=== PATIENT | male | born 1945 | race Caucasian/White ===

== ENCOUNTER → 2018-05-18 | Outpatient (CLI) | payer MEDICARE ==
--- NOTE | 2018-05-18 11:53 | US ---
EXAMINATION TYPE: US liver DATE OF EXAM: 05/18/2018 COMPARISON: NONE CLINICAL HISTORY: 73-year-old male R16.0 Hepatomegaly. TECHNIQUE: Multiple sonographic images of the right upper quadrant are obtained. FINDINGS: EXAM MEASUREMENTS: Liver Length: 12.6 cm Gallbladder Wall: 0.3 cm CBD: 0.2 cm Right Kidney: 11.4 X 5.6 X 5.1 cm Pancreas: Portions of the pancreatic neck and body are visualized. Pancreatic head and tail suboptim ally visualized due to shadowing from bowel gas. Liver: Normal size. No focal lesion seen. Gallbladder: wnl Evidence for sonographic Scott's sign: no CBD: wnl Right Kidney: upper lateral simple cortical cyst =1.3 x 1.3 x 1.4cm. No hydronephrosis. IMPRESSION: No focal liver lesion. Liver measures 12.6 cm which is normal size.
== END | disposition home or self-care (01) ==
LOC: RADUSWWP 07:44
PROVIDERS: ATTEND Internal Medicine Cardiovascular Disease
DX: R16.0 Hepatomegaly, not elsewhere classified (principal)
CPT/HCPCS: 76705

== ENCOUNTER → 2020-04-08 | Outpatient (CLI) | payer MEDICARE ==
[2020-04-08 09:29] LABS: HCT 42.1 % (39.0-53.0); HGB 14.2 gm/dL (13.0-17.5); MCH 32.7 pg (25.0-35.0); MCHC 33.7 g/dL (31.0-37.0); MCV 96.8 fL (80.0-100.0); Mean Platelet Volume 7.9; Platelet Count 152 k/uL (150-450); RBC 4.35 m/uL (4.30-5.90); RDW 12.9 % (11.5-15.5); WBC 7.1 k/uL (3.8-10.6)
[2020-04-08 17:58] LABS: African American GFR (CKD) 84.4 (60.0-200.0); Anion Gap 6.8 mmol/L (4.00-12.00); Calcium 9.2 mg/dL (8.7-10.3); Carbon Dioxide 28.2 mmol/L (21.6-31.8); Non-African American GFR(CKD) 72.8 (60.0-200.0); Potassium 4.5 mmol/L (3.5-5.5)
== END | disposition home or self-care (01) ==
LOC: LABMAIN 08:44
PROVIDERS: ATTEND Internal Medicine Interventional Cardiology
DX: I25.10 Atherosclerotic heart disease of native coronary artery without angina pectoris (principal); N18.9 Chronic kidney disease, unspecified
CPT/HCPCS: 36415; 80048; 85027

== ENCOUNTER 2020-04-24 09:59 | Inpatient (IN) | payer MEDICARE ==
[2020-04-19 12:13] VITALS: BMI 35.7
[~2020-04-24 09:59] MED LIST: ALPRAZolam 0.25 MG TAB PO PRN; ALPRAZolam 0.5 MG TAB PO PRN; ASPIRIN 325 MG TAB PO STA; NITROGLYCERIN SL TABS 0.4 MG TAB SUBLINGUAL PRN; SODIUM CHLORIDE 0.9% 1,000 ML in EMPTY BAG 1 BAG IV ONE
[2020-04-24] MEDS ORDERED: SODIUM CHLORIDE 0.9% 1,000 ML IV ONE (10:16)
[2020-04-24 11:00] LABS: INR 1.2 (<1.2); Prothrombin Time 11.8 sec (9.0-12.0)
[2020-04-24] MEDS ORDERED: MIDAZOLAM 2 MG/2 ML VIAL IVP ONE (12:11)
[2020-04-24] MEDS ORDERED: LIDOCAINE 1% INJ 10MG/ML (20 ML MDV) SQ ONE ×2 (12:11→12:22)
[2020-04-24] MEDS ORDERED: IOPAMIDOL-370 100ML BTL INJ ONE ×2 (12:44→13:23)
[2020-04-24] MEDS ORDERED: HEPARIN SODIUM 1,000 UN/ML (10ML VL) IV ONE ×2 (13:02→13:16)
[2020-04-24] MEDS ORDERED: NITROGLYCERIN 1000MCG/10ML SYRINGE INTRACORON ONE (13:17)
[2020-04-24] MEDS ORDERED: SODIUM CHLORIDE 0.9% 1,000 ML IV SCH (13:45)
--- NOTE | 2020-04-24 16:27 | CC ---
CARDIAC CATHETERIZATION REPORT DATE OF SERVICE: 04/24/2020 PROCEDURE: 1. Left heart catheterization and coronary angiography. 2. IFR assessment of mid LAD lesion. PERFORMED BY: Dr. James Young. Moderate conscious sedation time was 75 minutes. Patient was administered Versed. Oxygen saturation, hemodynamics and EKG were monitored closely. CLINICAL INFORMATION: Mr. Stokes is a 75-year-old gentleman with history of hypertension, hyperlipidemia, and known history of CAD with total occlusion of RCA. He had a cardiac cath in February 2018 at [facility], which revealed total occlusion of RCA with collaterals from the left system. No significant disease of the circumflex with a 50% LAD disease. Because of significant abnormality in the stress test with an inferior wall fixed defect as well as apical reversible defect, he was advised coronary angiography after due discussion regarding risks, benefits, and options. He was advised that I would do a diagnostic catheterization only and then based on findings, may consider a staged intervention if necessary. PROCEDURE NOTE: Under local anesthesia and strict aseptic precautions, I tried to get access to the right radial. I was able to get the access but could not thread the wire. I therefore abandoned and went from the right femoral approach. A 6-Amharic introducer was placed in the right femoral artery under strict aseptic precautions and local anesthesia. Using a standard left Alexandra catheter, I performed selective coronary angiography of the left system. A standard right Alexandra catheter was used to perform selective coronary angiography of the right coronary artery and an LV pressures was also checked with the same catheter. LV gram was not performed. Following this, I went ahead and performed the IFR assessment of LAD. Five thousand (5000) units of heparin was given intravenously. A JL4 guide catheter was used to cannulate the left coronary artery. I used a Verrata wire and with difficulty I was able to get into the LAD because the wire kept going into the diagonal branch. IFR assessment was performed after zeroing and normalization. IFR was found to be significantly abnormal at 0.78 and 0.87. Decision was made to perform staged intervention. An option of bypass surgery would also be discussed. Following this, the wire, sheath and the guide catheter were taken out and manual compression used to secure hemostasis. There was a small hematoma. Patient will be discharged home this evening if stable. FemoStop will be applied. CARDIAC CATHETERIZATION FINDINGS: Left ventricular end-diastolic pressure was about 13-15 mmHg without any gradient across the aortic valve. CORONARY ANGIOGRAPHY FINDINGS: RIGHT CORONARY ARTERY: This vessel is totally occluded, seen as a stump without much antegrade flow. LEFT MAIN CORONARY ARTERY: This is a short patent to moderately calcified vessel, has no significant disease and bifurcates into LAD, circumflex and very small ramus intermedius. Left main itself is free of significant disease. LEFT ANTERIOR DESCENDING CORONARY ARTERY: This is a calcified vessel. It was a very calcified vessel, this vessel gives off a high diagonal branch very proximally and then gives off a septal branch and at the origin of septal branch there is an eccentric 60%- 70% calcified LAD lesion after which the caliber improves and the LAD runs all the way to the apex and supplies a fair amount of myocardium. There are minor diffuse irregularities distally. The LAD provides rich collaterals to the RCA that is totally occluded. It actually opacifies the entire PDA branch. The diagonal branch that comes off from the LAD just before the lesion also has a tight blockage probably up to 80% as it comes off from the main LAD. The origin is very difficult to visualize and this appears to be a decent sized diagonal branch. RAMUS INTERMEDIUS: This is a small vessel free of significant disease. LEFT POSTERIOR CIRCUMFLEX CORONARY ARTERY: Technically a nondominant vessel, minor irregularities, no significant disease. FINAL IMPRESSION: This patient has a total occlusion of RCA, a dominant vessel that is filled by collaterals from the left side and these are rich collaterals. Mostly LAD provides all the collaterals. Normal filling pressures. No significant gradient across the aortic valve. The LAD has a mid lesion of about 70% positive and significant lesion based on the IFR assessment of 0.78 and 0.87. The circumflex and ramus have minor irregularities. No significant disease. The first diagonal branch of LAD also has significant disease and this comes off before the LAD lesion. RECOMMENDATION: I am recommending that we will perform a staged revascularization procedure. Option of percutaneous versus surgical revascularization will be discussed with the patient in the office later this week. I expect he will be discharged later on today. We will watch the groin closely. MMODL / IJN: [id number] /
[2020-04-24 18:27] LABS: Potassium 4.4 mmol/L (3.5-5.1)
[2020-04-24] MEDS: METOPROLOL TARTRATE 50 MG TAB PO SCH (20:02)
[2020-04-24] MEDS: lisinopriL 20 MG TAB PO SCH (20:02)
[2020-04-24] MEDS ORDERED: ZOLPIDEM 5 MG TAB PO PRN (22:19)
[2020-04-24 22:43] LABS: HCT 36.7 % (39.0-53.0); HGB 12.2 gm/dL (13.0-17.5); MCH 32.4 pg (25.0-35.0); MCHC 33.1 g/dL (31.0-37.0); MCV 97.7 fL (80.0-100.0); Mean Platelet Volume 8.4; Platelet Count 156 k/uL (150-450); RBC 3.75 m/uL (4.30-5.90); RDW 12.6 % (11.5-15.5); WBC 14.2 k/uL (3.8-10.6)
[2020-04-24] MEDS: HYDROmorphone 0.5 MG/0.5 ML SYRINGE IVP PRN (23:19)
[2020-04-25] MEDS: HYDROmorphone 0.5 MG/0.5 ML SYRINGE IVP PRN ×2 (04:17→09:24)
[2020-04-25 06:05] LABS: Basophils % (A) 0 %; Eosinophils % (A) 0 %; HCT 33.5 % (39.0-53.0); HGB 10.8 gm/dL (13.0-17.5); Lymphocytes # (A) 1.3 k/uL (1.0-4.8); Lymphocytes % (A) 12 %; MCH 31.8 pg (25.0-35.0); MCHC 32.3 g/dL (31.0-37.0); MCV 98.3 fL (80.0-100.0); Mean Platelet Volume 8.7; Monocytes # (A) 0.8 k/uL (0-1.0); Monocytes % (A) 7 %; Neutrophils % (A) 79 %; Platelet Count 153 k/uL (150-450); RBC 3.41 m/uL (4.30-5.90); RDW 12.8 % (11.5-15.5); WBC 11.5 k/uL (3.8-10.6)
[2020-04-25 06:20] LABS: Calcium 8.5 mg/dL (8.4-10.2); Potassium 4.5 mmol/L (3.5-5.1)
--- NOTE | 2020-04-25 08:19 | US ---
EXAMINATION TYPE: US lower ext pseudo artery RT DATE OF EXAM: 04/25/2020 COMPARISON: NONE CLINICAL HISTORY: right groin hematoma post heart cath. Right groin pain and bruising, heart cath 1 d ay ago EXAM PERFORMED: Grayscale and color Doppler duplex imaging performed of the groin, post cardiac tracee ter to assess for pseudoaneurysm. SIDE PERFORMED: Right Color and Waveform Doppler performed to assess for the presence of pseudoaneurysm; Is there ultrasound evidence of a pseudoaneurysm: yes, measuring 3.8 x 1.6 x 2.2cm. Neck measures 0. 2 cm. Is there evidence of AV shunting: no Nonenlarged 2.3 x 1.4 x 4.4 cm right inguinal lymph node noted. IMPRESSION: 3.8 x 1.6 x 2.2 cm pseudoaneurysm within the right groin, with 0.2 cm neck.
[2020-04-25] MEDS ORDERED: NON FORMULARY DRUG (Glucosamine/Chondr Su A Sod [Osteo Bi-Flex Caplet] 1 EACH Tablet) PO SCH (09:00)
[2020-04-25] MEDS ORDERED: NON FORMULARY DRUG (Omega-3 Fatty Acids/Fish Oil [Fish Oil 1,000 Mg Softgel] 1 EACH Capsul PO SCH (09:00)
[2020-04-25] MEDS ORDERED: WARFARIN 7.5 MG TAB PO SCH (09:00)
--- NOTE | 2020-04-25 09:16 | DS ---
DISCHARGE SUMMARY DATE OF ADMISSION: 04/24/2020 DATE OF DISCHARGE: 04/25/2020 DIAGNOSES: 1. Unstable angina. 2. History of known prior NC. This patient was admitted for elective cardiac cath because of an abnormal stress test suggestive of old inferior NC with christy-infarct ischemia in the distal anteroapical wall as well. He was brought in for the procedure after holding his Coumadin. During the procedure, which was uneventful, he had a coronary angiography performed, LV pressures checked and also I performed FFR of LAD and noted that the IFR was abnormal at 0.78 and 0.87. Post procedure when the sheath was pulled, he had a hematoma and Hep- Lock Femstop was applied. In the extended stay unit, also he had some bleeding requiring holding manual pressure again. However, this morning he is asymptomatic. There is a large area of ecchymosis but a hematoma appears to be small to moderate in size. There is no bruit. Pulses still palpable very well. Blood pressure is 118/70, pulse rate is 70 per minute sinus. No complaints of chest pain or shortness of breath. JVD is evident, S1-S2 heard normally, short systolic murmur noted. Lungs revealed decent air entry. Abdomen is soft. The right groin area has a large area of ecchymosis, small to moderate-sized hematoma, but there is no evidence of any bruit. Distal pulses are palpable. Hemoglobin is 10.8, a drop of about 1.2 g noted. The patient has been hydrated through the night. He is having an ultrasound of the right groin today and if there is a pseudoaneurysm that is comfortable, we will we will request Radiology to see if they can do a compression of the neck of the pseudoaneurysm to close this. If he stable after that, he will be discharged. Until then, I will hold the Coumadin and continue his other medications. If stable, he will be discharged later on today on the same home medications. We will hold Coumadin for the next 48 hours. MMODL / IJN: [id number] /
[2020-04-25] MEDS: LORATADINE 10 MG TAB PO SCH (11:14)
[2020-04-25] MEDS: CHOLECALCIFEROL 1,000 UNIT TAB PO SCH (11:14)
[2020-04-25] MEDS: METOPROLOL TARTRATE 50 MG TAB PO SCH ×2 (11:14→20:25)
[2020-04-25] MEDS: ASCORBIC ACID 500 MG TAB PO SCH (11:14)
[2020-04-25] MEDS: lisinopriL 20 MG TAB PO SCH ×2 (11:14→20:25)
[2020-04-25] MEDS: FUROSEMIDE 20 MG TAB PO SCH (11:14)
[2020-04-25] MEDS: ATORVASTATIN 40 MG TAB PO SCH (11:14)
[2020-04-25] MEDS ORDERED: ONDANSETRON 4 MG/2 ML VIAL IVP STA (12:12)
[2020-04-25] MEDS ORDERED: THROMBIN (BOVINE) 5,000 UNIT VIAL MISCELLANE STA (15:23)
[2020-04-25] MEDS: ASPIRIN 81 MG PO SCH (15:24)
[2020-04-25] MEDS: ACETAMINOPHEN TAB 325 MG TAB PO PRN ×2 (15:34→20:26)
--- NOTE | 2020-04-25 18:23 | US ---
EXAMINATION TYPE: US compress pseudoaneurysm RT DATE OF EXAM: 04/25/2020 COMPARISON: Right groin aneurysm 04/25/2020 at 7:02 AM CLINICAL HISTORY: right groin pseudoaneurysm compression. PROCEDURE PERFORMED: Ultrasound guided compression of right groin pseudoaneurysm SIDE PERFORMED: Right Procedure discussed with the patient. The risks, benefits, and alternatives were discussed with the p atient and all questions were answered. Ultrasound was used to localize the right groin aneurysm and apply continuous visualization during multiple rounds of compression lasting 2 minutes each. There wa s visualization of decreased flow within the pseudoaneurysm sac. Throughout the procedure there was p ulsatile flow within the underlying femoral artery, and both palpable and Doppler dorsalis pedis puls e to the right foot. After the conclusion of the procedure there was significant decreased flow withi n the pseudoaneurysm sac, with persistent flow within the 2 mm neck. IMPRESSION: Decreased flow within the pseudoaneurysm sac status post ultrasound-guided compression, with persiste nt flow within the 2 mm pseudoaneurysm neck. Repeat ultrasound pending.
--- NOTE | 2020-04-25 18:48 | US ---
EXAMINATION TYPE: US lower ext pseudo artery RT DATE OF EXAM: 04/25/2020 COMPARISON: Right groin pseudoaneurysm ultrasound comparison 04/25/2020. CLINICAL HISTORY: post pseudoaneurysm compression. Reassess after compression performed by Dr Rosi walker 2 hours prior EXAM PERFORMED: Grayscale and color Doppler duplex imaging performed of the groin, post cardiac tracee ter and postultrasound-guided compression to assess for pseudoaneurysm. SIDE PERFORMED: right Color and Waveform Doppler performed to assess for the presence of pseudoaneurysm; Is there ultrasound evidence of a pseudoaneurysm: yes, patient still has patency within pseudo in ri ght groin IMPRESSION: Persistent right groin pseudoaneurysm status post ultrasound-guided compression.
--- NOTE | 2020-04-25 19:36 | US ---
EXAMINATION TYPE: US inj pseudoaneurysm DATE OF EXAM: 04/25/2020 COMPARISON: Right groin pseudoaneurysm ultrasounds 04/25/2020, right groin pseudoaneurysm ultrasound- guided compression 04/25/2020. CLINICAL HISTORY: Right groin pseudoaneurysm status post cardiac catheterization 04/24/2020. Status p ost unsuccessful ultrasound guided compression of right pseudoaneurysm 04/25/2020. SET PAINTER: Dr. Renee Stanford PROCEDURE: The procedure was discussed with the patient. All risks, benefits, and alternatives were discussed an d all questions were answered. Informed consent was obtained. Maximal barrier technique was utilized. Ultrasound using sterile technique. The skin overlying the ri t groin pseudoaneurysm was localized with ultrasound and the overlying skin prepped and draped. Lid ocaine used for local anesthesia. 50 U of thrombin were injected into the right pseudoaneurysm under continuous ultrasound visualization. No immediate complication. Postprocedure imaging demonstrates no flow within the pseudoaneurysm sac or neck. During and after the procedure the right foot dorsalis p hiral pulse was maintained, both by palpable and Doppler techniques. IMPRESSION: Status post ultrasound-guided thrombin injection of right groin pseudoaneurysm. Follow-up ultrasound pending 04/26/2020. IMPRESSION:
[2020-04-26 01:41] VITALS: RESP 20
[2020-04-26 04:56] LABS: Prothrombin Time 10.6 sec (9.0-12.0)
[2020-04-26] MEDS ORDERED: BENZONATATE 100 MG CAP PO PRN (07:56)
--- NOTE | 2020-04-26 08:33 | US ---
EXAMINATION TYPE: US lower ext pseudo artery RT DATE OF EXAM: 04/26/2020 COMPARISON: Right lower extremity pseudoaneurysm study one day earlier. CLINICAL HISTORY: pseudoaneurysm s/p cath, s/p thrombin injection. assess groin post thrombin injecti on yesterday EXAM PERFORMED: Grayscale and color Doppler duplex imaging performed of the groin, post cardiac tracee ter to assess for pseudoaneurysm. SIDE PERFORMED: right Color and Waveform Doppler performed to assess for the presence of pseudoaneurysm; Is there ultrasound evidence of a pseudoaneurysm: internal echoes represent thrombus from injection 16hrs prior, no active pseudo seen this am. IMPRESSION: 5 images saved show no suspicious residual blood flow on color images to suggest residual pseudoaneurysm. Satisfactory clotting of pseudoaneurysm noted.
[2020-04-26] MEDS: ASCORBIC ACID 500 MG TAB PO SCH (08:39)
[2020-04-26] MEDS: FUROSEMIDE 20 MG TAB PO SCH (08:39)
[2020-04-26] MEDS: LORATADINE 10 MG TAB PO SCH (08:39)
[2020-04-26] MEDS: ATORVASTATIN 40 MG TAB PO SCH (08:39)
[2020-04-26] MEDS: CHOLECALCIFEROL 1,000 UNIT TAB PO SCH (08:39)
[2020-04-26] MEDS: METOPROLOL TARTRATE 50 MG TAB PO SCH (08:39)
[2020-04-26] MEDS: lisinopriL 20 MG TAB PO SCH (08:39)
[2020-04-26] MEDS: ASPIRIN 81 MG PO SCH (08:39)
[2020-04-26] MEDS: ACETAMINOPHEN TAB 325 MG TAB PO PRN (08:40)
--- NOTE | 2020-04-26 09:23 | US ---
EXAMINATION TYPE: US carotid duplex BILAT DATE OF EXAM: 04/26/2020 COMPARISON: NONE CLINICAL HISTORY: cardiovascular workup post cath . No h/o stroke. EXAM MEASUREMENTS: RIGHT: Peak Systolic Velocity (PSV) cm/sec ----- Right CCA: 75.3 ----- Right ICA: 113.7 ----- Right ECA: 68.5 ICA/CCA ratio: 1.5 RIGHT: End Diastole cm/sec ----- Right CCA: 19.5 ----- Right ICA: 38.9 ----- Right ECA: 7.5 LEFT: Peak Systolic Velocity (PSV) cm/sec ----- Left CCA: 78.7 ----- Left ICA: 95.4 ----- Left ECA: 97.4 ICA/CCA ratio: 1.2 LEFT: End Diastole cm/sec ----- Left CCA: 25.0 ----- Left ICA: 47.4 ----- Left ECA: 17.1 VERTEBRALS (direction of flow): Right Vertebral: Antegrade Left Vertebral: Antegrade Rhythm: Normal IMPRESSION: No evidence of hemodynamically significant stenosis bilaterally. Criteria for Assigning % of Stenosis / Diameter reduction (Estimation based on the indirect measurements of the internal carotid artery velocities (ICA PSV). 1. Normal (no stenosis)=ICA PSV < 125 cm/s: ratio < 2.0: ICA EDV<40 cm/s. 2. Less than 50% stenosis=ICA PSV < 125 cm/s: ratio < 2.0: ICA EDV<40 cm/s. 3. 50 to 69% stenosis=ICA PSV of 125 to 230 cm/s: ration 2.0 ? 4.0: ICA EDV 40-100 cm/s. 4. Greater than 70% stenosis to near occlusion= ICA PSV > 230 cm/s: ratio > 4.0: ICA EDV > 100 cm/s. 5. Near occlusion= ICA PSV velocities may be low or undetectable: variable ratio and ICA EDV. 6. Total occlusion=unable to detect flow.
--- NOTE | 2020-04-26 09:48 | P.GSCN ---
<Suma Wing - Last Filed: 04/26/20 11:54> History of Present Illness Consult date: 04/26/20 Reason for Consult: CAD Requesting physician: Prince Young History of present illness: This is a 75 year old male who follows with Dr. Reyes for primary care and Dr. DESIREE Young for cardiology. He has a previous medical history of coronary art tres disease with previous myocardial infarction, hypertension, hyperlipidemia, paroxysmal atrial fibrillation on Coumadin for anticoagulation, ischemic cardiomyopathy, and current tobacco dependence. He describes symptoms of vertigo beginning 2 years ago and workup discovered prior "silent" myocardial infarction. He underwent heart catheterization at [facility] in [place] with results demonstrating complete occlusion of the RCA with collaterals from the left side, 50%LAD stenosis, and 80% diagonal stenosis. He was treated medically and continued to follow with cardiology. He continues to have occasional vertigo as well as exertional shortness of breath which he contributes to old age and smoking, and which he states has not gotten worse and does joel when he rests. He denies any chest pain or any other symptoms. He did have a stress test earlier this month which was abnormal and he was recommended to have repeat heart catheterization. He was brought to [facility] for elective catheterization and was found to have proximal LAD 35% stenosis, mid LAD with 70% stenosis, diagonal stenosis 80%, [employer] BUILDER of the RCA with collateral fill from the left side. IFR was completed of the LAD which was significant at 0.78 and 0.87. He was to be discharged to home to discuss re vascularization options, however he developed a pseudoaneurysm requiring thrombin injection. Due to his multivessel coronary artery disease, Dr. Alexander from cardiothoracic surgery was consulted for surgical recommendations. Review of Systems Review of systems was completed and was negative except as noted - Constitutional Constitutional Comment(s): complains of significant pain to right groin - Cardiovascular Reports as per HPI, Reports dyspnea on exertion - Neurological Reports as per HPI, Reports vertigo Past Medical History Past Medical History: Atrial Fibrillation, Coronary Artery Disease (CAD), COPD, Hyperlipidemia, Hypertension, Myocardial Infarction (AL) Last Myocardial Infarction Date:: 2017 History of Any Multi-Drug Resistant Organisms: None Reported Past Surgical History: Heart Catheterization, Hernia Repair, Orthopedic Surgery Additional Past Surgical History / Comment(s): rt knee torn meniscus repair, rt knee replacement Past Anesthesia/Blood Transfusion Reactions: No Reported Reaction, Motion Sickness Past Psychological History: No Psychological Hx Reported Smoking Status: Current every day smoker Past Alcohol Use History: None Reported Additional Past Alcohol Use History / Comment(s): smoker since age 11 1/2ppd Past Drug Use History: None Reported - Past Family History Father Family Medical History: Unable to Obtain Mother Family Medical History: Dementia Additional Family Medical History / Comment(s): from aneurysm Medications and Allergies Home Medications Medication Instructions Recorded Confirmed Type Ascorbic Acid [Vitamin C] 1,000 mg PO DAILY 04/19/20 04/24/20 History Aspirin [Adult Low Dose Aspirin EC] 81 mg PO DAILY 04/19/20 04/24/20 History Atorvastatin [Lipitor] 40 mg PO DAILY 04/19/20 04/24/20 History Cetirizine HCl [Zyrtec] 10 mg PO DAILY 04/19/20 04/24/20 History Cholecalciferol [Vitamin D3 (25 1,000 unit PO DAILY 04/19/20 04/24/20 History Mcg = 1000 Iu)] Furosemide [Lasix] 20 mg PO DAILY 04/19/20 04/24/20 History Glucosamine/Chondr Ordoñez A Sod [Osteo 1 each PO DAILY 04/19/20 04/24/20 History Bi-Flex Caplet] Metoprolol Tartrate [Lopressor] 50 mg PO BID 04/19/20 04/24/20 History Berkley-3 Fatty Acids/Fish Oil [Fish 1 each PO DAILY 04/19/20 04/24/20 History Oil 1,000 mg Softgel] Warfarin [Coumadin] 7.5 mg PO SUTUTHSA 04/19/20 04/24/20 History Warfarin [Coumadin] 10 mg PO MOWEFR 04/19/20 04/24/20 History lisinopriL [Zestril] 20 mg PO BID 04/19/20 04/24/20 History Allergies Allergy/AdvReac Type Severity Reaction Status Date / Time Penicillins Allergy Rash/Hives Verified 04/24/20 10:15 Surgical - Exam Vital Signs Temp Pulse Resp BP Pulse Ox 98.1 F 75 16 180/80 98 04/24/20 10:47 04/24/20 10:47 04/24/20 10:47 04/24/20 10:47 04/24/20 10:47 - General well developed, well nourished, no distress, moderate pain, obese - Eyes normal ocular movement - ENT no hearing loss - Neck no masses, no bruits, trachea midline - Respiratory Lung sounds very diminished. Respirations even, non-labored. Currently on room air with oxygen saturation in the low to mid 90s. Strong cough. No chest wall deformities. No clubbing or cyanosis present - Cardiovascular S1/S2 present. Regular rate and rhythm. Currently sinus rhythm on telemetry. Palpable peripheral pulses bilaterally. No edema present - Abdomen Abdomen: soft, non tender, bowel sounds - Genitourinary deferred - Rectum deferred - Integumentary no rash, no growths - Neurologic normal coordination, normal sensation - Musculoskeletal normal gait, normal posture - Psychiatric oriented to time, oriented to person, oriented to place, speech is normal, memory intact Results - Labs 04/25/20 05:25 04/25/20 05:24 - Imaging Additional studies: heart catheterization film reviewed Assessment and Plan Assessment: 1. Coronary artery disease, 70% mid LAD, 80% diagonal, IFR 0.78, 0.87 2. Right groin pseudoaneurysm, S/P repair 3. Previous myocardial infarction 4. Hypertension 5. Hyperlipidemia 6. Paroxysmal atrial fibrillation, on Coumadin for anticoagulation, currently in NSR 7. Ischemic cardiomyopathy 8. Currently tobacco dependence Plan: The patient was seen and examined at the bedside on the cardiac observation unit. The usual perioperative care was discussed in detail with the patient and his , risks and benefits were reviewed, all questions answered. The patient adamantly states he does not want surgery even if it means hastening his . He will be seen by Dr. Alexander this afternoon for further discussion regarding s urgical option. In addition, our contact information was given to the patient and his in case he changes his mind. Continue aspirin, statin, beta ye therapy. Further recommendations once seen by Dr. Alexander. Thank you Dr. Young for this consult. Time with Patient: Greater than 30 <Melonie Alexander - Last Filed: 04/26/20 15:12> Surgical - Exam Vital Signs Temp Pulse Resp BP Pulse Ox 98.1 F 75 16 180/80 98 04/24/20 10:47 04/24/20 10:47 04/24/20 10:47 04/24/20 10:47 04/24/20 10:47 Results - Labs 04/25/20 05:25 04/25/20 05:24 Assessment and Plan Plan: Patient seen and examined. All studies reviewed. Agree with [employer] OPERATOR HELPER's assessment. Old IWMI, EF 40-45%, mild MR, Dyspnea on exertion. 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 Chronic smoker. Patient refusing to even discuss surgery at this point. Will be more than happy to see him as an outpatient should he change his mind for evaluation for potential CABG. Immediate smoking cessation advised. Discussed with dr Young
[2020-04-26 10:17] VITALS: BP 102/58; PULSE 107; TEMP 97.4
--- NOTE | 2020-04-26 10:48 | ECHOF ---
Referral Reason:further workup post cardiac cath MEASUREMENTS -------- HEIGHT: 165.1 cm WEIGHT: 97.5 kg BP: RVIDd: 3.0 cm (< 3.3) IVSd: 1.2 cm (0.6 - 1.1) LVIDd: 4.9 cm (3.9 - 5.3) LVPWd: 1.4 cm (0.6 - 1.1) IVSs: 1.7 cm LVIDs: 3.8 cm LVPWs: 1.6 cm LA Diam: 2.0 cm (2.7 - 3.8) Ao Diam: 3.3 cm (2.0 - 3.7) AV Cusp: 2.4 cm (1.5 - 2.6) MV EXCURSION: 16.399 mm (> 18.000) MV EF SLOPE: 63 mm/s (70 - 150) EPSS: 1.1 cm MV E Fitz: 0.38 m/s MV DecT: 196 ms MV A Fitz: 0.94 m/s MV E/A Ratio: 0.41 RAP: 5.00 mmHg RVSP: 14.73 mmHg FINDINGS -------- Sinus rhythm. This was a techncally difficult study with suboptimal views, , Definity utilized for enhancement of i mages. The left ventricular size is normal. There is mild concentric left ventricular hypertrophy. Overa ll left ventricular systolic function is mildly impaired with, an EF between 45 - 50 %. Inferior Hy pokinesis Basal septal hypokinesis The right ventricle is normal in size. The left atrial size is normal. The right atrial size is normal. The aortic valve is trileaflet, and appears structurally normal. No aortic stenosis or regurgitation. Mild mitral regurgitation is present. Mild tricuspid regurgitation present. Right ventricular systolic pressure is normal at < 35 mmHg. There is no pulmonic regurgitation present. The aortic root size is normal. Echo free space indicative of a pericardial fat pad. CONCLUSIONS -------- 1. This was a techncally difficult study with suboptimal views, , Definity utilized for enhancement o f images. 2. The left ventricular size is normal. 3. There is mild concentric left ventricular hypertrophy. 4. Overall left ventricular systolic function is mildly impaired with, an EF between 45 - 50 %. 5. Inferior Hypokinesis 6. Basal septal hypokinesis 7. The right ventricle is normal in size. 8. The left atrial size is normal. 9. The right atrial size is normal. 10. Mild mitral regurgitation is present. 11. Mild tricuspid regurgitation present. 12. There is no pulmonic regurgitation present. 13. The aortic root size is normal. 14. Echo free space indicative of a pericardial fat pad. BIOLOGICAL SCIENCE TECHNICIAN FISH: Kathleen Harris RDCS
--- NOTE | 2020-04-26 11:02 | DS ---
DISCHARGE SUMMARY DATE OF ADMISSION: 04/24/2020 DATE OF DISCHARGE: 04/26/2020 DIAGNOSES: 1. Unstable angina. 2. Hypertension. 3. Hyperlipidemia. This patient was admitted for elective cardiac cath in view of an abnormal stress test in addition to inferior fixed defect. There was also an apical reversibility, ejection fraction in the 40% range. Cardiac cath and IFR of LAD revealed that LAD had a significant lesion and diagonal had a 90% ostial lesion. RCA was totally occluded, filled by collaterals. Echo will be performed today and a carotid Doppler. Post procedure, he had a pseudoaneurysm requiring a compression by ultrasound guidance, which did not help and then had a thrombin injection yesterday. This morning, clinically the site looks good. He is going to have a repeat ultrasound and if this is normal, he will be discharged. Given his LV dysfunction and significant disease in the calcified LAD, diagonal, and RCA, I am recommending aortocoronary bypass surgery and patient will be seen by Dr. Alexander today. I discussed this with the patient and and patient can be discharged after evaluation by cardiac surgery, echocardiogram and a carotid Doppler. Surgery can be performed electively. In the interim, he will continue same medications. He will resume anticoagulation after I see him in the office on Friday. He has already a scheduled appointment. Vital signs are stable, blood pressure is 128/70, pulse rate is about 86 per minute. HEENT: Unremarkable. Fundus was not examined by me. NECK" Supple, there is JVD of 1 cm. No carotid bruit. HEART: Exam reveals S1, S2 with a short systolic murmur. LUNGS: Reveal bilateral fairly decent air entry. ABDOMEN: Soft. LOWER EXTREMITIES: Reveal palpable distal pulses. Right groin has a large area of ecchymosis, moderate-sized hematoma, but no significant bruit. He will be discharged later on today after we review the ultrasound report and after seen by Cardiac Surgery and I will see him in the office as scheduled on Friday. MMODL / IJN: [id number] /
--- NOTE | 2020-04-26 14:40 | P.PN ---
Progress Note - Text Progress Note Date: 04/26/20 Patient was evaluated by cardiothoracic surgery. Patient is adamant against having surgical intervention at this time. He was given the contact information to CTS in the event that he changes his mind. Patient remains stable. He may be discharged home today. He is to follow up with Dr. Young on 04/28/2020.
== END 2020-04-26 15:10 | disposition home or self-care (01) | DRG 287 ==
LOC: CATHCVL 09:59 → 3NCARDOBS 13:55 → CATHCVL 04-25 15:22 → 3NCARDOBS 04-25 15:38
PROVIDERS: ADMIT Internal Medicine Interventional Cardiology; ATTEND Internal Medicine Interventional Cardiology
PROC: B2151ZZ Fluoroscopy of Left Heart using Low Osmolar Contrast (ICD-10-PCS; principal; 2020-04-24 12:00)
PROC: B2111ZZ Fluoroscopy of Multiple Coronary Arteries using Low Osmolar Contrast (ICD-10-PCS; principal; 2020-04-24 12:00)
PROC: 4A023N7 Measurement of Cardiac Sampling and Pressure, Left Heart, Percutaneous Approach (ICD-10-PCS; principal; 2020-04-24 12:00)
PROC: 3E053GC Introduction of Other Therapeutic Substance into Peripheral Artery, Percutaneous Approach (ICD-10-PCS; 2020-04-25)
DX: T81.718A Complication of other artery following a procedure, not elsewhere classified, initial encounter (principal); I25.110 Atherosclerotic heart disease of native coronary artery with unstable angina pectoris; I25.82 Chronic total occlusion of coronary artery; I48.0 Paroxysmal atrial fibrillation; J44.9 Chronic obstructive pulmonary disease, unspecified; I72.4 Aneurysm of artery of lower extremity; E78.5 Hyperlipidemia, unspecified; F17.210 Nicotine dependence, cigarettes, uncomplicated; I10 Essential (primary) hypertension; I25.2 Old myocardial infarction; I25.5 Ischemic cardiomyopathy; R01.1 Cardiac murmur, unspecified; I70.219 Atherosclerosis of native arteries of extremities with intermittent claudication, unspecified extremity; Z79.01 Long term (current) use of anticoagulants; Z79.02 Long term (current) use of antithrombotics/antiplatelets; Z79.899 Other long term (current) drug therapy; Z88.5 Allergy status to narcotic agent; Z88.0 Allergy status to penicillin; Y84.0 Cardiac catheterization as the cause of abnormal reaction of the patient, or of later complication, without mention of misadventure at the time of the procedure; Y92.239 Unspecified place in hospital as the place of occurrence of the external cause
CPT/HCPCS: 36002; 76936; 80048; 83880; 85025; 85027; 85610; 93306; 93458; 93571; 93880; 93975

== ENCOUNTER → 2020-04-28 | Outpatient (CLI) | payer MEDICARE ==
[2020-04-28 10:06] LABS: HCT 28.5 % (39.0-53.0); Hypochromasia Slight; MCV 100.1 fL (80.0-100.0); Mean Platelet Volume 9.7; Platelet Count 139 k/uL (150-450); RBC 2.85 m/uL (4.30-5.90); RDW 13.3 % (11.5-15.5); WBC 6.7 k/uL (3.8-10.6)
[2020-04-28 10:23] LABS: African American GFR (CKD) 79 (>60 ml/min/1.73 sqM); Anion Gap 5 mmol/L; Blood Urea Nitrogen 33 mg/dL (9-20); Calcium 8.8 mg/dL (8.4-10.2); Carbon Dioxide 27 mmol/L (22-30); Chloride 107 mmol/L (98-107); Glucose 114 mg/dL (74-99); Non-African American GFR(CKD) 68 (>60 ml/min/1.73 sqM); Potassium 4.5 mmol/L (3.5-5.1); Sodium 139 mmol/L (137-145)
[2020-04-28 10:38] LABS: HGB 9.1 gm/dL (13.0-17.5)
== END | disposition home or self-care (01) ==
LOC: LABWHC1 09:26
PROVIDERS: ATTEND Internal Medicine Interventional Cardiology
DX: I25.10 Atherosclerotic heart disease of native coronary artery without angina pectoris (principal); D64.9 Anemia, unspecified
CPT/HCPCS: 36415; 80048; 85027

== ENCOUNTER → 2021-03-15 | Outpatient (CLI) | payer MEDICARE ==
--- NOTE | 2021-03-15 13:51 | XR ---
Lumbosacral spine HISTORY: Low back pain 5 views lumbosacral spine, no comparisons Bone mineralization is reduced. L1 vertebral body shows anterior wedge compression deformity with los s of height of approximately 25-50% anteriorly. There may be some minimal retropulsion. Anterolisthes is grade 1 L4-5. Some loss of disc height at intervertebral levels. Sclerosis is present in the poste rior elements. Atherosclerotic calcification present in the aortoiliac distribution. No evident spond ylolysis. IMPRESSION: Osteoporotic compression fracture L1. Degenerative disc disease, facet arthropathy.
== END | disposition home or self-care (01) ==
LOC: RADXRYALE 11:32
PROVIDERS: ATTEND Physician Assistant Medical
DX: M80.08XA Age-related osteoporosis with current pathological fracture, vertebra(e), initial encounter for fracture (principal); M51.36 Other intervertebral disc degeneration, lumbar region; M47.816 Spondylosis without myelopathy or radiculopathy, lumbar region
CPT/HCPCS: 72110

== ENCOUNTER → 2021-06-14 | Outpatient (CLI) | payer MEDICARE ==
--- NOTE | 2021-06-14 11:39 | XR ---
EXAMINATION TYPE: XR chest 2V DATE OF EXAM: 06/14/2021 COMPARISON: NONE TECHNIQUE: PA and lateral views submitted. HISTORY: Chronic cough FINDINGS: Right lower lobe infiltrate. Heart is stable. There is hyperinflation. No pneumothorax. Severe compre ssion deformity lower lumbar spine. There is additional compression deformities and degenerative jiang ges. IMPRESSION: 1. Right lower lobe infiltrate correlate for pneumonia. 2. COPD 3. Severe compression deformity thoracolumbar junction appears progressed from 03/15/2021 correlate cl inically.
== END | disposition home or self-care (01) ==
LOC: RADXRYALE 10:32
PROVIDERS: ATTEND Physician Assistant Medical
DX: J44.9 Chronic obstructive pulmonary disease, unspecified (principal); R91.8 Other nonspecific abnormal finding of lung field
CPT/HCPCS: 71046

== ENCOUNTER → 2021-07-16 | Outpatient (CLI) | payer MEDICARE ==
--- NOTE | 2021-07-16 13:08 | XR ---
EXAMINATION TYPE: XR chest 2V DATE OF EXAM: 07/16/2021 COMPARISON: Chest x-ray 06/14/2021 HISTORY: Shortness of breath TECHNIQUE: Frontal and lateral views of the chest are obtained. FINDINGS: Multi level compression deformities at the thoracic and lumbar spine again noted with slig ht kyphosis. Patchy density has become more confluent in the right lung base, the right hemidiaphragm is obscured, there is a spinal curvature. No evident pneumothorax. Cardiac mediastinal silhouette sh ows a similar appearance. Aorta is dense. Prominent lung volumes suggest underlying COPD. IMPRESSION: Correlate for right lower lobe pneumonia versus atelectasis, difficult to exclude associ ated effusion
== END | disposition home or self-care (01) ==
LOC: RADXRYALE 10:03
PROVIDERS: ATTEND Physician Assistant Medical
DX: R06.02 Shortness of breath (principal)
CPT/HCPCS: 71046

== ENCOUNTER 2021-07-17 08:16 | Inpatient (IN) | payer MEDICARE ==
--- NOTE | 2021-07-17 08:59 | ED ---
General Adult HPI - General Chief complaint: Shortness of Breath Stated complaint: SOB-revisit Time Seen by Provider: 07/17/21 08:26 Source: patient, family Mode of arrival: wheelchair Limitations: no limitations - History of Present Illness Initial comments: Patient is a 76-year-old male with a history of COPD, [place], [place], who presents to the emergency department with chief complaint of shortness of breath 1 week. Patient states he is constantly short of breath worsening throughout the week. Patient normally moves without limitation or oxygen at home, but currently cannot walk a few steps without feeling SOB. SOB is exacerbated with movement. Patient also reports general weakness, fatigue, and cough with green sputum that began 1 week ago. Patient denies chest pain, fever, chills, headache, sore throat, and abdominal pain. He reports that he is vaccinated and boosted with no recent sick contacts. Patient did get an outpatient CXR yesterday which had concern for right lower lobe pneumonia. Patient mentions he had pneumonia about a month ago which cleared up after taking an unknown antibiotic. -: week(s) (one) Location: chest Radiation: non-radiation Quality: constant Consistency: constant Improves with: rest Worsens with: movement Associated Symptoms: cough Treatments Prior to Arrival: none - Related Data Home Medications Medication Instructions Recorded Confirmed Aspirin [Adult Low Dose Aspirin EC] 81 mg PO DAILY 04/19/20 07/17/21 Atorvastatin [Lipitor] 40 mg PO HS 04/19/20 07/17/21 Cetirizine HCl [Zyrtec] 10 mg PO DAILY 04/19/20 07/17/21 Furosemide [Lasix] 20 mg PO DAILY 04/19/20 07/17/21 Metoprolol Tartrate [Lopressor] 75 mg PO BID 04/19/20 07/17/21 lisinopriL [Zestril] 20 mg PO BID 04/19/20 07/17/21 Warfarin [Coumadin] 5 mg PO SUMOTUTHFR 07/17/21 07/17/21 Warfarin [Coumadin] 7.5 mg PO WESA 07/17/21 07/17/21 Allergies Allergy/AdvReac Type Severity Reaction Status Date / Time codeine Allergy Unknown Verified 07/17/21 10:57 Penicillins Allergy Rash/Hives Verified 07/17/21 10:50 Review of Systems ROS Statement: Those systems with pertinent positive or pertinent negative responses have been documented in the HPI. ROS Other: All systems not noted in ROS Statement are negative. Constitutional: Reports: weakness. Denies: fever, chills ENT: Denies: ear pain, throat pain Respiratory: Reports: cough, dyspnea Past Medical History Past Medical History: Atrial Fibrillation, Coronary Artery Disease (CAD), COPD, Hyperlipidemia, Hypertension, Myocardial Infarction ([place]) Last Myocardial Infarction Date:: 2017 History of Any Multi-Drug Resistant Organisms: None Reported Past Surgical History: Heart Catheterization, Hernia Repair, Orthopedic Surgery Additional Past Surgical History / Comment(s): rt knee torn meniscus repair, rt knee replacement Past Anesthesia/Blood Transfusion Reactions: No Reported Reaction, Motion Sickness Past Psychological History: No Psychological Hx Reported Smoking Status: Current every day smoker Past Alcohol Use History: None Reported Past Drug Use History: None Reported - Past Family History Father Family Medical History: Unable to Obtain Mother Family Medical History: Dementia Additional Family Medical History / Comment(s): from aneurysm General Exam Limitations: no limitations General appearance: alert Head exam: Present: atraumatic, normocephalic, normal inspection Eye exam: Present: normal appearance, PERRL, EOMI. Absent: scleral icterus, conjunctival injection, periorbital swelling ENT exam: Present: normal exam, normal oropharynx, mucous membranes moist Neck exam: Present: normal inspection, full ROM. Absent: tenderness Respiratory exam: Present: normal lung sounds bilaterally. Absent: wheezes, rales, rhonchi Cardiovascular Exam: Present: regular rate, normal rhythm, normal heart sounds GI/Abdominal exam: Present: soft. Absent: distended, tenderness, guarding Course Vital Signs 07/17/21 07/17/21 07/17/21 08:17 08:36 10:33 Temperature 96.9 F L 97.3 F L Pulse Rate 88 96 94 Respiratory 18 20 12 Rate Blood Pressure 111/72 135/95 120/76 O2 Sat by Pulse 88 L 92 L 94 L Oximetry 07/17/21 11:52 Temperature Pulse Rate 96 Respiratory 20 Rate Blood Pressure 121/76 O2 Sat by Pulse 97 Oximetry EKG Findings - EKG Comments: EKG Findings:: normal sinus rhythm, nonspecific T-wave abnormality, 94 bpm, IL 136, QRS duration 98, QTC 358/447 Medical Decision Making - Medical Decision Making This is a 76-year-old male with shortness of breath 1 week. Troponin elevated at 0.223. Will trend as patient has no chest pain and unremarkable EKG, unchanged from previous. Chest x-ray shows right lower lobe infiltrate, small effusion stable, and a vague nodule right upper lobe, recommend CT of the chest to exclude neoplasm. patient will be admitted for heart failure treatment. Pneumonia treatment pending procalcitonin value per Dr. Berry. - Lab Data Result diagrams: 07/17/21 09:05 07/17/21 09:05 Lab Results 07/17/21 07/17/21 07/17/21 Range/Units 07:29 09:05 09:05 WBC 10.0 (3.8-10.6) k/uL RBC 3.80 L (4.30-5.90) m/uL Hgb 12.1 L (13.0-17.5) gm/dL Hct 37.5 L (39.0-53.0) % MCV 98.6 (80.0-100.0) fL MCH 31.7 (25.0-35.0) pg MCHC 32.2 (31.0-37.0) g/dL RDW 14.1 (11.5-15.5) % Plt Count 114 L (150-450) k/uL MPV 8.8 Neutrophils % 80 % Lymphocytes % 11 % Monocytes % 6 % Eosinophils % 0 % Basophils % 0 % Neutrophils # 8.0 H (1.3-7.7) k/uL Lymphocytes # 1.1 (1.0-4.8) k/uL Monocytes # 0.6 (0-1.0) k/uL Eosinophils # 0.0 (0-0.7) k/uL Basophils # 0.0 (0-0.2) k/uL Hypochromasia Slight PT 53.4 H (9.0-12.0) sec INR 5.5 H* (<1.2) APTT 36.3 H (22.0-30.0) sec Sodium (137-145) mmol/L Potassium (3.5-5.1) mmol/L Chloride (98-107) mmol/L Carbon Dioxide (22-30) mmol/L Anion Gap mmol/L BUN (9-20) mg/dL Creatinine (0.66-1.25) mg/dL Est GFR (CKD-EPI)AfAm (>60 ml/min/1.73 sqM) Est GFR (CKD-EPI)NonAf (>60 ml/min/1.73 sqM) Glucose (74-99) mg/dL Plasma Lactic Acid Bob (0.7-2.0) mmol/L Calcium (8.4-10.2) mg/dL Magnesium (1.6-2.3) mg/dL Total Bilirubin (0.2-1.3) mg/dL AST (17-59) U/L ALT (4-49) U/L Alkaline Phosphatase (38-126) U/L Troponin I (0.000-0.034) ng/mL NT-Pro-B Natriuret Pep pg/mL Total Protein (6.3-8.2) g/dL Albumin (3.5-5.0) g/dL Coronavirus (PCR) Not Detected (Not Detectd) 07/17/21 07/17/21 07/17/21 Range/Units 09:05 09:05 09:05 WBC (3.8-10.6) k/uL RBC (4.30-5.90) m/uL Hgb (13.0-17.5) gm/dL Hct (39.0-53.0) % MCV (80.0-100.0) fL MCH (25.0-35.0) pg MCHC (31.0-37.0) g/dL RDW (11.5-15.5) % Plt Count (150-450) k/uL MPV Neutrophils % % Lymphocytes % % Monocytes % % Eosinophils % % Basophils % % Neutrophils # (1.3-7.7) k/uL Lymphocytes # (1.0-4.8) k/uL Monocytes # (0-1.0) k/uL Eosinophils # (0-0.7) k/uL Basophils # (0-0.2) k/uL Hypochromasia PT (9.0-12.0) sec INR (<1.2) APTT (22.0-30.0) sec Sodium 135 L (137-145) mmol/L Potassium 5.1 (3.5-5.1) mmol/L Chloride 102 (98-107) mmol/L Carbon Dioxide 23 (22-30) mmol/L Anion Gap 10 mmol/L BUN 56 H (9-20) mg/dL Creatinine 1.84 H (0.66-1.25) mg/dL Est GFR (CKD-EPI)AfAm 40 (>60 ml/min/1.73 sqM) Est GFR (CKD-EPI)NonAf 35 (>60 ml/min/1.73 sqM) Glucose 98 (74-99) mg/dL Plasma Lactic Acid Bob 1.8 (0.7-2.0) mmol/L Calcium 10.2 (8.4-10.2) mg/dL Magnesium 1.8 (1.6-2.3) mg/dL Total Bilirubin 1.2 (0.2-1.3) mg/dL AST 54 (17-59) U/L ALT 22 (4-49) U/L Alkaline Phosphatase 110 (38-126) U/L Troponin I 0.223 H* (0.000-0.034) ng/mL NT-Pro-B Natriuret Pep pg/mL Total Protein 8.2 (6.3-8.2) g/dL Albumin 4.0 (3.5-5.0) g/dL Coronavirus (PCR) (Not Detectd) 07/17/21 Range/Units 09:05 WBC (3.8-10.6) k/uL RBC (4.30-5.90) m/uL Hgb (13.0-17.5) gm/dL Hct (39.0-53.0) % MCV (80.0-100.0) fL MCH (25.0-35.0) pg MCHC (31.0-37.0) g/dL RDW (11.5-15.5) % Plt Count (150-450) k/uL MPV Neutrophils % % Lymphocytes % % Monocytes % % Eosinophils % % Basophils % % Neutrophils # (1.3-7.7) k/uL Lymphocytes # (1.0-4.8) k/uL Monocytes # (0-1.0) k/uL Eosinophils # (0-0.7) k/uL Basophils # (0-0.2) k/uL Hypochromasia PT (9.0-12.0) sec INR (<1.2) APTT (22.0-30.0) sec Sodium (137-145) mmol/L Potassium (3.5-5.1) mmol/L Chloride (98-107) mmol/L Carbon Dioxide (22-30) mmol/L Anion Gap mmol/L BUN (9-20) mg/dL Creatinine (0.66-1.25) mg/dL Est GFR (CKD-EPI)AfAm (>60 ml/min/1.73 sqM) Est GFR (CKD-EPI)NonAf (>60 ml/min/1.73 sqM) Glucose (74-99) mg/dL Plasma Lactic Acid Bob (0.7-2.0) mmol/L Calcium (8.4-10.2) mg/dL Magnesium (1.6-2.3) mg/dL Total Bilirubin (0.2-1.3) mg/dL AST (17-59) U/L ALT (4-49) U/L Alkaline Phosphatase (38-126) U/L Troponin I (0.000-0.034) ng/mL NT-Pro-B Natriuret Pep 8070 pg/mL Total Protein (6.3-8.2) g/dL Albumin (3.5-5.0) g/dL Coronavirus (PCR) (Not Detectd) Disposition Clinical Impression: Congestive heart failure, Hypoxemia, Elevated troponin, LAURIE (acute kidney injury) Disposition: ADMITTED IP TO THIS HOSP Condition: Fair Referrals: Danielle Diaz, PAC [Family Provider] - 1-2 days Time of Disposition: 12:07
[2021-07-17 09:21] LABS: Basophils % (A) 0 %; Eosinophils % (A) 0 %; HCT 37.5 % (39.0-53.0); HGB 12.1 gm/dL (13.0-17.5); Hypochromasia Slight; Lymphocytes # (A) 1.1 k/uL (1.0-4.8); Lymphocytes % (A) 11 %; MCH 31.7 pg (25.0-35.0); MCHC 32.2 g/dL (31.0-37.0); MCV 98.6 fL (80.0-100.0); Mean Platelet Volume 8.8; Monocytes # (A) 0.6 k/uL (0-1.0); Monocytes % (A) 6 %; Neutrophils % (A) 80 %; RDW 14.1 % (11.5-15.5)
[2021-07-17 09:31] LABS: Platelet Count 114 k/uL (150-450)
[2021-07-17 09:36] LABS: Calcium 10.2 mg/dL (8.4-10.2); Total Bilirubin 1.2 mg/dL (0.2-1.3); Total Protein 8.2 g/dL (6.3-8.2)
[2021-07-17 09:38] LABS: Potassium 5.1 mmol/L (3.5-5.1)
[2021-07-17 09:39] LABS: Magnesium 1.8 mg/dL (1.6-2.3)
[2021-07-17 09:45] LABS: Partial Thromboplastin Time 36.3 sec (22.0-30.0); Prothrombin Time 53.4 sec (9.0-12.0)
[2021-07-17 09:50] LABS: INR 5.5 (<1.2)
--- NOTE | 2021-07-17 10:17 | XR ---
EXAMINATION TYPE: XR chest 2V DATE OF EXAM: 07/17/2021 COMPARISON: 07/16/2021 TECHNIQUE: PA and lateral views submitted. HISTORY: Difficulty breathing FINDINGS: Persistent right lower lobe infiltrate and small effusion similar to the prior exam. Vague nodule rig ht upper lobe. Underlying mass in the differential diagnosis. Left lung clear. Heart size enlarged. N o overt failure. Underlying COPD. Diffuse osteopenia and arthropathy of the shoulders. IMPRESSION: 1. Right lower lobe infiltrate and small effusion stable. 2. Vague nodule right upper lobe recommend CT of the chest to exclude neoplasm.
[2021-07-17] MEDS ORDERED: FUROSEMIDE 10 MG/ML 4 ML VIAL IV STA (10:47)
--- NOTE | 2021-07-17 11:41 | P.HPIM ---
History of Present Illness Patient is a pleasant 76-year-old male came in with complaints of cough shortness of breath greenish sputum production. Patient had laryngitis for 2 weeks and started having shortness of breath couple days ago along with the cough with sputum production. Patient had right-sided pleural effusion on the chest x-ray can be parapneumonic. Patient also has highly elevated BNP although clinically patient denied any significant orthopnea, proximal nocturnal dyspnea patient doesn't have any significant elevated JVD or pedal edema. Patient does use 20 mg of Lasix patient's previous BNP was within normal limits. Patient had an echocardiogram in 2019 which showed normal ejection fraction. Patient also has significant carotid disease and patient presently has mildly elevated troponin of 0.223, because of which cardio he was consulted patient was not started on any heparin because of the supraglottic INR of around 5. Patient does use Coumadin at home for atrial fibrillation. Patient has a serum creatinine of 1.84 with baseline of around 0.8. Patient also has a small pulmonary nodule as well which need to be followed as an outpatient. REVIEW OF SYSTEMS: CONSTITUTIONAL: No fever, no malaise, no fatigue. HEENT: No recent visual problems or hearing problems. Denied any sore throat. CARDIOVASCULAR: No chest pain, orthopnea, PND, no palpitations, no syncope. PULMONARY: As mentioned in HPI GASTROINTESTINAL: No diarrhea, no nausea, no vomiting, no abdominal pain. NEUROLOGICAL: No headaches, no weakness, no numbness. HEMATOLOGICAL: Denies any bleeding or petechiae. GENITOURINARY: Denies any burning micturition, frequency, or urgency. MUSCULOSKELETAL/RHEUMATOLOGICAL: Denies any joint pain, swelling, or any muscle pain. ENDOCRINE: Denies any polyuria or polydipsia. The rest of the 14-point review of systems is negative. PHYSICAL EXAMINATION: GENERAL: The patient is alert and oriented x3, not in any acute distress. Well developed, well nourished. HEENT: Pupils are round and equally reacting to light. EOMI. No scleral icterus. No conjunctival pallor. Normocephalic, atraumatic. No pharyngeal erythema. No thyromegaly. CARDIOVASCULAR: S1 and S2 present. No murmurs, rubs, or gallops. PULMONARY: Chest is clear to auscultation, no wheezing or crackles. ABDOMEN: Soft, nontender, nondistended, normoactive bowel sounds. No palpable organomegaly. MUSCULOSKELETAL: No joint swelling or deformity. EXTREMITIES: No cyanosis, clubbing, or pedal edema. NEUROLOGICAL: Gross neurological examination did not reveal any focal deficits. SKIN: No rashes. Assessment and plan Plan shortness of breath: Patient's symptomatology is mostly consistent with the right lower lobe pneumonia and parapneumonic effusion although patient may have a competent of mild CHF exacerbation as well as patient will be started on antibiotics once we obtain pro-calcitonin level. Patient will also be started on low-dose of diuretics. -Acute renal failure prerenal probably secondary to heart failure patient had a normal ejection fraction the past patient may have chronic diastolic dysfunction with acute exacerbation -Mild elevation of troponin can be secondary to sepsis although patient has significant coronary artery disease with complete occlusion of RCA with collaterals and significant coronary artery disease in the rest of the coronary vasculature. Because of which cardio etiology was consulted. Patient has suprapubic and off because of which patient is not in any IV heparin -Atrial fibrillation: Paroxysmal presently sinus rhythm with some nonspecific ST-T wave changes, patient will be can you done 9 his rate control medications Coumadin is being held because of suprapubic and off. -Coronary artery disease -Hyperlipidemia -Hypertension -COPD without any acute exacerbation patient doesn't use any oxygen at home. DVT prophylaxis: Patient's INR is supratherapeutic Past Medical History Past Medical History: Atrial Fibrillation, Coronary Artery Disease (CAD), COPD, Hyperlipidemia, Hypertension, Myocardial Infarction ([place]) Last Myocardial Infarction Date:: 2017 History of Any Multi-Drug Resistant Organisms: None Reported Past Surgical History: Heart Catheterization, Hernia Repair, Orthopedic Surgery Additional Past Surgical History / Comment(s): rt knee torn meniscus repair, rt knee replacement Past Anesthesia/Blood Transfusion Reactions: No Reported Reaction, Motion Sickness Past Psychological History: No Psychological Hx Reported Smoking Status: Current every day smoker Past Alcohol Use History: None Reported Past Drug Use History: None Reported - Past Family History Father Family Medical History: Unable to Obtain Mother Family Medical History: Dementia Additional Family Medical History / Comment(s): from aneurysm Medications and Allergies Home Medications Medication Instructions Recorded Confirmed Type Aspirin [Adult Low Dose Aspirin EC] 81 mg PO DAILY 04/19/20 07/17/21 History Atorvastatin [Lipitor] 40 mg PO HS 04/19/20 07/17/21 History Cetirizine HCl [Zyrtec] 10 mg PO DAILY 04/19/20 07/17/21 History Furosemide [Lasix] 20 mg PO DAILY 04/19/20 07/17/21 History Metoprolol Tartrate [Lopressor] 75 mg PO BID 04/19/20 07/17/21 History lisinopriL [Zestril] 20 mg PO BID 04/19/20 07/17/21 History Warfarin [Coumadin] 5 mg PO SUMOTUTHFR 07/17/21 07/17/21 History Warfarin [Coumadin] 7.5 mg PO WESA 07/17/21 07/17/21 History Allergies Allergy/AdvReac Type Severity Reaction Status Date / Time codeine Allergy Unknown Verified 07/17/21 10:57 Penicillins Allergy Rash/Hives Verified 07/17/21 10:50 Physical Exam Vitals: Vital Signs Temp Pulse Resp BP Pulse Ox 07/17/21 10:33 97.3 F L 94 12 120/76 94 L 07/17/21 08:36 96 20 135/95 92 L 07/17/21 08:17 96.9 F L 88 18 111/72 88 L Intake and Output 07/16/21 07/17/21 07/17/21 22:59 06:59 14:59 Other: Weight 81.647 kg Results CBC & Chem 7: 07/17/21 09:05 07/17/21 09:05 Labs: Abnormal Lab Results - Last 24 Hours (Table) 07/17/21 07/17/21 07/17/21 Range/Units 09:05 09:05 09:05 RBC 3.80 L (4.30-5.90) m/uL Hgb 12.1 L (13.0-17.5) gm/dL Hct 37.5 L (39.0-53.0) % Plt Count 114 L (150-450) k/uL Neutrophils # 8.0 H (1.3-7.7) k/uL PT 53.4 H (9.0-12.0) sec INR 5.5 H* (<1.2) APTT 36.3 H (22.0-30.0) sec Sodium 135 L (137-145) mmol/L BUN 56 H (9-20) mg/dL Creatinine 1.84 H (0.66-1.25) mg/dL Troponin I (0.000-0.034) ng/mL 07/17/21 Range/Units 09:05 RBC (4.30-5.90) m/uL Hgb (13.0-17.5) gm/dL Hct (39.0-53.0) % Plt Count (150-450) k/uL Neutrophils # (1.3-7.7) k/uL PT (9.0-12.0) sec INR (<1.2) APTT (22.0-30.0) sec Sodium (137-145) mmol/L BUN (9-20) mg/dL Creatinine (0.66-1.25) mg/dL Troponin I 0.223 H* (0.000-0.034) ng/mL
[2021-07-17] MEDS: ATORVASTATIN 40 MG TAB PO SCH (21:58)
[2021-07-17] MEDS: FUROSEMIDE 10 MG/ML 2 ML VIAL IV SCH (21:58)
[2021-07-18 08:28] LABS: HCT 37.7 % (39.0-53.0); HGB 12.1 gm/dL (13.0-17.5); Hypochromasia Slight; MCH 32.2 pg (25.0-35.0); MCV 100.4 fL (80.0-100.0); Macrocytosis Slight; Mean Platelet Volume 8.9; Platelet Count 130 k/uL (150-450); RBC 3.75 m/uL (4.30-5.90); RDW 14.1 % (11.5-15.5)
[2021-07-18] MEDS ORDERED: lisinopriL 20 MG TAB PO SCH (09:00)
[2021-07-18] MEDS ORDERED: FUROSEMIDE 20 MG TAB PO SCH (09:00)
[2021-07-18 09:04] LABS: Calcium 10.1 mg/dL (8.4-10.2); Magnesium 1.8 mg/dL (1.6-2.3); Potassium 4.5 mmol/L (3.5-5.1)
[2021-07-18] MEDS: LORATADINE 10 MG TAB PO SCH (09:54)
[2021-07-18] MEDS: FUROSEMIDE 10 MG/ML 2 ML VIAL IV SCH ×2 (09:54→20:26)
[2021-07-18] MEDS: ASPIRIN 81 MG PO SCH (09:54)
[2021-07-18] MEDS: METOPROLOL TARTRATE 25 MG TAB PO SCH ×2 (09:54→20:26)
[2021-07-18] MEDS ORDERED: ACETAMINOPHEN TAB 325 MG TAB PO STA (12:11)
--- NOTE | 2021-07-18 12:36 | P.CRDCN ---
History of Present Illness History of present illness: HISTORY OF PRESENTING ILLNESS This is a pleasant 76-year-old male past medical history significant for chronic persistent atrial fibrillation on Coumadin, coronary artery disease with known o cclusion of the LAD which he opted for medical therapy, hypertension, hyperlipidemia, ischemic cardiomyopathy. He follows in the office with Dr. Young. We have been asked to see in consultation for congestive heart failure. Patient presents emergency department with complaints of shortness of breath, congestion, cough, green sputum. He states he was diagnosed with meningitis 2 weeks ago. And for about one week has been having symptoms of congestion, cough, green sputum. Some worsening shortness of breath with exertion and with activity. He denies any chest pain, orthopnea, PND, edema. DIAGNOSTICS EKG reveals sinus rhythm, heart rate 94, T wave inversion in inferior leads, nonspecific ST-T wave abnormalities Chest xray right lower lobe infiltrate and small effusion stable. Vague nodule right upper lobe echo and CT chest to exclude neoplasm. Laboratory reviewed, WBC 10, hemoglobin 12.1, platelets 114, INR 5.5, sodium 135, potassium 5.1, BUN 56, serum creatinine 1.8, magnesium 1.8, troponin 0.2, proBNP 8070, covid negative Most recent echocardiogram 03/2020 revealed EF 4550 percent, inferior hypokinesis, basal septal hypokinesis, mild mitral regurgitation, mild tricuspid regurgitation Cardiac catheterization 03/2020 revealed total occlusion of dominant RCA filled by collaterals from left, mid LAD has 6070 percent lesion, abnormal IFR, circumflex and ramus have minor irregularities. Diagonal LAD has 90% stenosis. Patient opted medical therapy at that time Current cardiac medications include Coumadin, atorvastatin 40 mg nightly, aspirin 81 mg daily, metoprolol titrate 75 mg twice a day, Lasix 20 mg daily, lisinopril 20 mg twice a day REVIEW OF SYSTEMS At the time of my exam: CONSTITUTIONAL: Denies fever or chills. CARDIOVASCULAR: Denies chest pain, shortness of breath, orthopnea, PND or palpitations. RESPIRATORY: Denies cough. GASTROINTESTINAL: Denies abdominal pain, diarrhea, constipation, nausea or vomiting. MUSCULOSKELETAL: Denies myalgias. NEUROLOGIC: Denies numbness, tingling, headacbe or weakness. ENDOCRINE: Denies fatigue, weight change, polydipsia or polyurina. GENITOURINARY: Denies burning, hematuria or urgency with micturation. HEMATOLOGIC: Denies history of anemia or bleeding. PHYSICAL EXAMINATION vitals reviewed CONSTITUTIONAL: No apparent distress. HEENT: Head is normocephalic. Pupils are equal, round. Sclerae anicteric. Mucous membranes of the mouth are moist. No JVD. No carotid bruit. CHEST EXAMINATION: Lungs are clear to auscultation. No chest wall tenderness is noted on palpation or with deep breathing. HEART EXAMINATION: Regular rate and rhythm. S1, S2 heard. No murmurs, gallops or rub. ABDOMEN: Soft, nontender. Positive bowel sounds. EXTREMITIES: 2+ peripheral pulses, no lower extremity edema and no calf tenderness. NEUROLOGIC EXAMINATION: Patient is awake, alert and oriented x3. ASSESSMENT Shortness of breath Elevated troponin, likely due to supply and demand mismatch secondary to hypoxia. No indicative of acute coronary syndrome Chronic kidney disease Right lower lobe infiltrate Paroxysmal atrial fibrillation on Coumadin Coronary artery disease with known occlusion of the LAD which he opted for medical therapy Hypertension Hyperlipidemia Ischemic cardiomyopathy Chronic systolic failure, BNP elevated however, euvolemic on exam PLAN Patient does not appear to be in acute congestive heart failure. Elevated troponin, likely due to supply and demand mismatch secondary to hypoxia. No indicative of acute coronary syndrome. We will obtain an echocardiogram. Continue home cardiac medications. Nurse Practitioner note has been reviewed, I agree with a documented findings and plan of care. Patient was seen and examined. Past Medical History Past Medical History: Atrial Fibrillation, Coronary Artery Disease (CAD), COPD, Hyperlipidemia, Hypertension, Myocardial Infarction (VT) Last Myocardial Infarction Date:: 2017 History of Any Multi-Drug Resistant Organisms: None Reported Past Surgical History: Heart Catheterization, Hernia Repair, Orthopedic Surgery Additional Past Surgical History / Comment(s): rt knee torn meniscus repair, rt knee replacement Past Anesthesia/Blood Transfusion Reactions: No Reported Reaction, Motion Sick ness Past Psychological History: No Psychological Hx Reported Smoking Status: Current every day smoker Past Alcohol Use History: None Reported Past Drug Use History: None Reported - Past Family History Father Family Medical History: Unable to Obtain Mother Family Medical History: Dementia Additional Family Medical History / Comment(s): from aneurysm Medications and Allergies Home Medications Medication Instructions Recorded Confirmed Type Aspirin [Adult Low Dose Aspirin EC] 81 mg PO DAILY 04/19/20 07/17/21 History Atorvastatin [Lipitor] 40 mg PO HS 04/19/20 07/17/21 History Cetirizine HCl [Zyrtec] 10 mg PO DAILY 04/19/20 07/17/21 History Furosemide [Lasix] 20 mg PO DAILY 04/19/20 07/17/21 History Metoprolol Tartrate [Lopressor] 75 mg PO BID 04/19/20 07/17/21 History lisinopriL [Zestril] 20 mg PO BID 04/19/20 07/17/21 History Warfarin [Coumadin] 5 mg PO SUMOTUTHFR 07/17/21 07/17/21 History Warfarin [Coumadin] 7.5 mg PO WESA 07/17/21 07/17/21 History Allergies Allergy/AdvReac Type Severity Reaction Status Date / Time codeine Allergy Unknown Verified 07/17/21 10:57 Penicillins Allergy Rash/Hives Verified 07/17/21 10:50 Physical Exam Vitals: Vital Signs Temp Pulse Resp BP Pulse Ox 07/17/21 12:44 86 20 118/80 96 07/17/21 11:52 96 20 121/76 97 07/17/21 10:33 97.3 F L 94 12 120/76 94 L 07/17/21 08:36 96 20 135/95 92 L 07/17/21 08:17 96.9 F L 88 18 111/72 88 L Intake and Output 07/16/21 07/17/21 07/17/21 22:59 06:59 14:59 Other: Weight 81.647 kg Results 07/18/21 07:25 07/18/21 07:25 Cardiac Enzymes 07/17/21 07/17/21 Range/Units 09:05 09:05 AST 54 (17-59) U/L Troponin I 0.223 H* (0.000-0.034) ng/mL Coagulation 07/17/21 Range/Units 09:05 PT 53.4 H (9.0-12.0) sec APTT 36.3 H (22.0-30.0) sec CBC 07/17/21 Range/Units 09:05 WBC 10.0 (3.8-10.6) k/uL RBC 3.80 L (4.30-5.90) m/uL Hgb 12.1 L (13.0-17.5) gm/dL Hct 37.5 L (39.0-53.0) % Plt Count 114 L (150-450) k/uL Comprehensive Metabolic Panel 07/17/21 Range/Units 09:05 Sodium 135 L (137-145) mmol/L Potassium 5.1 (3.5-5.1) mmol/L Chloride 102 (98-107) mmol/L Carbon Dioxide 23 (22-30) mmol/L BUN 56 H (9-20) mg/dL Creatinine 1.84 H (0.66-1.25) mg/dL Glucose 98 (74-99) mg/dL Calcium 10.2 (8.4-10.2) mg/dL AST 54 (17-59) U/L ALT 22 (4-49) U/L Alkaline Phosphatase 110 (38-126) U/L Total Protein 8.2 (6.3-8.2) g/dL Albumin 4.0 (3.5-5.0) g/dL Current Medications Generic Name Dose Route Start Last Admin Trade Name Freq PRN Reason Stop Dose Admin Aspirin 81 mg 07/18/21 09:00 Aspirin 81 Mg PO DAILY SETH Atorvastatin Calcium 40 mg 07/17/21 21:00 Atorvastatin 40 Mg Tab PO HS SETH Furosemide 20 mg 07/17/21 21:00 Furosemide 10 Mg/Ml 2 Ml Vial IV BID SETH Lisinopril 20 mg 07/18/21 09:00 Lisinopril 20 Mg Tab PO DAILY SETH Loratadine 10 mg 07/18/21 09:00 Loratadine 10 Mg Tab PO DAILY SETH Intake and Output 07/16/21 07/17/21 07/17/21 22:59 06:59 14:59 Other: Weight 81.647 kg Patient Weight 07/18/21 06:59 Weight 81.647 kg 07/17/21 09:05 07/17/21 09:05
[2021-07-18] MEDS: AZITHROMYCIN 500 MG TAB PO SCH (12:49)
[2021-07-18 13:05] LABS: Basophils % (A) 0 %; Eosinophils % (A) 0 %; HCT 36.2 % (39.0-53.0); Hypochromasia Slight; Lymphocytes # (A) 1.2 k/uL (1.0-4.8); Lymphocytes % (A) 12 %; MCH 32.8 pg (25.0-35.0); MCV 99.2 fL (80.0-100.0); Mean Platelet Volume 9.6; Monocytes # (A) 0.6 k/uL (0-1.0); Monocytes % (A) 6 %; Neutrophils # (A) 7.7 k/uL (1.3-7.7); Neutrophils % (A) 78 %; Platelet Count 134 k/uL (150-450); RBC 3.65 m/uL (4.30-5.90); RDW 14.1 % (11.5-15.5); WBC 9.9 k/uL (3.8-10.6)
[2021-07-18 13:33] VITALS: BMI 28.3
--- NOTE | 2021-07-18 13:54 | P.PN ---
Subjective 07/18/2020 Patient's pro calcitonin is not consistent with pneumonia patient probably has a diastolic dysfunction, patient will be continued on Lasix patient had good urine output. Echo will be obtained. Cardiology evaluated the patient is recomme nding one more day of IV Lasix patient although has some tracheal bronchitis and laryngitis started as viral and now secondary bacterial with greenish sputum production because of which patient will be started on azithromycin. Constitutional: Denied any fatigue denied any fever. Cardio vascular: denied any chest pain, palpitations Gastrointestinal denied any nausea vomiting Pulmonary: Denied any shortness of breath cough Neurologic denied any new focal deficits All inpatient medications were reviewed and appropriate changes in these medications as dictated in the interval history and assessment and plan. PHYSICAL EXAMINATION: GENERAL: The patient is alert and oriented x3, not in any acute distress. Well developed, well nourished. HEENT: Pupils are round and equally reacting to light. EOMI. No scleral icterus. No conjunctival pallor. Normocephalic, atraumatic. No pharyngeal erythema. No thyromegaly. CARDIOVASCULAR: S1 and S2 present. No murmurs, rubs, or gallops. PULMONARY: Chest is clear to auscultation, no wheezing or crackles. ABDOMEN: Soft, nontender, nondistended, normoactive bowel sounds. No palpable organomegaly. MUSCULOSKELETAL: No joint swelling or deformity. EXTREMITIES: No cyanosis, clubbing, or pedal edema. NEUROLOGICAL: Gross neurological examination did not reveal any focal deficits. SKIN: No rashes. Assessment and plan Plan shortness of breath: Secondary to congestive heart failure, considering low pro calcitonin probably not pneumonia. Patient probably has bacterial laryngitis and bronchitis for which patient will be started on azithromycin -Acute renal failure prerenal probably secondary to heart failure patient had a normal ejection fraction the past patient may have chronic diastolic dysfunction with acute exacerbation -Mild elevation of troponin can be secondary to sepsis although patient has significant coronary artery disease with complete occlusion of RCA with collaterals and significant coronary artery disease in the rest of the coronary vasculature. Because of which cardiology was consulted. Patient's IV heparin probably can be discontinued. Patient troponin elevation is secondary to chronic kidney disease and renal failure -Atrial fibrillation: Paroxysmal presently sinus rhythm with some nonspecific ST-T wave changes, supratherapeutic INR, will be repeated tomorrow -Coronary artery disease -Hyperlipidemia -Hypertension -COPD without any acute exacerbation patient doesn't use any oxygen at home. DVT prophylaxis: Patient's INR is supratherapeutic Objective - Vital Signs Vital signs: Vital Signs Temp 96 F L 07/18/21 11:35 Pulse 93 07/18/21 11:35 Resp 18 07/18/21 11:35 BP 92/60 07/18/21 11:35 Pulse Ox 97 07/18/21 11:35 Intake & Output 07/17/21 07/18/21 07/18/21 18:59 06:59 18:59 Intake Total 10 520 Balance 10 520 Weight 81.647 kg 77.2 kg 77.2 kg Intake: IV 10 Invasive Line 1 10 Oral 520 Other: Voiding Method Toilet Toilet # Voids 2 3 - Labs CBC & Chem 7: 07/18/21 12:45 07/18/21 07:25 Labs: Abnormal Lab Results - Last 24 Hours (Table) 07/17/21 07/18/21 07/18/21 Range/Units 09:05 07:25 07:25 WBC 11.0 H (3.8-10.6) k/uL RBC 3.75 L (4.30-5.90) m/uL Hgb 12.1 L (13.0-17.5) gm/dL Hct 37.7 L (39.0-53.0) % MCV 100.4 H (80.0-100.0) fL Plt Count 130 L (150-450) k/uL BUN 63 H (9-20) mg/dL Creatinine 1.98 H (0.66-1.25) mg/dL Glucose 118 H (74-99) mg/dL Troponin I (0.000-0.034) ng/mL Procalcitonin 0.10 H (0.02-0.09) ng/mL 07/18/21 07/18/21 Range/Units 07:25 12:45 WBC (3.8-10.6) k/uL RBC 3.65 L (4.30-5.90) m/uL Hgb 12.0 L (13.0-17.5) gm/dL Hct 36.2 L (39.0-53.0) % MCV (80.0-100.0) fL Plt Count 134 L (150-450) k/uL BUN (9-20) mg/dL Creatinine (0.66-1.25) mg/dL Glucose (74-99) mg/dL Troponin I 0.160 H* (0.000-0.034) ng/mL Procalcitonin (0.02-0.09) ng/mL Microbiology - Last 24 Hours (Table) 07/17/21 09:30 Blood Culture - Preliminary Blood No Growth after 24 hours 07/17/21 09:15 Blood Culture - Preliminary Blood No Growth after 24 hours
[2021-07-18] MEDS: ATORVASTATIN 40 MG TAB PO SCH (20:26)
[2021-07-19] MEDS ORDERED: ACETAMINOPHEN TAB 325 MG TAB PO PRN (07:47)
[2021-07-19 08:12] VITALS: RESP 20
[2021-07-19] MEDS: LORATADINE 10 MG TAB PO SCH (08:19)
[2021-07-19] MEDS: AZITHROMYCIN 500 MG TAB PO SCH (08:19)
[2021-07-19] MEDS: METOPROLOL TARTRATE 25 MG TAB PO SCH (08:20)
[2021-07-19] MEDS: ASPIRIN 81 MG PO SCH (08:21)
[2021-07-19] MEDS: FUROSEMIDE 10 MG/ML 2 ML VIAL IV SCH (08:36)
[2021-07-19] MEDS ORDERED: lisinopriL 5 MG TAB PO SCH (09:00)
[2021-07-19 11:45] LABS: Calcium 10.2 mg/dL (8.4-10.2); Magnesium 1.9 mg/dL (1.6-2.3); Potassium 4.8 mmol/L (3.5-5.1)
[2021-07-19 11:51] LABS: INR 2.3 (<1.2)
[2021-07-19 12:13] VITALS: BP 110/72; TEMP 97.3
--- NOTE | 2021-07-19 13:27 | P.PN ---
Subjective This is a pleasant 76-year-old male past medical history significant for chronic persistent atrial fibrillation on Coumadin, coronary artery disease with known occlusion of the LAD which he opted for medical therapy, hypertension, hyperlipidemia, ischemic cardiomyopathy. He follows in the office with Dr. Young. We have been asked to see in consultation for congestive heart failure. Patient presents emergency department with complaints of shortness of breath, congestion, cough, green sputum. He states he was diagnosed with laryngitis 2 weeks ago. And for about one week has been having symptoms of congestion, cough, green sputum. Some worsening shortness of breath with exertion and with activity. He denies any chest pain, orthopnea, PND, edema. He was started on Azithromycin and states his symptoms have significantly improved. Laboratory reviewed, INR 2.3, sodium 137, potassium 4.8, BUN 70, serum creatinine 2.0, magnesium 1.9. Awaiting echocardiogram read. PHYSICAL EXAMINATION vitals reviewed CONSTITUTIONAL: No apparent distress. HEENT: Neck Supple. No JVD. CHEST EXAMINATION: Lungs are clear to auscultation. No chest wall tenderness is noted on palpation or with deep breathing. HEART EXAMINATION: Regular rate and rhythm. S1, S2 heard. No murmurs, gallops or rub. ABDOMEN: Soft, nontender. Positive bowel sounds. EXTREMITIES: 2+ peripheral pulses, no lower extremity edema and no calf tenderness. NEUROLOGIC EXAMINATION: Patient is awake, alert and oriented x3. ASSESSMENT Shortness of breath Elevated troponin, likely due to supply and demand mismatch secondary to hypoxia. No indicative of acute coronary syndrome Supratherapeutic INR, improved Chronic kidney disease Right lower lobe infiltrate Paroxysmal atrial fibrillation on Coumadin Coronary artery disease with known occlusion of the LAD which he opted for me dical therapy Hypertension Hyperlipidemia Ischemic cardiomyopathy Chronic systolic failure, BNP elevated however, euvolemic on exam PLAN Patient does not appear to be in acute congestive heart failure. Elevated troponin, likely due to supply and demand mismatch secondary to hypoxia. No indicative of acute coronary syndrome. Echocardiogram is still pending. INR has improved to 2.3. Continue home cardiac medications. Recommend patient follow up with Dr. Young in 2 weeks on discharge. Nurse Practitioner note has been reviewed, I agree with a documented findings and plan of care. Patient was seen and examined. Objective - Vital Signs Vital signs: Vital Signs Temp 97.3 F L 07/19/21 12:14 Pulse 89 07/19/21 12:14 Resp 20 07/19/21 12:14 BP 110/72 07/19/21 12:14 Pulse Ox 95 07/19/21 12:17 Intake & Output 07/18/21 07/19/21 07/19/21 18:59 06:59 18:59 Intake Total 740 10 767 Output Total 300 Balance 440 10 767 Weight 77.2 kg 76.8 kg Intake: IV 20 10 10 Invasive Line 2 20 10 10 Oral 720 757 Output: Urine 300 Other: Voiding Method Toilet Toilet # Voids 3 3 - Labs CBC & Chem 7: 07/18/21 12:45 07/19/21 10:18 Labs: Abnormal Lab Results - Last 24 Hours (Table) 07/19/21 07/19/21 Range/Units 10:18 10:18 PT 22.0 H (9.0-12.0) sec INR 2.3 H (<1.2) BUN 70 H (9-20) mg/dL Creatinine 2.05 H (0.66-1.25) mg/dL Glucose 127 H (74-99) mg/dL Microbiology - Last 24 Hours (Table) 07/17/21 09:30 Blood Culture - Preliminary Blood No Growth after 48 hours 07/17/21 09:15 Blood Culture - Preliminary Blood No Growth after 48 hours
[2021-07-19 14:11] VITALS: PULSE 92
--- NOTE | 2021-07-19 15:37 | CT ---
EXAMINATION TYPE: CT chest wo con DATE OF EXAM: 07/19/2021 COMPARISON: Chest x-ray 2 days ago and older studies HISTORY: Difficulty breathing. CT DLP: 443.4 mGycm. Automated Exposure Control for Dose Reduction was Utilized. TECHNIQUE: CT scan of the thorax is performed without IV contrast. FINDINGS: LUNGS: Background mild to moderate underlying emphysematous change is present. There is small to bord allen moderate size right pleural effusion. There are faint multifocal areas of groundglass opacity greater in the right lung versus left lung. No definitive nodule at area of concern right upper to mi dlung on x-ray but there is focal peripheral 1.2 x 1.7 cm nodule and/or nodular consolidation axial i mage 25 noted just above the major fissure. There is fairly moderate right basilar atelectasis and/or consolidation central aspect. There is more suspicious anterior right hilar mass and/or adenopathy m easuring 4.3 x 4.1 cm axial image 31 less well seen on plain films. Elongation of the trachea or sabe r-sheath type appearance is present correlating with history of COPD. MEDIASTINUM: Mild cardiomegaly is present. No significant pericardial effusion is seen. There is mode rate to severe three-vessel coronary artery calcification. There are abnormal soft tissue masses ante rior to the pericardium throughout the mediastinum becoming confluent in appearance. There is abnorma l masses and/or adenopathy throughout the mediastinum, for reference there is 3.9 x 2.7 cm mass or ly mph node axial image 17 in the right paratracheal space. OTHER: Large right axillary mass or abnormal adenopathy measures 5.3 x 3.9 cm axial image 53. There i s partial visualization of suspected severe left-sided hydronephrosis on the last axial images. Follo w-up imaging advised. Osseous structures are demineralized. There is severe compression type fracture at T12 level with jason ent and sclerotic components suggesting may be acute or subacute in age. There is moderate to severe compression type fracture L1 level greatest central aspect that is fairly sclerotic with some adjacen t vacuum disc phenomenon at the L1-L2 disc space. Mild height loss or compression type fracture at T8 vertebra. Mild to moderate height loss with sclerosis involving the T4 vertebra. Prominent Schmorl n ode superior T7 endplate. Mild height loss of T6 vertebra. Slight posterior retropulsion at T12 level effaces the anterior thecal sac sagittal image 66 with 5 mm displacement. IMPRESSION: 1. Neoplasm strongly suspected. There is marked abnormal thoracic adenopathy throughout the mediastin um. There is abnormal right axillary mass or adenopathy. Tissue sampling or confirmation at right axi lla level may be easiest if needed. Follow-up PET/CT is likely warranted. 2. Small to moderate size right pleural effusion. Multifocal areas of groundglass opacity right great er than left could reflect acute infectious process. Correlate clinically. Underlying emphysematous c hange is present. 3. Demineralization with multiple compression type fracture deformities. The severe T12 fracture is s uspected acute or subacute in age with slight posterior retropulsion into the spinal canal up to 5 mm . Cord effacement cannot be excluded. Clinical correlation and follow-up is advised. A Yellow level critical message alert has been initiated for Mendy Berry MD via the [employer] Critical Results System on 07/19/2021 3:34 PM. This message alert has been sent to Mendy Berry MD via the preferences provided by the clinician for the receipt of Radiology Critical Findi ngs. Message ID [id number].
[2021-07-20] MEDS ORDERED: FUROSEMIDE 20 MG TAB PO SCH (09:00)
--- NOTE | 2021-07-20 09:41 | P.DS ---
Providers Date of admission: 07/17/21 12:09 Expected date of discharge: 07/19/21 Attending physician: Mendy Berry Consults: 07/17/21 10:47 Consult Physician Routine Consulting Provider: Samir Meyer Consult Reason/Comments: heart failure Do you want consulting provider notified?: Yes Primary care physician: Miko Neelywayne [facility] Course: Final diagnosis -shortness of breath: Secondary to congestive heart failure, possibly bacterial laryngitis and bronchitis -Acute renal failure prerenal probably secondary to heart failure, may have chronic diastolic dysfunction with acute exacerbation -Mild elevation of troponin can be secondary to sepsis although patient has significant coronary artery disease with complete occlusion of RCA with collaterals and significant coronary artery disease in the rest of the coronary vasculature. Patient troponin elevation is secondary to chronic kidney disease and renal failure -Atrial fibrillation: Paroxysmal -Coronary artery disease -Hyperlipidemia -Hypertension -COPD without any acute exacerbation -DVT prophylaxis Discharge disposition Patient is being discharged in a stable condition with guarded prognosis to home. Patient will follow-up with Danielle LOVE in the outpatient setting upon discharge. Patient is to also follow up with pulmonary, oncology, cardiology in 1 week. Patient is to continue with the wooden and will continue 4 mg daily and recommend close outpatient follow-up and PT/INR monitoring and prescription was provided for CBC, BMP, PT/INR. Total time taken is greater than 35 minutes. Hospital course This is a 76-year-old male who came in with shortness of breath and CHF exacerbation with acute on chronic diastolic dysfunction was being closely monitored. Patient was maintained on Lasix with good urine output and 2-D echo was ordered and patient evaluated by cardiology recommending outpatient follow- up. Echo slightly worsened from previous showing an EF of 35-40% and will follow-up with cardiology outpatient and this was discussed with cardiology [employer]. Patient will continue on Coumadin and is therapeutic today at 2.1 and recommend continue 4 mg daily and close PT/INR monitoring and prescription was provided. There were some abnormalities on the chest x-ray and CT was ordered which shows a neoplasm which is strongly suspected with marked abnormal thoracic adenopathy throughout the mediastinum along with abnormal right axillary mass or adenopathy recommending PET scan and biopsy, small to moderate size right pleural effusion with multifocal areas of groundglass opacification right greater than left that could reflect an infectious process with underlying emphysematous change present along with demineralization with multiple compression type fracture deformities and severe at T12 which is suspected to be acute or subacute in this person's age with slight posterior retropulsion in the spinal canal up to 5 mm in cord effacement cannot be excluded. Strongly recommend pulmonary follow-up for possible PET scan and biopsy along with oncology and resources provided with appointments made. Patient will also need cardiology follow-up as scheduled. This was discussed with the patient along with his at the bedside. Patient is adamant about going home today and requesting to be discharged. Currently no reports of chest pain, shortness of breath, or palpitations. Patient is afebrile. No reports of nausea or vomiting and patient is tolerating diet. Patient will be discharged home today. Guarded prognosis. PHYSICAL EXAMINATION: GENERAL: The patient is alert and oriented x3, not in any acute distress. Well developed, well nourished. HEENT: Pupils are round and equally reacting to light. EOMI. No scleral icterus. No conjunctival pallor. Normocephalic, atraumatic. No pharyngeal erythema. No thyromegaly. CARDIOVASCULAR: S1 and S2 present. No murmurs, rubs, or gallops. PULMONARY: Chest is clear to auscultation, no wheezing or crackles. ABDOMEN: Soft, nontender, nondistended, normoactive bowel sounds. No palpable organomegaly. MUSCULOSKELETAL: No joint swelling or deformity. EXTREMITIES: No cyanosis, clubbing, or pedal edema. NEUROLOGICAL: Gross neurological examination did not reveal any focal deficits. SKIN: No rashes. Please refer to medication reconciliation sheet for a list of medications. Patient Condition at Discharge: Fair Plan - Discharge Summary Discharge Rx Participant: No New Discharge Prescriptions: New Acetaminophen Tab [Tylenol] 650 mg PO Q6HR PRN tab PRN Reason: Fever And/ Or Pain Warfarin [Coumadin] 4 mg PO DAILY 30 Days #60 tab lisinopriL [Zestril] 5 mg PO DAILY 30 Days #30 tab Azithromycin [Zithromax] 500 mg PO DAILY 4 Days #4 tab Continue Cetirizine HCl [Zyrtec] 10 mg PO DAILY Metoprolol Tartrate [Lopressor] 75 mg PO BID Furosemide [Lasix] 20 mg PO DAILY Atorvastatin [Lipitor] 40 mg PO HS Aspirin [Adult Low Dose Aspirin EC] 81 mg PO DAILY Discontinued lisinopriL [Zestril] 20 mg PO BID Warfarin [Coumadin] 7.5 mg PO WESA Warfarin [Coumadin] 5 mg PO SUMOTUTHFR Discharge Medication List Aspirin [Adult Low Dose Aspirin EC] 81 mg PO DAILY 04/19/20 [History] Atorvastatin [Lipitor] 40 mg PO HS 04/19/20 [History] Cetirizine HCl [Zyrtec] 10 mg PO DAILY 04/19/20 [History] Furosemide [Lasix] 20 mg PO DAILY 04/19/20 [History] Metoprolol Tartrate [Lopressor] 75 mg PO BID 04/19/20 [History] Acetaminophen Tab [Tylenol] 650 mg PO Q6HR PRN tab 07/19/21 [Rx] Azithromycin [Zithromax] 500 mg PO DAILY 4 Days #4 tab 07/19/21 [Rx] Warfarin [Coumadin] 4 mg PO DAILY 30 Days #60 tab 07/19/21 [Rx] lisinopriL [Zestril] 5 mg PO DAILY 30 Days #30 tab 07/19/21 [Rx] Follow up Appointment(s)/Referral(s): Nicky Manuel MD [STAFF PHYSICIAN] - 08/02/21 10:30 am Prince Singh MD [STAFF PHYSICIAN] - 1 Week Danielle Diaz PAC [Family Provider] - 07/24/21 3:20 pm Danii Hill NPC [Nurse Practitioner] - 07/31/21 2:00 pm Ambulatory/Diagnostic Orders: Complete Blood Count w/diff [LAB.AMB] Time Frame: 2 Days, Location: None Selected Patient Instructions/Handouts: Heart Failure (ER), Low-Sodium Diet (ED) Activity/Diet/Wound Care/Special Instructions: Activity Limited until follow-up follow up with pulmonary outpatient as scheduled and discuss possible biopsy and PET scan for abnormal CT findings follow up with oncology outpatient Follow-up with primary care provider on discharge Follow-up cardiology outpatient Continue taking medications as prescribed take Coumadin 4mg this evening and take 4 mg daily Recommend repeat labs of CBC, BMP, PT/INR in 2 days Continue heart healthy diet Discharge Disposition: HOME SELF-CARE
== END 2021-07-19 15:50 | disposition home or self-care (01) | DRG 871 ==
LOC: EC 08:16 → 3SCARD 12:09
PROVIDERS: ADMIT Internal Medicine; ATTEND Internal Medicine
DX: A41.9 Sepsis, unspecified organism (principal); J18.9 Pneumonia, unspecified organism; I50.33 Acute on chronic diastolic (congestive) heart failure; J44.0 Chronic obstructive pulmonary disease with (acute) lower respiratory infection; I13.0 Hypertensive heart and chronic kidney disease with heart failure and stage 1 through stage 4 chronic kidney disease, or unspecified chronic kidney disease; N17.9 Acute kidney failure, unspecified; I48.19 Other persistent atrial fibrillation; R09.02 Hypoxemia; R79.89 Other specified abnormal findings of blood chemistry; Z20.822 Contact with and (suspected) exposure to COVID-19; I25.10 Atherosclerotic heart disease of native coronary artery without angina pectoris; J04.0 Acute laryngitis; J40 Bronchitis, not specified as acute or chronic; I08.1 Rheumatic disorders of both mitral and tricuspid valves; I25.82 Chronic total occlusion of coronary artery; R79.1 Abnormal coagulation profile; N18.9 Chronic kidney disease, unspecified; I25.5 Ischemic cardiomyopathy; E78.5 Hyperlipidemia, unspecified; Z79.01 Long term (current) use of anticoagulants; Z88.5 Allergy status to narcotic agent; Z88.0 Allergy status to penicillin; Z79.82 Long term (current) use of aspirin; Z79.899 Other long term (current) drug therapy; Z86.61 Personal history of infections of the central nervous system; Z96.651 Presence of right artificial knee joint; Z87.19 Personal history of other diseases of the digestive system; I25.2 Old myocardial infarction
CPT/HCPCS: 36415; 71046; 71250; 80048; 80053; 83605; 83735; 83880; 84145; 84484; 85025; 85027; 85610; 85730; 87040; 87635; 93005; 93306; 94760; 96374; 99285

== ENCOUNTER 2021-07-27 08:21 | Inpatient (IN) | payer MEDICARE ==
--- NOTE | 2021-07-27 08:52 | CT ---
EXAMINATION TYPE: CT brain wo con for TPA DATE OF EXAM: 07/27/2021 COMPARISON: None HISTORY: 76-year-old male neurologic deficit, acute, stroke suspected, CODE STROKE TECHNIQUE: Examination was done in axial plane without intravenous contrast. Coronal and sagittal r econstructions performed. CT DLP: 1158.4 mGycm Automated exposure control for dose reduction was used. FINDINGS: There is a small subtle small 5 mm high density cortical focus along the superior left precentral gyr us, axial image 40, coronal image 49, and sagittal image 44. Tiny cortical contusion is difficult to exclude. Moderate patchy white matter hypodensities in both cerebral hemispheres. There is otherwise, no evidence of acute intracranial hemorrhage, acute ischemic changes, mass, mass -effect, or extra-axial fluid collection. There is no effacement of cerebral sulci or basal subarach noid cisterns. There is no hydrocephalus. There is no midline shift. Munoz-white matter distinction is preserved. Mild cerebral cortical volume loss. Leftward nasal septal deviation. Paranasal sinuses and mastoid air cells well pneumatized. IMPRESSION: 1. Tiny 5 mm cortical hyperdensity superior left precentral gyrus. A tiny cortical contusion/bleed is difficult to exclude especially if the patient experienced a fall on coumadin. Findings called and d iscussed with Dr. Whitney in the ER at 8:45am. 2. Otherwise, there is moderate patchy burden of chronic small vessel ischemic disease and mild gener alized atrophy. No other acute intracranial abnormality seen at this time.
[2021-07-27 09:16] LABS: Basophils % (A) 0 %; Eosinophils % (A) 0 %; HCT 31.7 % (39.0-53.0); HGB 10.6 gm/dL (13.0-17.5); Hypochromasia Slight; Lymphocytes # (A) 0.7 k/uL (1.0-4.8); Lymphocytes % (A) 7 %; MCH 33.4 pg (25.0-35.0); MCHC 33.4 g/dL (31.0-37.0); MCV 100.1 fL (80.0-100.0); Macrocytosis Slight; Mean Platelet Volume 8.9; Monocytes # (A) 0.7 k/uL (0-1.0); Monocytes % (A) 7 %; Neutrophils # (A) 7.9 k/uL (1.3-7.7); Neutrophils % (A) 83 %; Platelet Count 102 k/uL (150-450); RBC 3.17 m/uL (4.30-5.90); RDW 15.1 % (11.5-15.5); WBC 9.5 k/uL (3.8-10.6)
[2021-07-27 09:25] LABS: INR 1.9 (<1.2); Partial Thromboplastin Time 32.6 sec (22.0-30.0); Prothrombin Time 19.7 sec (9.0-12.0)
--- NOTE | 2021-07-27 09:36 | XR ---
EXAMINATION TYPE: XR chest 2V DATE OF EXAM: 07/27/2021 COMPARISON: Chest x-ray 07/17/2021, chest CT 07/19/2021 HISTORY: Altered mental status TECHNIQUE: Frontal and lateral views of the chest are obtained. FINDINGS: Focus of abnormal density in the right upper lobe is seen, the right hemidiaphragm is obsc ured as is the right heart border due to increased opacity. There is no evident pneumothorax. Cardiom ediastinal silhouette is stable. Aorta is dense. Prominent lung volumes suggest underlying COPD. Mult ilevel compression deformities are noted in the visualized spine. There is mediastinal adenopathy. Un derlying emphysema is present. Prominence of pulmonary artery may be indicative of pulmonary hyperten miley. IMPRESSION: Pleural effusion, mediastinal adenopathy, lung nodule, patient with known right axillary mass
[2021-07-27 09:38] LABS: Albumin 3.3 g/dL (3.5-5.0); Calcium 9.9 mg/dL (8.4-10.2); Total Bilirubin 0.9 mg/dL (0.2-1.3)
--- NOTE | 2021-07-27 09:40 | CT ---
EXAMINATION TYPE: CT angio head neck DATE OF EXAM: 07/27/2021 COMPARISON: CT head same day. Also, correlation CT chest 07/19/2021 HISTORY: 76-year-old male facial droop, CODE STROKE TECHNIQUE: Contiguous axial scanning of the head and neck performed with IV Contrast, patient injecte d with 65 ml mL of Isovue 370. Coronal sagittal MIP reconstructions performed. 3-D reconstructions ge nerated on a dedicated workstation. CT DLP: 404.9 mGycm Automated exposure control for dose reduction was used. FINDINGS: NECK: No markedly abnormal mediastinal lymphadenopathy. Now a moderate right pleural effusion. Underlying e mphysematous change. Patchy groundglass areas right greater than left upper lungs. Mild atherosclerotic arch calcifications. Bovine configuration to the aortic arch. Vertebral arteries are patent throughout the course and codominant. Right common carotid artery is patent. Mild atherosclerotic changes carotid bifurcation. Right internal carotid artery is patent by NASCET criteria. The left common carotid artery is patent. Minimal atherosclerotic changes at the left carotid bifurcation. The left internal carotid artery is patent by NASCET criteria. Tortuous upper left cervical ICA. BRAIN: The vertebral and basilar arteries are patent as is the remainder of the posterior circulation. Mild atherosclerotic calcifications causing segmental mild narrowing throughout the bilateral carotid siphons. Anterior circulation otherwise patent. There is a 4.5 mm saccular aneurysm projecting superiorly and medially from the proximal supraclinoid segment left internal carotid artery, axial thin cut image 176 and sagittal image 18. Additional tiny 2 mm aneurysm projecting anteriorly from the left MCA bifurcation, refer to thin cut axial images 193 and 194. Otherwise, the internal carotid arteries are patent. No large vessel intracranial arterial occlusion or significant stenosis, IMPRESSION: NECK: 1. PATENT BILATERAL CAROTID AND VERTEBRAL ARTERIES OF THE NECK. 2. KNOWN ABNORMAL MEDIASTINAL LYMPHADENOPATHY WHICH WARRANTS FURTHER ONCOLOGIC EVALUATION. FURTHER DE SCRIBED ON THE PATIENT'S CT CHEST OF 07/19/2021. 3. CONTINUED MODERATE LAYERING RIGHT PLEURAL EFFUSION. BACKGROUND COPD. PATCHY GROUNDGLASS RIGHT GREA TER THAN LEFT VISUALIZED UPPER LUNGS COULD REPRESENT PNEUMONITIS OR PATCHY PULMONARY EDEMA. HEAD: 4. NO LARGE VESSEL INTRACRANIAL ARTERIAL OCCLUSION OR SIGNIFICANT STENOSIS. 5. A 4.5 MM SACCULAR ANEURYSM PROJECTING SUPERIORLY AND MEDIALLY FROM THE PROXIMAL SUPRACLINOID SEGME NT LEFT ICA. 6. ADDITIONAL TINY 2 MM ANEURYSM PROJECTING ANTERIORLY FROM THE LEFT MCA BIFURCATION.
[2021-07-27 09:42] LABS: Potassium 6.2 mmol/L (3.5-5.1)
[2021-07-27] MEDS ORDERED: INSULIN REGULAR 100 UNIT/ML VIAL (IV) IV ONE ×2 (09:42→16:26)
[2021-07-27] MEDS ORDERED: DEXTROSE 50% SYRINGE 50 ML IVP STA ×3 (09:43→22:31)
[2021-07-27] MEDS ORDERED: DIAZEPAM 5 MG/ML 2 ML INJ IVP STA (09:44)
--- NOTE | 2021-07-27 10:06 | ED ---
Neuro HPI - General Chief Complaint: Neuro Symptoms/Deficit Stated Complaint: stroke symptoms Source: EMS Mode of arrival: EMS Limitations: no limitations - History of Present Illness Is the patient presenting with stroke symptoms?: Yes Initial Comments: Patient is a 76-year-old male with past medical history of A. fib on Coumadin, COPD, hypertension and presents emergency department reported strokelike symptoms. Patient awoke around 6:00 this morning. States that around 7:00 he was attempting to drink his coffee when he had drooling from the left side of his mouth. Patient looked into the mirror and saw that he had facial droop. This was not witnessed prior by his . EMS was called and upon arrival the patient does have some dysarthria and left-sided facial droop. He is on Coumadin however states his value is normally not therapeutic. He denies any weakness, numbness or tingling in his extremities. Patient reports that he fell 2 days ago however adamantly denies that he hit his head. He denies any chest pain or shortness of breath. No visual changes. No other alleviating, precipitating or modifying factors - Related Data Home Medications: Home Medications Medication Instructions Recorded Confirmed Aspirin [Adult Low Dose Aspirin EC] 81 mg PO DAILY 04/19/20 07/27/21 Atorvastatin [Lipitor] 40 mg PO HS 04/19/20 07/27/21 Cetirizine HCl [Zyrtec] 10 mg PO DAILY 04/19/20 07/27/21 Furosemide [Lasix] 20 mg PO DAILY 04/19/20 07/27/21 Metoprolol Tartrate [Lopressor] 75 mg PO BID 04/19/20 07/27/21 Warfarin [Coumadin] 4 mg PO HS 07/27/21 07/27/21 Previous Rx's Medication Instructions Recorded Acetaminophen Tab [Tylenol] 650 mg PO Q6HR PRN tab 07/19/21 lisinopriL [Zestril] 5 mg PO DAILY 30 Days #30 tab 07/19/21 Allergies/Adverse Reactions: Allergies Allergy/AdvReac Type Severity Reaction Status Date / Time codeine Allergy Unknown Verified 07/27/21 09:38 Penicillins Allergy Rash/Hives Verified 07/27/21 09:38 Review of Systems ROS Statement: Those systems with pertinent positive or pertinent negative responses have been documented in the HPI. ROS Other: All systems not noted in ROS Statement are negative. General Exam Limitations: no limitations Stroke MDM - Lab Data Result diagrams: 07/27/21 09:02 07/27/21 09:02 Lab Results 07/27/21 07/27/21 07/27/21 Range/Units 09:02 09:02 09:02 WBC 9.5 (3.8-10.6) k/uL RBC 3.17 L (4.30-5.90) m/uL Hgb 10.6 L (13.0-17.5) gm/dL Hct 31.7 L (39.0-53.0) % MCV 100.1 H (80.0-100.0) fL MCH 33.4 (25.0-35.0) pg MCHC 33.4 (31.0-37.0) g/dL RDW 15.1 (11.5-15.5) % Plt Count 102 L (150-450) k/uL MPV 8.9 Neutrophils % 83 % Lymphocytes % 7 % Monocytes % 7 % Eosinophils % 0 % Basophils % 0 % Neutrophils # 7.9 H (1.3-7.7) k/uL Lymphocytes # 0.7 L (1.0-4.8) k/uL Monocytes # 0.7 (0-1.0) k/uL Eosinophils # 0.0 (0-0.7) k/uL Basophils # 0.0 (0-0.2) k/uL Hypochromasia Slight Macrocytosis Slight PT 19.7 H (9.0-12.0) sec INR 1.9 H (<1.2) APTT 32.6 H (22.0-30.0) sec Sodium 131 L (137-145) mmol/L Potassium 6.2 H* (3.5-5.1) mmol/L Chloride 104 (98-107) mmol/L Carbon Dioxide 20 L (22-30) mmol/L Anion Gap 7 mmol/L BUN 72 H (9-20) mg/dL Creatinine 2.26 H (0.66-1.25) mg/dL Est GFR (CKD-EPI)AfAm 31 (>60 ml/min/1.73 sqM) Est GFR (CKD-EPI)NonAf 27 (>60 ml/min/1.73 sqM) Glucose 97 (74-99) mg/dL Calcium 9.9 (8.4-10.2) mg/dL Total Bilirubin 0.9 (0.2-1.3) mg/dL AST 40 (17-59) U/L ALT 20 (4-49) U/L Alkaline Phosphatase 103 (38-126) U/L Troponin I (0.000-0.034) ng/mL Total Protein 7.0 (6.3-8.2) g/dL Albumin 3.3 L (3.5-5.0) g/dL 07/27/21 Range/Units 09:02 WBC (3.8-10.6) k/uL RBC (4.30-5.90) m/uL Hgb (13.0-17.5) gm/dL Hct (39.0-53.0) % MCV (80.0-100.0) fL MCH (25.0-35.0) pg MCHC (31.0-37.0) g/dL RDW (11.5-15.5) % Plt Count (150-450) k/uL MPV Neutrophils % % Lymphocytes % % Monocytes % % Eosinophils % % Basophils % % Neutrophils # (1.3-7.7) k/uL Lymphocytes # (1.0-4.8) k/uL Monocytes # (0-1.0) k/uL Eosinophils # (0-0.7) k/uL Basophils # (0-0.2) k/uL Hypochromasia Macrocytosis PT (9.0-12.0) sec INR (<1.2) APTT (22.0-30.0) sec Sodium (137-145) mmol/L Potassium (3.5-5.1) mmol/L Chloride (98-107) mmol/L Carbon Dioxide (22-30) mmol/L Anion Gap mmol/L BUN (9-20) mg/dL Creatinine (0.66-1.25) mg/dL Est GFR (CKD-EPI)AfAm (>60 ml/min/1.73 sqM) Est GFR (CKD-EPI)NonAf (>60 ml/min/1.73 sqM) Glucose (74-99) mg/dL Calcium (8.4-10.2) mg/dL Total Bilirubin (0.2-1.3) mg/dL AST (17-59) U/L ALT (4-49) U/L Alkaline Phosphatase (38-126) U/L Troponin I 0.110 H* (0.000-0.034) ng/mL Total Protein (6.3-8.2) g/dL Albumin (3.5-5.0) g/dL - Medical Decision Making On arrival patient is promptly evaluated in the hallway. He does have an NIH of 3. Patient is immediately taken for CT. I am called from the radiologist who is concerned for a 5 mm area of bleeding near the left precentral gyrus. As the patient is on Coumadin and has had a known fall I did speak with Dr. Thomposn. He recommends reversal of his INR fits greater than 1.4 and an MRI if possible. We did call and speak with MRI who is able to perform the study at 10:15. Patient was given a dose of vitamin K as his INR is 1.9 and is sent to MRI. I reviewed the patient's CT angiography which demonstrates 2 aneurysms, one 4.5 mm saccular aneurysm projecting superiorly and medially from the proximal supraclinoid segment of the left ICA and a second 2 mm projecting anteriorly from the left MCA. Chest x-ray demonstrates pleural effusion, mediastinal adenopathy, lung nodule and a right axillary mass. Laboratory studies reveal a potassium 6.2. Patient is treated with 10 units of insulin and an amp of dextrose. Troponin is elevated at 0.110 order this is lower than the patient's previous value. MRI is completed which demonstrates multifocal areas of acute ischemia. At this time with Dr. Thompson who recommended aspirin. He is out of the window for TPA at this time. Kcentra order is discontinued (never given) I spoke with Dr. Quintero to admit the patient. Also spok with Dr. Marie. 07/27/21 10:00 EKG demonstrates normal sinus rhythm with a ventricular rate of 95. NM interval 148. QRS 94. QTC of 429. No acute ST segment elevations or depressions. Past Medical History Past Medical History: Atrial Fibrillation, Coronary Artery Disease (CAD), COPD, Hyperlipidemia, Hypertension, Myocardial Infarction ([place]) Last Myocardial Infarction Date:: 2017 History of Any Multi-Drug Resistant Organisms: None Reported Past Surgical History: Heart Catheterization, Hernia Repair, Orthopedic Surgery Additional Past Surgical History / Comment(s): rt knee torn meniscus repair, rt knee replacement Past Anesthesia/Blood Transfusion Reactions: No Reported Reaction, Motion Sickness Past Psychological History: No Psychological Hx Reported Smoking Status: Current every day smoker Past Alcohol Use History: None Reported Past Drug Use History: None Reported - Past Family History Father Family Medical History: Unable to Obtain Mother Family Medical History: Dementia Additional Family Medical History / Comment(s): from aneurysm Course Vital Signs 07/27/21 08:29 Pulse Rate 90 Respiratory 18 Rate Blood Pressure 127/70 - Reevaluation(s) Reevaluation #1: Spoke with radiologist information services consultant who is concerned the patient may have a 5 mm bleed near the left gyrus 07/27/21 8:45 Reevaluation #2: Spoke with Dr. Dunbar who comments on same area of concern for bleed. Recommends MRI. PT INR pending at this time - to give kcentra and vitamin k if INR >1.4 07/27/21 904 Reevaluation #3: Spoke with Dr. Dunbar who is aware that the patient can go for MRI at 10:15 AM 07/27/21 9:10 Reevaluation #4: Spoke with Dr. Thompson regarding MRI read - Aspirin. Doesn't need kcentra. Can stay here with neuro consult 07/27/21 11:34 Disposition Clinical Impression: Cerebrovascular accident (CVA), Facial droop Disposition: ADMITTED IP TO THIS [facility] Condition: Serious Is patient prescribed a controlled substance at d/c from ED?: No Referrals: Miko Reyes DO [Primary Care Provider] - 1-2 days Decision to Admit Reason: Admit from EC Decision Date: 07/27/21 Decision Time: 11:49
[2021-07-27] MEDS ORDERED: Kcentra PER PHARMACY 1 EACH MISC MISCELLANE PRN (10:08)
[2021-07-27] MEDS ORDERED: PHYTONADIONE ORAL 5 MG/5 ML ORAL.SYRG PO STA (10:10)
[2021-07-27] MEDS ORDERED: HUMAN PROTHROMBIN COMPLX IV ONE (10:30)
--- NOTE | 2021-07-27 11:29 | MR ---
EXAMINATION TYPE: MR brain wo/w con DATE OF EXAM: 07/27/2021 COMPARISON: CT brain earlier today HISTORY: STROKE SYMPTOMS. Acute onset neuro deficit. TECHNIQUE: Multiplanar, multisequence images of the brain and brainstem is performed without and with IV contras t, utilizing 10ML mL intravenous Gadavist . FINDINGS: Diffusion weighted images demonstrate a 13 x 8 mm area in the right coronal radiata posteri or deep frontal level axial image 160 increased signal on diffusion weighted images with diminished s ignal on ADC mapping that is not well identified with abnormal signal on T1 or T2-weighted images. Ev aluation slightly suboptimal as there is patient motion. Additional punctate areas of restricted diff usion felt present for reference a deep 4-5 mm lesion high left brain near frontoparietal junction ax ial image 176, this shows diminished signal on ADC mapping. Scattered additional punctate areas of sl ight increased signal on diffusion-weighted imaging present, these are difficult to distinctly see di minished ADC diminished signal due to size and motion. Mild/moderate ventricular and sulcal prominence. Scattered focal and confluent areas of T2 hyperinten sity throughout the white matter bilaterally greatest at periventricular levels. Approximately 60 dis tinct lesions. Midline structures demonstrate normal morphology. The craniocervical junction appears within normal limits. Post contrast images demonstrate no abnormal enhancement. The dural venous sinuses appear pa tent. The visualized sinuses are clear and the globes are intact. Increased fluid signal right mastoi d air cells redemonstrated. IMPRESSION: 1. Multifocal areas of acute ischemia predominantly lacunar or punctate in appearance. Dominant area measures 1.3 x 0.8 cm right coronal radiata deep frontal white matter adjacent to the ventricular sys tem. 2. Background mild to moderate diffuse cerebral atrophy and moderate to advanced chronic small vessel ischemic change. 3. Increased fluid signal right mastoid air cells could reflect product of mastoiditis, correlate cli nically.
[2021-07-27] MEDS ORDERED: ASPIRIN 325 MG TAB PO STA (11:45)
[2021-07-27] MEDS ORDERED: MORPHINE SULFATE 4 MG/ML SYRINGE IVP STA (12:22)
[2021-07-27 12:26] LABS: Appearance,Urine Clear (Clear); Bilirubin,Urine Negative (Negative); Blood,Urine Trace (Negative); Color,Urine Yellow; Glucose,Urine (UA) Negative (Negative); Hyaline Casts,Urine 3 /lpf (0-2); Ketones,Urine Negative (Negative); Leukocyte Esterase,Urine Negative (Negative); Mucus,Urine Rare /hpf; Nitrite,Urine Negative (Negative); Protein,Urine Negative (Negative); RBC,Urine 9 /hpf (0-5); Specific Gravity,Urine 1.017 (1.001-1.035); Urobilinogen,Urine <2.0 mg/dL (<2.0); WBC,Urine 2 /hpf (0-5)
--- NOTE | 2021-07-27 13:24 | US ---
EXAMINATION TYPE: US venous doppler duplex LE LT DATE OF EXAM: 07/27/2021 1:04 PM COMPARISON: NONE CLINICAL HISTORY: 76-year-old male leg pain. SIDE PERFORMED: Left TECHNIQUE: The lower extremity deep venous system is examined utilizing real time linear array sonog diego with graded compression, doppler sonography and color-flow sonography. FINDINGS: VESSELS IMAGED: Common Femoral Vein Deep Femoral Vein Greater Saphenous Vein * Femoral Vein Popliteal Vein Small Saphenous Vein * Proximal Calf Veins (* superficial vessels) Left Leg: Positive for DVT. Extensive DVT throughout entire imaged vessels, from groin to the upper calf vessels. Form Raiser notes: Incidental note is made of large mass right groin, measures 5.9 x 2.8 x 5.4, with internal vascularity. IMPRESSION: 1. Extensive occlusive DVT throughout the left lower extremity from the groin imaged into the upper c jail. 2. Left inguinal mass, likely a pathologic lymph node measuring up to 5.9 x 5.4 x 2.8 cm. Appropriate further workup and management recommended.
[2021-07-27] MEDS: ACETAMINOPHEN TAB 325 MG TAB PO PRN ×2 (15:29→20:29)
[2021-07-27] MEDS ORDERED: HEPARIN SODIUM 1,000 UN/ML (10ML VL) IV PRN (15:36)
[2021-07-27] MEDS ORDERED: HEPARIN SODIUM 1,000 UN/ML (10ML VL) IV ONE (15:36)
[2021-07-27] MEDS: SODIUM CHLORIDE 0.9% 1,000 ML IV SCH ×2 (16:02→17:55)
[2021-07-27 16:04] LABS: African American GFR (CKD) 31 (>60 ml/min/1.73 sqM); Anion Gap 12 mmol/L; Blood Urea Nitrogen 71 mg/dL (9-20); Calcium 10.6 mg/dL (8.4-10.2); Carbon Dioxide 15 mmol/L (22-30); Chloride 107 mmol/L (98-107); Glucose 87 mg/dL (74-99); Non-African American GFR(CKD) 27 (>60 ml/min/1.73 sqM); Sodium 134 mmol/L (137-145)
[2021-07-27 16:05] LABS: Potassium 6.9 mmol/L (3.5-5.1)
[2021-07-27] MEDS: HEPARIN SOD,PORK IN 0.45% NACL 25,000 UNIT in 0.45% NACL 1 250ML.BAG IV SCH (16:05)
[2021-07-27] MEDS ORDERED: SODIUM POLYSTYRENE SULFONATE 15 GM/60 ML BOTTLE PO ONE (16:26)
[2021-07-27] MEDS: ATORVASTATIN 40 MG TAB PO SCH (20:18)
--- NOTE | 2021-07-27 21:45 | P.HPIM ---
History of Present Illness H&P Date: 07/27/21 Chief Complaint: Left facial droop Patient is a 76-year-old male with a known history of atrial fibrillation on anticoagulation with Coumadin, chronic CHF, hypertension, hyperlipidemia, history of CO status post cardiac catheterization occlusion of the LAD, opted for medical therapy and currently everyday smoker presents to ER due to complaints of left facial droop. According to his patient woke up around 6 AM this morning and was drinking coffee around 7 AM when she noticed he was having drooling from his left side of the mouth. EMS was called and patient was brought to ER. Patient did have dysarthria but denied any difficulty finding words. No blurry vision. Patient has been having difficulty swallowing recently. Denies any weakness in the legs or hands. No numbness or tingling sensation. Apparently patient fell about 2 days ago however denied that he hit his head. No complaints of fever or chills. No nausea vomiting abdominal pain or diarrhea. No chest pain or shortness of breath. Patient was also having increasing left lower extremity swelling and pain for the past 2 days. Patient was recently admitted to the hospital due to shortness of breath, elevated troponin level and acute CHF and was discharged on 07/19/2021. CT head showed tiny 5 mm cortical hypodensity superior left precentral gyrus. A tiny cortical contusion/bleed is difficult to exclude especially the patient is experienced a fall on Coumadin. Otherwise there is moderate patchy burden of chronic small vessel ischemic disease. No other acute intracranial abnormality seen at this time. Due to small area of bleeding patient was not a candidate for TPA and MRI was or dered which showed multifocal ischemic infarcts. Patient was given a dose of aspirin CT angiogram of the head and neck showed patent bilateral carotid and vertebral arteries of the neck. 4.5 mm saccular aneurysm projecting superiorly and medially from the proximal supraclinoid segment. Stat MRI of the brain showed multifocal areas of acute ischemia predominantly likely punctate in appearance. Dominant area measures 1.3 x 0.8 cm right coronal radiata deep frontal white matter adjacent to the ventricular system. Level data showed WBC 9.4 hemoglobin 10.6 MCV 100.1 and platelets 102 INR 1.9 Sodium 131 potassium 6.2 chloride 104 bicarb is 20 BUN 72 and creatinine 2.26 Troponin 0 0.110 and TSH 1.670 Urinalysis is negative for infection EKG showed normal sinus rhythm with no acute ST elevations or depressions. CT chest on 07/19/2021 showed neoplasm strongly suspected. There is marked abnormal thoracic adenopathy throughout the mediastinum. There is abnormal right axillary mass or adenopathy. PET scan was recommended. Mild to moderate size right pleural effusion. Demineralization multiple compression type fractures deformities. Review of Systems Constitutional: Patient denies any fever or chills . No generalized weakness or weight loss. Abdomen: Patient denied nausea vomiting and diarrhea and abdominal pain. Cardiovascular: Patient denies any chest pain or short of breath no palpitations. Respiratory: patient denied any cough or sputum production. No shortness of breath Neurologic: Patient denied any numbness or tingling headache. Patient does have left facial droop and dysarthria. Musculoskeletal: Patient denies any complaints of joint swelling or deformity. Patient does have left leg swelling and pain. Skin: Negative Psychiatric: Negative Endocrine: No heat or cold intolerance. No recent weight gain. Genitourinary: No dysuria or hematuria. All other 14 point ROS negative except the above Past Medical History Past Medical History: Atrial Fibrillation, Coronary Artery Disease (CAD), Heart Failure, COPD, Hyperlipidemia, Hypertension, Myocardial Infarction ([place]) Additional Past Medical History / Comment(s): Pt recently admitted to [facility] on 07/17/21 with exacerbation CHF, laryngitis/bronchitis also found abnormal chest xray/cat scan and back compression fractures. Other hx: Paroxysmal Afib, occasional bilateral leg cramping but much worse past couple days, increased L lower leg edema past couple days, sinus problems. Last Myocardial Infarction Date:: 2017 History of Any Multi-Drug Resistant Organisms: None Reported Past Surgical History: Heart Catheterization, Hernia Repair, Joint Replacement, Orthopedic Surgery Additional Past Surgical History / Comment(s): Rt knee torn meniscus repair, rt knee replacement, L inguinal hernia repair, Past Anesthesia/Blood Transfusion Reactions: Motion Sickness Smoking Status: Current every day smoker - Past Family History Father Family Medical History: Unable to Obtain Mother Family Medical History: Dementia, Vascular Disorder Additional Family Medical History / Comment(s): from aneurysm Medications and Allergies Home Medications Medication Instructions Recorded Confirmed Type Aspirin [Adult Low Dose Aspirin EC] 81 mg PO DAILY 04/19/20 07/27/21 History Atorvastatin [Lipitor] 40 mg PO HS 04/19/20 07/27/21 History Cetirizine HCl [Zyrtec] 10 mg PO DAILY 04/19/20 07/27/21 History Furosemide [Lasix] 20 mg PO DAILY 04/19/20 07/27/21 History Metoprolol Tartrate [Lopressor] 75 mg PO BID 04/19/20 07/27/21 History Acetaminophen Tab [Tylenol] 650 mg PO Q6HR PRN tab 07/19/21 07/27/21 Rx lisinopriL [Zestril] 5 mg PO DAILY 30 Days #30 tab 07/19/21 07/27/21 Rx Warfarin [Coumadin] 4 mg PO HS 07/27/21 07/27/21 History Allergies Allergy/AdvReac Type Severity Reaction Status Date / Time codeine Allergy Unknown Verified 07/27/21 09:38 Penicillins Allergy Rash/Hives Verified 07/27/21 09:38 Physical Exam Vitals: Vital Signs Temp Pulse Resp BP Pulse Ox 07/27/21 13:37 97.7 F 101 H 15 98 07/27/21 12:46 90 18 130/76 98 07/27/21 08:29 90 18 127/70 Intake and Output 07/26/21 07/27/21 07/27/21 22:59 06:59 14:59 Output Total 2500 Balance -2500 Output: Urine 2500 Other: Weight 82.327 kg PHYSICAL EXAMINATION: Patient is lying in the bed comfortably, no acute distress, awake alert and oriented. HEENT: Normocephalic. Neck is supple. Pupils reactive. Nostrils clear. Oral cavity is moist. Neck reveals no JVD, carotid bruits, or thyromegaly. CHEST EXAMINATION: Trachea is central. Symmetrical expansion. Right lower lobe diminished sounds. No wheezing or rhonchi. CARDIAC: Normal S1, S2 with no gallops. No murmurs ABDOMEN: Soft. Bowel sounds normal. No organomegaly. No abdominal bruits. Extremities: reveal no edema. No clubbing or cyanosis Neurologically awake, alert, oriented x3. Patient does have left facial droop and drooling. Dysarthria. Muscle strength 5 out of 5 in all 4 extremities. Skin: No rash or skin lesions. Psychiatric: Cooperative. Nonsuicidal Musculoskeletal: No joint swelling or deformity. Normal range of motion. Results CBC & Chem 7: 07/27/21 09:02 07/27/21 14:41 Labs: Abnormal Lab Results - Last 24 Hours (Table) 07/27/21 07/27/21 07/27/21 Range/Units 09:02 09:02 09:02 RBC 3.17 L (4.30-5.90) m/uL Hgb 10.6 L (13.0-17.5) gm/dL Hct 31.7 L (39.0-53.0) % MCV 100.1 H (80.0-100.0) fL Plt Count 102 L (150-450) k/uL Neutrophils # 7.9 H (1.3-7.7) k/uL Lymphocytes # 0.7 L (1.0-4.8) k/uL PT 19.7 H (9.0-12.0) sec INR 1.9 H (<1.2) APTT 32.6 H (22.0-30.0) sec Sodium 131 L (137-145) mmol/L Potassium 6.2 H* (3.5-5.1) mmol/L Carbon Dioxide 20 L (22-30) mmol/L BUN 72 H (9-20) mg/dL Creatinine 2.26 H (0.66-1.25) mg/dL Troponin I (0.000-0.034) ng/mL Albumin 3.3 L (3.5-5.0) g/dL Urine Blood (Negative) Urine RBC (0-5) /hpf Hyaline Casts (0-2) /lpf Urine Mucus (None) /hpf 07/27/21 07/27/21 Range/Units 09:02 11:59 RBC (4.30-5.90) m/uL Hgb (13.0-17.5) gm/dL Hct (39.0-53.0) % MCV (80.0-100.0) fL Plt Count (150-450) k/uL Neutrophils # (1.3-7.7) k/uL Lymphocytes # (1.0-4.8) k/uL PT (9.0-12.0) sec INR (<1.2) APTT (22.0-30.0) sec Sodium (137-145) mmol/L Potassium (3.5-5.1) mmol/L Carbon Dioxide (22-30) mmol/L BUN (9-20) mg/dL Creatinine (0.66-1.25) mg/dL Troponin I 0.110 H* (0.000-0.034) ng/mL Albumin (3.5-5.0) g/dL Urine Blood Trace H (Negative) Urine RBC 9 H (0-5) /hpf Hyaline Casts 3 H (0-2) /lpf Urine Mucus Rare H (None) /hpf Thrombosis Risk Factor Assmnt - DVT/VTE Prophylaxis DVT/VTE Prophylaxis: Pharmacologic Prophylaxis ordered - Choose All That Apply Any of the Below Risk Factors Present?: Yes Each Factor Represents 1 point: Abnormal pulmonary function (COPD), Heart failure (<1month), Obesity (BMI >25), Swollen legs (current) Each Risk Factor Represents 3 Points: Age 75 years or older Other congenital or acquired thrombophilia - If yes, enter type in comment: No Each Risk Factor Represents 5 Points: Stroke (< 1 month) Thrombosis Risk Factor Assessment Total Risk Factor Score: 12 Thrombosis Risk Factor Assessment Level: High Risk Assessment and Plan Assessment: Acute ischemic stroke with multifocal area involvement. Left facial droop and dysarthria secondary to above Left lower extremity extensive acute DVT throughout anterior nasal vessels from the groin to the upper calf. Right hilar mass and adenopathy suspicious for malignancy. Large right axillary mass or abdominal adenopathy. Hypovolemic hyponatremia Hyperkalemia with potassium 6.2 Chronic kidney disease stage III with creatinine level 2.26 Mild elevated troponin level History of coronary disease with occluded LAD. Medical management was recommended. Ongoing nicotine addiction Hypertension Hyperlipidemia Chronic CHF ejection fraction not known. Paroxysmal atrial fibrillation on anticoagulation with Coumadin INR 1.9 on admission. DVT prophylaxis patient is on heparin drip Plan: Patient was admitted to the hospital acute ischemic infarct as per MRI of the brain. Started on aspirin and lipid profile was ordered. Follow-up TSH B12 and folate levels. Patient was given insulin/D50 for hyperkalemia and monitor potassium level and renal function closely. Patient will be started on heparin drip due to acute left lower extremity extensive DVT was cleared by neurology. Pulmonary will be consulted due to suspicion for lung malignancy. Prognosis guarded with multiple medical problems and comorbid conditions. Discussed with the patient and his at bedside in detail. Time with Patient: Greater than 30
[2021-07-27] MEDS ORDERED: INSULIN REGULAR 100 UNIT/ML VIAL (IV) IV STA (22:31)
[2021-07-28] MEDS: SODIUM CHLORIDE 0.9% 1,000 ML IV SCH ×3 (03:35→20:15)
[2021-07-28] MEDS: HEPARIN SOD,PORK IN 0.45% NACL 25,000 UNIT in 0.45% NACL 1 250ML.BAG IV SCH (05:10)
[2021-07-28 05:48] LABS: Basophils % (A) 0 %; Eosinophils # (A) 0.1 k/uL (0-0.7); Eosinophils % (A) 0 %; HCT 33.5 % (39.0-53.0); HGB 10.3 gm/dL (13.0-17.5); Hypochromasia Marked; Lymphocytes # (A) 1.1 k/uL (1.0-4.8); Lymphocytes % (A) 10 %; MCH 32.4 pg (25.0-35.0); MCHC 30.8 g/dL (31.0-37.0); MCV 104.9 fL (80.0-100.0); Macrocytosis Moderate; Mean Platelet Volume 8.5; Monocytes # (A) 0.8 k/uL (0-1.0); Monocytes % (A) 8 %; Neutrophils # (A) 8.2 k/uL (1.3-7.7); Neutrophils % (A) 78 %; Platelet Count 148 k/uL (150-450); RBC 3.19 m/uL (4.30-5.90); RDW 15.3 % (11.5-15.5); WBC 10.5 k/uL (3.8-10.6)
[2021-07-28 06:02] LABS: African American GFR (CKD) 32 (>60 ml/min/1.73 sqM); Anion Gap 7 mmol/L; Blood Urea Nitrogen 71 mg/dL (9-20); Calcium 9.8 mg/dL (8.4-10.2); Carbon Dioxide 21 mmol/L (22-30); Chloride 108 mmol/L (98-107); Glucose 84 mg/dL (74-99); Non-African American GFR(CKD) 28 (>60 ml/min/1.73 sqM); Sodium 136 mmol/L (137-145)
[2021-07-28 06:07] LABS: Potassium 6.2 mmol/L (3.5-5.1)
[2021-07-28] MEDS ORDERED: DEXTROSE 50% SYRINGE 50 ML IVP STA ×2 (06:30→10:13)
[2021-07-28] MEDS ORDERED: INSULIN REGULAR 100 UNIT/ML VIAL (IV) IV STA (06:30)
--- NOTE | 2021-07-28 08:51 | P.CNNES ---
History of Present Illness Consult date: 07/27/21 Requesting physician: Seema Whitney Reason for Consult: Acute CVA History of Present Illness: Patient is a 76-year-old male who came to the hospital today at 8:21 AM by ambulance for left facial droop. As per EMS flow sheet when they arrive patient was alert and oriented 4, with GCS of 15. Patient had a left facial droop, difficulty swallowing and speaking. Patient is whispering, which patient stated was going on for a while due to laryngitis. Patient denied any chest pain difficulty breathing shortness of breath or dizziness weakness. Patient mentioned that everything was normal when he woke up at around 6 AM this morning. Then when patient was about half way through drinking his coffee, he started having difficulty swallowing and noticed his coffee was going down his friend which is when he noticed the left facial droop. Patient's vitals at the scene was blood pressure 149/77, pulse of 91, respiration 20, saturation 95%. Temperature 97.7. Blood sugar 156. Patient denies any headache, dizziness, numbness tingling or paralysis involving his extremities. Patient's blood pressure on arrival was 127/70 temperature 97.7. Patient's blood tests showed normal WBC hemoglobin 10.6 with elevated MCV 100.1 and platelets 102. INR 1.9 PTT 32.6. Sodium 131, potassium 6.2, BUN 72, creatinine 2.26. Hepatic panel is normal. Troponin borderline 0.110. Vitamin B12 is 1009, TSH normal. UA negative. Stroke code was activated in the ER and Dr. Thompson was contacted by the ED staff. Computed tomography scan of the head was performed, which revealed tiny 5 mm cortical hyperdensity superior left precentral gyrus. A tiny cortical contusion/bleed is difficult to exclude. Otherwise there is moderate patchy burden of chronic small vessel ischemic disease and mild generalized atrophy. CTA of the head showed no large vessel intracranial arterial occlusion or significant stenosis. A 4.5 mm saccular aneurysm projecting superiorly and medially from the proximal supraclinoid segment left ICA. Additional tiny 2 mm aneurysm projecting anteriorly from the left MCA bifurcation. CTA of the neck showed patent bilateral carotid and vertebral arteries of the neck. Known abnormal mediastinal lymphadenopathy which warrants further oncological evaluation. Patient was not a candidate for TPA, as his CT head showed possibility of a bleed. Also patient had elevated INR of 1.9. Patient was given vitamin K. Also given aspirin. Patient subsequently underwent an MRI of the brain which revealed multifocal areas of acute ischemia predominantly lacunar or punctate in appearance. Dominant area measured 1.3 x 0.8 cm right wills radiate to the frontal white matter adjacent to the ventricular system. Background mild to moderate diffuse cerebral atrophy and moderate to advanced chronic small vessel ischemic change. Increased signal right mastoid air cells could reflect product of mastoiditis, correlate clinically. I personally reviewed MRI of the computer, and agree with the findings. No evidence of hemorrhage. Chest x-ray showed pleural effusion, mediastinal adenopathy, hilar nodule, patient with known right axillary mass. Patient had a venous Doppler performed today, which was positive for DVT. Extensive DVT throughout entire image vessels from groin to upper calf vessels. Incidental note is made of a large mass right groin, measuring 5.9 x 2.8 x 5.4 with internal vascularity. Patient states he has smoked half pack per day for 50 years. Patient states that he lost his voice about a month ago from laryngitis. He denies diabetes or hypertension no history of strokes in the past. Patient states that he used to walk normally, until one week, when because of the back problems he has started using a walker. He had a compression fracture, but not suffered from any fall. Denies any history of known cancers. Review of Systems As mentioned in detail in history of present illness. Denies any fever or chills. He does have easy bruises. All other 14 point of review of systems are reviewed and noncontributory to the current illness. Denies any chest pain. He does have difficulty breathing. Past Medical History Past Medical History: Atrial Fibrillation, Coronary Artery Disease (CAD), Heart Failure, COPD, Hyperlipidemia, Hypertension, Myocardial Infarction ([place]) Additional Past Medical History / Comment(s): Pt recently admitted to [facility] on 07/17/21 with exacerbation CHF, laryngitis/bronchitis also found abnormal chest xray/cat scan and back compression fractures. Other hx: Paroxysmal Afib, occasional bilateral leg cramping but much worse past couple days, increased L lower leg edema past couple days, sinus problems. Last Myocardial Infarction Date:: 2017 History of Any Multi-Drug Resistant Organisms: None Reported Past Surgical History: Heart Catheterization, Hernia Repair, Joint Replacement, Orthopedic Surgery Additional Past Surgical History / Comment(s): Rt knee torn meniscus repair, rt knee replacement, L inguinal hernia repair, Past Anesthesia/Blood Transfusion Reactions: Motion Sickness Past Psychological History: No Psychological Hx Reported Additional Psychological History / Comment(s): Pt resides with his spouse. He uses a walker or cane. Smoking Status: Current every day smoker Past Alcohol Use History: None Reported Additional Past Alcohol Use History / Comment(s): smoker since age 11 1/2ppd Past Drug Use History: None Reported - Past Family History Father Family Medical History: Unable to Obtain Mother Family Medical History: Dementia, Vascular Disorder Additional Family Medical History / Comment(s): from aneurysm Medications and Allergies Home Medications Medication Instructions Recorded Confirmed Type Aspirin [Adult Low Dose Aspirin EC] 81 mg PO DAILY 04/19/20 07/27/21 History Atorvastatin [Lipitor] 40 mg PO HS 04/19/20 07/27/21 History Cetirizine HCl [Zyrtec] 10 mg PO DAILY 04/19/20 07/27/21 History Furosemide [Lasix] 20 mg PO DAILY 04/19/20 07/27/21 History Metoprolol Tartrate [Lopressor] 75 mg PO BID 04/19/20 07/27/21 History Acetaminophen Tab [Tylenol] 650 mg PO Q6HR PRN tab 07/19/21 07/27/21 Rx lisinopriL [Zestril] 5 mg PO DAILY 30 Days #30 tab 07/19/21 07/27/21 Rx Warfarin [Coumadin] 4 mg PO HS 07/27/21 07/27/21 History Allergies Allergy/AdvReac Type Severity Reaction Status Date / Time codeine Allergy Unknown Verified 07/27/21 09:38 Penicillins Allergy Rash/Hives Verified 07/27/21 09:38 Physical Examination - Vital Signs Vital Signs: Vital Signs Temp Pulse Pulse Resp BP BP Pulse Ox 07/27/21 16:00 104 H 16 123/68 96 07/27/21 14:52 98.2 F 99 17 140/69 95 07/27/21 14:23 98.2 F 99 17 140/69 95 07/27/21 14:00 99 17 07/27/21 13:37 97.7 F 101 H 15 98 07/27/21 12:46 90 18 130/76 98 07/27/21 08:29 90 18 127/70 Intake and Output 07/27/21 07/27/21 07/27/21 06:59 14:59 22:59 Intake Total 0 Output Total 2500 900 Balance -2500 -900 Intake: Oral 0 Output: Urine 2500 900 Other: Voiding Method Indwelling Catheter Weight 82.327 kg Patient is an elderly male, who appears to be slight short of breath, effortful breathing. Patient is otherwise mildly groggy, but does become alert awake oriented to time place and person. He knows it is June and the year is 2021, that his in [facility] and he knows name of the current president. Speech and language functions are normal. Patient is talking and whispering because he believes of recent laryngitis. Patient can name and repeat very well. No aphasia or dysarthria. Attention, concentration and fund of knowledge is adequate. On cranial examination, pupils are round and reacting to light, visual watkins are full on confrontation, extraocular muscles are intact with no nystagmus. Patient has left facial weakness, central type. His tongue protrudes to the midline. Palatal elevation and sensation normal, hearing and shoulder shrug normal, facial sensation normal. Shoulder shrug normal. On muscle strength testing, there is a left pronator drift and the strength is normal in arms and legs distally and proximally, except left hip flexion, which is weak otherwise all normal. Deep tendon reflexes are 1 in the upper limbs bilaterally, 0 at the right knee, 1 on the left. Plantar is downgoing on the right, up on the left. Sensory to touch is equal with no neglect on double simultaneous stimulation. Cerebellar function showed dysmetria for [id number] testing on the left. Tone and bulk of muscles normal. Gait not checked. On general examination, there is no carotid bruit or murmur, S1-S2 audible. Abdomen is soft nontender. Bowel sounds present. Chest has some crackles. Peripheral pulses are present. Patient has some slight swelling of the left lower extremity as compared to the right. Patient has some ecchymosis over his arms. Results - Laboratory Findings CBC and BMP: 07/28/21 05:21 07/28/21 05:21 Abnormal Lab Findings: Abnormal Labs 07/27/21 07/27/21 07/27/21 09:02 09:02 09:02 RBC 3.17 L Hgb 10.6 L Hct 31.7 L MCV 100.1 H Plt Count 102 L Neutrophils # 7.9 H Lymphocytes # 0.7 L PT 19.7 H INR 1.9 H APTT 32.6 H Sodium 131 L Potassium 6.2 H* Carbon Dioxide 20 L BUN 72 H Creatinine 2.26 H Calcium Troponin I Albumin 3.3 L Urine Blood Urine RBC Hyaline Casts Urine Mucus 07/27/21 07/27/21 07/27/21 09:02 11:59 14:41 RBC Hgb Hct MCV Plt Count Neutrophils # Lymphocytes # PT INR APTT Sodium 134 L Potassium 6.9 H* Carbon Dioxide 15 L BUN 71 H Creatinine 2.25 H Calcium 10.6 H Troponin I 0.110 H* Albumin Urine Blood Trace H Urine RBC 9 H Hyaline Casts 3 H Urine Mucus Rare H Assessment and Plan Assessment: * Acute ischemic stroke, multifocal involvement in bilateral hemispheric region, most likely embolic in nature. * Patient has atrial fibrillation, INR was slightly subtherapeutic 1.9 on arrival, which may be the cause of embolic source. * Extensive left leg DVT * Cerebral aneurysm * Right hilar mass and adenopathy suspicious for malignancy. * Chronic renal disease stage III with creatinine 2.26. * CAD * Tobacco use * Hypertension * Hyperlipidemia Plan: * Patient has presented with multifocal small ischemic strokes bilaterally. Likely from cardioembolism from atrial fibrillation. Patient's INR was 1.9 on arrival. Patient has received vitamin K, as there was concern about cerebral bleed on the initial computed tomography scan of head, which was ruled out with subsequent MRI of the brain. * Patient also has extensive left leg DVT. Neurology was consulted for clearing for heparinization at 3:26 PM. Patient has multiple ischemic strokes, small in size. Also has extensive DVT. At this point benefits of heparinization significantly outweigh the small risk of hemorrhagic conversion of CVA. Therefore neurologically patient was cleared to be started on heparin. * Repeat computed tomography scan of head in the morning to rule out any hemorrhagic conversion. * Continue Coumadin, keep INR between 2-3. * Pulmonary also consulted for hilar mass and effusion. Patient may need a tissue biopsy to confirm malignancy. * Hemoglobin A1c, fasting lipid panel * 2-D echo * Patient has cerebral aneurysm noted on CTA of head and neck. I would suggest patient follow-up with neuro intervention after discharge for further management of cerebral aneurysm. * Neurology will follow. Thank you for the consult. Time with Patient: Greater than 30
[2021-07-28] MEDS ORDERED: INSULIN REGULAR 100 UNIT/ML VIAL (IV) IV ONE (10:15)
[2021-07-28] MEDS: ASPIRIN 325 MG TAB PO SCH (11:25)
[2021-07-28] MEDS: ACETAMINOPHEN TAB 325 MG TAB PO PRN ×2 (11:37→20:14)
[2021-07-28 12:25] VITALS: BMI 28.1
--- NOTE | 2021-07-28 15:40 | P.CNPUL ---
History of Present Illness Consult date: 07/28/21 Requesting physician: Ollie Quintero Reason for consult: abnormal CXR/CT Chief complaint: Left-sided facial droop History of present illness: This is a pleasant 76-year-old gentleman with a known history of atrial fibrillation, anticoagulated with warfarin, coronary artery disease, hyperlipid emia, hypertension, chronic obstructive pulmonary disease with chronic and ongoing tobacco dependence. He was recently discharged from here 1 week ago for an episode of congestive heart failure. In the hospitalization a CT of the chest was done which showed neoplasm strongly suspected with markedly abnormal thoracic adenopathy throughout the mediastinum along with abnormal right axillary mass and adenopathy. The patient at that time had been quite adamant about going home and requested to be discharged which she was on 07/19/2021. He was scheduled to see Dr. Manuel on 08/02/2021 as a new patient. He came into the emergency room yesterday after waking up at 6:00 in the morning with a nota ble left-sided facial droop. A code stroke was called and he was evaluated by neurology. CT of the neck revealed patent bilateral carotid and vertebral arteries. Known abnormal mediastinal lymphadenopathy which warrant further investigation from a CAT scan of 07/19/2021. Continued moderate layering right pleural effusion. COPD. Patchy groundglass right greater than left visualized the upper lungs. The head revealed no large vessel intracranial arterial occlusion or significant stenosis. There is a 4.5 mm saccular aneurysm projecting superiorly and medially from the proximal supraclinoid segment left ICA. A tiny 2 mm aneurysm projecting anteriorly from the left MCA bifurcation. MRI of the brain revealed multifocal areas of acute ischemia predominantly lacunar and punctate in appearance. Dominant area measures 1.3 x 0.8 cm in the right coronal radiata deep frontal white matter adjacent to the ventricular system. Background mild to moderate diffuse cerebral atrophy and moderate to advanced chronic small vessel ischemic changes. Dopplers of the lower extremity revealed an extensive DVT throughout the entire imaged vessels from groin to upper calf and the left leg. Noted left inguinal mass likely a pathologic lymph node measuring up to 5.9 x 5.4 x 2.8 cm. The patient is seen today in consultation on the selective care unit. He is currently sitting up in the bedside. Noted left-sided facial droop. Difficulty in speaking. White count 10.5. Hemoglobin 10.3. Platelets 148. Sodium 136. Potassium 6.2. Bicarb 21. BUN 71. Creatinine 2.22. INR 1.9. He's been initiated on a heparin drip. Review of Systems REVIEW OF SYSTEMS: CONSTITUTIONAL: Acute left-sided facial droop with difficulty speaking. Denies any recent significant weight loss or weight gain. EYES: Denies change in vision. EARS, NOSE, MOUTH, THROAT: Denies headaches, denies sore throat. CARDIOVASCULAR: Denies chest pain, palpitations or syncopal episodes. RESPIRATORY: Denies shortness of breath, cough, congestion or hemoptysis. GASTROINTESTINAL: Denies change in appetite, denies abdominal pain GENITOURINARY: Denies hematuria, denies infections. MUSKULOSKELETAL: Denies pain, denies swelling. INTEGUMENTARY: Denies rash, denies eczema. NEUROLOGICAL: Denies recent memory loss, no recent seizure activity. PSYCHIATRIC: Denies anxiety, denies depression. HEMATOLOGIC/LYMPHATIC: Denies anemia, positive for enlarged lymph nodes. s Past Medical History Past Medical History: Atrial Fibrillation, Coronary Artery Disease (CAD), Heart Failure, COPD, Hyperlipidemia, Hypertension, Myocardial Infarction ([place]) Additional Past Medical History / Comment(s): Pt recently admitted to [facility] on 07/17/21 with exacerbation CHF, laryngitis/bronchitis also found abnormal chest xray/cat scan and back compression fractures. Other hx: Paroxysmal Afib, occasional bilateral leg cramping but much worse past couple days, increased L lower leg edema past couple days, sinus problems. Last Myocardial Infarction Date:: 2017 History of Any Multi-Drug Resistant Organisms: None Reported Past Surgical History: Heart Catheterization, Hernia Repair, Joint Replacement, Orthopedic Surgery Additional Past Surgical History / Comment(s): Rt knee torn meniscus repair, rt knee replacement, L inguinal hernia repair, Past Anesthesia/Blood Transfusion Reactions: Motion Sickness Past Psychological History: No Psychological Hx Reported Additional Psychological History / Comment(s): Pt resides with his spouse. He uses a walker or cane. Smoking Status: Current every day smoker Past Alcohol Use History: None Reported Additional Past Alcohol Use History / Comment(s): smoker since age 11 1/2ppd Past Drug Use History: None Reported - Past Family History Father Family Medical History: Unable to Obtain Mother Family Medical History: Dementia, Vascular Disorder Additional Family Medical History / Comment(s): from aneurysm Medications and Allergies Home Medications Medication Instructions Recorded Confirmed Type Aspirin [Adult Low Dose Aspirin EC] 81 mg PO DAILY 04/19/20 07/27/21 History Atorvastatin [Lipitor] 40 mg PO HS 04/19/20 07/27/21 History Cetirizine HCl [Zyrtec] 10 mg PO DAILY 04/19/20 07/27/21 History Furosemide [Lasix] 20 mg PO DAILY 04/19/20 07/27/21 History Metoprolol Tartrate [Lopressor] 75 mg PO BID 04/19/20 07/27/21 History Acetaminophen Tab [Tylenol] 650 mg PO Q6HR PRN tab 07/19/21 07/27/21 Rx lisinopriL [Zestril] 5 mg PO DAILY 30 Days #30 tab 07/19/21 07/27/21 Rx Warfarin [Coumadin] 4 mg PO HS 07/27/21 07/27/21 History Allergies Allergy/AdvReac Type Severity Reaction Status Date / Time codeine Allergy Unknown Verified 07/27/21 09:38 Penicillins Allergy Rash/Hives Verified 07/27/21 09:38 Physical Exam Vitals: Vital Signs Temp Pulse Resp BP Pulse Ox 07/28/21 11:33 99 F 100 18 100/55 92 L 07/28/21 08:00 98 F 115 H 20 106/62 94 L 07/28/21 03:56 98.9 F 110 H 20 114/69 95 07/28/21 00:00 97.5 F L 110 H 20 101/61 95 07/27/21 20:00 98.1 F 106 H 18 102/62 91 L 07/27/21 16:00 104 H 16 123/68 96 Intake and Output 07/28/21 07/28/21 07/28/21 06:59 14:59 22:59 Intake Total 89.119 158.669 Output Total 325 425 Balance -235.881 -266.331 Intake: Intake, IV Titration 89.119 40.669 Amount Heparin Sod,Pork in 0.45% 89.119 40.669 NaCl 25,000 unit In 0.45 % NaCl 1 250ml.bag @ 18 UNITS/KG/HR 14.819 mls/hr IV .[id number] [facility] Rx#: [id number] Oral 118 Output: Urine 325 425 Other: Voiding Method Indwelling Catheter Weight 74.5 kg 74.5 kg GENERAL EXAM: Alert, pleasant 76-year-old male patient, left-sided facial droop noted, on 2 L nasal cannula, fairly comfortable in no apparent distress. HEAD: Normocephalic. EYES: Normal reaction of pupils, equal size. NOSE: Clear with pink turbinates. THROAT: No erythema or exudates. NECK: No masses, no JVD. CHEST: No chest wall deformity. LUNGS: Equal air entry with crackles in the right base. Diminished CVS: S1 and S2 normal with no audible murmur, regular rhythm. ABDOMEN: No hepatosplenomegaly, normal bowel sounds, no guarding or rigidity. SPINE: No scoliosis or deformity SKIN: No rashes CENTRAL NERVOUS SYSTEM: No focal deficits, tone is normal in all 4 extremities. EXTREMITIES: There is a palpable lymph node under the right axilla. There is no peripheral edema. No clubbing, no cyanosis. Peripheral pulses are intact. Results - Laboratory Findings CBC and BMP: 07/28/21 05:21 07/28/21 05:21 PT/INR, D-dimer PT 19.7 sec (9.0-12.0) H 07/27/21 09:02 INR 1.9 (<1.2) H 07/27/21 09:02 Abnormal lab findings: Abnormal Labs 07/27/21 07/27/21 07/27/21 09:02 09:02 09:02 RBC 3.17 L Hgb 10.6 L Hct 31.7 L MCV 100.1 H MCHC Plt Count 102 L Neutrophils # 7.9 H Lymphocytes # 0.7 L PT 19.7 H INR 1.9 H APTT 32.6 H Sodium 131 L Potassium 6.2 H* Chloride Carbon Dioxide 20 L BUN 72 H Creatinine 2.26 H Calcium Troponin I Albumin 3.3 L Vitamin B12 Urine Blood Urine RBC Hyaline Casts Urine Mucus 07/27/21 07/27/21 07/27/21 09:02 11:59 14:41 RBC Hgb Hct MCV MCHC Plt Count Neutrophils # Lymphocytes # PT INR APTT Sodium 134 L Potassium 6.9 H* Chloride Carbon Dioxide 15 L BUN 71 H Creatinine 2.25 H Calcium 10.6 H Troponin I 0.110 H* Albumin Vitamin B12 1009.0 H Urine Blood Trace H Urine RBC 9 H Hyaline Casts 3 H Urine Mucus Rare H 07/27/21 07/27/21 07/28/21 21:08 21:39 05:21 RBC Hgb Hct MCV MCHC Plt Count Neutrophils # Lymphocytes # PT INR APTT >200.0 H* Sodium 136 L Potassium 6.0 H 6.2 H* Chloride 108 H Carbon Dioxide 21 L BUN 71 H Creatinine 2.22 H Calcium Troponin I Albumin Vitamin B12 Urine Blood Urine RBC Hyaline Casts Urine Mucus 07/28/21 07/28/21 07/28/21 05:21 05:21 09:27 RBC 3.19 L Hgb 10.3 L Hct 33.5 L MCV 104.9 H MCHC 30.8 L Plt Count 148 L Neutrophils # 8.2 H Lymphocytes # PT INR APTT >200.0 H* 104.5 H* Sodium Potassium Chloride Carbon Dioxide BUN Creatinine Calcium Troponin I Albumin Vitamin B12 Urine Blood Urine RBC Hyaline Casts Urine Mucus - Diagnostic Findings Chest x-ray: image reviewed Assessment and Plan Assessment: 1 Acute left sided facial droop. Computed tomography scan of the brain revealed no large vessel intracranial arterial occlusion or significant stenosis. There is a 4.5 mm saccular aneurysm projecting superiorly and medially from the proximal supraclinoid segment left ICA. A tiny 2 mm aneurysm projecting anteriorly from the left MCA bifurcation. MRI of the brain revealed multifocal areas of acute ischemia predominantly lacunar and punctate in appearance. Dominant area measures 1.3 x 0.8 cm in the right coronal radiata deep frontal white matter adjacent to the ventricular system. Background mild to moderate diffuse cerebral atrophy and moderate to advanced chronic small vessel ischemic changes. Currently on a heparin drip. 2 Recent admission for congestive heart failure with abnormal chest x-ray and subsequent CT of the chest was done which showed neoplasm strongly suspected with markedly abnormal thoracic adenopathy throughout the mediastinum along with abnormal right axillary mass and adenopathy. Was to be followed up in the outpatient setting. 3 Dopplers of the lower extremity revealed an extensive DVT throughout the entire imaged vessels from groin to upper calf and the left leg. Noted left i nguinal mass likely a pathologic lymph node measuring up to 5.9 x 5.4 x 2.8 cm. 4 Chronic and ongoing tobacco dependence of greater than 50 years 5 History of atrial fibrillation, anticoagulated with warfarin current INR 1.9 6 History of coronary disease 7 Hypertension 8 Hyperlipidemia 9 Chronic obstructive pulmonary disease Plan: The patient was seen and evaluated CAT scan of the brain, chest reviewed Dopplers positive for left lower extremity DVT Recommend interventional radiology consult for biopsy of the right axillary lymph node for diagnosis and staging Currently on a heparin drip. Off warfarin. If unable to obtain biopsy from the right axillary or possibly the left inguinal mass a consider EBUS He is educated regarding importance of complete smoking cessation. We will continue to follow make further recommendations based on his clinical status I, the cosigning physician, performed a history & physical examination of the patient. Lungs sounds with crackles in the right base, diminished. Maintaining good O2 saturations in the 90s on 2 L/m per nasal cannula. I discussed the assessment and plan of care with my nurse practitioner, Chanelle Delgado. I attest to the above consultation as dictated by her. Time with Patient: Greater than 30
--- NOTE | 2021-07-28 15:47 | P.PN ---
Subjective Progress Note Date: 07/28/21 This is a Tele-neurology followup performed today on 07/28/2021. Patient states he is feeling better. He is laying comfortably in the bed. Denies any headache, no numbness or tingling, no visual problems, no dizziness. Patient is able to take pure nectar thick diet. Patient is complaining of mid back pain, 10/10, which is not new and has been present even before the hospitalization. Objective - Vital Signs Vital signs: Vital Signs Temp 98 F 07/28/21 08:00 Pulse 115 H 07/28/21 08:00 Resp 20 07/28/21 08:00 BP 106/62 07/28/21 08:00 Pulse Ox 94 L 07/28/21 08:00 Intake & Output 07/27/21 07/28/21 07/28/21 18:59 06:59 18:59 Intake Total 0 416.798 0 Output Total 3400 550 Balance -3400 -133.202 0 Weight 82.327 kg 74.5 kg Intake: Intake, IV Titration 176.798 0 Amount Heparin Sod,Pork in 0.45% 176.798 0 NaCl 25,000 unit In 0.45 % NaCl 1 250ml.bag @ 18 UNITS/KG/HR 14.819 mls/hr IV .[id number] [facility] Rx#: [id number] Oral 0 240 0 Output: Urine 3400 550 Other: Voiding Method Indwelling Catheter Indwelling Catheter - Exam On examination patient is alert and awake in no distress. He looks more comfortable as compared to yesterday. Speech and language functions are normal. Patient is whispering because of his recent laryngitis. However no aphasia or dysarthria. On muscle strength testing patient has mild left pronator drift, better than yesterday. The strength in the upper extremities is normal. There is mild dysmetria for [id number] testing, better than yesterday. - Labs CBC & Chem 7: 07/28/21 05:21 07/28/21 05:21 Labs: Abnormal Lab Results - Last 24 Hours (Table) 07/27/21 07/27/21 07/27/21 Range/Units 11:59 14:41 21:08 RBC (4.30-5.90) m/uL Hgb (13.0-17.5) gm/dL Hct (39.0-53.0) % MCV (80.0-100.0) fL MCHC (31.0-37.0) g/dL Plt Count (150-450) k/uL Neutrophils # (1.3-7.7) k/uL APTT >200.0 H* (22.0-30.0) sec Sodium 134 L (137-145) mmol/L Potassium 6.9 H* (3.5-5.1) mmol/L Chloride (98-107) mmol/L Carbon Dioxide 15 L (22-30) mmol/L BUN 71 H (9-20) mg/dL Creatinine 2.25 H (0.66-1.25) mg/dL Calcium 10.6 H (8.4-10.2) mg/dL Vitamin B12 1009.0 H (200.0-944.0) pg/mL Urine Blood Trace H (Negative) Urine RBC 9 H (0-5) /hpf Hyaline Casts 3 H (0-2) /lpf Urine Mucus Rare H (None) /hpf 07/27/21 07/28/21 07/28/21 Range/Units 21:39 05:21 05:21 RBC 3.19 L (4.30-5.90) m/uL Hgb 10.3 L (13.0-17.5) gm/dL Hct 33.5 L (39.0-53.0) % MCV 104.9 H (80.0-100.0) fL MCHC 30.8 L (31.0-37.0) g/dL Plt Count 148 L (150-450) k/uL Neutrophils # 8.2 H (1.3-7.7) k/uL APTT (22.0-30.0) sec Sodium 136 L (137-145) mmol/L Potassium 6.0 H 6.2 H* (3.5-5.1) mmol/L Chloride 108 H (98-107) mmol/L Carbon Dioxide 21 L (22-30) mmol/L BUN 71 H (9-20) mg/dL Creatinine 2.22 H (0.66-1.25) mg/dL Calcium (8.4-10.2) mg/dL Vitamin B12 (200.0-944.0) pg/mL Urine Blood (Negative) Urine RBC (0-5) /hpf Hyaline Casts (0-2) /lpf Urine Mucus (None) /hpf 07/28/21 07/28/21 Range/Units 05:21 09:27 RBC (4.30-5.90) m/uL Hgb (13.0-17.5) gm/dL Hct (39.0-53.0) % MCV (80.0-100.0) fL MCHC (31.0-37.0) g/dL Plt Count (150-450) k/uL Neutrophils # (1.3-7.7) k/uL APTT >200.0 H* 104.5 H* (22.0-30.0) sec Sodium (137-145) mmol/L Potassium (3.5-5.1) mmol/L Chloride (98-107) mmol/L Carbon Dioxide (22-30) mmol/L BUN (9-20) mg/dL Creatinine (0.66-1.25) mg/dL Calcium (8.4-10.2) mg/dL Vitamin B12 (200.0-944.0) pg/mL Urine Blood (Negative) Urine RBC (0-5) /hpf Hyaline Casts (0-2) /lpf Urine Mucus (None) /hpf Assessment and Plan Assessment: * Acute ischemic stroke, multifocal involvement in bilateral hemispheric region, most likely embolic in nature. * Patient has atrial fibrillation, INR was slightly subtherapeutic 1.9 on arrival, which may be the cause of embolic source. * Extensive left leg DVT * Cerebral aneurysm * Right hilar mass and adenopathy suspicious for malignancy. * Chronic renal disease stage III with creatinine 2.26. * Back pain related to compression fracture. Patient has a known L1 compression fracture from 03/15/2021. * CAD * Tobacco use * Hypertension * Hyperlipidemia Plan: * Patient's neurological examination has improved as compared to the yesterday. Patient's PTT is 104.5. Recommend maintaining PTT in therapeutic range. * Patient has no headache. Neurological examination is improved, therefore no need to repeat CT head at this time. * Patient undergoing axillary lump biopsy on Friday for possible malignancy. Pulmonary on board. * Continue Coumadin, keep INR between 2-3. * Hemoglobin A1c 5.6, fasting lipid panel pending * 2-D echo was performed outpatient on 07/18/2021. It revealed normal left ventricular size. Mild concentric LVH. EF is between 35-40%. Left ventricular systolic function mildly decreased. Left ventricle is mildly enlarged. Trace MR, trace TR. No need to repeat echo. * Patient has cerebral aneurysm noted on CTA of head and neck. I would suggest patient follow-up with neuro intervention after discharge for further management of cerebral aneurysm. * Patient complaining of severe mid back pain. Patient had L1 compression fracture diagnosed in February 2021. I discussed with patient about checking x-ray of the thoracic spine, but he declined. Patient may need a bone scan.
[2021-07-28 16:57] LABS: HCT 30.4 % (39.0-53.0); HGB 9.6 gm/dL (13.0-17.5); Hypochromasia Marked; MCH 32.9 pg (25.0-35.0); MCHC 31.4 g/dL (31.0-37.0); MCV 104.7 fL (80.0-100.0); Macrocytosis Moderate; Mean Platelet Volume 8.5; Platelet Count 128 k/uL (150-450); RDW 15.3 % (11.5-15.5); WBC 10.6 k/uL (3.8-10.6)
[2021-07-28 17:05] LABS: Calcium 9.6 mg/dL (8.4-10.2); Potassium 5.9 mmol/L (3.5-5.1)
[2021-07-28] MEDS: ATORVASTATIN 40 MG TAB PO SCH (20:14)
[2021-07-29 01:20] LABS: LDL Cholesterol,Calculated 25.7 mg/dL (0.0-131.0); VLDL Calculation 13.58 mg/dL (5.00-40.00)
[2021-07-29] MEDS: HEPARIN SOD,PORK IN 0.45% NACL 25,000 UNIT in 0.45% NACL 1 250ML.BAG IV SCH ×2 (03:00→18:44)
[2021-07-29] MEDS: HYDROmorphone 0.5 MG/0.5 ML SYRINGE IVP PRN ×2 (08:47→22:13)
[2021-07-29] MEDS: ASPIRIN 325 MG TAB PO SCH (08:48)
[2021-07-29 09:07] LABS: Basophils % (A) 0 %; Eosinophils % (A) 0 %; HCT 27.6 % (39.0-53.0); HGB 8.8 gm/dL (13.0-17.5); Hypochromasia Moderate; Lymphocytes # (A) 0.5 k/uL (1.0-4.8); Lymphocytes % (A) 6 %; MCV 103.2 fL (80.0-100.0); Macrocytosis Moderate; Mean Platelet Volume 8.3; Monocytes # (A) 0.5 k/uL (0-1.0); Monocytes % (A) 6 %; Neutrophils # (A) 7.2 k/uL (1.3-7.7); Neutrophils % (A) 86 %; Platelet Count 146 k/uL (150-450); RBC 2.67 m/uL (4.30-5.90); RDW 15.2 % (11.5-15.5); WBC 8.5 k/uL (3.8-10.6)
[2021-07-29 09:15] LABS: Calcium 9.3 mg/dL (8.4-10.2); Potassium 4.9 mmol/L (3.5-5.1)
[2021-07-29] MEDS: SODIUM CHLORIDE 0.9% 1,000 ML IV SCH ×2 (10:46→20:14)
--- NOTE | 2021-07-29 13:21 | P.PN ---
Subjective Progress Note Date: 07/29/21 This is a pleasant 76-year-old gentleman with a known history of atrial fibrillation, anticoagulated with warfarin, coronary artery disease, hyperlipidemia, hypertension, chronic obstructive pulmonary disease with chronic and ongoing tobacco dependence. He was recently discharged from here 1 week ago for an episode of congestive heart failure. In the hospitalization a CT of the chest was done which showed neoplasm strongly suspected with markedly abnormal thoracic adenopathy throughout the mediastinum along with abnormal right axillary mass and adenopathy. The patient at that time had been quite adamant about going home and requested to be discharged which she was on 07/19/2021. He was scheduled to see Dr. Manuel on 08/02/2021 as a new patient. He came into the emergency room yesterday after waking up at 6:00 in the morning with a notable left-sided facial droop. A code stroke was called and he was evaluated by neurology. CT of the neck revealed patent bilateral carotid and vertebral a rteries. Known abnormal mediastinal lymphadenopathy which warrant further investigation from a CAT scan of 07/19/2021. Continued moderate layering right pleural effusion. COPD. Patchy groundglass right greater than left visualized the upper lungs. The head revealed no large vessel intracranial arterial occlusion or significant stenosis. There is a 4.5 mm saccular aneurysm projecting superiorly and medially from the proximal supraclinoid segment left ICA. A tiny 2 mm aneurysm projecting anteriorly from the left MCA bifurcation. MRI of the brain revealed multifocal areas of acute ischemia predominantly lacunar and punctate in appearance. Dominant area measures 1.3 x 0.8 cm in the right coronal radiata deep frontal white matter adjacent to the ventricular system. Background mild to moderate diffuse cerebral atrophy and moderate to advanced chronic small vessel ischemic changes. Dopplers of the lower extremity revealed an extensive DVT throughout the entire imaged vessels from groin to upper calf and the left leg. Noted left inguinal mass likely a pathologic lymph node measuring up to 5.9 x 5.4 x 2.8 cm. The patient is seen today in consultation on the selective care unit. He is currently sitting up in the bedside. Noted left-sided facial droop. Difficulty in speaking. White count 10.5. Hemoglobin 10.3. Platelets 148. Sodium 136. Potassium 6.2. Bicarb 21. BUN 71. Creatinine 2.22. INR 1.9. He's been initiated on a heparin drip. The patient is seen today 07/29/2021 in follow-up on the selective care unit. He is currently sitting up at the bedside. Awake and alert in no acute distress. His maintaining O2 saturation in the low to mid 90s on 4 L/m per nasal cannula. She's been afebrile. Hemodynamically stable. White count 8.5. Hemoglobin 8.8. MCV 103.2. Platelets 146. Sodium 138. Potassium 4.9. Creatinine 1.85. BUN 63. Glucose 119. He remains on a heparin drip Weight- based protocol. No worsening shortness of breath, cough or congestion. No hemoptysis. Objective - Vital Signs Vital signs: Vital Signs Temp 97.6 F 07/29/21 12:00 Pulse 110 H 07/29/21 12:00 Resp 20 07/29/21 12:00 BP 113/67 07/29/21 12:00 Pulse Ox 95 07/29/21 12:00 Intake & Output 07/28/21 07/29/21 07/29/21 18:59 06:59 18:59 Intake Total 276.669 240 331.862 Output Total 425 725 550 Balance -148.331 -485 -218.138 Weight 74.5 kg Intake: Intake, IV Titration 40.669 163.862 Amount Heparin Sod,Pork in 0.45% 40.669 163.862 NaCl 25,000 unit In 0.45 % NaCl 1 250ml.bag @ 18 UNITS/KG/HR 14.819 mls/hr IV .[id number] [facility] Rx#: [id number] Oral 236 240 168 Output: Urine 425 725 550 Uretheral ([place]) 450 Other: Voiding Method Indwelling Catheter Indwelling Catheter Indwelling Catheter # Bowel Movements 0 - Exam GENERAL EXAM: Alert, pleasant 76-year-old male patient, left-sided facial droop noted, on 4 L nasal cannula, fairly comfortable in no apparent distress. HEAD: Normocephalic. EYES: Normal reaction of pupils, equal size. NOSE: Clear with pink turbinates. THROAT: No erythema or exudates. NECK: No masses, no JVD. CHEST: No chest wall deformity. LUNGS: Equal air entry with crackles in the right base. Diminished CVS: S1 and S2 normal with no audible murmur, regular rhythm. ABDOMEN: No hepatosplenomegaly, normal bowel sounds, no guarding or rigidity. SPINE: No scoliosis or deformity SKIN: No rashes CENTRAL NERVOUS SYSTEM: No focal deficits, tone is normal in all 4 extremities. EXTREMITIES: There is a palpable lymph node under the right axilla. There is no peripheral edema. No clubbing, no cyanosis. Peripheral pulses are intact. - Labs CBC & Chem 7: 07/29/21 08:26 07/29/21 08:26 Labs: Abnormal Lab Results - Last 24 Hours (Table) 07/28/21 07/28/21 07/28/21 Range/Units 05:21 16:14 16:14 RBC 2.90 L (4.30-5.90) m/uL Hgb 9.6 L (13.0-17.5) gm/dL Hct 30.4 L (39.0-53.0) % MCV 104.7 H (80.0-100.0) fL Plt Count 128 L (150-450) k/uL Lymphocytes # (1.0-4.8) k/uL APTT 42.2 H (22.0-30.0) sec Sodium (137-145) mmol/L Potassium (3.5-5.1) mmol/L Chloride (98-107) mmol/L Carbon Dioxide (22-30) mmol/L BUN (9-20) mg/dL Creatinine (0.66-1.25) mg/dL Glucose (74-99) mg/dL HDL Cholesterol 39.40 L (40.00-60.00) mg/dL 07/28/21 07/28/21 07/29/21 Range/Units 16:14 23:39 08:26 RBC 2.67 L (4.30-5.90) m/uL Hgb 8.8 L (13.0-17.5) gm/dL Hct 27.6 L (39.0-53.0) % MCV 103.2 H (80.0-100.0) fL Plt Count 146 L (150-450) k/uL Lymphocytes # 0.5 L (1.0-4.8) k/uL APTT 48.3 H (22.0-30.0) sec Sodium 136 L (137-145) mmol/L Potassium 5.9 H (3.5-5.1) mmol/L Chloride (98-107) mmol/L Carbon Dioxide 20 L (22-30) mmol/L BUN 72 H (9-20) mg/dL Creatinine 2.13 H (0.66-1.25) mg/dL Glucose (74-99) mg/dL HDL Cholesterol (40.00-60.00) mg/dL 07/29/21 07/29/21 Range/Units 08:26 08:26 RBC (4.30-5.90) m/uL Hgb (13.0-17.5) gm/dL Hct (39.0-53.0) % MCV (80.0-100.0) fL Plt Count (150-450) k/uL Lymphocytes # (1.0-4.8) k/uL APTT 31.0 H (22.0-30.0) sec Sodium (137-145) mmol/L Potassium (3.5-5.1) mmol/L Chloride 109 H (98-107) mmol/L Carbon Dioxide (22-30) mmol/L BUN 63 H (9-20) mg/dL Creatinine 1.85 H (0.66-1.25) mg/dL Glucose 119 H (74-99) mg/dL HDL Cholesterol (40.00-60.00) mg/dL Assessment and Plan Assessment: 1 Acute left sided facial droop. Computed tomography scan of the brain revealed no large vessel intracranial arterial occlusion or significant stenosis. There is a 4.5 mm saccular aneurysm projecting superiorly and medially from the proximal supraclinoid segment left ICA. A tiny 2 mm aneurysm projecting anteriorly from the left MCA bifurcation. MRI of the brain revealed multifocal areas of acute ischemia predominantly lacunar and punctate in appearance. Dominant area measures 1.3 x 0.8 cm in the right coronal radiata deep frontal white matter adjacent to the ventricular system. Background mild to moderate diffuse cerebral atrophy and moderate to advanced chronic small vessel ischemic changes. Currently on a heparin drip. 2 Recent admission for congestive heart failure with abnormal chest x-ray and subsequent CT of the chest was done which showed neoplasm strongly suspected with markedly abnormal thoracic adenopathy throughout the mediastinum along with abnormal right axillary mass and adenopathy. Was to be followed up in the outpatient setting. 3 Dopplers of the lower extremity revealed an extensive DVT throughout the entire imaged vessels from groin to upper calf and the left leg. Noted left inguinal mass likely a pathologic lymph node measuring up to 5.9 x 5.4 x 2.8 cm. 4 Chronic and ongoing tobacco dependence of greater than 50 years 5 History of atrial fibrillation, anticoagulated with warfarin current INR 1.9 6 History of coronary disease 7 Hypertension 8 Hyperlipidemia 9 Chronic obstructive pulmonary disease Plan: The patient was seen and evaluated Stable from the pulmonary standpoint Recommend IR for biopsy of the right axillary lymph node for diagnosis and staging Currently on a heparin drip. Off warfarin. If unable to obtain biopsy from the right axillary or possibly the left inguinal mass may consider EBUS We will continue to follow I, the cosigning physician, performed a history & physical examination of the pa tient. Lungs sounds with crackles in the right base, diminished. Maintaining good O2 saturations in the 90s on 4 L/m per nasal cannula. I discussed the assessment and plan of care with my nurse practitioner, Chanelle Delgado. I attest to the above note as dictated by her.
[2021-07-29] MEDS: ATORVASTATIN 40 MG TAB PO SCH (20:13)
--- NOTE | 2021-07-29 22:49 | P.PN ---
Subjective Progress Note Date: 07/29/21 This is a Tele-neurology followup performed today on 07/29/2021. Patient states he is feeling better. He is sitting comfortably in the recliner. Patient denies any headache, no numbness or tingling, no visual problems, no dizziness. Patient is complaining of mid back pain, 10/10, which is not new and has been present even before the hospitalization. Objective - Vital Signs Vital signs: Vital Signs Temp 97.6 F 07/29/21 12:00 Pulse 110 H 07/29/21 12:00 Resp 20 07/29/21 12:00 BP 113/67 07/29/21 12:00 Pulse Ox 95 07/29/21 12:00 Intake & Output 07/28/21 07/29/21 07/29/21 18:59 06:59 18:59 Intake Total 276.669 240 331.862 Output Total 425 725 550 Balance -148.331 -485 -218.138 Weight 74.5 kg Intake: Intake, IV Titration 40.669 163.862 Amount Heparin Sod,Pork in 0.45% 40.669 163.862 NaCl 25,000 unit In 0.45 % NaCl 1 250ml.bag @ 18 UNITS/KG/HR 14.819 mls/hr IV .[id number] [facility] Rx#: [id number] Oral 236 240 168 Output: Urine 425 725 550 Uretheral ([place]) 450 Other: Voiding Method Indwelling Catheter Indwelling Catheter Indwelling Catheter # Bowel Movements 0 - Exam On examination patient is alert and awake in no distress. He looks more comfortable as compared to yesterday. Speech and language functions are normal. Cranial nerves significant for left facial droop, central type. Patient is whispering because of his recent laryngitis. However no aphasia or dysarthria. On muscle strength testing patient has mild left pronator drift, further better than yesterday. The strength in the upper extremities is normal in the wood hacker, but biceps is 5-on the left. - Labs CBC & Chem 7: 07/29/21 08:26 07/29/21 08:26 Labs: Abnormal Lab Results - Last 24 Hours (Table) 07/28/21 07/28/21 07/28/21 Range/Units 05:21 16:14 16:14 RBC 2.90 L (4.30-5.90) m/uL Hgb 9.6 L (13.0-17.5) gm/dL Hct 30.4 L (39.0-53.0) % MCV 104.7 H (80.0-100.0) fL Plt Count 128 L (150-450) k/uL Lymphocytes # (1.0-4.8) k/uL APTT 42.2 H (22.0-30.0) sec Sodium (137-145) mmol/L Potassium (3.5-5.1) mmol/L Chloride (98-107) mmol/L Carbon Dioxide (22-30) mmol/L BUN (9-20) mg/dL Creatinine (0.66-1.25) mg/dL Glucose (74-99) mg/dL HDL Cholesterol 39.40 L (40.00-60.00) mg/dL 07/28/21 07/28/21 07/29/21 Range/Units 16:14 23:39 08:26 RBC 2.67 L (4.30-5.90) m/uL Hgb 8.8 L (13.0-17.5) gm/dL Hct 27.6 L (39.0-53.0) % MCV 103.2 H (80.0-100.0) fL Plt Count 146 L (150-450) k/uL Lymphocytes # 0.5 L (1.0-4.8) k/uL APTT 48.3 H (22.0-30.0) sec Sodium 136 L (137-145) mmol/L Potassium 5.9 H (3.5-5.1) mmol/L Chloride (98-107) mmol/L Carbon Dioxide 20 L (22-30) mmol/L BUN 72 H (9-20) mg/dL Creatinine 2.13 H (0.66-1.25) mg/dL Glucose (74-99) mg/dL HDL Cholesterol (40.00-60.00) mg/dL 07/29/21 07/29/21 Range/Units 08:26 08:26 RBC (4.30-5.90) m/uL Hgb (13.0-17.5) gm/dL Hct (39.0-53.0) % MCV (80.0-100.0) fL Plt Count (150-450) k/uL Lymphocytes # (1.0-4.8) k/uL APTT 31.0 H (22.0-30.0) sec Sodium (137-145) mmol/L Potassium (3.5-5.1) mmol/L Chloride 109 H (98-107) mmol/L Carbon Dioxide (22-30) mmol/L BUN 63 H (9-20) mg/dL Creatinine 1.85 H (0.66-1.25) mg/dL Glucose 119 H (74-99) mg/dL HDL Cholesterol (40.00-60.00) mg/dL Assessment and Plan Assessment: * Acute ischemic stroke, multifocal involvement in bilateral hemispheric region, most likely embolic in nature. * Patient has atrial fibrillation, INR was slightly subtherapeutic 1.9 on arrival, which may be the cause of embolic source. * Extensive left leg DVT * Cerebral aneurysm * Right hilar mass and adenopathy highly suspicious for malignancy. * Chronic renal disease stage III with creatinine 2.26. * Back pain related to compression fracture. Patient has a known L1 compression fracture from 03/15/2021. * CAD * Tobacco use * Hypertension * Hyperlipidemia Plan: * Patient's neurological examination has improved as compared to the yesterday. Patient's PTT is 31.0. Recommend maintaining PTT in therapeutic range. * Patient has no headache. Neurological examination is improved, therefore no need to repeat CT head at this time. * Patient undergoing axillary lymph node biopsy on Friday for possible malignancy. Pulmonary on board. * Continue Coumadin after the procedure has been completed, and keep INR between 2-3. * Hemoglobin A1c 5.6, fasting lipid panel cholesterol 79, LDL 25, HDL 39 and triglycerides 67. Continue Lipitor 40 mg. * 2-D echo was performed outpatient on 07/18/2021. It revealed normal left ventricular size. Mild concentric LVH. EF is between 35-40%. Left ventricular systolic function mildly decreased. Left ventricle is mildly enlarged. Trace MR, trace TR. No need to repeat echo. * Patient has cerebral aneurysm noted on CTA of head and neck. I would suggest patient follow-up with neuro intervention after discharge for further management of cerebral aneurysm. * Patient complaining of severe mid back pain. Patient had L1 compression fracture diagnosed in February 2021. I discussed with patient about checking x-ray of the thoracic spine, but he declined. Patient may need a bone scan. * Dr. Johnny Caruso Will resume neurology service from the morning.
--- NOTE | 2021-07-30 00:18 | P.PN ---
Subjective Progress Note Date: 07/28/21 Patient is a 76-year-old male with a known history of atrial fibrillation on anticoagulation with Coumadin, chronic CHF, hypertension, hyperlipidemia, history of NM status post cardiac catheterization occlusion of the LAD, opted for medical therapy and currently everyday smoker presents to ER due to compl aints of left facial droop. According to his patient woke up around 6 AM this morning and was drinking coffee around 7 AM when she noticed he was having drooling from his left side of the mouth. EMS was called and patient was brought to ER. Patient did have dysarthria but denied any difficulty finding words. No blurry vision. Patient has been having difficulty swallowing recently. Denies any weakness in the legs or hands. No numbness or tingling sensation. Apparently patient fell about 2 days ago however denied that he hit his head. No complaints of fever or chills. No nausea vomiting abdominal pain or diarrhea. No chest pain or shortness of breath. Patient was also having increasing left lower extremity swelling and pain for the past 2 days. Patient was recently admitted to the hospital due to shortness of breath, elevated troponin level and acute CHF and was discharged on 07/19/2021. CT head showed tiny 5 mm cortical hypodensity superior left precentral gyrus. A tiny cortical contusion/bleed is difficult to exclude especially the patient is experienced a fall on Coumadin. Otherwise there is moderate patchy burden of chronic small vessel ischemic disease. No other acute intracranial abnormality seen at this time. Due to small area of bleeding patient was not a candidate for TPA and MRI was ordered which showed multifocal ischemic infarcts. Patient was given a dose of aspirin CT angiogram of the head and neck showed patent bilateral carotid and vertebral arteries of the neck. 4.5 mm saccular aneurysm projecting superiorly and medially from the proximal s upraclinoid segment. Stat MRI of the brain showed multifocal areas of acute ischemia predominantly l ikely punctate in appearance. Dominant area measures 1.3 x 0.8 cm right coronal radiata deep frontal white matter adjacent to the ventricular system. Level data showed WBC 9.4 hemoglobin 10.6 MCV 100.1 and platelets 102 INR 1.9 Sodium 131 potassium 6.2 chloride 104 bicarb is 20 BUN 72 and creatinine 2.26 Troponin 0 0.110 and TSH 1.670 Urinalysis is negative for infection EKG showed normal sinus rhythm with no acute ST elevations or depressions. CT chest on 07/19/2021 showed neoplasm strongly suspected. There is marked abnormal thoracic adenopathy throughout the mediastinum. There is abnormal right axillary mass or adenopathy. PET scan was recommended. Mild to moderate size right pleural effusion. Demineralization multiple compression type fractures deformities. 07/28/2021 Patient is currently sitting in the chair. Awake alert and oriented x3. Left facial drooping without any change. No numbness or tingling. No complaints of chest pain or shortness of breath. Patient is able to tolerate nectar thick liquids. Does have hematuria after starting heparin drip which is clearing up now. Patient was seen by pulmonary is recommending IR consult. Laboratory showed WBC 10.6 hemoglobin 9.6 and platelets 128 Sodium 136 potassium 5.9 chloride 107 bicarb is 20 BUN 72 and creatinine 2.13 Current medications reviewed. Objective - Vital Signs Vital signs: Vital Signs Temp 99 F 07/28/21 11:33 Pulse 100 07/28/21 11:33 Resp 18 07/28/21 11:33 BP 100/55 07/28/21 11:33 Pulse Ox 92 L 07/28/21 11:33 Intake & Output 07/27/21 07/28/21 07/28/21 18:59 06:59 18:59 Intake Total 0 416.798 158.669 Output Total 3400 550 425 Balance -3400 -133.202 -266.331 Weight 82.327 kg 74.5 kg 74.5 kg Intake: Intake, IV Titration 176.798 40.669 Amount Heparin Sod,Pork in 0.45% 176.798 40.669 NaCl 25,000 unit In 0.45 % NaCl 1 250ml.bag @ 18 UNITS/KG/HR 14.819 mls/hr IV .[id number] [facility] Rx#: [id number] Oral 0 240 118 Output: Urine 3400 550 425 Other: Voiding Method Indwelling Catheter Indwelling Catheter - Exam PHYSICAL EXAMINATION: Patient is lying in the bed comfortably, no acute distress, awake alert and oriented. HEENT: Normocephalic. Neck is supple. Pupils reactive. Nostrils clear. Oral cavity is moist. Neck reveals no JVD, carotid bruits, or thyromegaly. CHEST EXAMINATION: Trachea is central. Symmetrical expansion. Right lower lobe diminished sounds. No wheezing or rhonchi. CARDIAC: Normal S1, S2 with no gallops. No murmurs ABDOMEN: Soft. Bowel sounds normal. No organomegaly. No abdominal bruits. Extremities: reveal no edema. Left lower extremity swelling with calf tenderness. No clubbing or cyanosis Neurologically awake, alert, oriented x3. Patient does have left facial droop and drooling. Dysarthria. Muscle strength 5 out of 5 in all 4 extremities. Skin: No rash or skin lesions. Psychiatric: Cooperative. Nonsuicidal Musculoskeletal: No joint swelling or deformity. Normal range of motion. - Labs CBC & Chem 7: 07/29/21 08:26 07/29/21 08:26 Labs: Abnormal Lab Results - Last 24 Hours (Table) 07/27/21 07/27/21 07/27/21 Range/Units 14:41 21:08 21:39 RBC (4.30-5.90) m/uL Hgb (13.0-17.5) gm/dL Hct (39.0-53.0) % MCV (80.0-100.0) fL MCHC (31.0-37.0) g/dL Plt Count (150-450) k/uL Neutrophils # (1.3-7.7) k/uL APTT >200.0 H* (22.0-30.0) sec Sodium 134 L (137-145) mmol/L Potassium 6.9 H* 6.0 H (3.5-5.1) mmol/L Chloride (98-107) mmol/L Carbon Dioxide 15 L (22-30) mmol/L BUN 71 H (9-20) mg/dL Creatinine 2.25 H (0.66-1.25) mg/dL Calcium 10.6 H (8.4-10.2) mg/dL Vitamin B12 1009.0 H (200.0-944.0) pg/mL 07/28/21 07/28/21 07/28/21 Range/Units 05:21 05:21 05:21 RBC 3.19 L (4.30-5.90) m/uL Hgb 10.3 L (13.0-17.5) gm/dL Hct 33.5 L (39.0-53.0) % MCV 104.9 H (80.0-100.0) fL MCHC 30.8 L (31.0-37.0) g/dL Plt Count 148 L (150-450) k/uL Neutrophils # 8.2 H (1.3-7.7) k/uL APTT >200.0 H* (22.0-30.0) sec Sodium 136 L (137-145) mmol/L Potassium 6.2 H* (3.5-5.1) mmol/L Chloride 108 H (98-107) mmol/L Carbon Dioxide 21 L (22-30) mmol/L BUN 71 H (9-20) mg/dL Creatinine 2.22 H (0.66-1.25) mg/dL Calcium (8.4-10.2) mg/dL Vitamin B12 (200.0-944.0) pg/mL 07/28/21 Range/Units 09:27 RBC (4.30-5.90) m/uL Hgb (13.0-17.5) gm/dL Hct (39.0-53.0) % MCV (80.0-100.0) fL MCHC (31.0-37.0) g/dL Plt Count (150-450) k/uL Neutrophils # (1.3-7.7) k/uL APTT 104.5 H* (22.0-30.0) sec Sodium (137-145) mmol/L Potassium (3.5-5.1) mmol/L Chloride (98-107) mmol/L Carbon Dioxide (22-30) mmol/L BUN (9-20) mg/dL Creatinine (0.66-1.25) mg/dL Calcium (8.4-10.2) mg/dL Vitamin B12 (200.0-944.0) pg/mL Assessment and Plan Assessment: Acute ischemic stroke with multifocal area involvement. Left facial droop and dysarthria secondary to above Left lower extremity extensive acute DVT throughout anterior nasal vessels from the groin to the upper calf. Right hilar mass and adenopathy suspicious for malignancy. Large right axillary mass or abdominal adenopathy. Hypovolemic hyponatremia Hyperkalemia with potassium 6.2 Chronic kidney disease stage III with creatinine level 2.26 Mild elevated troponin level History of coronary disease with occluded LAD. Medical management was recommended. Ongoing nicotine addiction Hypertension Hyperlipidemia Chronic CHF ejection fraction not known. Paroxysmal atrial fibrillation on anticoagulation with Coumadin INR 1.9 on admission. DVT prophylaxis patient is on heparin drip Plan: Patient was admitted to the hospital acute ischemic infarct as per MRI of the brain. Started on aspirin and lipid profile was ordered. Follow-up TSH B12 and folate levels. Patient was given insulin/D50 for hyperkalemia and monitor potassium level and renal function closely. Patient will be continued on heparin drip and monitor hemoglobin closely. Pulmonary is recommending IR consult for lung biopsy. Prognosis guarded with multiple medical problems and comorbid conditions. Discussed with the patient and his at bedside in detail. Time with Patient: Greater than 30
--- NOTE | 2021-07-30 00:22 | P.PN ---
Subjective Progress Note Date: 07/29/21 Patient is a 76-year-old male with a known history of atrial fibrillation on anticoagulation with Coumadin, chronic CHF, hypertension, hyperlipidemia, history of SC status post cardiac catheterization occlusion of the LAD, opted for medical therapy and currently everyday smoker presents to ER due to compl aints of left facial droop. According to his patient woke up around 6 AM this morning and was drinking coffee around 7 AM when she noticed he was having drooling from his left side of the mouth. EMS was called and patient was brought to ER. Patient did have dysarthria but denied any difficulty finding words. No blurry vision. Patient has been having difficulty swallowing recently. Denies any weakness in the legs or hands. No numbness or tingling sensation. Apparently patient fell about 2 days ago however denied that he hit his head. No complaints of fever or chills. No nausea vomiting abdominal pain or diarrhea. No chest pain or shortness of breath. Patient was also having increasing left lower extremity swelling and pain for the past 2 days. Patient was recently admitted to the hospital due to shortness of breath, elevated troponin level and acute CHF and was discharged on 07/19/2021. CT head showed tiny 5 mm cortical hypodensity superior left precentral gyrus. A tiny cortical contusion/bleed is difficult to exclude especially the patient is experienced a fall on Coumadin. Otherwise there is moderate patchy burden of chronic small vessel ischemic disease. No other acute intracranial abnormality seen at this time. Due to small area of bleeding patient was not a candidate for TPA and MRI was ordered which showed multifocal ischemic infarcts. Patient was given a dose of aspirin CT angiogram of the head and neck showed patent bilateral carotid and vertebral arteries of the neck. 4.5 mm saccular aneurysm projecting superiorly and medially from the proximal s upraclinoid segment. Stat MRI of the brain showed multifocal areas of acute ischemia predominantly l ikely punctate in appearance. Dominant area measures 1.3 x 0.8 cm right coronal radiata deep frontal white matter adjacent to the ventricular system. Level data showed WBC 9.4 hemoglobin 10.6 MCV 100.1 and platelets 102 INR 1.9 Sodium 131 potassium 6.2 chloride 104 bicarb is 20 BUN 72 and creatinine 2.26 Troponin 0 0.110 and TSH 1.670 Urinalysis is negative for infection EKG showed normal sinus rhythm with no acute ST elevations or depressions. CT chest on 07/19/2021 showed neoplasm strongly suspected. There is marked abnormal thoracic adenopathy throughout the mediastinum. There is abnormal right axillary mass or adenopathy. PET scan was recommended. Mild to moderate size right pleural effusion. Demineralization multiple compression type fractures deformities. 07/28/2021 Patient is currently sitting in the chair. Awake alert and oriented x3. Left facial drooping without any change. No numbness or tingling. No complaints of chest pain or shortness of breath. Patient is able to tolerate nectar thick liquids. Does have hematuria after starting heparin drip which is clearing up now. Patient was seen by pulmonary is recommending IR consult. Laboratory showed WBC 10.6 hemoglobin 9.6 and platelets 128 Sodium 136 potassium 5.9 chloride 107 bicarb is 20 BUN 72 and creatinine 2.13 07/29/2021 Patient is currently sitting in the recliner chair. Left facial droop is still present. Awake alert and oriented x3. Currently requiring oxygen at 4 L via nasal cannula. Hematuria has resolved and urine is clear at this time. Livingston catheter in place. Patient is tolerating thick liquids. Denies any complaints of chest pain or shortness of breath. Left lower extremity pain and swelling is much improved now. Patient is being current on heparin drip due to left lower extremity DVT. Denies any hematemesis or melena. Laboratory data showed WBC 8.4 hemoglobin 8.8 and platelets 146 sodium 138 potassium 4.9 chloride 109 bicarb is 23 BUN 16 creatinine 1.85 Interventional radiology consult for biopsy likely tomorrow. Current medications reviewed. Objective - Vital Signs Vital signs: Vital Signs Temp 97.6 F 07/29/21 12:00 Pulse 110 H 07/29/21 12:00 Resp 20 07/29/21 12:00 BP 113/67 07/29/21 12:00 Pulse Ox 95 07/29/21 12:00 Intake & Output 07/28/21 07/29/21 07/29/21 18:59 06:59 18:59 Intake Total 276.669 240 331.862 Output Total 425 725 550 Balance -148.331 -485 -218.138 Weight 74.5 kg Intake: Intake, IV Titration 40.669 163.862 Amount Heparin Sod,Pork in 0.45% 40.669 163.862 NaCl 25,000 unit In 0.45 % NaCl 1 250ml.bag @ 18 UNITS/KG/HR 14.819 mls/hr IV .[id number] [facility] Rx#: [id number] Oral 236 240 168 Output: Urine 425 725 550 Uretheral (Livingston) 450 Other: Voiding Method Indwelling Catheter Indwelling Catheter Indwelling Catheter # Bowel Movements 0 - Exam PHYSICAL EXAMINATION: Patient is lying in the bed comfortably, no acute distress, awake alert and oriented. HEENT: Normocephalic. Neck is supple. Pupils reactive. Nostrils clear. Oral cavity is moist. Neck reveals no JVD, carotid bruits, or thyromegaly. CHEST EXAMINATION: Trachea is central. Symmetrical expansion. Right lower lobe diminished sounds. No wheezing or rhonchi. CARDIAC: Normal S1, S2 with no gallops. No murmurs ABDOMEN: Soft. Bowel sounds normal. No organomegaly. No abdominal bruits. Extremities: reveal no edema. Left lower extremity swelling with calf tenderness. No clubbing or cyanosis Neurologically awake, alert, oriented x3. Patient does have left facial droop and drooling. Dysarthria. Muscle strength 5 out of 5 in all 4 extremities. Skin: No rash or skin lesions. Psychiatric: Cooperative. Nonsuicidal Musculoskeletal: No joint swelling or deformity. Normal range of motion. - Labs CBC & Chem 7: 07/29/21 08:26 07/29/21 08:26 Labs: Abnormal Lab Results - Last 24 Hours (Table) 07/28/21 07/28/21 07/28/21 Range/Units 05:21 16:14 16:14 RBC 2.90 L (4.30-5.90) m/uL Hgb 9.6 L (13.0-17.5) gm/dL Hct 30.4 L (39.0-53.0) % MCV 104.7 H (80.0-100.0) fL Plt Count 128 L (150-450) k/uL Lymphocytes # (1.0-4.8) k/uL APTT 42.2 H (22.0-30.0) sec Sodium (137-145) mmol/L Potassium (3.5-5.1) mmol/L Chloride (98-107) mmol/L Carbon Dioxide (22-30) mmol/L BUN (9-20) mg/dL Creatinine (0.66-1.25) mg/dL Glucose (74-99) mg/dL HDL Cholesterol 39.40 L (40.00-60.00) mg/dL 07/28/21 07/28/21 07/29/21 Range/Units 16:14 23:39 08:26 RBC 2.67 L (4.30-5.90) m/uL Hgb 8.8 L (13.0-17.5) gm/dL Hct 27.6 L (39.0-53.0) % MCV 103.2 H (80.0-100.0) fL Plt Count 146 L (150-450) k/uL Lymphocytes # 0.5 L (1.0-4.8) k/uL APTT 48.3 H (22.0-30.0) sec Sodium 136 L (137-145) mmol/L Potassium 5.9 H (3.5-5.1) mmol/L Chloride (98-107) mmol/L Carbon Dioxide 20 L (22-30) mmol/L BUN 72 H (9-20) mg/dL Creatinine 2.13 H (0.66-1.25) mg/dL Glucose (74-99) mg/dL HDL Cholesterol (40.00-60.00) mg/dL 07/29/21 07/29/21 Range/Units 08:26 08:26 RBC (4.30-5.90) m/uL Hgb (13.0-17.5) gm/dL Hct (39.0-53.0) % MCV (80.0-100.0) fL Plt Count (150-450) k/uL Lymphocytes # (1.0-4.8) k/uL APTT 31.0 H (22.0-30.0) sec Sodium (137-145) mmol/L Potassium (3.5-5.1) mmol/L Chloride 109 H (98-107) mmol/L Carbon Dioxide (22-30) mmol/L BUN 63 H (9-20) mg/dL Creatinine 1.85 H (0.66-1.25) mg/dL Glucose 119 H (74-99) mg/dL HDL Cholesterol (40.00-60.00) mg/dL Assessment and Plan Assessment: Acute ischemic stroke with multifocal area involvement. Left facial droop and dysarthria secondary to above Left lower extremity extensive acute DVT throughout anterior nasal vessels from the groin to the upper calf. Right hilar mass and adenopathy suspicious for malignancy. Large right axillary mass or abdominal adenopathy. Hypovolemic hyponatremia Hyperkalemia with potassium 6.2 Chronic kidney disease stage III with creatinine level 2.26 Mild elevated troponin level History of coronary disease with occluded LAD. Medical management was recommended. Ongoing nicotine addiction Hypertension Hyperlipidemia Chronic CHF ejection fraction not known. Paroxysmal atrial fibrillation on anticoagulation with Coumadin INR 1.9 on admission. DVT prophylaxis patient is on heparin drip Plan: Patient was admitted to the hospital acute ischemic infarct as per MRI of the br ain. Started on aspirin and lipid profile was ordered. Follow-up TSH B12 and folate levels. Patient was given insulin/D50 for hyperkalemia and monitor potassium level and renal function closely. Patient will be continued on heparin drip and monitor hemoglobin closely. Pulmonary is recommending IR consult for lung biopsy. Prognosis guarded with multiple medical problems and comorbid conditions. Discussed with the patient and his at bedside in detail. Time with Patient: Greater than 30
[2021-07-30] MEDS: SODIUM CHLORIDE 0.9% 1,000 ML IV SCH ×2 (04:41→15:38)
--- NOTE | 2021-07-30 05:58 | P.CONS ---
History of Present Illness - Chief Complaint gait disturbance, left hemiparesthesias - History of Present Illness I had the opportunity to see patient for inpatient rehab consultation with regard to gait disturbance. Patient admitted to Dr. Quintero July 19 acute onset left-sided weakness. For perhaps a couple days' duration. Seen by neurology, Dr. Marie who concurred with diagnosis stroke. Seen by pulmonary for CHF and the chest CT neoplasm finding. Note head CT demonstrated left precentral gyrus attenuation. Angiogram CT with mild atherosclerosis especially left carotid, and bifurcation. Chest x-ray with effusion and right hilar mass. Brain MRI with multifocal ischemia including right wills radiata and diffuse cerebral atrophy. Venous Doppler positive for left leg DVT. Did started t herapies. PT reports minimal assistance for transfers and gait 10 feet with roller walker. Speech therapy assessed I recommending pured, chopped and nectar thickened. OT prescribed. Previous functional history as elicited from patient: 76-year-old right-handed white male who is lives in one floor home with . Both retired. does cooking and driving and patient dependent laundry and driving and standing shower. Gait without device. PCP Dr. Reyes. Admits to tobacco denies alcohol. Review of Systems Review of systems: ENT: Denies sneezes or discharge. Eyes: Denies discharge or photophobia. Cardiac: Denies chest pain or palpitation. Pulmonary: Denies cough or shortness of breath. Gastrointestinal: Denies nausea, emesis, constipation, diarrhea. Genitourinary: Denies discharge or frequency. Musculoskeletal: Denies muscle or bone aches. Neurologic: Speech disturbance and mild left-sided weakness. Endocrine: Denies shakes or sweats. Oncology: Denies cancers. Dermatologic: Denies rash, itching, pruritus. ALLERGY/immunology: Denies sneezes, rashes. Past Medical History Past Medical History: Atrial Fibrillation, Coronary Artery Disease (CAD), Heart Failure, COPD, Hyperlipidemia, Hypertension, Myocardial Infarction (CA) Additional Past Medical History / Comment(s): Pt recently admitted to [facility] on 07/17/21 with exacerbation CHF, laryngitis/bronchitis also found abnormal chest xray/cat scan and back compression fractures. Other hx: Paroxysmal Afib, occasional bilateral leg cramping but much worse past couple days, increased L lower leg edema past couple days, sinus problems. Last Myocardial Infarction Date:: 2017 History of Any Multi-Drug Resistant Organisms: None Reported Past Surgical History: Heart Catheterization, Hernia Repair, Joint Replacement, Orthopedic Surgery Additional Past Surgical History / Comment(s): Rt knee torn meniscus repair, rt knee replacement, L inguinal hernia repair, Past Anesthesia/Blood Transfusion Reactions: Motion Sickness Past Psychological History: No Psychological Hx Reported Additional Psychological History / Comment(s): Pt resides with his spouse. He uses a walker or cane. Smoking Status: Current every day smoker Past Alcohol Use History: None Reported Additional Past Alcohol Use History / Comment(s): smoker since age 11 1/2ppd Past Drug Use History: None Reported - Past Family History Father Family Medical History: Unable to Obtain Mother Family Medical History: Dementia, Vascular Disorder Additional Family Medical History / Comment(s): from aneurysm Medications and Allergies Home Medications Medication Instructions Recorded Confirmed Type Aspirin [Adult Low Dose Aspirin EC] 81 mg PO DAILY 04/19/20 07/27/21 History Atorvastatin [Lipitor] 40 mg PO HS 04/19/20 07/27/21 History Cetirizine HCl [Zyrtec] 10 mg PO DAILY 04/19/20 07/27/21 History Furosemide [Lasix] 20 mg PO DAILY 04/19/20 07/27/21 History Metoprolol Tartrate [Lopressor] 75 mg PO BID 04/19/20 07/27/21 History Acetaminophen Tab [Tylenol] 650 mg PO Q6HR PRN tab 07/19/21 07/27/21 Rx lisinopriL [Zestril] 5 mg PO DAILY 30 Days #30 tab 07/19/21 07/27/21 Rx Warfarin [Coumadin] 4 mg PO HS 07/27/21 07/27/21 History Allergies Allergy/AdvReac Type Severity Reaction Status Date / Time codeine Allergy Unknown Verified 07/27/21 09:38 Penicillins Allergy Rash/Hives Verified 07/27/21 09:38 Physical Exam Vitals: Vital Signs Temp Pulse Resp BP Pulse Ox 07/30/21 03:39 97.6 F 107 H 18 137/72 96 07/30/21 00:00 97.5 F L 109 H 20 123/67 94 L 07/29/21 20:00 97.3 F L 109 H 20 129/80 94 L 07/29/21 16:00 97.7 F 106 H 18 130/76 96 07/29/21 12:00 97.6 F 110 H 20 113/67 95 07/29/21 08:00 97.6 F 111 H 20 122/72 91 L Intake and Output 07/29/21 07/29/21 07/30/21 14:59 22:59 06:59 Intake Total 364.570 360 Output Total 550 525 425 Balance -185.430 -165 -425 Intake: Intake, IV Titration 196.570 Amount Heparin Sod,Pork in 0.45% 196.570 NaCl 25,000 unit In 0.45 % NaCl 1 250ml.bag @ 18 UNITS/KG/HR 14.819 mls/hr IV .[id number] [facility] Rx#: [id number] Oral 168 360 Output: Urine 550 525 425 Uretheral ([place]) 450 Other: Voiding Method Indwelling Catheter Indwelling Catheter Indwelling Catheter Skin: Good color, texture, turgor. General: Medium build and comfortable appearance. Head: Normocephalic, atraumatic. Eyes: Symmetric. Pupils equal round. Ears: Symmetric. Hearing within normal limits. Mouth: Clear. Neck: Supple. Carotid without bruit. Cardiac: Regular rate and rhythm. Lungs: Clear anteriorly and posteriorly. Abdomen: Soft active nontender. Extremities: Normal tone. Limitation and shoulders. Neurological: Mental status: Alert, cooperative, pleasant. Poor speech intelligibility and volume. Cranial nerves: Symmetric facial tone and trapezius. Motor: Generally weak. Right side about antigravity in left-sided less than antigravity. Sensation: Intact throughout. DTRs: Symmetric and equal throughout. Mobility: Requires physical assistance for bed mobility. Results CBC & Chem 7: 07/29/21 08:26 07/29/21 08:26 Labs: Abnormal Lab Results - Last 24 Hours (Table) 07/29/21 07/29/21 07/29/21 Range/Units 08:26 08:26 08:26 RBC 2.67 L (4.30-5.90) m/uL Hgb 8.8 L (13.0-17.5) gm/dL Hct 27.6 L (39.0-53.0) % MCV 103.2 H (80.0-100.0) fL Plt Count 146 L (150-450) k/uL Lymphocytes # 0.5 L (1.0-4.8) k/uL APTT 31.0 H (22.0-30.0) sec Chloride 109 H (98-107) mmol/L BUN 63 H (9-20) mg/dL Creatinine 1.85 H (0.66-1.25) mg/dL Glucose 119 H (74-99) mg/dL 07/29/21 Range/Units 16:57 RBC (4.30-5.90) m/uL Hgb (13.0-17.5) gm/dL Hct (39.0-53.0) % MCV (80.0-100.0) fL Plt Count (150-450) k/uL Lymphocytes # (1.0-4.8) k/uL APTT 52.6 H (22.0-30.0) sec Chloride (98-107) mmol/L BUN (9-20) mg/dL Creatinine (0.66-1.25) mg/dL Glucose (74-99) mg/dL Assessment and Plan (1) Cerebrovascular accident (CVA) Current Visit: Yes Status: Acute Code(s): I63.9 - CEREBRAL INFARCTION, UNSPECIFIED SNOMED Code(s): 651004126 (2) Facial droop Current Visit: Yes Status: Acute Code(s): R29.810 - FACIAL WEAKNESS SNOMED Code(s): 55783248 (3) Hyperkalemia Current Visit: Yes Status: Acute Code(s): E87.5 - HYPERKALEMIA SNOMED Code(s): 45686046 (4) LAURIE (acute kidney injury) Current Visit: No Status: Acute Code(s): N17.9 - ACUTE KIDNEY FAILURE, UNSPECIFIED SNOMED Code(s): 09458021 (5) Congestive heart failure Current Visit: No Status: Acute Code(s): I50.9 - HEART FAILURE, UNSPECIFIED SNOMED Code(s): 71361284 (6) Elevated troponin Current Visit: No Status: Acute Code(s): R77.8 - OTHER SPECIFIED ABNORMALIT IES OF PLASMA PROTEINS SNOMED Code(s): 741148062 (7) Hypoxemia Current Visit: No Status: Acute Code(s): R09.02 - HYPOXEMIA SNOMED Code(s): 099923370 Plan: Comments and plan: At this time patient is definitely weak and was safety concerns. Will require OT note and their documentation but otherwise appears to be a candidate for inpatient rehab. This may dependent upon 's goals for example if is determined to place patient.
[2021-07-30] MEDS: ASPIRIN 325 MG TAB PO SCH (07:58)
[2021-07-30 08:10] LABS: Basophils % (A) 0 %; Eosinophils % (A) 0 %; HCT 28.8 % (39.0-53.0); HGB 8.8 gm/dL (13.0-17.5); Hypochromasia Marked; Lymphocytes # (A) 0.7 k/uL (1.0-4.8); Lymphocytes % (A) 8 %; MCHC 30.5 g/dL (31.0-37.0); MCV 104.9 fL (80.0-100.0); Macrocytosis Moderate; Mean Platelet Volume 9.9; Monocytes # (A) 0.6 k/uL (0-1.0); Monocytes % (A) 7 %; Neutrophils % (A) 82 %; Platelet Count 189 k/uL (150-450); RBC 2.74 m/uL (4.30-5.90); RDW 15.4 % (11.5-15.5); WBC 8.5 k/uL (3.8-10.6)
[2021-07-30 08:31] LABS: Calcium 9.7 mg/dL (8.4-10.2); Potassium 4.9 mmol/L (3.5-5.1)
[2021-07-30 09:35] LABS: INR 1.1 (<1.2); Prothrombin Time 11.5 sec (9.0-12.0)
[2021-07-30] MEDS: HYDROmorphone 0.5 MG/0.5 ML SYRINGE IVP PRN (10:34)
--- NOTE | 2021-07-30 12:50 | FL ---
EXAMINATION TYPE: FL barium swallow w video DATE OF EXAM: 07/30/2021 CLINICAL HISTORY: 76-year-old male rule out aspiration. Patient with stroke and laryngitis, aphonic f or 3 weeks. TECHNIQUE: Deglutition study is performed utilizing thin liquid barium, honey and nectar thick liqui d barium, barium thick applesauce, and barium coated cracker. COMPARISON: None. Total fluoroscopy time: Minutes 10 seconds. Total images: None. Real-time fluoroscopy support was provided to speech pathology. FINDINGS: Swallow initiation was mildly delayed with bolus free spilling to the level of the piriform sinuses. The patient is edentulous. The patient had intermittent difficulty and AP bolus transit with the oral phase especially with solids. There is trace silent aspiration noted with thin liquids. There is penetration with all other consistencies with subsequent trace silent aspiration of residual . Mild vallecular residuals are noted. IMPRESSION: 1. Trace silent aspiration with thin liquids. 2. Penetration with other consistencies and subsequent trace silent aspiration of residuals. 3. Delayed swallow. Mild vallecular residuals. Please refer to speech therapist notes for further details if necessary.
--- NOTE | 2021-07-30 13:44 | P.PN ---
Subjective Progress Note Date: 07/30/21 This is a pleasant 76-year-old gentleman with a known history of atrial fibrillation, anticoagulated with warfarin, coronary artery disease, hyperlipidemia, hypertension, chronic obstructive pulmonary disease with chronic and ongoing tobacco dependence. He was recently discharged from here 1 week ago for an episode of congestive heart failure. In the hospitalization a CT of the chest was done which showed neoplasm strongly suspected with markedly abnormal thoracic adenopathy throughout the mediastinum along with abnormal right axillary mass and adenopathy. The patient at that time had been quite adamant about going home and requested to be discharged which she was on 07/19/2021. He was scheduled to see Dr. Manuel on 08/02/2021 as a new patient. He came into the emergency room yesterday after waking up at 6:00 in the morning with a notable left-sided facial droop. A code stroke was called and he was evaluated by neurology. CT of the neck revealed patent bilateral carotid and vertebral arteries. Known abnormal mediastinal lymphadenopathy which warrant further investigation from a CAT scan of 07/19/2021. Continued moderate layering right pleural effusion. COPD. Patchy groundglass right greater than left visualized the upper lungs. The head revealed no large vessel intracranial arterial occlusion or significant stenosis. There is a 4.5 mm saccular aneurysm projecting superiorly and medially from the proximal supraclinoid segment left ICA. A tiny 2 mm aneurysm projecting anteriorly from the left MCA bifurcation. MRI of the brain revealed multifocal areas of acute ischemia predominantly lacunar and punctate in appearance. Dominant area measures 1.3 x 0.8 cm in the right coronal radiata deep frontal white matter adjacent to the ventricular system. Background mild to moderate diffuse cerebral atrophy and moderate to advanced chronic small vessel ischemic changes. Dopplers of the lower extremity revealed an extensive DVT throughout the entire imaged vessels from groin to upper calf and the left leg. Noted left inguinal mass likely a pathologic lymph node measuring up to 5.9 x 5.4 x 2.8 cm. The patient is seen today in consultation on the selective care unit. He is currently sitting up in the bedside. Noted left-sided facial droop. Difficulty in speaking. White count 10.5. Hemoglobin 10.3. Platelets 148. Sodium 136. Potassium 6.2. Bicarb 21. BUN 71. Creatinine 2.22. INR 1.9. He's been initiated on a heparin drip. The patient is seen today 07/29/2021 in follow-up on the selective care unit. He is currently sitting up at the bedside. Awake and alert in no acute distress. His maintaining O2 saturation in the low to mid 90s on 4 L/m per nasal cannula. She's been afebrile. Hemodynamically stable. White count 8.5. Hemoglobin 8.8. MCV 103.2. Platelets 146. Sodium 138. Potassium 4.9. Creatinine 1.85. BUN 63. Glucose 119. He remains on a heparin drip Weight- based protocol. No worsening shortness of breath, cough or congestion. No hemoptysis. On today's evaluation 07/30/2021, the patient is hard to communicate with cb mccurdy that he has had previous history of stroke. We'll consult on this patient because of abnormal lymphadenopathy involving the patient's thorax. At the same time, the patient was found to have a very large right axillary lymphadenopathy/mass and the plan is to proceed with a biopsy of the lymph nodes/mastoiditis to establish diagnosis. There is a high lactate for malignancy at this point in time. Noted the patient has multiple medical problems and comorbidities. The patient has COPD, mediastinal lymphadenopathy which is quite extensive, previous history of CVA, difficulty with mobility and gait secondary to CVA, and the patient continues to have issues with left-sided facial droop and difficulties with speech. At the same time, the patient was found to have a DVT of the lower extremity based on Doppler was done on 07/27/2021 where the patient was found to have positive DVT involving the left leg and this was a quite extensive extended from the groin to the upper calf vessels. He is currently nothing by mouth awaiting the biopsy. White echo today point I would hemoglobin 8.8. No significant lymphocytosis and a platelet count is at 189. PTT is at 71.6 from today. Creatinine is at 1.3 and the patient is recovering from acute kidney injury with a BUN of 50 to and the rest of the electrodes are all within normal limits. Objective - Vital Signs Vital signs: Vital Signs Temp 97.6 F 07/30/21 03:39 Pulse 107 H 07/30/21 03:39 Resp 18 07/30/21 03:39 BP 137/72 07/30/21 03:39 Pulse Ox 96 07/30/21 03:39 Intake & Output 07/29/21 07/30/21 07/30/21 18:59 06:59 18:59 Intake Total 484.570 240 240 Output Total 750 750 Balance -265.430 -510 240 Intake: Intake, IV Titration 196.570 Amount Heparin Sod,Pork in 0.45% 196.570 NaCl 25,000 unit In 0.45 % NaCl 1 250ml.bag @ 18 UNITS/KG/HR 14.819 mls/hr IV .[id number] [facility] Rx#: [id number] Oral 288 240 240 Output: Urine 750 750 Uretheral ([place]) 450 Other: Voiding Method Indwelling Catheter Indwelling Catheter - Exam GENERAL EXAM: Alert, pleasant 76-year-old male patient, left-sided facial droop noted, on 4 L nasal cannula, fairly comfortable in no apparent distress. HEAD: Normocephalic. EYES: Normal reaction of pupils, equal size. NOSE: Clear with pink turbinates. THROAT: No erythema or exudates. NECK: No masses, no JVD. CHEST: No chest wall deformity. LUNGS: Equal air entry with crackles in the right base. Diminished CVS: S1 and S2 normal with no audible murmur, regular rhythm. ABDOMEN: No hepatosplenomegaly, normal bowel sounds, no guarding or rigidity. SPINE: No scoliosis or deformity SKIN: No rashes, the patient has a large right axillary lymphadenopathy and the mass/lymph was quite firm in the right axilla. No supraclavicular lymphadenopathy. CENTRAL NERVOUS SYSTEM: No focal deficits, tone is normal in all 4 extremities. The patient has left facial droop and difficulty with mobility and gait EXTREMITIES: There is a palpable lymph node under the right axilla. There is no peripheral edema. No clubbing, no cyanosis. Peripheral pulses are intact. - Labs CBC & Chem 7: 07/30/21 06:10 07/30/21 06:10 Labs: Abnormal Lab Results - Last 24 Hours (Table) 07/29/21 07/30/21 07/30/21 Range/Units 16:57 06:10 06:10 RBC 2.74 L (4.30-5.90) m/uL Hgb 8.8 L (13.0-17.5) gm/dL Hct 28.8 L (39.0-53.0) % MCV 104.9 H (80.0-100.0) fL MCHC 30.5 L (31.0-37.0) g/dL Lymphocytes # 0.7 L (1.0-4.8) k/uL APTT 52.6 H 71.6 H (22.0-30.0) sec Chloride (98-107) mmol/L BUN (9-20) mg/dL Creatinine (0.66-1.25) mg/dL 07/30/21 Range/Units 06:10 RBC (4.30-5.90) m/uL Hgb (13.0-17.5) gm/dL Hct (39.0-53.0) % MCV (80.0-100.0) fL MCHC (31.0-37.0) g/dL Lymphocytes # (1.0-4.8) k/uL APTT (22.0-30.0) sec Chloride 111 H (98-107) mmol/L BUN 52 H (9-20) mg/dL Creatinine 1.39 H (0.66-1.25) mg/dL Assessment and Plan Plan: 1 Acute left sided facial droop. Computed tomography scan of the brain revealed no large vessel intracranial arterial occlusion or significant stenosis. There is a 4.5 mm saccular aneurysm projecting superiorly and medially from the pr oximal supraclinoid segment left ICA. A tiny 2 mm aneurysm projecting anteriorly from the left MCA bifurcation. MRI of the brain revealed multifocal areas of acute ischemia predominantly lacunar and punctate in appearance. Dominant area measures 1.3 x 0.8 cm in the right coronal radiata deep frontal white matter adjacent to the ventricular system. Background mild to moderate diffuse cerebral atrophy and moderate to advanced chronic small vessel ischemic changes. Currently on a heparin drip. No new onset focal neurological deficits. Left facial droop is still present. He has difficulty with speech and mobility and gait. 2 extensive thoracic lymphadenopathy in addition to right axillary lymphadenopathy, I elected for malignancy. Consider underlying lymphoma 3 DVT of the left lower extremity. The opplers of the lower extremity revealed an extensive DVT throughout the entire imaged vessels from groin to upper calf and the left leg. Noted left inguinal mass likely a pathologic lymph node measuring up to 5.9 x 5.4 x 2.8 cm. the patient is currently on IV heparin 4 Chronic and ongoing tobacco dependence of greater than 50 years 5 History of atrial fibrillation, anticoagulated with warfarin 6 History of coronary disease 7 Hypertension 8 Hyperlipidemia 9 Chronic obstructive pulmonary disease Plan: Stop the IV heparin 2 hours prior to the procedure, the patient remains off warfarin The plan is to proceed with a fine-needle aspirate of the right axillary mass an d following that anticoagulation be resumed. Hilar active for malignancy. Recommend IR for biopsy of the right axillary lymph node for diagnosis and staging Currently on a heparin drip. We will continue to follow
--- NOTE | 2021-07-30 14:52 | P.PN ---
Subjective Progress Note Date: 07/30/21 I am seeing the patient for the first time for neurological management during this admission. Please refer to Dr. Marie's note for further details. per nurse he failed his swallow test. He is pending to have axillary biopsy and initially was scheduled for today and was rescheduled for tomorrow. Patient states he feels he is doing the same as yesterday. Objective - Vital Signs Vital signs: Vital Signs Temp 97.6 F 07/30/21 03:39 Pulse 107 H 07/30/21 03:39 Resp 18 07/30/21 03:39 BP 137/72 07/30/21 03:39 Pulse Ox 96 07/30/21 03:39 Intake & Output 07/29/21 07/30/21 07/30/21 18:59 06:59 18:59 Intake Total 484.570 240 240 Output Total 750 750 Balance -265.430 -510 240 Intake: Intake, IV Titration 196.570 Amount Heparin Sod,Pork in 0.45% 196.570 NaCl 25,000 unit In 0.45 % NaCl 1 250ml.bag @ 18 UNITS/KG/HR 14.819 mls/hr IV .[id number] [facility] Rx#: [id number] Oral 288 240 240 Output: Urine 750 750 Uretheral ([place]) 450 Other: Voiding Method Indwelling Catheter Indwelling Catheter - Exam On examination patient is alert and awake, oriented to self. He states he is in the hospital. He states the year is 2022. Patient is following commands. Has hypophonia. No aphasia or neglect. Cranial nerves: Pupils are round, equal and reactive to light. VFF to confrontation. EOM intact and no nystagmus. significant for left facial droop, central type. Patient is whispering because of his recent laryngitis. I felt he has dysarthria. Motor: Gait is deferred. Muscle strength is left sided weakness and has mild pronator drift. The strength in hand lead cytogenetic technologist are normal. Has drift in left lower extremity that is mild. Otherwise no drift over the right side. WORK-UP: * TSH is 1.670. * Hemoglobin A1c 5.6, * fasting lipid panel cholesterol 79, LDL 25, HDL 39 and triglycerides 67. * MRI the brain is reported as multifocal areas of acute ischemia predominantly lacunar or punctate appearance. Dominant area measures 1.30.7 cm in the right wills radiata the frontal white matter adjacent to the ventricular system. Background mild to moderate diffuse cerebral atrophy and moderate to advanced chronic small vessel ischemic changes. * 2-D echo was performed outpatient on 07/18/2021. It revealed normal left ventricular size. Mild concentric LVH. EF is between 35-40%. Left ventricular systolic function mildly decreased. Left ventricle is mildly enlarged. Trace MR, trace TR. * Patient has cerebral aneurysm noted on CTA of head and neck. - Labs CBC & Chem 7: 07/30/21 06:10 07/30/21 06:10 Labs: Abnormal Lab Results - Last 24 Hours (Table) 07/29/21 07/30/21 07/30/21 Range/Units 16:57 06:10 06:10 RBC 2.74 L (4.30-5.90) m/uL Hgb 8.8 L (13.0-17.5) gm/dL Hct 28.8 L (39.0-53.0) % MCV 104.9 H (80.0-100.0) fL MCHC 30.5 L (31.0-37.0) g/dL Lymphocytes # 0.7 L (1.0-4.8) k/uL APTT 52.6 H 71.6 H (22.0-30.0) sec Chloride (98-107) mmol/L BUN (9-20) mg/dL Creatinine (0.66-1.25) mg/dL 07/30/21 Range/Units 06:10 RBC (4.30-5.90) m/uL Hgb (13.0-17.5) gm/dL Hct (39.0-53.0) % MCV (80.0-100.0) fL MCHC (31.0-37.0) g/dL Lymphocytes # (1.0-4.8) k/uL APTT (22.0-30.0) sec Chloride 111 H (98-107) mmol/L BUN 52 H (9-20) mg/dL Creatinine 1.39 H (0.66-1.25) mg/dL Assessment and Plan Assessment: * Acute ischemic stroke, multifocal involvement in bilateral hemispheric region, most likely embolic in nature. * Patient has atrial fibrillation, INR was slightly subtherapeutic 1.9 on arrival, which may be the cause of embolic source. * Extensive left leg DVT * Cerebral aneurysm * Right hilar mass and adenopathy highly suspicious for malignancy. * Chronic renal disease stage III with creatinine 2.26. * Back pain related to compression fracture. Patient has a known L1 compression fracture from 03/15/2021. * CAD * Tobacco use * Hypertension * Hyperlipidemia Plan: * Patient undergoing axillary lymph node biopsy tomorrow for possible malignancy. Pulmonary on board. * Patient has dyshagia and mass on his neck. Possible patient needs PEG tube if continues to have significant dysphagia. * Per Dr. Marie to Continue Coumadin after the procedure has been completed, and keep INR between 2-3. Currently on heparin drip in meantime until procedure. She is also on ASA 325mg daily and from neurological perspective is not needed. Continue Lipitor 40mg qhs for secondary stroke prophylaxis. * If patient is having difficulty monitoring his INR can consider switching to Eliquis 5mg 1 tab bid. * Patient has cerebral aneurysm noted on CTA of head and neck. I would suggest patient follow-up with neuro intervention after discharge for further management of cerebral aneurysm. * Patient complaining of severe mid back pain. Patient had L1 compression fracture diagnosed in February 2021. Dr. Marie discussed with patient about checking x-ray of the thoracic spine, but he declined. Patient may need a bone scan. * PT, OT and AIRLINE FLIGHT ATTENDANT are consulted. Dr. Awad is consulted for inpatient rehab. * Will defer the rest of medical management to the primary team. * Recommend for patient to follow-up with cardiology team as outpatient. * Upon discharge the patient needs to follow-up with a neurologist within 1-2 weeks as an outpatient. The plan is discussed with the patient's nurse. Will follow-up sporadically. Johnny Caruso M.D. Neuro-Hospitalist Time with Patient: Less than 30
[2021-07-30] MEDS: HEPARIN SOD,PORK IN 0.45% NACL 25,000 UNIT in 0.45% NACL 1 250ML.BAG IV SCH (15:37)
[2021-07-30] MEDS: ATORVASTATIN 40 MG TAB PO SCH (21:30)
[2021-07-31] MEDS: HYDROmorphone 0.5 MG/0.5 ML SYRINGE IVP PRN (01:04)
[2021-07-31] MEDS: SODIUM CHLORIDE 0.9% 1,000 ML IV SCH ×3 (02:29→22:13)
[2021-07-31] MEDS: HEPARIN SOD,PORK IN 0.45% NACL 25,000 UNIT in 0.45% NACL 1 250ML.BAG IV SCH ×2 (05:39→17:38)
[2021-07-31 06:01] LABS: Glucose,Whole Blood 63 mg/dL (75-99)
[2021-07-31] MEDS ORDERED: DEXTROSE 50% SYRINGE 50 ML IVP ONE (06:07)
[2021-07-31 06:22] LABS: Glucose,Whole Blood 154 mg/dL (75-99)
[2021-07-31] MEDS: ASPIRIN 325 MG TAB PO SCH (07:23)
[2021-07-31 08:12] LABS: Basophils % (A) 0 %; Eosinophils % (A) 1 %; HCT 30.1 % (39.0-53.0); HGB 9.2 gm/dL (13.0-17.5); Hypochromasia Marked; Lymphocytes # (A) 0.6 k/uL (1.0-4.8); Lymphocytes % (A) 9 %; MCH 32.1 pg (25.0-35.0); MCHC 30.7 g/dL (31.0-37.0); MCV 104.8 fL (80.0-100.0); Macrocytosis Moderate; Mean Platelet Volume 9.4; Monocytes # (A) 0.5 k/uL (0-1.0); Monocytes % (A) 7 %; Neutrophils # (A) 5.3 k/uL (1.3-7.7); Neutrophils % (A) 81 %; Platelet Count 214 k/uL (150-450); RBC 2.88 m/uL (4.30-5.90); RDW 15.3 % (11.5-15.5); WBC 6.6 k/uL (3.8-10.6)
[2021-07-31 08:24] LABS: Calcium 10.1 mg/dL (8.4-10.2); Potassium 4.8 mmol/L (3.5-5.1)
--- NOTE | 2021-07-31 10:41 | P.PN ---
Subjective Progress Note Date: 07/31/21 This is a pleasant 76-year-old gentleman with a known history of atrial fibrillation, anticoagulated with warfarin, coronary artery disease, hyperlipidemia, hypertension, chronic obstructive pulmonary disease with chronic and ongoing tobacco dependence. He was recently discharged from here 1 week ago for an episode of congestive heart failure. In the hospitalization a CT of the chest was done which showed neoplasm strongly suspected with markedly abnormal thoracic adenopathy throughout the mediastinum along with abnormal right axillary mass and adenopathy. The patient at that time had been quite adamant about going home and requested to be discharged which she was on 07/19/2021. He was scheduled to see Dr. Manuel on 08/02/2021 as a new patient. He came into the emergency room yesterday after waking up at 6:00 in the morning with a notable left-sided facial droop. A code stroke was called and he was evaluated by neurology. CT of the neck revealed patent bilateral carotid and vertebral arteries. Known abnormal mediastinal lymphadenopathy which warrant further investigation from a CAT scan of 07/19/2021. Continued moderate layering right pleural effusion. COPD. Patchy groundglass right greater than left visualized the upper lungs. The head revealed no large vessel intracranial arterial occlusion or significant stenosis. There is a 4.5 mm saccular aneurysm projecting superiorly and medially from the proximal supraclinoid segment left ICA. A tiny 2 mm aneurysm projecting anteriorly from the left MCA bifurcation. MRI of the brain revealed multifocal areas of acute ischemia predominantly lacunar and punctate in appearance. Dominant area measures 1.3 x 0.8 cm in the right coronal radiata deep frontal white matter adjacent to the ventricular system. Background mild to moderate diffuse cerebral atrophy and moderate to advanced chronic small vessel ischemic changes. Dopplers of the lower extremity revealed an extensive DVT throughout the entire imaged vessels from groin to upper calf and the left leg. Noted left inguinal mass likely a pathologic lymph node measuring up to 5.9 x 5.4 x 2.8 cm. The patient is seen today in consultation on the selective care unit. He is currently sitting up in the bedside. Noted left-sided facial droop. Difficulty in speaking. White count 10.5. Hemoglobin 10.3. Platelets 148. Sodium 136. Potassium 6.2. Bicarb 21. BUN 71. Creatinine 2.22. INR 1.9. He's been initiated on a heparin drip. The patient is seen today 07/29/2021 in follow-up on the selective care unit. He is currently sitting up at the bedside. Awake and alert in no acute distress. His maintaining O2 saturation in the low to mid 90s on 4 L/m per nasal cannula. She's been afebrile. Hemodynamically stable. White count 8.5. Hemoglobin 8.8. MCV 103.2. Platelets 146. Sodium 138. Potassium 4.9. Creatinine 1.85. BUN 63. Glucose 119. He remains on a heparin drip Weight- based protocol. No worsening shortness of breath, cough or congestion. No hemoptysis. On today's evaluation 07/30/2021, the patient is hard to communicate with cb mccurdy that he has had previous history of stroke. We'll consult on this patient because of abnormal lymphadenopathy involving the patient's thorax. At the same time, the patient was found to have a very large right axillary lymphadenopathy/mass and the plan is to proceed with a biopsy of the lymph nodes/mastoiditis to establish diagnosis. There is a high lactate for malignancy at this point in time. Noted the patient has multiple medical problems and comorbidities. The patient has COPD, mediastinal lymphadenopathy which is quite extensive, previous history of CVA, difficulty with mobility and gait secondary to CVA, and the patient continues to have issues with left-sided facial droop and difficulties with speech. At the same time, the patient was found to have a DVT of the lower extremity based on Doppler was done on 07/27/2021 where the patient was found to have positive DVT involving the left leg and this was a quite extensive extended from the groin to the upper calf vessels. He is currently nothing by mouth awaiting the biopsy. White echo today point I would hemoglobin 8.8. No significant lymphocytosis and a platelet count is at 189. PTT is at 71.6 from today. Creatinine is at 1.3 and the patient is recovering from acute kidney injury with a BUN of 50 to and the rest of the electrodes are all within normal limits. On 07/31/2021, the patient is being seen for a follow-up. The procedure was not performed yesterday and the patient is scheduled to undergo the procedure today at around 10 AM. The patient was taken off aspirin. The patient was also taken off IV heparin. The procedure would include a axillary lymph nodes fine-needle aspirate. The patient meanwhile underwent a swallow evaluation that showed trace silent aspiration with thin liquids. There was also presentation with other consistencies and trace silent aspiration of residuals. There was a delayed swallow. No respiratory distress. White cell count of 6.6 with a hemoglobin of 9.2. Sodium is at 141. BUN is at 39 with a creatinine of 1.22. Calcium level is at 10.1. He seems to quite debilitated. He is known to have multiple comorbidities including chronic atrial fibrillation and the patient is currently off warfarin. Most recent INR is down to 1.1. The patient is also known to have COPD, hyperlipidemia, hypertension and COPD. Is a chronic smoker. Objective - Vital Signs Vital signs: Vital Signs Temp 97.2 F L 07/31/21 08:00 Pulse 107 H 07/31/21 08:00 Resp 20 07/31/21 09:23 BP 137/70 07/31/21 08:00 Pulse Ox 99 07/31/21 08:00 Intake & Output 07/30/21 07/31/21 07/31/21 18:59 06:59 18:59 Intake Total 607.881 10 124.115 Output Total 650 850 Balance -42.119 -840 124.115 Intake: IV 10 10 Invasive Line 2 10 10 Intake, IV Titration 249.881 114.115 Amount Heparin Sod,Pork in 0.45% 249.881 114.115 NaCl 25,000 unit In 0.45 % NaCl 1 250ml.bag @ 18 UNITS/KG/HR 14.819 mls/hr IV .[id number] [facility] Rx#: [id number] Oral 358 Output: Urine 650 850 Uretheral ([place]) 400 Other: Voiding Method Indwelling Catheter Indwelling Catheter Indwelling Catheter # Bowel Movements 1 - Exam GENERAL EXAM: Alert, pleasant 76-year-old male patient, left-sided facial droop noted, on 4 L nasal cannula, fairly comfortable in no apparent distress. HEAD: Normocephalic. EYES: Normal reaction of pupils, equal size. NOSE: Clear with pink turbinates. THROAT: No erythema or exudates. NECK: No masses, no JVD. CHEST: No chest wall deformity. LUNGS: Equal air entry with crackles in the right base. Diminished CVS: S1 and S2 normal with no audible murmur, regular rhythm. ABDOMEN: No hepatosplenomegaly, normal bowel sounds, no guarding or rigidity. SPINE: No scoliosis or deformity SKIN: No rashes, the patient has a large right axillary lymphadenopathy and the mass/lymph was quite firm in the right axilla. No supraclavicular lymphadenopathy. CENTRAL NERVOUS SYSTEM: No focal deficits, tone is normal in all 4 extremities. The patient has left facial droop and difficulty with mobility and gait EXTREMITIES: There is a palpable lymph node under the right axilla. There is no peripheral edema. No clubbing, no cyanosis. Peripheral pulses are intact. - Labs CBC & Chem 7: 07/31/21 06:57 07/31/21 06:57 Labs: Abnormal Lab Results - Last 24 Hours (Table) 07/27/21 07/30/21 07/31/21 Range/Units 14:41 16:33 05:59 RBC (4.30-5.90) m/uL Hgb (13.0-17.5) gm/dL Hct (39.0-53.0) % MCV (80.0-100.0) fL MCHC (31.0-37.0) g/dL Lymphocytes # (1.0-4.8) k/uL APTT 50.2 H (22.0-30.0) sec Chloride (98-107) mmol/L BUN (9-20) mg/dL Glucose (74-99) mg/dL POC Glucose (mg/dL) 63 L (75-99) mg/dL RBC Folate 1,057 H (280 - 791) ng/mL 07/31/21 07/31/21 07/31/21 Range/Units 06:20 06:57 06:57 RBC 2.88 L (4.30-5.90) m/uL Hgb 9.2 L (13.0-17.5) gm/dL Hct 30.1 L (39.0-53.0) % MCV 104.8 H (80.0-100.0) fL MCHC 30.7 L (31.0-37.0) g/dL Lymphocytes # 0.6 L (1.0-4.8) k/uL APTT (22.0-30.0) sec Chloride 110 H (98-107) mmol/L BUN 39 H (9-20) mg/dL Glucose 122 H (74-99) mg/dL POC Glucose (mg/dL) 154 H (75-99) mg/dL RBC Folate (280 - 791) ng/mL Assessment and Plan Plan: 1 Acute left sided facial droop. Computed tomography scan of the brain revealed no large vessel intracranial arterial occlusion or significant stenosis. There is a 4.5 mm saccular aneurysm projecting superiorly and medially from the proximal supraclinoid segment left ICA. A tiny 2 mm aneurysm projecting a nteriorly from the left MCA bifurcation. MRI of the brain revealed multifocal areas of acute ischemia predominantly lacunar and punctate in appearance. Dominant area measures 1.3 x 0.8 cm in the right coronal radiata deep frontal white matter adjacent to the ventricular system. Background mild to moderate diffuse cerebral atrophy and moderate to advanced chronic small vessel ischemic changes. Currently on a heparin drip. No new onset focal neurological deficits. Left facial droop is still present. He has difficulty with speech and mobility and gait. 2 extensive thoracic lymphadenopathy in addition to right axillary lymphadenopathy, I elected for malignancy. Consider underlying lymphoma 3 DVT of the left lower extremity. The opplers of the lower extremity revealed an extensive DVT throughout the entire imaged vessels from groin to upper calf and the left leg. Noted left inguinal mass likely a pathologic lymph node measuring up to 5.9 x 5.4 x 2.8 cm. the patient is currently on IV heparin 4 Chronic and ongoing tobacco dependence of greater than 50 years 5 History of atrial fibrillation, anticoagulated with warfarin 6 History of coronary disease 7 Hypertension 8 Hyperlipidemia 9 Chronic obstructive pulmonary disease Plan: Aspirin and heparin has been discontinued The plan is to proceed with a fine-needle aspirate of the right axillary mass and following that anticoagulation be resumed. There is a high suspicion for malignancy Recommend IR for biopsy of the right axillary lymph node for diagnosis and staging Patient is currently nothing by mouth. Overall, he is considered to be at high risk of aspiration based on the results of the swallow study. We will continue to follow
--- NOTE | 2021-07-31 13:15 | US ---
EXAMINATION TYPE: US biopsy lymph node DATE OF EXAM: 07/31/2021 HISTORY: Right axillary adenopathy FINDINGS: Maximal barrier technique was utilized. Hand hygiene achieved with soap and water and alco hol-based hand rub. The skin overlying a suitable path to the patient's right axillary adenopathy was localized with ultrasound and the overlying skin prepped and draped. Ultrasound was utilized with s terile technique. Lidocaine was used for local anesthesia. A skin alpa was made with a scalpel. An 18-gauge needle was advanced under direct ultrasound guidance and core specimen obtained of the mass . 2 passes were made. Specimen submitted in formalin to Pathology. Following the procedure, hemosta sis achieved and the patient is discharged in stable condition without complication. IMPRESSION:STATUS POST ULTRASOUND GUIDED CORE BIOPSY OF right axillary adenopathy, PATHOLOGY IS PENDI NG. THIS PROCEDURE IS PERFORMED BY THE UNDERSIGNED.
[2021-07-31] MEDS ORDERED: SODIUM CHLORIDE 0.65% NASAL SPRAY 44 ML BTL NASAL PRN (13:16)
[2021-07-31] MEDS: ATORVASTATIN 40 MG TAB PO SCH (21:18)
[2021-07-31] MEDS ORDERED: LORazepam 2 MG/ML INJ IV STA (21:27)
[2021-08-01 05:23] LABS: Glucose,Whole Blood 93 mg/dL (75-99)
[2021-08-01 07:42] LABS: Basophils % (A) 0 %; Eosinophils % (A) 0 %; HCT 29.3 % (39.0-53.0); HGB 9.1 gm/dL (13.0-17.5); Hypochromasia Marked; Lymphocytes # (A) 0.6 k/uL (1.0-4.8); Lymphocytes % (A) 9 %; MCH 32.7 pg (25.0-35.0); MCV 105.4 fL (80.0-100.0); Macrocytosis Moderate; Mean Platelet Volume 9.4; Monocytes # (A) 0.4 k/uL (0-1.0); Monocytes % (A) 7 %; Neutrophils % (A) 81 %; Platelet Count 210 k/uL (150-450); RBC 2.78 m/uL (4.30-5.90); RDW 15.2 % (11.5-15.5); WBC 6.3 k/uL (3.8-10.6)
[2021-08-01 08:00] LABS: Calcium 10.4 mg/dL (8.4-10.2); Potassium 4.8 mmol/L (3.5-5.1)
[2021-08-01] MEDS: ASPIRIN 325 MG TAB PO SCH (13:15)
[2021-08-01] MEDS: SODIUM CHLORIDE 0.9% 1,000 ML IV SCH (13:15)
--- NOTE | 2021-08-01 14:15 | P.PN ---
Subjective Progress Note Date: 08/01/21 This is a pleasant 76-year-old gentleman with a known history of atrial fibrillation, anticoagulated with warfarin, coronary artery disease, hyperlipidemia, hypertension, chronic obstructive pulmonary disease with chronic and ongoing tobacco dependence. He was recently discharged from here 1 week ago for an episode of congestive heart failure. In the hospitalization a CT of the chest was done which showed neoplasm strongly suspected with markedly abnormal thoracic adenopathy throughout the mediastinum along with abnormal right axillary mass and adenopathy. The patient at that time had been quite adamant about going home and requested to be discharged which she was on 07/19/2021. He was scheduled to see Dr. Manuel on 08/02/2021 as a new patient. He came into the emergency room yesterday after waking up at 6:00 in the morning with a notable left-sided facial droop. A code stroke was called and he was evaluated by neurology. CT of the neck revealed patent bilateral carotid and vertebral arteries. Known abnormal mediastinal lymphadenopathy which warrant further investigation from a CAT scan of 07/19/2021. Continued moderate layering right pleural effusion. COPD. Patchy groundglass right greater than left visualized the upper lungs. The head revealed no large vessel intracranial arterial occlusion or significant stenosis. There is a 4.5 mm saccular aneurysm projecting superiorly and medially from the proximal supraclinoid segment left ICA. A tiny 2 mm aneurysm projecting anteriorly from the left MCA bifurcation. MRI of the brain revealed multifocal areas of acute ischemia predominantly lacunar and punctate in appearance. Dominant area measures 1.3 x 0.8 cm in the right coronal radiata deep frontal white matter adjacent to the ventricular system. Background mild to moderate diffuse cerebral atrophy and moderate to advanced chronic small vessel ischemic changes. Dopplers of the lower extremity revealed an extensive DVT throughout the entire imaged vessels from groin to upper calf and the left leg. Noted left inguinal mass likely a pathologic lymph node measuring up to 5.9 x 5.4 x 2.8 cm. The patient is seen today in consultation on the selective care unit. He is currently sitting up in the bedside. Noted left-sided facial droop. Difficulty in speaking. White count 10.5. Hemoglobin 10.3. Platelets 148. Sodium 136. Potassium 6.2. Bicarb 21. BUN 71. Creatinine 2.22. INR 1.9. He's been initiated on a heparin drip. The patient is seen today 07/29/2021 in follow-up on the selective care unit. He is currently sitting up at the bedside. Awake and alert in no acute distress. His maintaining O2 saturation in the low to mid 90s on 4 L/m per nasal cannula. She's been afebrile. Hemodynamically stable. White count 8.5. Hemoglobin 8.8. MCV 103.2. Platelets 146. Sodium 138. Potassium 4.9. Creatinine 1.85. BUN 63. Glucose 119. He remains on a heparin drip Weight- based protocol. No worsening shortness of breath, cough or congestion. No hemoptysis. On today's evaluation 07/30/2021, the patient is hard to communicate with cb mccurdy that he has had previous history of stroke. We'll consult on this patient because of abnormal lymphadenopathy involving the patient's thorax. At the same time, the patient was found to have a very large right axillary lymphadenopathy/mass and the plan is to proceed with a biopsy of the lymph nodes/mastoiditis to establish diagnosis. There is a high lactate for malignancy at this point in time. Noted the patient has multiple medical problems and comorbidities. The patient has COPD, mediastinal lymphadenopathy which is quite extensive, previous history of CVA, difficulty with mobility and gait secondary to CVA, and the patient continues to have issues with left-sided facial droop and difficulties with speech. At the same time, the patient was found to have a DVT of the lower extremity based on Doppler was done on 07/27/2021 where the patient was found to have positive DVT involving the left leg and this was a quite extensive extended from the groin to the upper calf vessels. He is currently nothing by mouth awaiting the biopsy. White echo today point I would hemoglobin 8.8. No significant lymphocytosis and a platelet count is at 189. PTT is at 71.6 from today. Creatinine is at 1.3 and the patient is recovering from acute kidney injury with a BUN of 50 to and the rest of the electrodes are all within normal limits. On 07/31/2021, the patient is being seen for a follow-up. The procedure was not performed yesterday and the patient is scheduled to undergo the procedure today at around 10 AM. The patient was taken off aspirin. The patient was also taken off IV heparin. The procedure would include a axillary lymph nodes fine-needle aspirate. The patient meanwhile underwent a swallow evaluation that showed trace silent aspiration with thin liquids. There was also presentation with other consistencies and trace silent aspiration of residuals. There was a delayed swallow. No respiratory distress. White cell count of 6.6 with a hemoglobin of 9.2. Sodium is at 141. BUN is at 39 with a creatinine of 1.22. Calcium level is at 10.1. He seems to quite debilitated. He is known to have multiple comorbidities including chronic atrial fibrillation and the patient is currently off warfarin. Most recent INR is down to 1.1. The patient is also known to have COPD, hyperlipidemia, hypertension and COPD. Is a chronic smoker. 08/01/2021, the patient is postop fine-needle aspiration. The patient remains nothing by mouth. The patient is being considered for PEG tube insertion. The patient is sitting up on a chair. The patient's, comfortable. He remains on IV heparin. Denies having any rest of distress. The patient remains on IV fluids with normal saline at the rate of 75 mL an hour. The patient is also on 3 L of oxygen by nasal cannula with pulse ox of 94%. No cough. No sputum production. No chest tightness. No wheezing. He is known to have COPD and is a chronic smoker. He also has history of chronic atrial fibrillation, hyperlipidemia and extensive mediastinal lymphadenopathy as discussed above. Objective - Vital Signs Vital signs: Vital Signs Temp 97.6 F 08/01/21 12:30 Pulse 100 08/01/21 12:30 Resp 18 08/01/21 12:30 BP 133/74 08/01/21 12:30 Pulse Ox 94 L 08/01/21 12:30 Intake & Output 07/31/21 08/01/21 08/01/21 18:59 06:59 18:59 Intake Total 884.115 69.595 Output Total 400 850 Balance 484.115 -780.405 Weight 74.5 kg 74.5 kg Intake: IV 10 10 Invasive Line 2 10 Invasive Line 3 10 Intake, IV Titration 474.115 59.595 Amount Heparin Sod,Pork in 0.45% 114.115 59.595 NaCl 25,000 unit In 0.45 % NaCl 1 250ml.bag @ 18 UNITS/KG/HR 14.819 mls/hr IV .[id number] [facility] Rx#: [id number] Sodium Chloride 0.9% 1, 360 000 ml @ 75 mls/hr IV . [id number] [facility] Rx#:[id number] Oral 400 Output: Urine 400 850 Other: Voiding Method Indwelling Catheter Indwelling Catheter Indwelling Catheter # Bowel Movements 1 - Exam GENERAL EXAM: Alert, pleasant 76-year-old male patient, left-sided facial droop noted, on 3 L nasal cannula, fairly comfortable in no apparent distress. HEAD: Normocephalic. EYES: Normal reaction of pupils, equal size. NOSE: Clear with pink turbinates. THROAT: No erythema or exudates. NECK: No masses, no JVD. CHEST: No chest wall deformity. LUNGS: Equal air entry with crackles in the right base. Diminished CVS: S1 and S2 normal with no audible murmur, regular rhythm. ABDOMEN: No hepatosplenomegaly, normal bowel sounds, no guarding or rigidity. SPINE: No scoliosis or deformity SKIN: No rashes, the patient has a large right axillary lymphadenopathy and the mass/lymph was quite firm in the right axilla. No supraclavicular lymphadenopathy. CENTRAL NERVOUS SYSTEM: No focal deficits, tone is normal in all 4 extremities. The patient has left facial droop and difficulty with mobility and gait EXTREMITIES: There is a palpable lymph node under the right axilla. There is no peripheral edema. No clubbing, no cyanosis. Peripheral pulses are intact. - Labs CBC & Chem 7: 08/01/21 06:48 08/01/21 06:48 Labs: Abnormal Lab Results - Last 24 Hours (Table) 07/31/21 08/01/21 08/01/21 Range/Units 23:42 06:48 06:48 RBC 2.78 L (4.30-5.90) m/uL Hgb 9.1 L (13.0-17.5) gm/dL Hct 29.3 L (39.0-53.0) % MCV 105.4 H (80.0-100.0) fL Lymphocytes # 0.6 L (1.0-4.8) k/uL APTT 42.9 H (22.0-30.0) sec Chloride 111 H (98-107) mmol/L BUN 35 H (9-20) mg/dL Calcium 10.4 H (8.4-10.2) mg/dL 08/01/21 Range/Units 06:48 RBC (4.30-5.90) m/uL Hgb (13.0-17.5) gm/dL Hct (39.0-53.0) % MCV (80.0-100.0) fL Lymphocytes # (1.0-4.8) k/uL APTT 57.3 H (22.0-30.0) sec Chloride (98-107) mmol/L BUN (9-20) mg/dL Calcium (8.4-10.2) mg/dL Assessment and Plan Plan: 1 Acute left sided facial droop. Computed tomography scan of the brain revealed no large vessel intracranial arterial occlusion or significant stenosis. There is a 4.5 mm saccular aneurysm projecting superiorly and medially from the proximal supraclinoid segment left ICA. A tiny 2 mm aneurysm projecting anteriorly from the left MCA bifurcation. MRI of the brain revealed multifocal areas of acute ischemia predominantly lacunar and punctate in appearance. Dominant area measures 1.3 x 0.8 cm in the right coronal radiata deep frontal white matter adjacent to the ventricular system. Background mild to moderate diffuse cerebral atrophy and moderate to advanced chronic small vessel ischemic changes. Currently on a heparin drip. No new onset focal neurological deficits. Left facial droop is still present. He has difficulty with speech and mobility and gait. The patient continues to have difficulty in swallowing and the patient is currently nothing by mouth. 2 extensive thoracic lymphadenopathy in addition to right axillary lymphadenopathy, I elected for malignancy. Consider underlying lymphoma, the patient underwent fine-needle aspirate of the legs are lymph node. 3 DVT of the left lower extremity. The opplers of the lower extremity revealed an extensive DVT throughout the entire imaged vessels from groin to upper calf and the left leg. Noted left inguinal mass likely a pathologic lymph node measuring up to 5.9 x 5.4 x 2.8 cm. the patient is currently on IV heparin 4 Chronic and ongoing tobacco dependence of greater than 50 years 5 History of atrial fibrillation, anticoagulated with warfarin, currently on IV heparin. 6 History of coronary disease 7 Hypertension 8 Hyperlipidemia 9 Chronic obstructive pulmonary disease 10 dysphagia, currently nothing by mouth. Plan: Continue IV heparin Awaiting the results of the fine-needle aspirate of the axillary lymph node There is a high suspicion for malignancy Patient is kept nothing by mouth for now. Schizoaffective insertion as the patient is considered to be at risk of deve loping aspiration based on the swallow study
--- NOTE | 2021-08-01 14:21 | P.PN ---
Subjective Progress Note Date: 08/01/21 Upon seeing the patient at bedside, he feels about the same. He denies of any new complaints. Patient had biopsy on his right axillary mass. Patient had POC glucose of 63 on 07/31/21 and no further hypoglycemia Objective - Vital Signs Vital signs: Vital Signs Temp 97.6 F 08/01/21 12:30 Pulse 100 08/01/21 12:30 Resp 18 08/01/21 12:30 BP 133/74 08/01/21 12:30 Pulse Ox 94 L 08/01/21 12:30 Intake & Output 07/31/21 08/01/21 08/01/21 18:59 06:59 18:59 Intake Total 884.115 69.595 Output Total 400 850 Balance 484.115 -780.405 Weight 74.5 kg 74.5 kg Intake: IV 10 10 Invasive Line 2 10 Invasive Line 3 10 Intake, IV Titration 474.115 59.595 Amount Heparin Sod,Pork in 0.45% 114.115 59.595 NaCl 25,000 unit In 0.45 % NaCl 1 250ml.bag @ 18 UNITS/KG/HR 14.819 mls/hr IV .[id number] [facility] Rx#: [id number] Sodium Chloride 0.9% 1, 360 000 ml @ 75 mls/hr IV . [id number] [facility] Rx#:[id number] Oral 400 Output: Urine 400 850 Other: Voiding Method Indwelling Catheter Indwelling Catheter Indwelling Catheter # Bowel Movements 1 - Exam On examination patient is alert and awake, oriented to self. He states he is in the hospital. He states the year is 2022. Patient is following commands. Has hypophonia. No aphasia or neglect. Cranial nerves: Pupils are round, equal and reactive to light. VFF to confrontation. EOM intact and no nystagmus. significant for left facial droop, central type. Patient is whispering because of his recent laryngitis. Mild dysarthria. Motor: Gait is deferred. Muscle strength is left sided weakness and has mild pronator drift. 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 Has drift in left lower extremity that is mild. Otherwise no drift over the right side. WORK-UP: * TSH is 1.670. * Hemoglobin A1c 5.6, * fasting lipid panel cholesterol 79, LDL 25, HDL 39 and triglycerides 67. * AST: 40, ALT 20 * Vitamin B12: 1009 * RBC folate: 1057 * TSH: 1.67 * MRI the brain is reported as multifocal areas of acute ischemia predominantly lacunar or punctate appearance. Dominant area measures 1.30.7 cm in the r ight wills radiata the frontal white matter adjacent to the ventricular system. Background mild to moderate diffuse cerebral atrophy and moderate to advanced chronic small vessel ischemic changes. * 2-D echo was performed outpatient on 07/18/2021. It revealed normal left ventricular size. Mild concentric LVH. EF is between 35-40%. Left ventricular systolic function mildly decreased. Left ventricle is mildly enlarged. Trace MR, trace TR. * Patient has cerebral aneurysm noted on CTA of head and neck. - Labs CBC & Chem 7: 08/01/21 06:48 08/01/21 06:48 Labs: Abnormal Lab Results - Last 24 Hours (Table) 07/31/21 08/01/21 08/01/21 Range/Units 23:42 06:48 06:48 RBC 2.78 L (4.30-5.90) m/uL Hgb 9.1 L (13.0-17.5) gm/dL Hct 29.3 L (39.0-53.0) % MCV 105.4 H (80.0-100.0) fL Lymphocytes # 0.6 L (1.0-4.8) k/uL APTT 42.9 H (22.0-30.0) sec Chloride 111 H (98-107) mmol/L BUN 35 H (9-20) mg/dL Calcium 10.4 H (8.4-10.2) mg/dL 08/01/21 Range/Units 06:48 RBC (4.30-5.90) m/uL Hgb (13.0-17.5) gm/dL Hct (39.0-53.0) % MCV (80.0-100.0) fL Lymphocytes # (1.0-4.8) k/uL APTT 57.3 H (22.0-30.0) sec Chloride (98-107) mmol/L BUN (9-20) mg/dL Calcium (8.4-10.2) mg/dL Assessment and Plan Assessment: * Acute ischemic stroke, multifocal involvement in bilateral hemispheric region, most likely embolic in nature (has A-fib) * Patient has atrial fibrillation, INR was slightly subtherapeutic 1.9 on arrival, which may be the cause of embolic source. * Extensive left leg DVT * Cerebral aneurysm * Right hilar mass and adenopathy highly suspicious for malignancy s/p biopsy on 07/31/21 * Episode of hypoglycemia on 07/31/21 (as low as 63) * Chronic renal disease stage III ---improving. Currently Creatnine 1.17. * Back pain related to compression fracture. Patient has a known L1 compression fracture from 03/15/2021. * CAD * Tobacco use * Hypertension * Hyperlipidemia Plan: * * Per Dr. Marie to Continue Coumadin after the procedure has been completed, and keep INR between 2-3. Currently on heparin drip and per nurse not transition to coumadin since possible PEG tube placement. He is also on ASA 325mg daily and from neurological perspective is not needed. Continue Lipitor 40mg qhs for secondary stroke prophylaxis * If patient is having difficulty monitoring his INR can consider switching to Eliquis 5mg 1 tab bid.. * Patient has dyshagia and mass on his neck. Possible patient needs PEG tube if continues to have significant dysphagia. Per the nurse the patient and his are waiting for result of biosy then will make decision whether to pursue with PEG tube. * Patient had axillary lymph node biopsy to assess if malignancy on 07/31/2021 and pending result. * Patient has cerebral aneurysm noted on CTA of head and neck (reported as 4.5mm saccular aneurysm projecting superiorly and medially from the proximal supraclinoid sgement left ICA and 2mm left MCA). I would suggest patient follow-up with neuro intervention after discharge for further management of cerebral aneurysm. * Patient complaining of severe mid back pain. Patient had L1 compression fracture diagnosed in February 2021. Dr. Marie discussed with patient about checking x-ray of the thoracic spine, but he declined. Patient may need a bone scan. * Continue neuro checks. * PT, OT and RISK CONTROL ANALYST are consulted. Dr. Awad is consulted for inpatient rehab. * Pulmonary on board. * Consider Oncology consult. * Will defer the rest of medical management to the primary team. * Recommend for patient to follow-up with cardiology team as outpatient. * For DVT prophylxis: On heparin drip. * Upon discharge the patient needs to follow-up with a neurologist within 1-2 weeks as an outpatient. The plan is discussed with the patient's nurse. Johnny Caruso M.D. Neuro-Hospitalist Time with Patient: Less than 30
[2021-08-01] MEDS: HEPARIN SOD,PORK IN 0.45% NACL 25,000 UNIT in 0.45% NACL 1 250ML.BAG IV SCH (16:43)
--- NOTE | 2021-08-01 18:03 | US ---
EXAMINATION TYPE: US venous doppler duplex UE RT DATE OF EXAM: 08/01/2021 COMPARISON: NONE CLINICAL HISTORY: New onset discoloration and discomfort of RUE hand. New onset discoloration and dis comfort of RUE. SIDE PERFORMED: Right Right Arm: Extensive internal echoes seen within the cephalic and the basilic vein from upper arm at mid down through the forearm. Vessels do not appear to compress. All remaining veins appear to compre ss. Ulnar and radial veins appear small, difficult to show color, but do appear to compress completel y. IMPRESSION: No evidence of deep vein thrombosis in the right arm. There is some superficial vein thrombosis in th e cephalic and basilic veins. There is patency of the jugular and subclavian axillary and brachial ve ins.
[2021-08-01] MEDS: ATORVASTATIN 40 MG TAB PO SCH (20:06)
--- NOTE | 2021-08-01 23:24 | P.PN ---
Subjective Progress Note Date: 07/30/21 Patient is a 76-year-old male with a known history of atrial fibrillation on anticoagulation with Coumadin, chronic CHF, hypertension, hyperlipidemia, history of [place] status post cardiac catheterization occlusion of the LAD, opted for medical therapy and currently everyday smoker presents to ER due to compl aints of left facial droop. According to his patient woke up around 6 AM this morning and was drinking coffee around 7 AM when she noticed he was having drooling from his left side of the mouth. EMS was called and patient was brought to ER. Patient did have dysarthria but denied any difficulty finding words. No blurry vision. Patient has been having difficulty swallowing recently. Denies any weakness in the legs or hands. No numbness or tingling sensation. Apparently patient fell about 2 days ago however denied that he hit his head. No complaints of fever or chills. No nausea vomiting abdominal pain or diarrhea. No chest pain or shortness of breath. Patient was also having increasing left lower extremity swelling and pain for the past 2 days. Patient was recently admitted to the hospital due to shortness of breath, elevated troponin level and acute CHF and was discharged on 07/19/2021. CT head showed tiny 5 mm cortical hypodensity superior left precentral gyrus. A tiny cortical contusion/bleed is difficult to exclude especially the patient is experienced a fall on Coumadin. Otherwise there is moderate patchy burden of chronic small vessel ischemic disease. No other acute intracranial abnormality seen at this time. Due to small area of bleeding patient was not a candidate for TPA and MRI was ordered which showed multifocal ischemic infarcts. Patient was given a dose of aspirin CT angiogram of the head and neck showed patent bilateral carotid and vertebral arteries of the neck. 4.5 mm saccular aneurysm projecting superiorly and medially from the proximal s upraclinoid segment. Stat MRI of the brain showed multifocal areas of acute ischemia predominantly l ikely punctate in appearance. Dominant area measures 1.3 x 0.8 cm right coronal radiata deep frontal white matter adjacent to the ventricular system. Level data showed WBC 9.4 hemoglobin 10.6 MCV 100.1 and platelets 102 INR 1.9 Sodium 131 potassium 6.2 chloride 104 bicarb is 20 BUN 72 and creatinine 2.26 Troponin 0 0.110 and TSH 1.670 Urinalysis is negative for infection EKG showed normal sinus rhythm with no acute ST elevations or depressions. CT chest on 07/19/2021 showed neoplasm strongly suspected. There is marked abnormal thoracic adenopathy throughout the mediastinum. There is abnormal right axillary mass or adenopathy. PET scan was recommended. Mild to moderate size right pleural effusion. Demineralization multiple compression type fractures deformities. 07/28/2021 Patient is currently sitting in the chair. Awake alert and oriented x3. Left facial drooping without any change. No numbness or tingling. No complaints of chest pain or shortness of breath. Patient is able to tolerate nectar thick liquids. Does have hematuria after starting heparin drip which is clearing up now. Patient was seen by pulmonary is recommending IR consult. Laboratory showed WBC 10.6 hemoglobin 9.6 and platelets 128 Sodium 136 potassium 5.9 chloride 107 bicarb is 20 BUN 72 and creatinine 2.13 07/29/2021 Patient is currently sitting in the recliner chair. Left facial droop is still present. Awake alert and oriented x3. Currently requiring oxygen at 4 L via nasal cannula. Hematuria has resolved and urine is clear at this time. Livingston catheter in place. Patient is tolerating thick liquids. Denies any complaints of chest pain or shortness of breath. Left lower extremity pain and swelling is much improved now. Patient is being current on heparin drip due to left lower extremity DVT. Denies any hematemesis or melena. Laboratory data showed WBC 8.4 hemoglobin 8.8 and platelets 146 sodium 138 potassium 4.9 chloride 109 bicarb is 23 BUN 16 creatinine 1.85 Interventional radiology consult for biopsy likely tomorrow. 07/30/21 Patient is currently in the select care unit. Sitting in the chair. Awake alert and oriented. Patient does have left-sided facial droop. Continues to have slurred speech/speech difficulty. [facility] hospital due to acute CVA and also left lower extremity DVT. Patient is scheduled for biopsy of the axillary lymph node and suspicious for lung malignancy. Patient failed swallow study and is currently being continued on IV hydration with normal saline. Patient is on heparin drip due to left lower extremity DVT. Hematuria has resolved. Laboratory data showed WBC 8.4 hemoglobin 8.8 and platelets 189 Sodium 139 potassium 4.9 chloride 111 bicarb is 22 BUN 59 and creatinine 1.39. Pulmonary and neurology is on board. Current medications reviewed. Objective - Vital Signs Vital signs: Vital Signs Temp 97.1 F L 07/30/21 16:00 Pulse 78 07/30/21 16:00 Resp 20 07/30/21 16:00 BP 131/71 07/30/21 16:00 Pulse Ox 96 07/30/21 16:00 Intake & Output 07/30/21 07/30/21 07/31/21 06:59 18:59 06:59 Intake Total 240 607.881 Output Total 750 650 Balance -510 -42.119 Intake: Intake, IV Titration 249.881 Amount Heparin Sod,Pork in 0.45% 249.881 NaCl 25,000 unit In 0.45 % NaCl 1 250ml.bag @ 18 UNITS/KG/HR 14.819 mls/hr IV .[id number] [facility] Rx#: [id number] Oral 240 358 Output: Urine 750 650 Uretheral (Livingston) 400 Other: Voiding Method Indwelling Catheter Indwelling Catheter - Exam PHYSICAL EXAMINATION: Patient is lying in the bed comfortably, no acute distress, awake alert and oriented. HEENT: Normocephalic. Neck is supple. Pupils reactive. Nostrils clear. Oral cavity is moist. Neck reveals no JVD, carotid bruits, or thyromegaly. CHEST EXAMINATION: Trachea is central. Symmetrical expansion. Right lower lobe diminished sounds. No wheezing or rhonchi. CARDIAC: Normal S1, S2 with no gallops. No murmurs ABDOMEN: Soft. Bowel sounds normal. No organomegaly. No abdominal bruits. Extremities: reveal no edema. Left lower extremity swelling with calf tenderness. No clubbing or cyanosis Neurologically awake, alert, oriented x3. Patient does have left facial droop and drooling. Dysarthria. Muscle strength 5 out of 5 in all 4 extremities. Skin: No rash or skin lesions. Psychiatric: Cooperative. Nonsuicidal Musculoskeletal: No joint swelling or deformity. Normal range of motion. - Labs CBC & Chem 7: 08/01/21 06:48 08/01/21 06:48 Labs: Abnormal Lab Results - Last 24 Hours (Table) 07/27/21 07/30/21 07/30/21 Range/Units 14:41 06:10 06:10 RBC 2.74 L (4.30-5.90) m/uL Hgb 8.8 L (13.0-17.5) gm/dL Hct 28.8 L (39.0-53.0) % MCV 104.9 H (80.0-100.0) fL MCHC 30.5 L (31.0-37.0) g/dL Lymphocytes # 0.7 L (1.0-4.8) k/uL APTT 71.6 H (22.0-30.0) sec Chloride (98-107) mmol/L BUN (9-20) mg/dL Creatinine (0.66-1.25) mg/dL RBC Folate 1,057 H (280 - 791) ng/mL 07/30/21 07/30/21 Range/Units 06:10 16:33 RBC (4.30-5.90) m/uL Hgb (13.0-17.5) gm/dL Hct (39.0-53.0) % MCV (80.0-100.0) fL MCHC (31.0-37.0) g/dL Lymphocytes # (1.0-4.8) k/uL APTT 50.2 H (22.0-30.0) sec Chloride 111 H (98-107) mmol/L BUN 52 H (9-20) mg/dL Creatinine 1.39 H (0.66-1.25) mg/dL RBC Folate (280 - 791) ng/mL Assessment and Plan Assessment: Acute ischemic stroke with multifocal area involvement. Left facial droop and dysarthria secondary to above Left lower extremity extensive acute DVT throughout anterior nasal vessels from the groin to the upper calf. Right hilar mass and adenopathy suspicious for malignancy. Large right axillary mass or abdominal adenopathy. Hypovolemic hyponatremia Hyperkalemia with potassium 6.2 Chronic kidney disease stage III with creatinine level 2.26 Mild elevated troponin level History of coronary disease with occluded LAD. Medical management was recommended. Ongoing nicotine addiction Hypertension Hyperlipidemia Chronic CHF ejection fraction not known. Paroxysmal atrial fibrillation on anticoagulation with Coumadin INR 1.9 on ad [place]. DVT prophylaxis patient is on heparin drip Plan: Patient was admitted to the hospital acute ischemic infarct as per MRI of the brain. Started on aspirin and lipid profile was ordered. TSH B12 and folate levels WNL. Patient is scheduled for axillary lymph node biopsy and highly suspicious for lung malignancy. Patient will be continued on heparin drip and monitor hemoglobin closely. Patient failed swallow study. Continue with IV hydration. Prognosis guarded with multiple medical problems and comorbid conditions. Discussed with the patient and his at bedside in detail. Time with Patient: Greater than 30
--- NOTE | 2021-08-01 23:29 | P.PN ---
Subjective Progress Note Date: 07/31/21 Patient is a 76-year-old male with a known history of atrial fibrillation on anticoagulation with Coumadin, chronic CHF, hypertension, hyperlipidemia, history of HI status post cardiac catheterization occlusion of the LAD, opted for medical therapy and currently everyday smoker presents to ER due to compl aints of left facial droop. According to his patient woke up around 6 AM this morning and was drinking coffee around 7 AM when she noticed he was having drooling from his left side of the mouth. EMS was called and patient was brought to ER. Patient did have dysarthria but denied any difficulty finding words. No blurry vision. Patient has been having difficulty swallowing recently. Denies any weakness in the legs or hands. No numbness or tingling sensation. Apparently patient fell about 2 days ago however denied that he hit his head. No complaints of fever or chills. No nausea vomiting abdominal pain or diarrhea. No chest pain or shortness of breath. Patient was also having increasing left lower extremity swelling and pain for the past 2 days. Patient was recently admitted to the hospital due to shortness of breath, elevated troponin level and acute CHF and was discharged on 07/19/2021. CT head showed tiny 5 mm cortical hypodensity superior left precentral gyrus. A tiny cortical contusion/bleed is difficult to exclude especially the patient is experienced a fall on Coumadin. Otherwise there is moderate patchy burden of chronic small vessel ischemic disease. No other acute intracranial abnormality seen at this time. Due to small area of bleeding patient was not a candidate for TPA and MRI was ordered which showed multifocal ischemic infarcts. Patient was given a dose of aspirin CT angiogram of the head and neck showed patent bilateral carotid and vertebral arteries of the neck. 4.5 mm saccular aneurysm projecting superiorly and medially from the proximal s upraclinoid segment. Stat MRI of the brain showed multifocal areas of acute ischemia predominantly l ikely punctate in appearance. Dominant area measures 1.3 x 0.8 cm right coronal radiata deep frontal white matter adjacent to the ventricular system. Level data showed WBC 9.4 hemoglobin 10.6 MCV 100.1 and platelets 102 INR 1.9 Sodium 131 potassium 6.2 chloride 104 bicarb is 20 BUN 72 and creatinine 2.26 Troponin 0 0.110 and TSH 1.670 Urinalysis is negative for infection EKG showed normal sinus rhythm with no acute ST elevations or depressions. CT chest on 07/19/2021 showed neoplasm strongly suspected. There is marked abnormal thoracic adenopathy throughout the mediastinum. There is abnormal right axillary mass or adenopathy. PET scan was recommended. Mild to moderate size right pleural effusion. Demineralization multiple compression type fractures deformities. 07/28/2021 Patient is currently sitting in the chair. Awake alert and oriented x3. Left facial drooping without any change. No numbness or tingling. No complaints of chest pain or shortness of breath. Patient is able to tolerate nectar thick liquids. Does have hematuria after starting heparin drip which is clearing up now. Patient was seen by pulmonary is recommending IR consult. Laboratory showed WBC 10.6 hemoglobin 9.6 and platelets 128 Sodium 136 potassium 5.9 chloride 107 bicarb is 20 BUN 72 and creatinine 2.13 07/29/2021 Patient is currently sitting in the recliner chair. Left facial droop is still present. Awake alert and oriented x3. Currently requiring oxygen at 4 L via nasal cannula. Hematuria has resolved and urine is clear at this time. Livingston catheter in place. Patient is tolerating thick liquids. Denies any complaints of chest pain or shortness of breath. Left lower extremity pain and swelling is much improved now. Patient is being current on heparin drip due to left lower extremity DVT. Denies any hematemesis or melena. Laboratory data showed WBC 8.4 hemoglobin 8.8 and platelets 146 sodium 138 potassium 4.9 chloride 109 bicarb is 23 BUN 16 creatinine 1.85 Interventional radiology consult for biopsy likely tomorrow. 07/30/21 Patient is currently in the select care unit. Sitting in the chair. Awake alert and oriented. Patient does have left-sided facial droop. Continues to have slurred speech/speech difficulty. [facility] hospital due to acute CVA and also left lower extremity DVT. Patient is scheduled for biopsy of the axillary lymph node and suspicious for lung malignancy. Patient failed swallow study and is currently being continued on IV hydration with normal saline. Patient is on heparin drip due to left lower extremity DVT. Hematuria has resolved. Laboratory data showed WBC 8.4 hemoglobin 8.8 and platelets 189 Sodium 139 potassium 4.9 chloride 111 bicarb is 22 BUN 59 and creatinine 1.39. Pulmonary and neurology is on board. 07/31/2021 Patient is currently sitting in the chair. Awake alert and oriented. Feels weak. Patient is currently nothing by mouth and failed swallow study. Patient is supposed to get IR guided axillary lymph node biopsy yesterday but could not be done. Scheduled for biopsy today. Patient is being continued heparin drip. Patient is unable to take oral intake and does not have silent aspiration with thin liquids.. Coumadin is on hold. Laboratory data showed WBC 6.6 hemoglobin 9.2 and platelets 214 Sodium 141 potassium 4.8 chloride 110 bicarb is 26 BUN 39 creatinine 1. 2 2 and calcium 10.1 Pulmonary neurology is on board. Current medications reviewed. Objective - Vital Signs Vital signs: Vital Signs Temp 97.2 F L 07/31/21 08:00 Pulse 95 07/31/21 12:45 Resp 20 07/31/21 11:45 BP 134/74 07/31/21 12:45 Pulse Ox 97 07/31/21 11:45 Intake & Output 07/31/21 07/31/21 08/01/21 06:59 18:59 06:59 Intake Total 10 884.115 Output Total 850 400 Balance -840 484.115 Weight 74.5 kg Intake: IV 10 10 Invasive Line 2 10 10 Intake, IV Titration 474.115 Amount Heparin Sod,Pork in 0.45% 114.115 NaCl 25,000 unit In 0.45 % NaCl 1 250ml.bag @ 18 UNITS/KG/HR 14.819 mls/hr IV .[id number] [facility] Rx#: [id number] Sodium Chloride 0.9% 1, 360 000 ml @ 75 mls/hr IV . [id number] [facility] Rx#:[id number] Oral 400 Output: Urine 850 400 Other: Voiding Method Indwelling Catheter Indwelling Catheter # Bowel Movements 1 - Exam PHYSICAL EXAMINATION: Patient is lying in the bed comfortably, no acute distress, awake alert and oriented. HEENT: Normocephalic. Neck is supple. Pupils reactive. Nostrils clear. Oral cavity is moist. Neck reveals no JVD, carotid bruits, or thyromegaly. CHEST EXAMINATION: Trachea is central. Symmetrical expansion. Right lower lobe diminished sounds. No wheezing or rhonchi. CARDIAC: Normal S1, S2 with no gallops. No murmurs ABDOMEN: Soft. Bowel sounds normal. No organomegaly. No abdominal bruits. Extremities: reveal no edema. Left lower extremity swelling with calf tenderness. No clubbing or cyanosis Neurologically awake, alert, oriented x3. Patient does have left facial droop and drooling. Dysarthria. Muscle strength 5 out of 5 in all 4 extremities. Skin: No rash or skin lesions. Psychiatric: Cooperative. Nonsuicidal Musculoskeletal: No joint swelling or deformity. Normal range of motion. - Labs CBC & Chem 7: 08/01/21 06:48 08/01/21 06:48 Labs: Abnormal Lab Results - Last 24 Hours (Table) 07/31/21 07/31/21 07/31/21 Range/Units 05:59 06:20 06:57 RBC 2.88 L (4.30-5.90) m/uL Hgb 9.2 L (13.0-17.5) gm/dL Hct 30.1 L (39.0-53.0) % MCV 104.8 H (80.0-100.0) fL MCHC 30.7 L (31.0-37.0) g/dL Lymphocytes # 0.6 L (1.0-4.8) k/uL Chloride (98-107) mmol/L BUN (9-20) mg/dL Glucose (74-99) mg/dL POC Glucose (mg/dL) 63 L 154 H (75-99) mg/dL 07/31/21 Range/Units 06:57 RBC (4.30-5.90) m/uL Hgb (13.0-17.5) gm/dL Hct (39.0-53.0) % MCV (80.0-100.0) fL MCHC (31.0-37.0) g/dL Lymphocytes # (1.0-4.8) k/uL Chloride 110 H (98-107) mmol/L BUN 39 H (9-20) mg/dL Glucose 122 H (74-99) mg/dL POC Glucose (mg/dL) (75-99) mg/dL Assessment and Plan Assessment: Acute ischemic stroke with multifocal area involvement. Left facial droop and dysarthria secondary to above Left lower extremity extensive acute DVT throughout anterior nasal vessels from the groin to the upper calf. Right hilar mass and adenopathy suspicious for malignancy. Large right axillary mass or abdominal adenopathy. Hypovolemic hyponatremia Hyperkalemia with potassium 6.2 Chronic kidney disease stage III with creatinine level 2.26 Mild elevated troponin level History of coronary disease with occluded LAD. Medical management was recommended. Ongoing nicotine addiction Hypertension Hyperlipidemia Chronic CHF ejection fraction not known. Paroxysmal atrial fibrillation on anticoagulation with Coumadin INR 1.9 on admission. DVT prophylaxis patient is on heparin drip Plan: Patient was admitted to the hospital acute ischemic infarct as per MRI of the brain. Started on aspirin and lipid profile was ordered. TSH B12 and folate levels WNL. Patient is scheduled for axillary lymph node biopsy and highly suspicious for l valeria malignancy. Patient will be continued on heparin drip and monitor hemoglobin closely. Patient failed swallow study And is having silent aspiration with thin liquids. . Continue with IV hydration. Prognosis guarded with multiple medical problems and comorbid conditions. Ella scussed with the patient and his at bedside in detail. Time with Patient: Greater than 30
--- NOTE | 2021-08-01 23:34 | P.PN ---
Subjective Progress Note Date: 08/01/21 Patient is a 76-year-old male with a known history of atrial fibrillation on anticoagulation with Coumadin, chronic CHF, hypertension, hyperlipidemia, history of VT status post cardiac catheterization occlusion of the LAD, opted for medical therapy and currently everyday smoker presents to ER due to compl aints of left facial droop. According to his patient woke up around 6 AM this morning and was drinking coffee around 7 AM when she noticed he was having drooling from his left side of the mouth. EMS was called and patient was brought to ER. Patient did have dysarthria but denied any difficulty finding words. No blurry vision. Patient has been having difficulty swallowing recently. Denies any weakness in the legs or hands. No numbness or tingling sensation. Apparently patient fell about 2 days ago however denied that he hit his head. No complaints of fever or chills. No nausea vomiting abdominal pain or diarrhea. No chest pain or shortness of breath. Patient was also having increasing left lower extremity swelling and pain for the past 2 days. Patient was recently admitted to the hospital due to shortness of breath, elevated troponin level and acute CHF and was discharged on 07/19/2021. CT head showed tiny 5 mm cortical hypodensity superior left precentral gyrus. A tiny cortical contusion/bleed is difficult to exclude especially the patient is experienced a fall on Coumadin. Otherwise there is moderate patchy burden of chronic small vessel ischemic disease. No other acute intracranial abnormality seen at this time. Due to small area of bleeding patient was not a candidate for TPA and MRI was ordered which showed multifocal ischemic infarcts. Patient was given a dose of aspirin CT angiogram of the head and neck showed patent bilateral carotid and vertebral arteries of the neck. 4.5 mm saccular aneurysm projecting superiorly and medially from the proximal s upraclinoid segment. Stat MRI of the brain showed multifocal areas of acute ischemia predominantly l ikely punctate in appearance. Dominant area measures 1.3 x 0.8 cm right coronal radiata deep frontal white matter adjacent to the ventricular system. Level data showed WBC 9.4 hemoglobin 10.6 MCV 100.1 and platelets 102 INR 1.9 Sodium 131 potassium 6.2 chloride 104 bicarb is 20 BUN 72 and creatinine 2.26 Troponin 0 0.110 and TSH 1.670 Urinalysis is negative for infection EKG showed normal sinus rhythm with no acute ST elevations or depressions. CT chest on 07/19/2021 showed neoplasm strongly suspected. There is marked abnormal thoracic adenopathy throughout the mediastinum. There is abnormal right axillary mass or adenopathy. PET scan was recommended. Mild to moderate size right pleural effusion. Demineralization multiple compression type fractures deformities. 07/28/2021 Patient is currently sitting in the chair. Awake alert and oriented x3. Left facial drooping without any change. No numbness or tingling. No complaints of chest pain or shortness of breath. Patient is able to tolerate nectar thick liquids. Does have hematuria after starting heparin drip which is clearing up now. Patient was seen by pulmonary is recommending IR consult. Laboratory showed WBC 10.6 hemoglobin 9.6 and platelets 128 Sodium 136 potassium 5.9 chloride 107 bicarb is 20 BUN 72 and creatinine 2.13 07/29/2021 Patient is currently sitting in the recliner chair. Left facial droop is still present. Awake alert and oriented x3. Currently requiring oxygen at 4 L via nasal cannula. Hematuria has resolved and urine is clear at this time. Livingston catheter in place. Patient is tolerating thick liquids. Denies any complaints of chest pain or shortness of breath. Left lower extremity pain and swelling is much improved now. Patient is being current on heparin drip due to left lower extremity DVT. Denies any hematemesis or melena. Laboratory data showed WBC 8.4 hemoglobin 8.8 and platelets 146 sodium 138 potassium 4.9 chloride 109 bicarb is 23 BUN 16 creatinine 1.85 Interventional radiology consult for biopsy likely tomorrow. 07/30/21 Patient is currently in the select care unit. Sitting in the chair. Awake alert and oriented. Patient does have left-sided facial droop. Continues to have slurred speech/speech difficulty. [facility] hospital due to acute CVA and also left lower extremity DVT. Patient is scheduled for biopsy of the axillary lymph node and suspicious for lung malignancy. Patient failed swallow study and is currently being continued on IV hydration with normal saline. Patient is on heparin drip due to left lower extremity DVT. Hematuria has resolved. Laboratory data showed WBC 8.4 hemoglobin 8.8 and platelets 189 Sodium 139 potassium 4.9 chloride 111 bicarb is 22 BUN 59 and creatinine 1.39. Pulmonary and neurology is on board. 07/31/2021 Patient is currently sitting in the chair. Awake alert and oriented. Feels weak. Patient is currently nothing by mouth and failed swallow study. Patient is supposed to get IR guided axillary lymph node biopsy yesterday but could not be done. Scheduled for biopsy today. Patient is being continued heparin drip. Patient is unable to take oral intake and does not have silent aspiration with thin liquids.. Coumadin is on hold. Laboratory data showed WBC 6.6 hemoglobin 9.2 and platelets 214 Sodium 141 potassium 4.8 chloride 110 bicarb is 26 BUN 39 creatinine 1. 2 2 and calcium 10.1 Pulmonary neurology is on board. 08/01/2021 Patient is currently sitting in the chair. Awake alert and oriented. Continues to have difficulty speech and left facial droop. Patient underwent IR guided biopsy of the axillary lymph node on 07/31/2021. Biopsy report is pending at this time. Otherwise patient is having silent aspiration with swallow study. Discussed with the patient regarding PEG tube placement and he is willing to make decision after the biopsy report and talking to his . In the meantime patient will be started thickened liquids after discussion with the speech pathology service. Patient is being continued on IV hydration with normal saline. Patient has been afebrile. No cough or sputum production. No complaints of chest pain. Patient is also heparin drip which will be transitioned to Coumadin or Eliquis pending PEG tube placement. Current medications reviewed. Objective - Vital Signs Vital signs: Vital Signs Temp 97.4 F L 08/01/21 15:24 Pulse 96 08/01/21 15:24 Resp 20 08/01/21 15:24 BP 128/74 08/01/21 15:24 Pulse Ox 94 L 08/01/21 15:24 Intake & Output 08/01/21 08/01/21 08/02/21 06:59 18:59 06:59 Intake Total 69.595 437.999 Output Total 850 600 Balance -780.405 -162.001 Weight 74.5 kg Intake: IV 10 Invasive Line 3 10 Intake, IV Titration 59.595 437.999 Amount Heparin Sod,Pork in 0.45% 59.595 167.999 NaCl 25,000 unit In 0.45 % NaCl 1 250ml.bag @ 18 UNITS/KG/HR 14.819 mls/hr IV .[id number] [facility] Rx#: [id number] Sodium Chloride 0.9% 1, 270 000 ml @ 75 mls/hr IV . [id number] [facility] Rx#:[id number] Output: Urine 850 600 Other: Voiding Method Indwelling Catheter Indwelling Catheter # Bowel Movements 1 1 - Exam PHYSICAL EXAMINATION: Patient is lying in the bed comfortably, no acute distress, awake alert and oriented. HEENT: Normocephalic. Neck is supple. Pupils reactive. Nostrils clear. Oral cavity is moist. Neck reveals no JVD, carotid bruits, or thyromegaly. CHEST EXAMINATION: Trachea is central. Symmetrical expansion. Right lower lobe diminished sounds. No wheezing or rhonchi. CARDIAC: Normal S1, S2 with no gallops. No murmurs ABDOMEN: Soft. Bowel sounds normal. No organomegaly. No abdominal bruits. Extremities: reveal no edema. Left lower extremity swelling with calf tenderness. No clubbing or cyanosis Neurologically awake, alert, oriented x3. Patient does have left facial droop and drooling. Dysarthria. Muscle strength 5 out of 5 in all 4 extremities. Skin: No rash or skin lesions. Psychiatric: Cooperative. Nonsuicidal Musculoskeletal: No joint swelling or deformity. Normal range of motion. - Labs CBC & Chem 7: 08/01/21 06:48 08/01/21 06:48 Labs: Abnormal Lab Results - Last 24 Hours (Table) 07/31/21 08/01/21 08/01/21 Range/Units 23:42 06:48 06:48 RBC 2.78 L (4.30-5.90) m/uL Hgb 9.1 L (13.0-17.5) gm/dL Hct 29.3 L (39.0-53.0) % MCV 105.4 H (80.0-100.0) fL Lymphocytes # 0.6 L (1.0-4.8) k/uL APTT 42.9 H (22.0-30.0) sec Chloride 111 H (98-107) mmol/L BUN 35 H (9-20) mg/dL Calcium 10.4 H (8.4-10.2) mg/dL 08/01/21 Range/Units 06:48 RBC (4.30-5.90) m/uL Hgb (13.0-17.5) gm/dL Hct (39.0-53.0) % MCV (80.0-100.0) fL Lymphocytes # (1.0-4.8) k/uL APTT 57.3 H (22.0-30.0) sec Chloride (98-107) mmol/L BUN (9-20) mg/dL Calcium (8.4-10.2) mg/dL Assessment and Plan Assessment: Acute ischemic stroke with multifocal area involvement. Left facial droop and dysarthria secondary to above Left lower extremity extensive acute DVT throughout anterior nasal vessels from the groin to the upper calf. Right hilar mass and adenopathy suspicious for malignancy. s/p LN biopsy on 07/31/21 Large right axillary mass or abdominal adenopathy. Hypovolemic hyponatremia Hyperkalemia with potassium 6.2 Chronic kidney disease stage III with creatinine level 2.26 Mild elevated troponin level History of coronary disease with occluded LAD. Medical management was recommended. Ongoing nicotine addiction Hypertension Hyperlipidemia Chronic CHF ejection fraction not known. Paroxysmal atrial fibrillation on anticoagulation with Coumadin INR 1.9 on admission. DVT prophylaxis patient is on heparin drip Plan: Patient was admitted to the hospital acute ischemic infarct as per MRI of the brain. Started on aspirin and lipid profile was ordered. TSH B12 and folate levels WNL. Patient is ss/p axillary lymph node biopsy on 07/31/21. and highly suspicious for lung malignancy. Patient will be continued on heparin drip and monitor hemoglobin closely. Patient failed swallow study and is having silent aspiration with thin liquids. . Continue with IV hydration. Prognosis guarded with multiple medical problems and comorbid conditions. Discussed with the patient and his at bedside in detail. Time with Patient: Greater than 30
[2021-08-01] MEDS: HYDROmorphone 1 MG/ML 1 ML SYRINGE IVP PRN (23:57)
[2021-08-02] MEDS: SODIUM CHLORIDE 0.9% 1,000 ML IV SCH ×2 (01:48→14:35)
[2021-08-02] MEDS: HEPARIN SOD,PORK IN 0.45% NACL 25,000 UNIT in 0.45% NACL 1 250ML.BAG IV SCH ×2 (06:53→16:26)
[2021-08-02 08:52] LABS: Calcium 10.2 mg/dL (8.4-10.2); Potassium 4.3 mmol/L (3.5-5.1)
[2021-08-02 08:58] LABS: Basophils % (A) 0 %; Eosinophils % (A) 0 %; HCT 29.8 % (39.0-53.0); Hypochromasia Marked; Lymphocytes # (A) 0.6 k/uL (1.0-4.8); Lymphocytes % (A) 6 %; MCH 32.5 pg (25.0-35.0); MCHC 30.2 g/dL (31.0-37.0); MCV 107.4 fL (80.0-100.0); Macrocytosis Marked; Mean Platelet Volume 8.5; Monocytes # (A) 0.4 k/uL (0-1.0); Monocytes % (A) 5 %; Neutrophils # (A) 7.8 k/uL (1.3-7.7); Neutrophils % (A) 86 %; Platelet Count 216 k/uL (150-450); RBC 2.77 m/uL (4.30-5.90); RDW 15.1 % (11.5-15.5)
[2021-08-02] MEDS: HYDROcodone/APAP 5-325MG 1 EACH TAB PO PRN (12:06)
--- NOTE | 2021-08-02 13:38 | P.PN ---
Subjective Progress Note Date: 08/02/21 This is a pleasant 76-year-old gentleman with a known history of atrial fibrillation, anticoagulated with warfarin, coronary artery disease, hyperlipidemia, hypertension, chronic obstructive pulmonary disease with chronic and ongoing tobacco dependence. He was recently discharged from here 1 week ago for an episode of congestive heart failure. In the hospitalization a CT of the chest was done which showed neoplasm strongly suspected with markedly abnormal thoracic adenopathy throughout the mediastinum along with abnormal right axillary mass and adenopathy. The patient at that time had been quite adamant about going home and requested to be discharged which she was on 07/19/2021. He was scheduled to see Dr. Manuel on 08/02/2021 as a new patient. He came into the emergency room yesterday after waking up at 6:00 in the morning with a notable left-sided facial droop. A code stroke was called and he was evaluated by neurology. CT of the neck revealed patent bilateral carotid and vertebral arteries. Known abnormal mediastinal lymphadenopathy which warrant further investigation from a CAT scan of 07/19/2021. Continued moderate layering right pleural effusion. COPD. Patchy groundglass right greater than left visualized the upper lungs. The head revealed no large vessel intracranial arterial occlusion or significant stenosis. There is a 4.5 mm saccular aneurysm projecting superiorly and medially from the proximal supraclinoid segment left ICA. A tiny 2 mm aneurysm projecting anteriorly from the left MCA bifurcation. MRI of the brain revealed multifocal areas of acute ischemia predominantly lacunar and punctate in appearance. Dominant area measures 1.3 x 0.8 cm in the right coronal radiata deep frontal white matter adjacent to the ventricular system. Background mild to moderate diffuse cerebral atrophy and moderate to advanced chronic small vessel ischemic changes. Dopplers of the lower extremity revealed an extensive DVT throughout the entire imaged vessels from groin to upper calf and the left leg. Noted left inguinal mass likely a pathologic lymph node measuring up to 5.9 x 5.4 x 2.8 cm. The patient is seen today in consultation on the selective care unit. He is currently sitting up in the bedside. Noted left-sided facial droop. Difficulty in speaking. White count 10.5. Hemoglobin 10.3. Platelets 148. Sodium 136. Potassium 6.2. Bicarb 21. BUN 71. Creatinine 2.22. INR 1.9. He's been initiated on a heparin drip. The patient is seen today 07/29/2021 in follow-up on the selective care unit. He is currently sitting up at the bedside. Awake and alert in no acute distress. His maintaining O2 saturation in the low to mid 90s on 4 L/m per nasal cannula. She's been afebrile. Hemodynamically stable. White count 8.5. Hemoglobin 8.8. MCV 103.2. Platelets 146. Sodium 138. Potassium 4.9. Creatinine 1.85. BUN 63. Glucose 119. He remains on a heparin drip Weight- based protocol. No worsening shortness of breath, cough or congestion. No hemoptysis. On today's evaluation 07/30/2021, the patient is hard to communicate with cb mccurdy that he has had previous history of stroke. We'll consult on this patient because of abnormal lymphadenopathy involving the patient's thorax. At the same time, the patient was found to have a very large right axillary lymphadenopathy/mass and the plan is to proceed with a biopsy of the lymph nodes/mastoiditis to establish diagnosis. There is a high lactate for malignancy at this point in time. Noted the patient has multiple medical problems and comorbidities. The patient has COPD, mediastinal lymphadenopathy which is quite extensive, previous history of CVA, difficulty with mobility and gait secondary to CVA, and the patient continues to have issues with left-sided facial droop and difficulties with speech. At the same time, the patient was found to have a DVT of the lower extremity based on Doppler was done on 07/27/2021 where the patient was found to have positive DVT involving the left leg and this was a quite extensive extended from the groin to the upper calf vessels. He is currently nothing by mouth awaiting the biopsy. White echo today point I would hemoglobin 8.8. No significant lymphocytosis and a platelet count is at 189. PTT is at 71.6 from today. Creatinine is at 1.3 and the patient is recovering from acute kidney injury with a BUN of 50 to and the rest of the electrodes are all within normal limits. On 07/31/2021, the patient is being seen for a follow-up. The procedure was not performed yesterday and the patient is scheduled to undergo the procedure today at around 10 AM. The patient was taken off aspirin. The patient was also taken off IV heparin. The procedure would include a axillary lymph nodes fine-needle aspirate. The patient meanwhile underwent a swallow evaluation that showed trace silent aspiration with thin liquids. There was also presentation with other consistencies and trace silent aspiration of residuals. There was a delayed swallow. No respiratory distress. White cell count of 6.6 with a hemoglobin of 9.2. Sodium is at 141. BUN is at 39 with a creatinine of 1.22. Calcium level is at 10.1. He seems to quite debilitated. He is known to have multiple comorbidities including chronic atrial fibrillation and the patient is currently off warfarin. Most recent INR is down to 1.1. The patient is also known to have COPD, hyperlipidemia, hypertension and COPD. Is a chronic smoker. 08/01/2021, the patient is postop fine-needle aspiration. The patient remains nothing by mouth. The patient is being considered for PEG tube insertion. The patient is sitting up on a chair. The patient's, comfortable. He remains on IV heparin. Denies having any rest of distress. The patient remains on IV fluids with normal saline at the rate of 75 mL an hour. The patient is also on 3 L of oxygen by nasal cannula with pulse ox of 94%. No cough. No sputum production. No chest tightness. No wheezing. He is known to have COPD and is a chronic smoker. He also has history of chronic atrial fibrillation, hyperlipidemia and extensive mediastinal lymphadenopathy as discussed above. 08/02/2021, the patient is still awaiting the final results of the fine-needle aspirate of the lymph node. High suspicion for malignancy. It final decision the PEG tube insertion has not been done yet. Meanwhile, the patient is stable. No respiratory distress. He remains on oxygen 3 L. Receiving IV fluids with normal saline today to 75 mL an hour and the patient is receiving pleasure feeds. The patient has a white cell count of 9 with a hemoglobin above 9 and a platelet count of 216. The patient is back on IV heparin with a therapeutic PTT. Creatinine is at 29 with a creatinine of 1.02 and the sodium level is at 142. Calcium level is at 10.2. Objective - Vital Signs Vital signs: Vital Signs Temp 97.5 F L 08/02/21 11:29 Pulse 101 H 08/02/21 11:29 Resp 22 08/02/21 11:29 BP 133/70 08/02/21 11:29 Pulse Ox 93 L 08/02/21 11:29 Intake & Output 08/01/21 08/02/21 08/02/21 18:59 06:59 18:59 Intake Total 437.999 10 318.701 Output Total 600 580 Balance -162.001 -570 318.701 Weight 74.5 kg Intake: IV 10 Invasive Line 4 10 Intake, IV Titration 437.999 198.701 Amount Heparin Sod,Pork in 0.45% 167.999 198.701 NaCl 25,000 unit In 0.45 % NaCl 1 250ml.bag @ 18 UNITS/KG/HR 14.819 mls/hr IV .[id number] [facility] Rx#: [id number] Sodium Chloride 0.9% 1, 270 000 ml @ 75 mls/hr IV . [id number] [facility] Rx#:[id number] Oral 120 Output: Urine 600 580 Other: Voiding Method Indwelling Catheter Indwelling Catheter Indwelling Catheter # Bowel Movements 1 - Exam GENERAL EXAM: Alert, pleasant 76-year-old male patient, left-sided facial droop noted, on 3 L nasal cannula, fairly comfortable in no apparent distress. HEAD: Normocephalic. EYES: Normal reaction of pupils, equal size. NOSE: Clear with pink turbinates. THROAT: No erythema or exudates. NECK: No masses, no JVD. CHEST: No chest wall deformity. LUNGS: Equal air entry with crackles in the right base. Diminished CVS: S1 and S2 normal with no audible murmur, regular rhythm. ABDOMEN: No hepatosplenomegaly, normal bowel sounds, no guarding or rigidity. SPINE: No scoliosis or deformity SKIN: No rashes, the patient has a large right axillary lymphadenopathy and the mass/lymph was quite firm in the right axilla. No supraclavicular lymphadenopathy. CENTRAL NERVOUS SYSTEM: No focal deficits, tone is normal in all 4 extremities. The patient has left facial droop and difficulty with mobility and gait EXTREMITIES: There is a palpable lymph node under the right axilla. There is no peripheral edema. No clubbing, no cyanosis. Peripheral pulses are intact. - Labs CBC & Chem 7: 08/02/21 08:16 08/02/21 08:16 Labs: Abnormal Lab Results - Last 24 Hours (Table) 08/02/21 08/02/21 08/02/21 Range/Units 08:16 08:16 08:16 RBC 2.77 L (4.30-5.90) m/uL Hgb 9.0 L (13.0-17.5) gm/dL Hct 29.8 L (39.0-53.0) % MCV 107.4 H (80.0-100.0) fL MCHC 30.2 L (31.0-37.0) g/dL Neutrophils # 7.8 H (1.3-7.7) k/uL Lymphocytes # 0.6 L (1.0-4.8) k/uL Macrocytosis Marked A APTT 76.8 H (22.0-30.0) sec Chloride 114 H (98-107) mmol/L BUN 29 H (9-20) mg/dL Glucose 124 H (74-99) mg/dL Assessment and Plan Plan: 1 Acute left sided facial droop. Computed tomography scan of the brain revealed no large vessel intracranial arterial occlusion or significant stenosis. There is a 4.5 mm saccular aneurysm projecting superiorly and medially from the proximal supraclinoid segment left ICA. A tiny 2 mm aneurysm projecting anteriorly from the left MCA bifurcation. MRI of the brain revealed multifocal areas of acute ischemia predominantly lacunar and punctate in appearance. Dominant area measures 1.3 x 0.8 cm in the right coronal radiata deep frontal white matter adjacent to the ventricular system. Background mild to moderate diffuse cerebral atrophy and moderate to advanced chronic small vessel ischemic changes. Currently on a heparin drip. No new onset focal neurological deficits. Left facial droop is still present. He has difficulty with speech and mobility and gait. The patient continues to have difficulty in swallowing and the patient is currently nothing by mouth. Neurologic functions are still stable for now. 2 extensive thoracic lymphadenopathy in addition to right axillary lymphadenopathy high suspicion for malignancy and a fine-needle aspirate was done and the final pathology is pending. The patient also has a component of mild hypercalcemia and there is a high likelihood of underlying malignancy. Awaiting final pathology. Final decision PEG tube inserted has not been done pending further information from the fine-needle aspirate. 3 DVT of the left lower extremity. The opplers of the lower extremity revealed an extensive DVT throughout the entire imaged vessels from groin to upper calf and the left leg. Noted left inguinal mass likely a pathologic lymph node measuring up to 5.9 x 5.4 x 2.8 cm. the patient is currently on IV heparin 4 Chronic and ongoing tobacco dependence of greater than 50 years 5 History of atrial fibrillation, anticoagulated with warfarin, currently on IV heparin. 6 History of coronary disease 7 Hypertension 8 Hyperlipidemia 9 Chronic obstructive pulmonary disease 10 dysphagia, currently nothing by mouth. Plan: Continue IV heparin Awaiting the results of the fine-needle aspirate of the axillary lymph node Final decision on PEG tube feeding will be made once we have the final pathology findings from the lymph node Prognosis will depend on the findings from the fine-needle aspirate Possible PEG tube insertion at a later stage Condition is otherwise stable and will continue to follow
[2021-08-02] MEDS: ATORVASTATIN 40 MG TAB PO SCH (19:49)
--- NOTE | 2021-08-02 21:08 | P.PN ---
Subjective Progress Note Date: 08/02/21 Patient is a 76-year-old male with a known history of atrial fibrillation on anticoagulation with Coumadin, chronic CHF, hypertension, hyperlipidemia, history of CT status post cardiac catheterization occlusion of the LAD, opted for medical therapy and currently everyday smoker presents to ER due to compl aints of left facial droop. According to his patient woke up around 6 AM this morning and was drinking coffee around 7 AM when she noticed he was having drooling from his left side of the mouth. EMS was called and patient was brought to ER. Patient did have dysarthria but denied any difficulty finding words. No blurry vision. Patient has been having difficulty swallowing recently. Denies any weakness in the legs or hands. No numbness or tingling sensation. Apparently patient fell about 2 days ago however denied that he hit his head. No complaints of fever or chills. No nausea vomiting abdominal pain or diarrhea. No chest pain or shortness of breath. Patient was also having increasing left lower extremity swelling and pain for the past 2 days. Patient was recently admitted to the hospital due to shortness of breath, elevated troponin level and acute CHF and was discharged on 07/19/2021. CT head showed tiny 5 mm cortical hypodensity superior left precentral gyrus. A tiny cortical contusion/bleed is difficult to exclude especially the patient is experienced a fall on Coumadin. Otherwise there is moderate patchy burden of chronic small vessel ischemic disease. No other acute intracranial abnormality seen at this time. Due to small area of bleeding patient was not a candidate for TPA and MRI was ordered which showed multifocal ischemic infarcts. Patient was given a dose of aspirin CT angiogram of the head and neck showed patent bilateral carotid and vertebral arteries of the neck. 4.5 mm saccular aneurysm projecting superiorly and medially from the proximal s upraclinoid segment. Stat MRI of the brain showed multifocal areas of acute ischemia predominantly l ikely punctate in appearance. Dominant area measures 1.3 x 0.8 cm right coronal radiata deep frontal white matter adjacent to the ventricular system. Level data showed WBC 9.4 hemoglobin 10.6 MCV 100.1 and platelets 102 INR 1.9 Sodium 131 potassium 6.2 chloride 104 bicarb is 20 BUN 72 and creatinine 2.26 Troponin 0 0.110 and TSH 1.670 Urinalysis is negative for infection EKG showed normal sinus rhythm with no acute ST elevations or depressions. CT chest on 07/19/2021 showed neoplasm strongly suspected. There is marked abnormal thoracic adenopathy throughout the mediastinum. There is abnormal right axillary mass or adenopathy. PET scan was recommended. Mild to moderate size right pleural effusion. Demineralization multiple compression type fractures deformities. 07/28/2021 Patient is currently sitting in the chair. Awake alert and oriented x3. Left facial drooping without any change. No numbness or tingling. No complaints of chest pain or shortness of breath. Patient is able to tolerate nectar thick liquids. Does have hematuria after starting heparin drip which is clearing up now. Patient was seen by pulmonary is recommending IR consult. Laboratory showed WBC 10.6 hemoglobin 9.6 and platelets 128 Sodium 136 potassium 5.9 chloride 107 bicarb is 20 BUN 72 and creatinine 2.13 07/29/2021 Patient is currently sitting in the recliner chair. Left facial droop is still present. Awake alert and oriented x3. Currently requiring oxygen at 4 L via nasal cannula. Hematuria has resolved and urine is clear at this time. Livingston catheter in place. Patient is tolerating thick liquids. Denies any complaints of chest pain or shortness of breath. Left lower extremity pain and swelling is much improved now. Patient is being current on heparin drip due to left lower extremity DVT. Denies any hematemesis or melena. Laboratory data showed WBC 8.4 hemoglobin 8.8 and platelets 146 sodium 138 potassium 4.9 chloride 109 bicarb is 23 BUN 16 creatinine 1.85 Interventional radiology consult for biopsy likely tomorrow. 07/30/21 Patient is currently in the select care unit. Sitting in the chair. Awake alert and oriented. Patient does have left-sided facial droop. Continues to have slurred speech/speech difficulty. [facility] hospital due to acute CVA and also left lower extremity DVT. Patient is scheduled for biopsy of the axillary lymph node and suspicious for lung malignancy. Patient failed swallow study and is currently being continued on IV hydration with normal saline. Patient is on heparin drip due to left lower extremity DVT. Hematuria has resolved. Laboratory data showed WBC 8.4 hemoglobin 8.8 and platelets 189 Sodium 139 potassium 4.9 chloride 111 bicarb is 22 BUN 59 and creatinine 1.39. Pulmonary and neurology is on board. 07/31/2021 Patient is currently sitting in the chair. Awake alert and oriented. Feels weak. Patient is currently nothing by mouth and failed swallow study. Patient is supposed to get IR guided axillary lymph node biopsy yesterday but could not be done. Scheduled for biopsy today. Patient is being continued heparin drip. Patient is unable to take oral intake and does not have silent aspiration with thin liquids.. Coumadin is on hold. Laboratory data showed WBC 6.6 hemoglobin 9.2 and platelets 214 Sodium 141 potassium 4.8 chloride 110 bicarb is 26 BUN 39 creatinine 1. 2 2 and calcium 10.1 Pulmonary neurology is on board. 08/01/2021 Patient is currently sitting in the chair. Awake alert and oriented. Continues to have difficulty speech and left facial droop. Patient underwent IR guided biopsy of the axillary lymph node on 07/31/2021. Biopsy report is pending at this time. Otherwise patient is having silent aspiration with swallow study. Discussed with the patient regarding PEG tube placement and he is willing to make decision after the biopsy report and talking to his . In the meantime patient will be started thickened liquids after discussion with the speech pathology service. Patient is being continued on IV hydration with normal saline. Patient has been afebrile. No cough or sputum production. No complaints of chest pain. Patient is also heparin drip which will be transitioned to Coumadin or Eliquis pending PEG tube placement. 08/02/2021 Patient is currently sitting in a chair. Awake alert and oriented. Still having dysarthria and unable to communicate. Continued on IV hydration. Patien t is not tolerating oral diet. Biopsy report is pending at this time. Otherwise patient is being current IV heparin for left lower extremity DVT. Patient is on warfarin at home for paroxysmal atrial fibrillation. Pulmonary is following. No complaints of fever or chills. No nausea vomiting or diarrhea. Remains on Livingston catheter. No cough or sputum production. Current medications reviewed. Objective - Vital Signs Vital signs: Vital Signs Temp 97.7 F 08/02/21 20:00 Pulse 93 08/02/21 20:00 Resp 16 08/02/21 20:00 BP 131/76 08/02/21 20:00 Pulse Ox 99 08/02/21 20:00 Intake & Output 08/02/21 08/02/21 08/03/21 06:59 18:59 06:59 Intake Total 10 478.005 Output Total 580 375 Balance -570 103.005 Intake: IV 10 Invasive Line 4 10 Intake, IV Titration 238.005 Amount Heparin Sod,Pork in 0.45% 238.005 NaCl 25,000 unit In 0.45 % NaCl 1 250ml.bag @ 18 UNITS/KG/HR 14.819 mls/hr IV .[id number] [facility] Rx#: [id number] Oral 240 Output: Urine 580 375 Other: Voiding Method Indwelling Catheter Indwelling Catheter # Bowel Movements 1 - Exam PHYSICAL EXAMINATION: Patient is lying in the bed comfortably, no acute distress, awake alert and oriented. HEENT: Normocephalic. Neck is supple. Pupils reactive. Nostrils clear. Oral cavity is moist. Neck reveals no JVD, carotid bruits, or thyromegaly. CHEST EXAMINATION: Trachea is central. Symmetrical expansion. Right lower lobe diminished sounds. No wheezing or rhonchi. CARDIAC: Normal S1, S2 with no gallops. No murmurs ABDOMEN: Soft. Bowel sounds normal. No organomegaly. No abdominal bruits. Extremities: reveal no edema. Left lower extremity swelling with calf tenderness. No clubbing or cyanosis Neurologically awake, alert, oriented x3. Patient does have left facial droop and drooling. Dysarthria. Muscle strength 5 out of 5 in all 4 extremities. Skin: No rash or skin lesions. Psychiatric: Cooperative. Nonsuicidal Musculoskeletal: No joint swelling or deformity. Normal range of motion. - Labs CBC & Chem 7: 08/04/21 07:52 08/04/21 07:52 Labs: Abnormal Lab Results - Last 24 Hours (Table) 08/02/21 08/02/21 08/02/21 Range/Units 08:16 08:16 08:16 RBC 2.77 L (4.30-5.90) m/uL Hgb 9.0 L (13.0-17.5) gm/dL Hct 29.8 L (39.0-53.0) % MCV 107.4 H (80.0-100.0) fL MCHC 30.2 L (31.0-37.0) g/dL Neutrophils # 7.8 H (1.3-7.7) k/uL Lymphocytes # 0.6 L (1.0-4.8) k/uL Macrocytosis Marked A APTT 76.8 H (22.0-30.0) sec Chloride 114 H (98-107) mmol/L BUN 29 H (9-20) mg/dL Glucose 124 H (74-99) mg/dL 08/02/21 Range/Units 18:35 RBC (4.30-5.90) m/uL Hgb (13.0-17.5) gm/dL Hct (39.0-53.0) % MCV (80.0-100.0) fL MCHC (31.0-37.0) g/dL Neutrophils # (1.3-7.7) k/uL Lymphocytes # (1.0-4.8) k/uL Macrocytosis APTT 48.7 H (22.0-30.0) sec Chloride (98-107) mmol/L BUN (9-20) mg/dL Glucose (74-99) mg/dL Assessment and Plan Assessment: Acute ischemic stroke with multifocal area involvement. Left facial droop and dysarthria secondary to above Left lower extremity extensive acute DVT throughout anterior nasal vessels from the groin to the upper calf. Right hilar mass and adenopathy suspicious for malignancy. s/p LN biopsy on 07/31/21 Large right axillary mass or abdominal adenopathy. Hypovolemic hyponatremia Hyperkalemia with potassium 6.2 Chronic kidney disease stage III with creatinine level 2.26 Mild elevated troponin level History of coronary disease with occluded LAD. Medical management was recommended. Ongoing nicotine addiction Hypertension Hyperlipidemia Chronic CHF ejection fraction not known. Paroxysmal atrial fibrillation on anticoagulation with Coumadin INR 1.9 on admission. DVT prophylaxis patient is on heparin drip Plan: Patient was admitted to the hospital acute ischemic infarct as per MRI of the brain. Started on aspirin and lipid profile was ordered. TSH B12 and folate levels WNL. Patient is ss/p axillary lymph node biopsy on 07/31/21. and highly suspicious for lung malignancy. Patient will be continued on heparin drip and monitor hemoglobin closely. Patient failed swallow study and is having silent aspiration with thin liquids. . Continue with IV hydration. Prognosis guarded with multiple medical problems and comorbid conditions. Discussed with the patient and his at bedside in detail. Time with Patient: Greater than 30
[2021-08-02] MEDS ORDERED: LORATADINE 10 MG TAB PO PRN (22:22)
[2021-08-02] MEDS: HYDROmorphone 1 MG/ML 1 ML SYRINGE IVP PRN (22:28)
[2021-08-03] MEDS: SODIUM CHLORIDE 0.9% 1,000 ML IV SCH ×2 (05:11→16:39)
[2021-08-03] MEDS: HYDROmorphone 1 MG/ML 1 ML SYRINGE IVP PRN (06:00)
--- NOTE | 2021-08-03 08:42 | P.CONS ---
History of Present Illness - Reason for Consult Consult date: 08/03/21 [facility] Requesting physician: Ollie Quintero - History of Present Illness Mr. Stokes is a pleasant 76-year-old gentleman with a known history of atrial fibrillation, anticoagulated with warfarin, coronary artery disease, hyperlipidemia, hypertension, chronic obstructive pulmonary disease with chronic and ongoing tobacco dependence. He was recently discharged from here 1 week ago for an episode of congestive heart failure. In the hospitalization a CT of the chest was done which showed neoplasm strongly suspected with markedly abnormal thoracic adenopathy throughout the mediastinum along with abnormal right axillary mass and adenopathy. Per Medical record the patient at that time had been quite adamant about going home and requested to be discharged which was on 07/19/2021. He was scheduled to see Dr. singh as outpatient and pulmonology, patient was not seen in hospital. He came into the emergency room shortly after with left-sided facial droop. A code stroke was called and he was evaluated by neurology. Known abnormal mediastinal lymphadenopathy which warrant further investigation from a CAT scan of 07/19/2021. MRI of the brain revealed multifocal areas of acute ischemia predominantly lacunar and punctate in appearance. Dopplers of the lower extremities revealed an extensive DVT throughout the entire imaged vessels from groin to upper calf and the left leg. Noted left inguinal mass likely a pathologic lymph node measuring up to 5.9 x 5.4 x 2.8 cm. He was started on heparin drip. 07/30/21 he underwent right axillary lymph nodes fine-needle aspirate. on 08.02.21 the results of pathology on lymph node came back positive for poorly differentiated non-small cell lung cancer. Overall he is debilitated, underwent swallow evaluation which did reveal aspiration risks, he has refused peg tube at this time. His calcium is increased. Because of the likelihood of metastatic poorly differentiated lung cancer we have been asked to further evaluate. Case management has contacted us stating family is in room and would like to to discuss results if possible. Review of Systems All systems: negative Constitutional: Reports as per HPI Past Medical History Past Medical History: Atrial Fibrillation, Coronary Artery Disease (CAD), Heart Failure, COPD, Hyperlipidemia, Hypertension, Myocardial Infarction ([place]) Additional Past Medical History / Comment(s): Pt recently admitted to [facility] on 07/17/21 with exacerbation CHF, laryngitis/bronchitis also found abnormal chest xray/cat scan and back compression fractures. Other hx: Paroxysmal Afib, occasional bilateral leg cramping but much worse past couple days, increased L lower leg edema past couple days, sinus problems. Last Myocardial Infarction Date:: 2017 History of Any Multi-Drug Resistant Organisms: None Reported Past Surgical History: Heart Catheterization, Hernia Repair, Joint Replacement, Orthopedic Surgery Additional Past Surgical History / Comment(s): Rt knee torn meniscus repair, rt knee replacement, L inguinal hernia repair, Past Anesthesia/Blood Transfusion Reactions: Motion Sickness Past Psychological History: No Psychological Hx Reported Additional Psychological History / Comment(s): Pt resides with his spouse. He uses a walker or cane. Smoking Status: Current every day smoker Past Alcohol Use History: None Reported Additional Past Alcohol Use History / Comment(s): smoker since age 11 1/2ppd Past Drug Use History: None Reported - Past Family History Father Family Medical History: Unable to Obtain Mother Family Medical History: Dementia, Vascular Disorder Additional Family Medical History / Comment(s): from aneurysm Medications and Allergies Home Medications Medication Instructions Recorded Confirmed Type Aspirin [Adult Low Dose Aspirin EC] 81 mg PO DAILY 04/19/20 07/27/21 History Atorvastatin [Lipitor] 40 mg PO HS 04/19/20 07/27/21 History Cetirizine HCl [Zyrtec] 10 mg PO DAILY 04/19/20 07/27/21 History Furosemide [Lasix] 20 mg PO DAILY 04/19/20 07/27/21 History Metoprolol Tartrate [Lopressor] 75 mg PO BID 04/19/20 07/27/21 History Acetaminophen Tab [Tylenol] 650 mg PO Q6HR PRN tab 07/19/21 07/27/21 Rx lisinopriL [Zestril] 5 mg PO DAILY 30 Days #30 tab 07/19/21 07/27/21 Rx Warfarin [Coumadin] 4 mg PO HS 07/27/21 07/27/21 History Allergies Allergy/AdvReac Type Severity Reaction Status Date / Time chocolate flavor Allergy Unknown Unknown Verified 08/03/21 12:12 codeine Allergy Unknown Verified 07/27/21 09:38 Penicillins Allergy Rash/Hives Verified 07/27/21 09:38 Physical Exam Vitals: Vital Signs Temp Pulse Resp BP BP Pulse Ox 08/03/21 07:50 97.8 F 66 20 122/74 94 L 08/03/21 03:38 97.9 F 107 H 20 112/58 92 L 08/03/21 02:00 18 08/02/21 23:32 97.8 F 103 H 18 128/70 93 L 08/02/21 20:00 97.7 F 93 16 131/76 99 08/02/21 16:30 97.8 F 101 H 15 130/72 99 08/02/21 11:29 97.5 F L 101 H 22 133/70 93 L Intake and Output 08/02/21 08/03/21 08/03/21 22:59 06:59 14:59 Intake Total 159.304 Balance 159.304 Intake: Intake, IV Titration 39.304 Amount Heparin Sod,Pork in 0.45% 39.304 NaCl 25,000 unit In 0.45 % NaCl 1 250ml.bag @ 18 UNITS/KG/HR 14.819 mls/hr IV .[id number] [facility] Rx#: [id number] Oral 120 Other: Voiding Method Indwelling Catheter Indwelling Catheter - Constitutional General appearance: cooperative - EENT Eyes: ptosis ENT: hard of hearing, NA/AT - Respiratory Respiratory: right: dullness, rhonchi - Cardiovascular Rhythm: regularly irregular leg Peripheral Edema: bilateral: 1+ - Gastrointestinal General gastrointestinal: soft - Genitourinary Male genitourinary: right inguinal lymphadenopathy - Integumentary Integumentary: pale - Neurologic andre - Musculoskeletal Musculoskeletal: generalized weakness, left sided weakness - Psychiatric Psychiatric: A&O x's 3 Results CBC & Chem 7: 08/03/21 06:22 08/03/21 06:22 Labs: Abnormal Lab Results - Last 24 Hours (Table) 08/02/21 08/02/21 08/02/21 Range/Units 08:16 08:16 08:16 RBC 2.77 L (4.30-5.90) m/uL Hgb 9.0 L (13.0-17.5) gm/dL Hct 29.8 L (39.0-53.0) % MCV 107.4 H (80.0-100.0) fL MCHC 30.2 L (31.0-37.0) g/dL Neutrophils # 7.8 H (1.3-7.7) k/uL Lymphocytes # 0.6 L (1.0-4.8) k/uL Macrocytosis Marked A APTT 76.8 H (22.0-30.0) sec Chloride 114 H (98-107) mmol/L BUN 29 H (9-20) mg/dL Glucose 124 H (74-99) mg/dL 08/02/21 08/03/21 Range/Units 18:35 06:22 RBC (4.30-5.90) m/uL Hgb (13.0-17.5) gm/dL Hct (39.0-53.0) % MCV (80.0-100.0) fL MCHC (31.0-37.0) g/dL Neutrophils # (1.3-7.7) k/uL Lymphocytes # (1.0-4.8) k/uL Macrocytosis APTT 48.7 H 62.5 H (22.0-30.0) sec Chloride (98-107) mmol/L BUN (9-20) mg/dL Glucose (74-99) mg/dL Chest x-ray: report reviewed CT scan - chest: report reviewed MRI - head: report reviewed Venous US: report reviewed Assessment and Plan (1) Hypercalcemia Narrative/Plan: RN communication was sent regarding the ordered IVF at 75/hour, in chart states not given, there is no reason next to this Bone scan ordered for staging Current Visit: Yes Status: Acute Code(s): E83.52 - HYPERCALCEMIA SNOMED Code(s): 09193361 (2) Non-small cell cancer of right lung Narrative/Plan: - Jada Squamous Cell Origin - Will plan for PET and NGS as outpatient. Dr. Singh discussed results of pathology with patient and family in detail, all questions answered. - Clinical stage 4, therefore overall intent is palliaitive, not curable and they are aware Current Visit: Yes Status: Acute Code(s): C34.91 - MALIGNANT NEOPLASM OF UNSP PART OF RIGHT BRONCHUS OR LUNG SNOMED Code(s): 577891443 (3) Normocytic anemia Current Visit: Yes Status: Acute Code(s): D64.9 - ANEMIA, UNSPECIFIED SNOMED Code(s): 402985639 (4) DVT (deep venous thrombosis) Current Visit: Yes Status: Acute Code(s): I82.409 - ACUTE EMBOLISM AND THOMBOS UNSP DEEP VN UNSP LOWER EXTREMITY SNOMED Code(s): 415641644 (5) Cerebrovascular accident (CVA) Current Visit: Yes Status: Acute Code(s): I63.9 - CEREBRAL INFARCTION, UNSPECIFIED SNOMED Code(s): 559379305 (6) LAURIE (acute kidney injury) Current Visit: No Status: Acute Code(s): N17.9 - ACUTE KIDNEY FAILURE, UNSPECIFIED SNOMED Code(s): 08341665 Plan: physician Attest: I have completed the full history and physical and agree with above dictation, dictated as a ascribe
[2021-08-03 09:25] LABS: Basophils % (A) 0 %; Eosinophils % (A) 1 %; HCT 28.7 % (39.0-53.0); HGB 8.7 gm/dL (13.0-17.5); Hypochromasia Marked; Lymphocytes # (A) 0.7 k/uL (1.0-4.8); Lymphocytes % (A) 10 %; MCH 32.4 pg (25.0-35.0); MCHC 30.4 g/dL (31.0-37.0); MCV 106.8 fL (80.0-100.0); Macrocytosis Moderate; Monocytes # (A) 0.4 k/uL (0-1.0); Monocytes % (A) 6 %; Neutrophils # (A) 5.5 k/uL (1.3-7.7); Neutrophils % (A) 81 %; Platelet Count 212 k/uL (150-450); RBC 2.69 m/uL (4.30-5.90); RDW 15.5 % (11.5-15.5); WBC 6.8 k/uL (3.8-10.6)
[2021-08-03 09:47] LABS: Ionized Calcium 6.1 mg/dL (4.5-5.3)
[2021-08-03 09:56] LABS: Albumin 3.1 g/dL (3.5-5.0); Calcium 10.3 mg/dL (8.4-10.2); Potassium 4.2 mmol/L (3.5-5.1); Total Bilirubin 1.1 mg/dL (0.2-1.3); Total Protein 6.9 g/dL (6.3-8.2)
[2021-08-03] MEDS: ACETAMINOPHEN TAB 325 MG TAB PO PRN (10:08)
--- NOTE | 2021-08-03 11:04 | XR ---
EXAMINATION TYPE: XR chest 2V DATE OF EXAM: 08/03/2021 COMPARISON: Chest x-ray 07/27/2021 HISTORY: Hypoxia TECHNIQUE: Frontal and lateral views of the chest are obtained. FINDINGS: Prominent lung volumes are consistent with underlying COPD. Bones show decreased mineraliz ation, kyphosis is centered at the lower thoracic spine due to wedge compression deformities as seen on prior exam. There is bibasilar increased attenuation, blunting the costophrenic angles, the right heart border and bilateral hemidiaphragms are obscured. No evident pneumothorax. Patient is rotated. Aorta is dense. Heart is likely enlarged, that may be prominence of pulmonary artery consistent with pulmonary artery hypertension. Interstitium and central vascularity are increased. IMPRESSION: Correlate for congestive heart failure with basilar effusions versus pneumonia, atelecta sis. Patient with known mediastinal and axillary adenopathy. .
--- NOTE | 2021-08-03 13:35 | P.PN ---
Subjective Progress Note Date: 08/03/21 This is a pleasant 76-year-old gentleman with a known history of atrial fibrillation, anticoagulated with warfarin, coronary artery disease, hyperlipidemia, hypertension, chronic obstructive pulmonary disease with chronic and ongoing tobacco dependence. He was recently discharged from here 1 week ago for an episode of congestive heart failure. In the hospitalization a CT of the chest was done which showed neoplasm strongly suspected with markedly abnormal thoracic adenopathy throughout the mediastinum along with abnormal right axillary mass and adenopathy. The patient at that time had been quite adamant about going home and requested to be discharged which she was on 07/19/2021. He was scheduled to see Dr. Manuel on 08/02/2021 as a new patient. He came into the emergency room yesterday after waking up at 6:00 in the morning with a notable left-sided facial droop. A code stroke was called and he was evaluated by neurology. CT of the neck revealed patent bilateral carotid and vertebral arteries. Known abnormal mediastinal lymphadenopathy which warrant further investigation from a CAT scan of 07/19/2021. Continued moderate layering right pleural effusion. COPD. Patchy groundglass right greater than left visualized the upper lungs. The head revealed no large vessel intracranial arterial occlusion or significant stenosis. There is a 4.5 mm saccular aneurysm projecting superiorly and medially from the proximal supraclinoid segment left ICA. A tiny 2 mm aneurysm projecting anteriorly from the left MCA bifurcation. MRI of the brain revealed multifocal areas of acute ischemia predominantly lacunar and punctate in appearance. Dominant area measures 1.3 x 0.8 cm in the right coronal radiata deep frontal white matter adjacent to the ventricular system. Background mild to moderate diffuse cerebral atrophy and moderate to advanced chronic small vessel ischemic changes. Dopplers of the lower extremity revealed an extensive DVT throughout the entire imaged vessels from groin to upper calf and the left leg. Noted left inguinal mass likely a pathologic lymph node measuring up to 5.9 x 5.4 x 2.8 cm. The patient is seen today in consultation on the selective care unit. He is currently sitting up in the bedside. Noted left-sided facial droop. Difficulty in speaking. White count 10.5. Hemoglobin 10.3. Platelets 148. Sodium 136. Potassium 6.2. Bicarb 21. BUN 71. Creatinine 2.22. INR 1.9. He's been initiated on a heparin drip. The patient is seen today 07/29/2021 in follow-up on the selective care unit. He is currently sitting up at the bedside. Awake and alert in no acute distress. His maintaining O2 saturation in the low to mid 90s on 4 L/m per nasal cannula. She's been afebrile. Hemodynamically stable. White count 8.5. Hemoglobin 8.8. MCV 103.2. Platelets 146. Sodium 138. Potassium 4.9. Creatinine 1.85. BUN 63. Glucose 119. He remains on a heparin drip Weight- based protocol. No worsening shortness of breath, cough or congestion. No hemoptysis. On today's evaluation 07/30/2021, the patient is hard to communicate with cb mccurdy that he has had previous history of stroke. We'll consult on this patient because of abnormal lymphadenopathy involving the patient's thorax. At the same time, the patient was found to have a very large right axillary lymphadenopathy/mass and the plan is to proceed with a biopsy of the lymph nodes/mastoiditis to establish diagnosis. There is a high lactate for malignancy at this point in time. Noted the patient has multiple medical problems and comorbidities. The patient has COPD, mediastinal lymphadenopathy which is quite extensive, previous history of CVA, difficulty with mobility and gait secondary to CVA, and the patient continues to have issues with left-sided facial droop and difficulties with speech. At the same time, the patient was found to have a DVT of the lower extremity based on Doppler was done on 07/27/2021 where the patient was found to have positive DVT involving the left leg and this was a quite extensive extended from the groin to the upper calf vessels. He is currently nothing by mouth awaiting the biopsy. White echo today point I would hemoglobin 8.8. No significant lymphocytosis and a platelet count is at 189. PTT is at 71.6 from today. Creatinine is at 1.3 and the patient is recovering from acute kidney injury with a BUN of 50 to and the rest of the electrodes are all within normal limits. On 07/31/2021, the patient is being seen for a follow-up. The procedure was not performed yesterday and the patient is scheduled to undergo the procedure today at around 10 AM. The patient was taken off aspirin. The patient was also taken off IV heparin. The procedure would include a axillary lymph nodes fine-needle aspirate. The patient meanwhile underwent a swallow evaluation that showed trace silent aspiration with thin liquids. There was also presentation with other consistencies and trace silent aspiration of residuals. There was a delayed swallow. No respiratory distress. White cell count of 6.6 with a hemoglobin of 9.2. Sodium is at 141. BUN is at 39 with a creatinine of 1.22. Calcium level is at 10.1. He seems to quite debilitated. He is known to have multiple comorbidities including chronic atrial fibrillation and the patient is currently off warfarin. Most recent INR is down to 1.1. The patient is also known to have COPD, hyperlipidemia, hypertension and COPD. Is a chronic smoker. 08/01/2021, the patient is postop fine-needle aspiration. The patient remains nothing by mouth. The patient is being considered for PEG tube insertion. The patient is sitting up on a chair. The patient's, comfortable. He remains on IV heparin. Denies having any rest of distress. The patient remains on IV fluids with normal saline at the rate of 75 mL an hour. The patient is also on 3 L of oxygen by nasal cannula with pulse ox of 94%. No cough. No sputum production. No chest tightness. No wheezing. He is known to have COPD and is a chronic smoker. He also has history of chronic atrial fibrillation, hyperlipidemia and extensive mediastinal lymphadenopathy as discussed above. 08/02/2021, the patient is still awaiting the final results of the fine-needle aspirate of the lymph node. High suspicion for malignancy. It final decision the PEG tube insertion has not been done yet. Meanwhile, the patient is stable. No respiratory distress. He remains on oxygen 3 L. Receiving IV fluids with normal saline today to 75 mL an hour and the patient is receiving pleasure feeds. The patient has a white cell count of 9 with a hemoglobin above 9 and a platelet count of 216. The patient is back on IV heparin with a therapeutic PTT. Creatinine is at 29 with a creatinine of 1.02 and the sodium level is at 142. Calcium level is at 10.2. 08/03/2021 patient is being seen for a follow-up. Patient is essentially the same condition. Quite debilitated. Unable to swallow properly. He seems to have decided against undergoing a PEG tube insertion. Meanwhile, the biopsy of the lymph node came back positive for poorly differentiated non-small cell lung cancer. As such, the presentation is typical of a metastatic non-small cell lung cancer. The patient also has a small right-sided pleural effusion. He remains oxygen dependent. He remains on IV heparin. He is weak. He is receiving IV fluids at the rate of 75 mL's an hour. Livingston catheter in place. Based on performance and functional status is poor. He is known to have COPD and addition to coronary artery disease and hyperlipidemia and chronic atrial fibrillation the patient was taken anticoagulation with a Coumadin on outpatient basis. Note that the patient has also developed a DVT and there is involving the left lower extremity. The patient also has left inguinal masses pathologic measuring his largest 5.9 cm in size consistent with metastatic cancer. The patient has no altered mentation. Objective - Vital Signs Vital signs: Vital Signs Temp 97.8 F 08/03/21 07:50 Pulse 66 08/03/21 07:50 Resp 20 08/03/21 07:50 BP 122/74 08/03/21 07:50 Pulse Ox 94 L 08/03/21 07:50 Intake & Output 08/02/21 08/03/21 08/03/21 18:59 06:59 18:59 Intake Total 478.005 0 Output Total 375 Balance 103.005 0 Weight 74.5 kg Intake: Intake, IV Titration 238.005 Amount Heparin Sod,Pork in 0.45% 238.005 NaCl 25,000 unit In 0.45 % NaCl 1 250ml.bag @ 18 UNITS/KG/HR 14.819 mls/hr IV .[id number] [facility] Rx#: [id number] Oral 240 0 Output: Urine 375 Other: Voiding Method Indwelling Catheter Indwelling Catheter Indwelling Catheter # Bowel Movements 0 - Exam GENERAL EXAM: Alert, pleasant 76-year-old male patient, left-sided facial droop noted, on 3 L nasal cannula, fairly comfortable in no apparent distress. HEAD: Normocephalic. EYES: Normal reaction of pupils, equal size. NOSE: Clear with pink turbinates. THROAT: No erythema or exudates. NECK: No masses, no JVD. CHEST: No chest wall deformity. LUNGS: Equal air entry with crackles in the right base. Diminished CVS: S1 and S2 normal with no audible murmur, regular rhythm. ABDOMEN: No hepatosplenomegaly, normal bowel sounds, no guarding or rigidity. SPINE: No scoliosis or deformity SKIN: No rashes, the patient has a large right axillary lymphadenopathy and the mass/lymph was quite firm in the right axilla. No supraclavicular lymphadenopathy. CENTRAL NERVOUS SYSTEM: No focal deficits, tone is normal in all 4 extremities. The patient has left facial droop and difficulty with mobility and gait EXTREMITIES: There is a palpable lymph node under the right axilla. There is no peripheral edema. No clubbing, no cyanosis. Peripheral pulses are intact. - Labs CBC & Chem 7: 08/03/21 06:22 08/03/21 06:22 Labs: Abnormal Lab Results - Last 24 Hours (Table) 08/02/21 08/03/21 08/03/21 Range/Units 18:35 06:22 06:22 RBC 2.69 L (4.30-5.90) m/uL Hgb 8.7 L (13.0-17.5) gm/dL Hct 28.7 L (39.0-53.0) % MCV 106.8 H (80.0-100.0) fL MCHC 30.4 L (31.0-37.0) g/dL Lymphocytes # 0.7 L (1.0-4.8) k/uL APTT 48.7 H 62.5 H (22.0-30.0) sec Chloride (98-107) mmol/L BUN (9-20) mg/dL Glucose (74-99) mg/dL Calcium (8.4-10.2) mg/dL Ionized Calcium Deirdre (4.5-5.3) mg/dL Lactate Dehydrogenase (313-618) U/L Albumin (3.5-5.0) g/dL 08/03/21 Range/Units 06:22 RBC (4.30-5.90) m/uL Hgb (13.0-17.5) gm/dL Hct (39.0-53.0) % MCV (80.0-100.0) fL MCHC (31.0-37.0) g/dL Lymphocytes # (1.0-4.8) k/uL APTT (22.0-30.0) sec Chloride 115 H (98-107) mmol/L BUN 24 H (9-20) mg/dL Glucose 104 H (74-99) mg/dL Calcium 10.3 H (8.4-10.2) mg/dL Ionized Calcium Deirdre 6.1 H* (4.5-5.3) mg/dL Lactate Dehydrogenase 1294 H (313-618) U/L Albumin 3.1 L (3.5-5.0) g/dL Assessment and Plan Plan: 1 Acute left sided facial droop. Clinically unchanged. No altered mentation. Patient continues to have difficulty with swallowing. Declined to undergo PEG tube insertion. Neuro workup is completed. Computed tomography scan of the brain revealed no large vessel intracranial arterial occlusion or significant stenosis. There is a 4.5 mm saccular aneurysm projecting superiorly and medially from the proximal supraclinoid segment left ICA. A tiny 2 mm aneurysm projecting anteriorly from the left MCA bifurcation. MRI of the brain revealed multifocal areas of acute ischemia predominantly lacunar and punctate in appearance. Dominant area measures 1.3 x 0.8 cm in the right coronal radiata deep frontal white matter adjacent to the ventricular system. Background mild to moderate diffuse cerebral atrophy and moderate to advanced chronic small vessel ischemic changes. Currently on a heparin drip. No new onset focal neurological deficits. Left facial droop is still present. 2 metastatic poorly differentiated non-small cell lung cancer. The patient has extensive thoracic lymphadenopathy in addition to right axillary lymphadenopathy high suspicion for malignancy and a fine-needle aspirate was done and the final pathology is pending. The patient also has a component of mild hypercalcemia 3 DVT of the left lower extremity. The opplers of the lower extremity revealed an extensive DVT throughout the entire imaged vessels from groin to upper calf and the left leg. Noted left inguinal mass likely a pathologic lymph node measuring up to 5.9 x 5.4 x 2.8 cm. the patient is currently on IV heparin 4 Chronic and ongoing tobacco dependence of greater than 50 years 5 History of atrial fibrillation, anticoagulated with warfarin, currently on IV heparin. 6 History of coronary disease 7 Hypertension 8 Hyperlipidemia 9 Chronic obstructive pulmonary disease 10 dysphagia, currently nothing by mouth. Plan: Continue IV heparin May switch the patient to oral warfarin as the patient does not seem to be interested in PEG tube insertion Biopsy of the lymph node is consistent with for differentiated non-small cell lung cancer Performance and functional status is weak and poor Patient is not willing to undergo effective treatment/insertion Patient is also considering hospice care. The final decision has not been done. Further discussion is to be done with the family and oncology. No active pulmonary issues for now. Remainder of 3 L of oxygen by nasal cannula. Remains on IV heparin.
--- NOTE | 2021-08-03 15:54 | P.PN ---
Subjective Progress Note Date: 08/03/21 The patient is seen at bedside and he feels he is about the same from neurological perspective. Objective - Vital Signs Vital signs: Vital Signs Temp 97.8 F 08/03/21 12:00 Pulse 81 08/03/21 12:00 Resp 16 08/03/21 12:00 BP 124/72 08/03/21 12:00 Pulse Ox 98 08/03/21 12:00 Intake & Output 08/02/21 08/03/21 08/03/21 18:59 06:59 18:59 Intake Total 478.005 0 Output Total 375 Balance 103.005 0 Weight 74.5 kg Intake: Intake, IV Titration 238.005 Amount Heparin Sod,Pork in 0.45% 238.005 NaCl 25,000 unit In 0.45 % NaCl 1 250ml.bag @ 18 UNITS/KG/HR 14.819 mls/hr IV .[id number] [facility] Rx#: [id number] Oral 240 0 Output: Urine 375 Other: Voiding Method Indwelling Catheter Indwelling Catheter Indwelling Catheter # Bowel Movements 0 - Exam On examination patient is alert and awake, oriented to self. He states he is in the hospital. He states the year is 2022. Patient is following commands. Has hypophonia. No aphasia or neglect. Cranial nerves: Pupils are round, equal and reactive to light. VFF to confrontation. EOM intact and no nystagmus. significant for left facial droop, central type. Patient is whispering because of his recent laryngitis. Mild dysarthria. Motor: Gait is deferred. Muscle strength is left sided weakness and has mild pronator drift. The strength in hand legal examiner are normal. Has drift in left lower extremity that is mild. Otherwise no drift over the right side. WORK-UP: * TSH is 1.670. * Hemoglobin A1c 5.6, * fasting lipid panel cholesterol 79, LDL 25, HDL 39 and triglycerides 67. * AST: 40, ALT 20 * Vitamin B12: 1009 * RBC folate: 1057 * TSH: 1.67 * MRI the brain is reported as multifocal areas of acute ischemia predominantly lacunar or punctate appearance. Dominant area measures 1.30.7 cm in the right wills radiata the frontal white matter adjacent to the ventricular system. Background mild to moderate diffuse cerebral atrophy and moderate to advanced chronic small vessel ischemic changes. * 2-D echo was performed outpatient on 07/18/2021. It revealed normal left ventricular size. Mild concentric LVH. EF is between 35-40%. Left ventricular systolic function mildly decreased. Left ventricle is mildly enlarged. Trace MR, trace TR. * Patient has cerebral aneurysm noted on CTA of head and neck. * Right axillary lymph node [id number]/2021: Is reported as positive for poorly differentiated metastatic non-small cell carcinoma with focal background lymphoid tissues present. - Labs CBC & Chem 7: 08/03/21 06:22 08/03/21 06:22 Labs: Abnormal Lab Results - Last 24 Hours (Table) 08/02/21 08/03/21 08/03/21 Range/Units 18:35 06:22 06:22 RBC 2.69 L (4.30-5.90) m/uL Hgb 8.7 L (13.0-17.5) gm/dL Hct 28.7 L (39.0-53.0) % MCV 106.8 H (80.0-100.0) fL MCHC 30.4 L (31.0-37.0) g/dL Lymphocytes # 0.7 L (1.0-4.8) k/uL APTT 48.7 H 62.5 H (22.0-30.0) sec Chloride (98-107) mmol/L BUN (9-20) mg/dL Glucose (74-99) mg/dL Calcium (8.4-10.2) mg/dL Ionized Calcium Deirdre (4.5-5.3) mg/dL Lactate Dehydrogenase (313-618) U/L Albumin (3.5-5.0) g/dL 08/03/21 Range/Units 06:22 RBC (4.30-5.90) m/uL Hgb (13.0-17.5) gm/dL Hct (39.0-53.0) % MCV (80.0-100.0) fL MCHC (31.0-37.0) g/dL Lymphocytes # (1.0-4.8) k/uL APTT (22.0-30.0) sec Chloride 115 H (98-107) mmol/L BUN 24 H (9-20) mg/dL Glucose 104 H (74-99) mg/dL Calcium 10.3 H (8.4-10.2) mg/dL Ionized Calcium Deirdre 6.1 H* (4.5-5.3) mg/dL Lactate Dehydrogenase 1294 H (313-618) U/L Albumin 3.1 L (3.5-5.0) g/dL Assessment and Plan Assessment: * Acute ischemic stroke, multifocal involvement in bilateral hemispheric region, most likely embolic in nature (has A-fib) * Patient has atrial fibrillation, INR was slightly subtherapeutic 1.9 on arrival, which may be the cause of embolic source. * Extensive left leg DVT * Cerebral aneurysm * Right hilar mass and adenopathy s/p biopsy on 07/31/21: Per biopsy metastatic non-small cell carcinoma * Episode of hypoglycemia on 07/31/21 (as low as 63) * Chronic renal disease stage III ---improving. Currently Creatnine 1.17. * Back pain related to compression fracture. Patient has a known L1 compression fracture from 03/15/2021. * CAD * Tobacco use * Hypertension * Hyperlipidemia Plan: * * Per Dr. Marie to Continue Coumadin after the procedure has been completed, and keep INR between 2-3. Currently on heparin drip and per nurse not transition to coumadin since possible PEG tube placement. ASA stopped by primary team (ASA was not needed from neurological team). Continue Lipitor 40mg qhs for secondary stroke prophylaxis * If patient is having difficulty monitoring his INR can consider switching to Eliquis 5mg 1 tab bid.. * Patient has dyshagia and mass on his neck. Possible patient needs PEG tube if continues to have significant dysphagia. Patient will make further decision whether to pursue with PEG tube. * Right axillary lymph node [id number]/2021: Is reported as positive for poorly differentiated metastatic non-small cell carcinoma with focal background lymphoid tissues present. * Oncology team is on board. They stated in their not for bone scan ordered for staging. * Patient has cerebral aneurysm noted on CTA of head and neck (reported as 4.5mm saccular aneurysm projecting superiorly and medially from the proximal supraclinoid sgement left ICA and 2mm left MCA). I would suggest patient follow-up with neuro intervention after discharge for further management of cerebral aneurysm. * Patient complaining of severe mid back pain. Patient had L1 compression fracture diagnosed in February 2021. Dr. Marie discussed with patient about checking x-ray of the thoracic spine, but he declined. Patient may need a bone scan. * Continue neuro checks. * PT, OT and HVAC INSTRUCTOR are consulted. Dr. Awad is consulted for inpatient rehab. * Pulmonary on board. * Will defer the rest of medical management to the primary team. * Recommend for patient to follow-up with cardiology team as outpatient. * For DVT prophylxis: On heparin drip. * Upon discharge the patient needs to follow-up with a neurologist within 1-2 weeks as an outpatient. The plan is discussed with the patient's nurse. Will follow-up with patient sporadically. Johnny Caruso M.D. Neuro-Hospitalist Time with Patient: Less than 30
[2021-08-03] MEDS: HEPARIN SOD,PORK IN 0.45% NACL 25,000 UNIT in 0.45% NACL 1 250ML.BAG IV SCH (16:39)
[2021-08-03 17:12] LABS: % Iron Saturation 15.66 (15.00-50.00); Folate, Serum 18.2 ng/mL (4.40-31.00)
[2021-08-03] MEDS: ATORVASTATIN 40 MG TAB PO SCH (20:58)
[2021-08-03] MEDS ORDERED: methylPREDNISolone SOD SUCCI 40 MG/ML 1 ML VIAL IV STA (21:25)
[2021-08-03] MEDS ORDERED: LORazepam 1 MG TAB PO STA (21:26)
[2021-08-03] MEDS: BUDESONIDE 1 MG/2 ML NEBU INHALATION SCH (21:53)
[2021-08-03] MEDS: IPRATROPIUM-ALBUTEROL 3 ML NEB INHALATION SCH (21:53)
[2021-08-04] MEDS: SODIUM CHLORIDE 0.9% 1,000 ML IV SCH ×2 (06:47→17:13)
[2021-08-04] MEDS: IPRATROPIUM-ALBUTEROL 3 ML NEB INHALATION SCH ×4 (07:51→20:30)
[2021-08-04] MEDS: BUDESONIDE 1 MG/2 ML NEBU INHALATION SCH ×2 (07:52→20:30)
[2021-08-04 08:31] LABS: Basophils % (A) 0 %; Eosinophils % (A) 0 %; HCT 32.2 % (39.0-53.0); HGB 9.6 gm/dL (13.0-17.5); Hypochromasia Marked; Lymphocytes # (A) 0.3 k/uL (1.0-4.8); Lymphocytes % (A) 7 %; MCH 32.2 pg (25.0-35.0); MCHC 29.8 g/dL (31.0-37.0); Macrocytosis Marked; Mean Platelet Volume 9.4; Monocytes # (A) 0.2 k/uL (0-1.0); Monocytes % (A) 4 %; Neutrophils % (A) 88 %; Platelet Count 251 k/uL (150-450); RBC 2.98 m/uL (4.30-5.90); RDW 15.6 % (11.5-15.5); WBC 4.6 k/uL (3.8-10.6)
[2021-08-04 08:47] LABS: Calcium 10.8 mg/dL (8.4-10.2); Potassium 4.9 mmol/L (3.5-5.1)
--- NOTE | 2021-08-04 09:55 | P.PN ---
Subjective Progress Note Date: 08/04/21 The patient is seen at bedside and he is accompanied by his . Yesterday he was informed of diagnosis that his axillary biospy showed cancer. He continues to be on IV heparin drip. He does not want to pursue with PEG tube and is leaning towards hospice. Objective - Vital Signs Vital signs: Vital Signs Temp 97.2 F L 08/04/21 07:55 Pulse 104 H 08/04/21 08:08 Resp 24 08/04/21 07:55 BP 138/81 08/04/21 07:55 Pulse Ox 90 L 08/04/21 07:55 Intake & Output 08/03/21 08/04/21 08/04/21 18:59 06:59 18:59 Intake Total 210.733 Output Total 1200 400 Balance 210.733 -1200 -400 Weight 74.5 kg Intake: Intake, IV Titration 210.733 Amount Heparin Sod,Pork in 0.45% 210.733 NaCl 25,000 unit In 0.45 % NaCl 1 250ml.bag @ 18 UNITS/KG/HR 14.819 mls/hr IV .[id number] [facility] Rx#: [id number] Oral 0 Output: Urine 1200 400 Uretheral ([place]) 400 Other: Voiding Method Indwelling Catheter Indwelling Catheter Indwelling Catheter # Bowel Movements 0 - Exam On examination patient is alert and awake, oriented to self. He states he is in the hospital. He states the year is 2022. Patient is following commands. Has hypophonia. No aphasia or neglect. Cranial nerves: Pupils are round, equal and reactive to light. VFF to confrontation. EOM intact and no nystagmus. significant for left facial droop, central type. Patient is whispering because of his recent laryngitis. Mi ld dysarthria. Motor: Gait is deferred. Muscle strength is left sided weakness and has mild pronator drift. The strength in hand polisher aluminum are normal. Has drift in left lower extremity that is mild. Otherwise no drift over the right side. WORK-UP: * TSH is 1.670. * Hemoglobin A1c 5.6, * fasting lipid panel cholesterol 79, LDL 25, HDL 39 and triglycerides 67. * AST: 40, ALT 20 * Vitamin B12: 1009 * RBC folate: 1057 * TSH: 1.67 * MRI the brain is reported as multifocal areas of acute ischemia predominantly lacunar or punctate appearance. Dominant area measures 1.30.7 cm in the right wills radiata the frontal white matter adjacent to the ventricular system. Background mild to moderate diffuse cerebral atrophy and moderate to advanced chronic small vessel ischemic changes. * 2-D echo was performed outpatient on 07/18/2021. It revealed normal left ventricular size. Mild concentric LVH. EF is between 35-40%. Left ventricular systolic function mildly decreased. Left ventricle is mildly enlarged. Trace MR, trace TR. * Patient has cerebral aneurysm noted on CTA of head and neck. * Right axillary lymph node [id number]/31/2021: Is reported as positive for poorly differentiated metastatic non-small cell carcinoma with focal background lymphoid tissues present. - Labs CBC & Chem 7: 08/04/21 07:52 08/04/21 07:52 Labs: Abnormal Lab Results - Last 24 Hours (Table) 08/03/21 08/04/21 08/04/21 Range/Units 06:22 07:52 07:52 RBC 2.98 L (4.30-5.90) m/uL Hgb 9.6 L (13.0-17.5) gm/dL Hct 32.2 L (39.0-53.0) % MCV 108.0 H (80.0-100.0) fL MCHC 29.8 L (31.0-37.0) g/dL RDW 15.6 H (11.5-15.5) % Lymphocytes # 0.3 L (1.0-4.8) k/uL Macrocytosis Marked A APTT 61.4 H (22.0-30.0) sec Chloride 115 H (98-107) mmol/L BUN 24 H (9-20) mg/dL Glucose 104 H (74-99) mg/dL Calcium 10.3 H (8.4-10.2) mg/dL Iron 35 L (65-175) ug/dL TIBC 225 L (228-460) ug/dL Transferrin 161.0 L (204.0-354.0) mg/dL Ferritin 624.0 H (22.0-322.0) ng/mL Lactate Dehydrogenase 1294 H (313-618) U/L Albumin 3.1 L (3.5-5.0) g/dL Vitamin B12 1018.0 H (200.0-944.0) pg/mL 08/04/21 Range/Units 07:52 RBC (4.30-5.90) m/uL Hgb (13.0-17.5) gm/dL Hct (39.0-53.0) % MCV (80.0-100.0) fL MCHC (31.0-37.0) g/dL RDW (11.5-15.5) % Lymphocytes # (1.0-4.8) k/uL Macrocytosis APTT (22.0-30.0) sec Chloride 113 H (98-107) mmol/L BUN 25 H (9-20) mg/dL Glucose 129 H (74-99) mg/dL Calcium 10.8 H (8.4-10.2) mg/dL Iron (65-175) ug/dL TIBC (228-460) ug/dL Transferrin (204.0-354.0) mg/dL Ferritin (22.0-322.0) ng/mL Lactate Dehydrogenase (313-618) U/L Albumin (3.5-5.0) g/dL Vitamin B12 (200.0-944.0) pg/mL Assessment and Plan Assessment: * Acute ischemic stroke, multifocal involvement in bilateral hemispheric region, most likely embolic in nature (has A-fib) * Patient has atrial fibrillation, INR was slightly subtherapeutic 1.9 on arrival, which may be the cause of embolic source. * Extensive left leg DVT * Cerebral aneurysm * Right hilar mass and adenopathy s/p biopsy on 07/31/21: Per biopsy metastatic non-small cell carcinoma * Episode of hypoglycemia on 07/31/21 (as low as 63) * Chronic renal disease stage III ---improving. Currently Creatnine 1.17. * Back pain related to compression fracture. Patient has a known L1 compression fracture from 03/15/2021. * CAD * Tobacco use * Hypertension * Hyperlipidemia Plan: * Currently on heparin drip. Recommend to pursue with Coumadin (history of A- fib) and keep INR between 2-3. He does not want to pursue with PEG tube. Continue Lipitor 40mg qhs for secondary stroke prophylaxis * If patient is having difficulty monitoring his INR can consider switching to Eliquis 5mg 1 tab bid.. * Patient has dyshagia and mass on his neck and has dysphagia. Possible does not want to pursue with PEG tube. * Right axillary lymph node [id number]/31/2021: Is reported as positive for poorly differentiated metastatic non-small cell carcinoma with focal background lymphoid tissues present. * Oncology team is on board. They stated in their not for bone scan ordered for staging. * Patient has cerebral aneurysm noted on CTA of head and neck (reported as 4.5mm saccular aneurysm projecting superiorly and medially from the proximal supraclinoid sgement left ICA and 2mm left MCA). I would suggest patient follow-up with neuro intervention after discharge for further management of cerebral aneurysm. * Patient complaining of severe mid back pain. Patient had L1 compression fracture diagnosed in February 2021. Dr. Marie discussed with patient about checking x-ray of the thoracic spine, but he declined. Patient may need a bone scan. * Continue neuro checks. * PT, OT and TREKKING GUIDE are consulted. Dr. Awad is consulted for inpatient rehab. * Pulmonary on board. * Will defer the rest of medical management to the primary team. * Recommend for patient to follow-up with cardiology team as outpatient. * For DVT prophylxis: On heparin drip. * Upon discharge the patient needs to follow-up with a neurologist within 1-2 weeks as an outpatient. Patient is leaning toward hospice. The plan is discussed with patient, his (at bedside) and his nurse. There is no further neurological work-up. Neurology will sign off. Please notify neurology if any further concerns. Johnny Caruso M.D. Neuro-Hospitalist Time with Patient: Less than 30
--- NOTE | 2021-08-04 12:57 | P.PN ---
Subjective Progress Note Date: 08/04/21 This is a pleasant 76-year-old gentleman with a known history of atrial fibrillation, anticoagulated with warfarin, coronary artery disease, hyperlipidemia, hypertension, chronic obstructive pulmonary disease with chronic and ongoing tobacco dependence. He was recently discharged from here 1 week ago for an episode of congestive heart failure. In the hospitalization a CT of the chest was done which showed neoplasm strongly suspected with markedly abnormal thoracic adenopathy throughout the mediastinum along with abnormal right axillary mass and adenopathy. The patient at that time had been quite adamant about going home and requested to be discharged which she was on 07/19/2021. He was scheduled to see Dr. Manuel on 08/02/2021 as a new patient. He came into the emergency room yesterday after waking up at 6:00 in the morning with a notable left-sided facial droop. A code stroke was called and he was evaluated by neurology. CT of the neck revealed patent bilateral carotid and vertebral arteries. Known abnormal mediastinal lymphadenopathy which warrant further investigation from a CAT scan of 07/19/2021. Continued moderate layering right pleural effusion. COPD. Patchy groundglass right greater than left visualized the upper lungs. The head revealed no large vessel intracranial arterial occlusion or significant stenosis. There is a 4.5 mm saccular aneurysm projecting superiorly and medially from the proximal supraclinoid segment left ICA. A tiny 2 mm aneurysm projecting anteriorly from the left MCA bifurcation. MRI of the brain revealed multifocal areas of acute ischemia predominantly lacunar and punctate in appearance. Dominant area measures 1.3 x 0.8 cm in the right coronal radiata deep frontal white matter adjacent to the ventricular system. Background mild to moderate diffuse cerebral atrophy and moderate to advanced chronic small vessel ischemic changes. Dopplers of the lower extremity revealed an extensive DVT throughout the entire imaged vessels from groin to upper calf and the left leg. Noted left inguinal mass likely a pathologic lymph node measuring up to 5.9 x 5.4 x 2.8 cm. The patient is seen today in consultation on the selective care unit. He is currently sitting up in the bedside. Noted left-sided facial droop. Difficulty in speaking. White count 10.5. Hemoglobin 10.3. Platelets 148. Sodium 136. Potassium 6.2. Bicarb 21. BUN 71. Creatinine 2.22. INR 1.9. He's been initiated on a heparin drip. The patient is seen today 07/29/2021 in follow-up on the selective care unit. He is currently sitting up at the bedside. Awake and alert in no acute distress. His maintaining O2 saturation in the low to mid 90s on 4 L/m per nasal cannula. She's been afebrile. Hemodynamically stable. White count 8.5. Hemoglobin 8.8. MCV 103.2. Platelets 146. Sodium 138. Potassium 4.9. Creatinine 1.85. BUN 63. Glucose 119. He remains on a heparin drip Weight- based protocol. No worsening shortness of breath, cough or congestion. No hemoptysis. On today's evaluation 07/30/2021, the patient is hard to communicate with cb mccurdy that he has had previous history of stroke. We'll consult on this patient because of abnormal lymphadenopathy involving the patient's thorax. At the same time, the patient was found to have a very large right axillary lymphadenopathy/mass and the plan is to proceed with a biopsy of the lymph nodes/mastoiditis to establish diagnosis. There is a high lactate for malignancy at this point in time. Noted the patient has multiple medical problems and comorbidities. The patient has COPD, mediastinal lymphadenopathy which is quite extensive, previous history of CVA, difficulty with mobility and gait secondary to CVA, and the patient continues to have issues with left-sided facial droop and difficulties with speech. At the same time, the patient was found to have a DVT of the lower extremity based on Doppler was done on 07/27/2021 where the patient was found to have positive DVT involving the left leg and this was a quite extensive extended from the groin to the upper calf vessels. He is currently nothing by mouth awaiting the biopsy. White echo today point I would hemoglobin 8.8. No significant lymphocytosis and a platelet count is at 189. PTT is at 71.6 from today. Creatinine is at 1.3 and the patient is recovering from acute kidney injury with a BUN of 50 to and the rest of the electrodes are all within normal limits. On 07/31/2021, the patient is being seen for a follow-up. The procedure was not performed yesterday and the patient is scheduled to undergo the procedure today at around 10 AM. The patient was taken off aspirin. The patient was also taken off IV heparin. The procedure would include a axillary lymph nodes fine-needle aspirate. The patient meanwhile underwent a swallow evaluation that showed trace silent aspiration with thin liquids. There was also presentation with other consistencies and trace silent aspiration of residuals. There was a delayed swallow. No respiratory distress. White cell count of 6.6 with a hemoglobin of 9.2. Sodium is at 141. BUN is at 39 with a creatinine of 1.22. Calcium level is at 10.1. He seems to quite debilitated. He is known to have multiple comorbidities including chronic atrial fibrillation and the patient is currently off warfarin. Most recent INR is down to 1.1. The patient is also known to have COPD, hyperlipidemia, hypertension and COPD. Is a chronic smoker. 08/01/2021, the patient is postop fine-needle aspiration. The patient remains nothing by mouth. The patient is being considered for PEG tube insertion. The patient is sitting up on a chair. The patient's, comfortable. He remains on IV heparin. Denies having any rest of distress. The patient remains on IV fluids with normal saline at the rate of 75 mL an hour. The patient is also on 3 L of oxygen by nasal cannula with pulse ox of 94%. No cough. No sputum production. No chest tightness. No wheezing. He is known to have COPD and is a chronic smoker. He also has history of chronic atrial fibrillation, hyperlipidemia and extensive mediastinal lymphadenopathy as discussed above. 08/02/2021, the patient is still awaiting the final results of the fine-needle aspirate of the lymph node. High suspicion for malignancy. It final decision the PEG tube insertion has not been done yet. Meanwhile, the patient is stable. No respiratory distress. He remains on oxygen 3 L. Receiving IV fluids with normal saline today to 75 mL an hour and the patient is receiving pleasure feeds. The patient has a white cell count of 9 with a hemoglobin above 9 and a platelet count of 216. The patient is back on IV heparin with a therapeutic PTT. Creatinine is at 29 with a creatinine of 1.02 and the sodium level is at 142. Calcium level is at 10.2. 08/03/2021 patient is being seen for a follow-up. Patient is essentially the same condition. Quite debilitated. Unable to swallow properly. He seems to have decided against undergoing a PEG tube insertion. Meanwhile, the biopsy of the lymph node came back positive for poorly differentiated non-small cell lung cancer. As such, the presentation is typical of a metastatic non-small cell lung cancer. The patient also has a small right-sided pleural effusion. He remains oxygen dependent. He remains on IV heparin. He is weak. He is receiving IV fluids at the rate of 75 mL's an hour. Livingston catheter in place. Based on performance and functional status is poor. He is known to have COPD and addition to coronary artery disease and hyperlipidemia and chronic atrial fibrillation the patient was taken anticoagulation with a Coumadin on outpatient basis. Note that the patient has also developed a DVT and there is involving the left lower extremity. The patient also has left inguinal masses pathologic measuring his largest 5.9 cm in size consistent with metastatic cancer. The patient has no altered mentation. 08/04/2021, the patient is stable. No changes condition. Still considering hospice care versus treatment. Had a conversation with oncology and he was offered next generation genetic sequencing regarding any possible immunotherapy targeted therapy regarding his metastatic non-small cell lung cancer. No new complaints. He remains on IV heparin. I think he should be gradually transition to oral warfarin as the patient has been taken anticoagulation on outpatient basis. Performance status remains poor. Livingston catheter is in place. He is known to have COPD, CAD, hyperlipidemia and chronic atrial fibrillation. The patient also had DVT of the left lower extremity. White cell count today is at 4.6 with a hemoglobin 0.6 and platelet up to 51. Normal BUN and creatinine. PTT is therapeutic at 61. Objective - Vital Signs Vital signs: Vital Signs Temp 97.2 F L 08/04/21 07:55 Pulse 96 08/04/21 12:13 Resp 24 08/04/21 07:55 BP 138/81 08/04/21 07:55 Pulse Ox 90 L 08/04/21 07:55 Intake & Output 08/03/21 08/04/21 08/04/21 18:59 06:59 18:59 Intake Total 210.733 420 Output Total 1200 400 Balance 210.733 -1200 20 Weight 74.5 kg Intake: Intake, IV Titration 210.733 Amount Heparin Sod,Pork in 0.45% 210.733 NaCl 25,000 unit In 0.45 % NaCl 1 250ml.bag @ 18 UNITS/KG/HR 14.819 mls/hr IV .[id number] [facility] Rx#: [id number] Oral 0 420 Output: Urine 1200 400 Uretheral (Livingston) 400 Other: Voiding Method Indwelling Catheter Indwelling Catheter Indwelling Catheter # Bowel Movements 0 - Exam GENERAL EXAM: Alert, pleasant 76-year-old male patient, left-sided facial droop noted, on 3 L nasal cannula, fairly comfortable in no apparent distress. HEAD: Normocephalic. EYES: Normal reaction of pupils, equal size. NOSE: Clear with pink turbinates. THROAT: No erythema or exudates. NECK: No masses, no JVD. CHEST: No chest wall deformity. LUNGS: Equal air entry with crackles in the right base. Diminished CVS: S1 and S2 normal with no audible murmur, regular rhythm. ABDOMEN: No hepatosplenomegaly, normal bowel sounds, no guarding or rigidity. SPINE: No scoliosis or deformity SKIN: No rashes, the patient has a large right axillary lymphadenopathy and the mass/lymph was quite firm in the right axilla. No supraclavicular lymphadenopathy. CENTRAL NERVOUS SYSTEM: No focal deficits, tone is normal in all 4 extremities. The patient has left facial droop and difficulty with mobility and gait EXTREMITIES: There is a palpable lymph node under the right axilla. There is no peripheral edema. No clubbing, no cyanosis. Peripheral pulses are intact. - Labs CBC & Chem 7: 08/04/21 07:52 08/04/21 07:52 Labs: Abnormal Lab Results - Last 24 Hours (Table) 08/03/21 08/04/21 08/04/21 Range/Units 06:22 07:52 07:52 RBC 2.98 L (4.30-5.90) m/uL Hgb 9.6 L (13.0-17.5) gm/dL Hct 32.2 L (39.0-53.0) % MCV 108.0 H (80.0-100.0) fL MCHC 29.8 L (31.0-37.0) g/dL RDW 15.6 H (11.5-15.5) % Lymphocytes # 0.3 L (1.0-4.8) k/uL Macrocytosis Marked A APTT 61.4 H (22.0-30.0) sec Chloride (98-107) mmol/L BUN (9-20) mg/dL Glucose (74-99) mg/dL Calcium (8.4-10.2) mg/dL Iron 35 L (65-175) ug/dL TIBC 225 L (228-460) ug/dL Transferrin 161.0 L (204.0-354.0) mg/dL Ferritin 624.0 H (22.0-322.0) ng/mL Vitamin B12 1018.0 H (200.0-944.0) pg/mL 08/04/21 Range/Units 07:52 RBC (4.30-5.90) m/uL Hgb (13.0-17.5) gm/dL Hct (39.0-53.0) % MCV (80.0-100.0) fL MCHC (31.0-37.0) g/dL RDW (11.5-15.5) % Lymphocytes # (1.0-4.8) k/uL Macrocytosis APTT (22.0-30.0) sec Chloride 113 H (98-107) mmol/L BUN 25 H (9-20) mg/dL Glucose 129 H (74-99) mg/dL Calcium 10.8 H (8.4-10.2) mg/dL Iron (65-175) ug/dL TIBC (228-460) ug/dL Transferrin (204.0-354.0) mg/dL Ferritin (22.0-322.0) ng/mL Vitamin B12 (200.0-944.0) pg/mL Assessment and Plan Plan: 1 Acute left sided facial droop. This is secondary to an acute ischemic stroke, multifocal involvement and bilateral hemispheric regions most likely embolic in nature. Clinically unchanged. No altered mentation. Patient continues to have difficulty with swallowing. Declined to undergo PEG tube insertion. Neuro workup is completed. Computed tomography scan of the brain revealed no large vessel intracranial arterial occlusion or significant stenosis. There is a 4.5 mm saccular aneurysm projecting superiorly and medially from the proximal supraclinoid segment left ICA. A tiny 2 mm aneurysm projecting anteriorly from the left MCA bifurcation. MRI of the brain revealed multifocal areas of acute ischemia predominantly lacunar and punctate in appearance. Dominant area measures 1.3 x 0.8 cm in the right coronal radiata deep frontal white matter adjacent to the ventricular system. Background mild to moderate diffuse cerebral atrophy and moderate to advanced chronic small vessel ischemic changes. Currently on a heparin drip. No new onset focal neurological deficits. Left facial droop is still present. No interval progression or changes in his neurologic functions 2 metastatic poorly differentiated non-small cell lung cancer. The patient has extensive thoracic lymphadenopathy in addition to right axillary lymphadenopathy high suspicion for malignancy and a fine-needle aspirate was done and the final pathology is pending. The patient also has a component of mild hypercalcemia 3 DVT of the left lower extremity. The opplers of the lower extremity revealed an extensive DVT throughout the entire imaged vessels from groin to upper calf and the left leg. Noted left inguinal mass likely a pathologic lymph node m easuring up to 5.9 x 5.4 x 2.8 cm. the patient is currently on IV heparin 4 Chronic and ongoing tobacco dependence of greater than 50 years 5 History of atrial fibrillation, anticoagulated with warfarin, currently on IV heparin. 6 History of coronary disease 7 Hypertension 8 Hyperlipidemia 9 Chronic obstructive pulmonary disease 10 dysphagia, currently nothing by mouth. Plan: Continue IV heparin Transition this patient to warfarin Oncologist has been involved regarding metastatic lung cancer Not interested in PEG tube feeding Biopsy of the lymph node is consistent with for differentiated non-small cell lung cancer Performance and functional status is weak and poor Patient is not willing to undergo effective treatment/insertion Patient is also considering hospice care. The final decision has not been done. Further discussion is to be done with the family and oncology. No active pulmonary issues for now. Remainder of 3 L of oxygen by nasal cannula.
[2021-08-04 15:23] LABS: INR 1.2 (<1.2); Prothrombin Time 12.6 sec (9.0-12.0)
[2021-08-04] MEDS: HEPARIN SOD,PORK IN 0.45% NACL 25,000 UNIT in 0.45% NACL 1 250ML.BAG IV SCH ×2 (16:11→17:13)
[2021-08-04] MEDS: HYDROcodone/APAP 5-325MG 1 EACH TAB PO PRN ×2 (17:17→22:07)
[2021-08-04] MEDS ORDERED: WARFARIN 2 MG TAB PO ONE (18:00)
[2021-08-04] MEDS: ATORVASTATIN 40 MG TAB PO SCH (20:15)
[2021-08-05] MEDS: IPRATROPIUM-ALBUTEROL 3 ML NEB INHALATION SCH ×4 (07:00→20:03)
[2021-08-05] MEDS: BUDESONIDE 1 MG/2 ML NEBU INHALATION SCH ×2 (07:00→20:03)
[2021-08-05 07:34] LABS: INR 1.3 (<1.2); Partial Thromboplastin Time 48.4 sec (22.0-30.0); Prothrombin Time 13.3 sec (9.0-12.0)
[2021-08-05] MEDS: SODIUM CHLORIDE 0.9% 1,000 ML IV SCH ×2 (10:12→20:26)
[2021-08-05] MEDS: HYDROcodone/APAP 5-325MG 1 EACH TAB PO PRN ×2 (11:31→22:26)
[2021-08-05 11:40] LABS: Glucose,Whole Blood 110 mg/dL (75-99)
--- NOTE | 2021-08-05 14:08 | P.PN ---
Subjective Progress Note Date: 08/05/21 This is a pleasant 76-year-old gentleman with a known history of atrial fibrillation, anticoagulated with warfarin, coronary artery disease, hyperlipidemia, hypertension, chronic obstructive pulmonary disease with chronic and ongoing tobacco dependence. He was recently discharged from here 1 week ago for an episode of congestive heart failure. In the hospitalization a CT of the chest was done which showed neoplasm strongly suspected with markedly abnormal thoracic adenopathy throughout the mediastinum along with abnormal right axillary mass and adenopathy. The patient at that time had been quite adamant about going home and requested to be discharged which she was on 07/19/2021. He was scheduled to see Dr. Manuel on 08/02/2021 as a new patient. He came into the emergency room yesterday after waking up at 6:00 in the morning with a notable left-sided facial droop. A code stroke was called and he was evaluated by neurology. CT of the neck revealed patent bilateral carotid and vertebral arteries. Known abnormal mediastinal lymphadenopathy which warrant further investigation from a CAT scan of 07/19/2021. Continued moderate layering right pleural effusion. COPD. Patchy groundglass right greater than left visualized the upper lungs. The head revealed no large vessel intracranial arterial occlusion or significant stenosis. There is a 4.5 mm saccular aneurysm projecting superiorly and medially from the proximal supraclinoid segment left ICA. A tiny 2 mm aneurysm projecting anteriorly from the left MCA bifurcation. MRI of the brain revealed multifocal areas of acute ischemia predominantly lacunar and punctate in appearance. Dominant area measures 1.3 x 0.8 cm in the right coronal radiata deep frontal white matter adjacent to the ventricular system. Background mild to moderate diffuse cerebral atrophy and moderate to advanced chronic small vessel ischemic changes. Dopplers of the lower extremity revealed an extensive DVT throughout the entire imaged vessels from groin to upper calf and the left leg. Noted left inguinal mass likely a pathologic lymph node measuring up to 5.9 x 5.4 x 2.8 cm. The patient is seen today in consultation on the selective care unit. He is currently sitting up in the bedside. Noted left-sided facial droop. Difficulty in speaking. White count 10.5. Hemoglobin 10.3. Platelets 148. Sodium 136. Potassium 6.2. Bicarb 21. BUN 71. Creatinine 2.22. INR 1.9. He's been initiated on a heparin drip. The patient is seen today 07/29/2021 in follow-up on the selective care unit. He is currently sitting up at the bedside. Awake and alert in no acute distress. His maintaining O2 saturation in the low to mid 90s on 4 L/m per nasal cannula. She's been afebrile. Hemodynamically stable. White count 8.5. Hemoglobin 8.8. MCV 103.2. Platelets 146. Sodium 138. Potassium 4.9. Creatinine 1.85. BUN 63. Glucose 119. He remains on a heparin drip Weight- based protocol. No worsening shortness of breath, cough or congestion. No hemoptysis. On today's evaluation 07/30/2021, the patient is hard to communicate with cb mccurdy that he has had previous history of stroke. We'll consult on this patient because of abnormal lymphadenopathy involving the patient's thorax. At the same time, the patient was found to have a very large right axillary lymphadenopathy/mass and the plan is to proceed with a biopsy of the lymph nodes/mastoiditis to establish diagnosis. There is a high lactate for malignancy at this point in time. Noted the patient has multiple medical problems and comorbidities. The patient has COPD, mediastinal lymphadenopathy which is quite extensive, previous history of CVA, difficulty with mobility and gait secondary to CVA, and the patient continues to have issues with left-sided facial droop and difficulties with speech. At the same time, the patient was found to have a DVT of the lower extremity based on Doppler was done on 07/27/2021 where the patient was found to have positive DVT involving the left leg and this was a quite extensive extended from the groin to the upper calf vessels. He is currently nothing by mouth awaiting the biopsy. White echo today point I would hemoglobin 8.8. No significant lymphocytosis and a platelet count is at 189. PTT is at 71.6 from today. Creatinine is at 1.3 and the patient is recovering from acute kidney injury with a BUN of 50 to and the rest of the electrodes are all within normal limits. On 07/31/2021, the patient is being seen for a follow-up. The procedure was not performed yesterday and the patient is scheduled to undergo the procedure today at around 10 AM. The patient was taken off aspirin. The patient was also taken off IV heparin. The procedure would include a axillary lymph nodes fine-needle aspirate. The patient meanwhile underwent a swallow evaluation that showed trace silent aspiration with thin liquids. There was also presentation with other consistencies and trace silent aspiration of residuals. There was a delayed swallow. No respiratory distress. White cell count of 6.6 with a hemoglobin of 9.2. Sodium is at 141. BUN is at 39 with a creatinine of 1.22. Calcium level is at 10.1. He seems to quite debilitated. He is known to have multiple comorbidities including chronic atrial fibrillation and the patient is currently off warfarin. Most recent INR is down to 1.1. The patient is also known to have COPD, hyperlipidemia, hypertension and COPD. Is a chronic smoker. 08/01/2021, the patient is postop fine-needle aspiration. The patient remains nothing by mouth. The patient is being considered for PEG tube insertion. The patient is sitting up on a chair. The patient's, comfortable. He remains on IV heparin. Denies having any rest of distress. The patient remains on IV fluids with normal saline at the rate of 75 mL an hour. The patient is also on 3 L of oxygen by nasal cannula with pulse ox of 94%. No cough. No sputum production. No chest tightness. No wheezing. He is known to have COPD and is a chronic smoker. He also has history of chronic atrial fibrillation, hyperlipidemia and extensive mediastinal lymphadenopathy as discussed above. 08/02/2021, the patient is still awaiting the final results of the fine-needle aspirate of the lymph node. High suspicion for malignancy. It final decision the PEG tube insertion has not been done yet. Meanwhile, the patient is stable. No respiratory distress. He remains on oxygen 3 L. Receiving IV fluids with normal saline today to 75 mL an hour and the patient is receiving pleasure feeds. The patient has a white cell count of 9 with a hemoglobin above 9 and a platelet count of 216. The patient is back on IV heparin with a therapeutic PTT. Creatinine is at 29 with a creatinine of 1.02 and the sodium level is at 142. Calcium level is at 10.2. 08/03/2021 patient is being seen for a follow-up. Patient is essentially the same condition. Quite debilitated. Unable to swallow properly. He seems to have decided against undergoing a PEG tube insertion. Meanwhile, the biopsy of the lymph node came back positive for poorly differentiated non-small cell lung cancer. As such, the presentation is typical of a metastatic non-small cell lung cancer. The patient also has a small right-sided pleural effusion. He remains oxygen dependent. He remains on IV heparin. He is weak. He is receiving IV fluids at the rate of 75 mL's an hour. Livingston catheter in place. Based on performance and functional status is poor. He is known to have COPD and addition to coronary artery disease and hyperlipidemia and chronic atrial fibrillation the patient was taken anticoagulation with a Coumadin on outpatient basis. Note that the patient has also developed a DVT and there is involving the left lower extremity. The patient also has left inguinal masses pathologic measuring his largest 5.9 cm in size consistent with metastatic cancer. The patient has no altered mentation. 08/04/2021, the patient is stable. No changes condition. Still considering hospice care versus treatment. Had a conversation with oncology and he was offered next generation genetic sequencing regarding any possible immunotherapy targeted therapy regarding his metastatic non-small cell lung cancer. No new complaints. He remains on IV heparin. I think he should be gradually transition to oral warfarin as the patient has been taken anticoagulation on outpatient basis. Performance status remains poor. Livingston catheter is in place. He is known to have COPD, CAD, hyperlipidemia and chronic atrial fibrillation. The patient also had DVT of the left lower extremity. White cell count today is at 4.6 with a hemoglobin 0.6 and platelet up to 51. Normal BUN and creatinine. PTT is therapeutic at 61. 08/05/2021, patient's condition is unchanged. Continues to have difficulties in swallowing and based on the nursing report, the patient is having probably some silent aspiration. No final decision on PEG tube feeding. Family wanted to meet with oncology for further advice. Remains on IV heparin. Warfarin was started for long-term and to coagulation. Patient to be given 5 mg Coumadin today. The patient is on 7 L of oxygen by nasal cannula. Note that his oxygenation got worse overnight and the patient was placed on 15 L of oxygen by nasal cannula and his the process of weaning down to 7 L Objective - Vital Signs Vital signs: Vital Signs Temp 97.6 F 08/05/21 08:00 Pulse 92 08/05/21 11:41 Resp 24 08/05/21 11:39 BP 121/66 08/05/21 08:00 Pulse Ox 94 L 08/05/21 11:39 Intake & Output 08/04/21 08/05/2108/05/22 18:59 06:59 18:59 Intake Total 960 118.297 Output Total 400 1000 400 Balance 560 -1000 -281.703 Intake: Intake, IV Titration 360 118.297 Amount Heparin Sod,Pork in 0.45% 118.297 NaCl 25,000 unit In 0.45 % NaCl 1 250ml.bag @ 8.7 UNITS/KG/HR 6.482 mls/hr IV .Q24H [facility] Rx#: [id number] Sodium Chloride 0.9% 1, 360 000 ml @ 75 mls/hr IV . [id number] [facility] Rx#:[id number] Oral 600 Output: Urine 400 1000 400 Uretheral (Livingston) 400 400 Other: Voiding Method Indwelling Catheter Indwelling Catheter Indwelling Catheter - Exam GENERAL EXAM: Alert, pleasant 76-year-old male patient, left-sided facial droop noted, on 7 L nasal cannula, fairly comfortable in no apparent distress. HEAD: Normocephalic. EYES: Normal reaction of pupils, equal size. NOSE: Clear with pink turbinates. THROAT: No erythema or exudates. NECK: No masses, no JVD. CHEST: No chest wall deformity. LUNGS: Equal air entry with crackles in the right base. Diminished CVS: S1 and S2 normal with no audible murmur, regular rhythm. ABDOMEN: No hepatosplenomegaly, normal bowel sounds, no guarding or rigidity. SPINE: No scoliosis or deformity SKIN: No rashes, the patient has a large right axillary lymphadenopathy and the mass/lymph was quite firm in the right axilla. No supraclavicular lymph adenopathy. CENTRAL NERVOUS SYSTEM: No focal deficits, tone is normal in all 4 extremities. The patient has left facial droop and difficulty with mobility and gait EXTREMITIES: There is a palpable lymph node under the right axilla. There is no peripheral edema. No clubbing, no cyanosis. Peripheral pulses are intact. - Labs CBC & Chem 7: 08/04/21 07:52 08/04/21 07:52 Labs: Abnormal Lab Results - Last 24 Hours (Table) 08/04/21 08/05/21 08/05/21 Range/Units 14:20 05:35 11:38 PT 12.6 H 13.3 H (9.0-12.0) sec INR 1.2 H 1.3 H (<1.2) APTT 48.4 H (22.0-30.0) sec POC Glucose (mg/dL) 110 H (75-99) mg/dL Assessment and Plan Plan: 1 acute ischemic stroke, with secondary left facial droop, multifocal involvement and bilateral hemispheric regions most likely embolic in nature. Clinically unchanged. No altered mentation. Patient continues to have difficulty with swallowing. Declined to undergo PEG tube insertion. Neuro workup is completed. Computed tomography scan of the brain revealed no large vessel intracranial arterial occlusion or significant stenosis. There is a 4.5 mm saccular aneurysm projecting superiorly and medially from the proximal supraclinoid segment left ICA. A tiny 2 mm aneurysm projecting anteriorly from the left MCA bifurcation. MRI of the brain revealed multifocal areas of acute ischemia predominantly lacunar and punctate in appearance. Dominant area measures 1.3 x 0.8 cm in the right coronal radiata deep frontal white matter adjacent to the ventricular system. Background mild to moderate diffuse cere bral atrophy and moderate to advanced chronic small vessel ischemic changes. Currently on a heparin drip. No new onset focal neurological deficits. Left facial droop is still present. No interval progression or changes in his neurologic functions. The patient continues to have difficulties with dysphagia. 2 metastatic poorly differentiated non-small cell lung cancer. The patient has extensive thoracic lymphadenopathy in addition to right axillary lymphadenopathy high suspicion for malignancy and a fine-needle aspirate was done and the final pathology is pending. The patient also has a component of mild hypercalcemia 3 DVT of the left lower extremity. The opplers of the lower extremity revealed an extensive DVT throughout the entire imaged vessels from groin to upper calf and the left leg. Noted left inguinal mass likely a pathologic lymph node measuring up to 5.9 x 5.4 x 2.8 cm. the patient is currently on IV heparin 4 Chronic and ongoing tobacco dependence of greater than 50 years 5 History of atrial fibrillation, anticoagulated with warfarin, currently on IV heparin. 6 History of coronary disease 7 Hypertension 8 Hyperlipidemia 9 Chronic obstructive pulmonary disease 10 dysphagia, currently nothing by mouth. Plan: Continue IV heparin Atrial fibrillation warfarin has been initiated Oncologist has been involved regarding metastatic lung cancer Not interested in PEG tube feeding Biopsy of the lymph node is consistent with for differentiated non-small cell lung cancer Performance and functional status is weak and poor Oxygenation continues to fluctuate currently on 7 L. Rule out silent aspiration. The patient is taking pleasure feeds when he is obviously aspirating. Prognosis remains extremely poor. Consider hospice
[2021-08-05] MEDS: WARFARIN 5 MG TAB PO ONE (17:00)
[2021-08-05] MEDS: HEPARIN SOD,PORK IN 0.45% NACL 25,000 UNIT in 0.45% NACL 1 250ML.BAG IV SCH (17:16)
[2021-08-05] MEDS ORDERED: ALPRAZolam 0.25 MG TAB PO PRN (19:14)
[2021-08-05] MEDS: ATORVASTATIN 40 MG TAB PO SCH (20:26)
--- NOTE | 2021-08-05 23:51 | P.PN ---
Subjective Progress Note Date: 08/03/21 Patient is a 76-year-old male with a known history of atrial fibrillation on anticoagulation with Coumadin, chronic CHF, hypertension, hyperlipidemia, history of [place] status post cardiac catheterization occlusion of the LAD, opted for medical therapy and currently everyday smoker presents to ER due to compl aints of left facial droop. According to his patient woke up around 6 AM this morning and was drinking coffee around 7 AM when she noticed he was having drooling from his left side of the mouth. EMS was called and patient was brought to ER. Patient did have dysarthria but denied any difficulty finding words. No blurry vision. Patient has been having difficulty swallowing recently. Denies any weakness in the legs or hands. No numbness or tingling sensation. Apparently patient fell about 2 days ago however denied that he hit his head. No complaints of fever or chills. No nausea vomiting abdominal pain or diarrhea. No chest pain or shortness of breath. Patient was also having increasing left lower extremity swelling and pain for the past 2 days. Patient was recently admitted to the hospital due to shortness of breath, elevated troponin level and acute CHF and was discharged on 07/19/2021. CT head showed tiny 5 mm cortical hypodensity superior left precentral gyrus. A tiny cortical contusion/bleed is difficult to exclude especially the patient is experienced a fall on Coumadin. Otherwise there is moderate patchy burden of chronic small vessel ischemic disease. No other acute intracranial abnormality seen at this time. Due to small area of bleeding patient was not a candidate for TPA and MRI was ordered which showed multifocal ischemic infarcts. Patient was given a dose of aspirin CT angiogram of the head and neck showed patent bilateral carotid and vertebral arteries of the neck. 4.5 mm saccular aneurysm projecting superiorly and medially from the proximal s upraclinoid segment. Stat MRI of the brain showed multifocal areas of acute ischemia predominantly l ikely punctate in appearance. Dominant area measures 1.3 x 0.8 cm right coronal radiata deep frontal white matter adjacent to the ventricular system. Level data showed WBC 9.4 hemoglobin 10.6 MCV 100.1 and platelets 102 INR 1.9 Sodium 131 potassium 6.2 chloride 104 bicarb is 20 BUN 72 and creatinine 2.26 Troponin 0 0.110 and TSH 1.670 Urinalysis is negative for infection EKG showed normal sinus rhythm with no acute ST elevations or depressions. CT chest on 07/19/2021 showed neoplasm strongly suspected. There is marked abnormal thoracic adenopathy throughout the mediastinum. There is abnormal right axillary mass or adenopathy. PET scan was recommended. Mild to moderate size right pleural effusion. Demineralization multiple compression type fractures deformities. 07/28/2021 Patient is currently sitting in the chair. Awake alert and oriented x3. Left facial drooping without any change. No numbness or tingling. No complaints of chest pain or shortness of breath. Patient is able to tolerate nectar thick liquids. Does have hematuria after starting heparin drip which is clearing up now. Patient was seen by pulmonary is recommending IR consult. Laboratory showed WBC 10.6 hemoglobin 9.6 and platelets 128 Sodium 136 potassium 5.9 chloride 107 bicarb is 20 BUN 72 and creatinine 2.13 07/29/2021 Patient is currently sitting in the recliner chair. Left facial droop is still present. Awake alert and oriented x3. Currently requiring oxygen at 4 L via nasal cannula. Hematuria has resolved and urine is clear at this time. Livingston catheter in place. Patient is tolerating thick liquids. Denies any complaints of chest pain or shortness of breath. Left lower extremity pain and swelling is much improved now. Patient is being current on heparin drip due to left lower extremity DVT. Denies any hematemesis or melena. Laboratory data showed WBC 8.4 hemoglobin 8.8 and platelets 146 sodium 138 potassium 4.9 chloride 109 bicarb is 23 BUN 16 creatinine 1.85 Interventional radiology consult for biopsy likely tomorrow. 07/30/21 Patient is currently in the select care unit. Sitting in the chair. Awake alert and oriented. Patient does have left-sided facial droop. Continues to have slurred speech/speech difficulty. [facility] hospital due to acute CVA and also left lower extremity DVT. Patient is scheduled for biopsy of the axillary lymph node and suspicious for lung malignancy. Patient failed swallow study and is currently being continued on IV hydration with normal saline. Patient is on heparin drip due to left lower extremity DVT. Hematuria has resolved. Laboratory data showed WBC 8.4 hemoglobin 8.8 and platelets 189 Sodium 139 potassium 4.9 chloride 111 bicarb is 22 BUN 59 and creatinine 1.39. Pulmonary and neurology is on board. 07/31/2021 Patient is currently sitting in the chair. Awake alert and oriented. Feels weak. Patient is currently nothing by mouth and failed swallow study. Patient is supposed to get IR guided axillary lymph node biopsy yesterday but could not be done. Scheduled for biopsy today. Patient is being continued heparin drip. Patient is unable to take oral intake and does not have silent aspiration with thin liquids.. Coumadin is on hold. Laboratory data showed WBC 6.6 hemoglobin 9.2 and platelets 214 Sodium 141 potassium 4.8 chloride 110 bicarb is 26 BUN 39 creatinine 1. 2 2 and calcium 10.1 Pulmonary neurology is on board. 08/01/2021 Patient is currently sitting in the chair. Awake alert and oriented. Continues to have difficulty speech and left facial droop. Patient underwent IR guided biopsy of the axillary lymph node on 07/31/2021. Biopsy report is pending at this time. Otherwise patient is having silent aspiration with swallow study. Discussed with the patient regarding PEG tube placement and he is willing to make decision after the biopsy report and talking to his . In the meantime patient will be started thickened liquids after discussion with the speech pathology service. Patient is being continued on IV hydration with normal saline. Patient has been afebrile. No cough or sputum production. No complaints of chest pain. Patient is also heparin drip which will be transitioned to Coumadin or Eliquis pending PEG tube placement. 08/03/2021 Patient is currently sitting in a chair. Awake alert and oriented. Still having dysarthria and unable to communicate. Otherwise feels very weak. Axillary lymph node biopsy showed positive for poorly differentiated non-small cell lung cancer. Discussed with the patient regarding PEG tube placement and is currently would want to wait until oncology recommendations. Otherwise patient is being current IV hydration with normal saline. Patient Heparin subcu. Will be changed to Eliquis or warfarin once patient is able to tolerate oral diet. Patient was seen by oncology and was ordered. Chest x-ray today showed correlate for congestive heart failure with basilar effusions versus pneumonia/atelectasis. Patient with known Mediastinal and axillary adenopathy. Current medications reviewed. Objective - Vital Signs Vital signs: Vital Signs Temp 97.7 F 08/03/21 20:00 Pulse 92 08/03/21 20:00 Resp 24 08/03/21 20:00 BP 126/74 08/03/21 20:00 Pulse Ox 92 L 08/03/21 20:00 Intake & Output 08/03/21 08/03/21 08/04/21 06:59 18:59 06:59 Intake Total 210.733 Balance 210.733 Weight 74.5 kg Intake: Intake, IV Titration 210.733 Amount Heparin Sod,Pork in 0.45% 210.733 NaCl 25,000 unit In 0.45 % NaCl 1 250ml.bag @ 18 UNITS/KG/HR 14.819 mls/hr IV .[id number] [facility] Rx#: [id number] Oral 0 Other: Voiding Method Indwelling Catheter Indwelling Catheter # Bowel Movements 0 - Exam PHYSICAL EXAMINATION: Patient is lying in the bed comfortably, no acute distress, awake alert and oriented. HEENT: Normocephalic. Neck is supple. Pupils reactive. Nostrils clear. Oral cavity is moist. Neck reveals no JVD, carotid bruits, or thyromegaly. CHEST EXAMINATION: Trachea is central. Symmetrical expansion. Right lower lobe diminished sounds. No wheezing or rhonchi. CARDIAC: Normal S1, S2 with no gallops. No murmurs ABDOMEN: Soft. Bowel sounds normal. No organomegaly. No abdominal bruits. Extremities: reveal no edema. Left lower extremity swelling with calf tenderness. No clubbing or cyanosis Neurologically awake, alert, oriented x3. Patient does have left facial droop and drooling. Dysarthria. Muscle strength 5 out of 5 in all 4 extremities. Skin: No rash or skin lesions. Psychiatric: Cooperative. Nonsuicidal Musculoskeletal: No joint swelling or deformity. Normal range of motion. - Labs CBC & Chem 7: 08/04/21 07:52 08/04/21 07:52 Labs: Abnormal Lab Results - Last 24 Hours (Table) 08/03/21 08/03/21 08/03/21 Range/Units 06:22 06:22 06:22 RBC 2.69 L (4.30-5.90) m/uL Hgb 8.7 L (13.0-17.5) gm/dL Hct 28.7 L (39.0-53.0) % MCV 106.8 H (80.0-100.0) fL MCHC 30.4 L (31.0-37.0) g/dL Lymphocytes # 0.7 L (1.0-4.8) k/uL APTT 62.5 H (22.0-30.0) sec Chloride 115 H (98-107) mmol/L BUN 24 H (9-20) mg/dL Glucose 104 H (74-99) mg/dL Calcium 10.3 H (8.4-10.2) mg/dL Ionized Calcium Deirdre 6.1 H* (4.5-5.3) mg/dL Iron 35 L (65-175) ug/dL TIBC 225 L (228-460) ug/dL Transferrin 161.0 L (204.0-354.0) mg/dL Ferritin 624.0 H (22.0-322.0) ng/mL Lactate Dehydrogenase 1294 H (313-618) U/L Albumin 3.1 L (3.5-5.0) g/dL Vitamin B12 1018.0 H (200.0-944.0) pg/mL Assessment and Plan Assessment: Acute ischemic stroke with multifocal area involvement. Left facial droop and dysarthria secondary to above Left lower extremity extensive acute DVT throughout anterior nasal vessels from the groin to the upper calf. Newly diagnosed poorly differentiated non-small cell lung cancer. Biopsy report on 08/03/2021. Right hilar mass and adenopathy suspicious for malignancy. s/p LN biopsy on 07/31/21 Large right axillary mass or abdominal adenopathy. Hypovolemic hyponatremia Hyperkalemia with potassium 6.2 Chronic kidney disease stage III with creatinine level 2.26 Mild elevated troponin level History of coronary disease with occluded LAD. Medical management was recommended. Ongoing nicotine addiction Hypertension Hyperlipidemia Chronic CHF ejection fraction not known. Paroxysmal atrial fibrillation on anticoagulation with Coumadin INR 1.9 on admission. DVT prophylaxis patient is on heparin drip Plan: Patient was admitted to the hospital acute ischemic infarct as per MRI of the brain. Started on aspirin and lipid profile was ordered. TSH B12 and folate levels WNL. Patient is ss/p axillary lymph node biopsy on 07/31/21. Newly diagnosed poorly differentiated non-small cell lung cancer. Biopsy report on 08/03/2021.. Patient will be continued on heparin drip and monitor hemoglobin closely. Patient failed swallow study and is having silent aspiration with thin liquids. . Continue with IV hydration. Patient was seen by oncology and bone scan was ordered. Prognosis guarded with multiple medical problems and comorbid conditions. Discussed with the patient and his at bedside in detail. Time with Patient: Greater than 30
--- NOTE | 2021-08-05 23:54 | P.PN ---
Subjective Progress Note Date: 08/04/21 Patient is a 76-year-old male with a known history of atrial fibrillation on anticoagulation with Coumadin, chronic CHF, hypertension, hyperlipidemia, history of [place] status post cardiac catheterization occlusion of the LAD, opted for medical therapy and currently everyday smoker presents to ER due to compl aints of left facial droop. According to his patient woke up around 6 AM this morning and was drinking coffee around 7 AM when she noticed he was having drooling from his left side of the mouth. EMS was called and patient was brought to ER. Patient did have dysarthria but denied any difficulty finding words. No blurry vision. Patient has been having difficulty swallowing recently. Denies any weakness in the legs or hands. No numbness or tingling sensation. Apparently patient fell about 2 days ago however denied that he hit his head. No complaints of fever or chills. No nausea vomiting abdominal pain or diarrhea. No chest pain or shortness of breath. Patient was also having increasing left lower extremity swelling and pain for the past 2 days. Patient was recently admitted to the hospital due to shortness of breath, elevated troponin level and acute CHF and was discharged on 07/19/2021. CT head showed tiny 5 mm cortical hypodensity superior left precentral gyrus. A tiny cortical contusion/bleed is difficult to exclude especially the patient is experienced a fall on Coumadin. Otherwise there is moderate patchy burden of chronic small vessel ischemic disease. No other acute intracranial abnormality seen at this time. Due to small area of bleeding patient was not a candidate for TPA and MRI was ordered which showed multifocal ischemic infarcts. Patient was given a dose of aspirin CT angiogram of the head and neck showed patent bilateral carotid and vertebral arteries of the neck. 4.5 mm saccular aneurysm projecting superiorly and medially from the proximal s upraclinoid segment. Stat MRI of the brain showed multifocal areas of acute ischemia predominantly l ikely punctate in appearance. Dominant area measures 1.3 x 0.8 cm right coronal radiata deep frontal white matter adjacent to the ventricular system. Level data showed WBC 9.4 hemoglobin 10.6 MCV 100.1 and platelets 102 INR 1.9 Sodium 131 potassium 6.2 chloride 104 bicarb is 20 BUN 72 and creatinine 2.26 Troponin 0 0.110 and TSH 1.670 Urinalysis is negative for infection EKG showed normal sinus rhythm with no acute ST elevations or depressions. CT chest on 07/19/2021 showed neoplasm strongly suspected. There is marked abnormal thoracic adenopathy throughout the mediastinum. There is abnormal right axillary mass or adenopathy. PET scan was recommended. Mild to moderate size right pleural effusion. Demineralization multiple compression type fractures deformities. 07/28/2021 Patient is currently sitting in the chair. Awake alert and oriented x3. Left facial drooping without any change. No numbness or tingling. No complaints of chest pain or shortness of breath. Patient is able to tolerate nectar thick liquids. Does have hematuria after starting heparin drip which is clearing up now. Patient was seen by pulmonary is recommending IR consult. Laboratory showed WBC 10.6 hemoglobin 9.6 and platelets 128 Sodium 136 potassium 5.9 chloride 107 bicarb is 20 BUN 72 and creatinine 2.13 07/29/2021 Patient is currently sitting in the recliner chair. Left facial droop is still present. Awake alert and oriented x3. Currently requiring oxygen at 4 L via nasal cannula. Hematuria has resolved and urine is clear at this time. Living[place] catheter in place. Patient is tolerating thick liquids. Denies any complaints of chest pain or shortness of breath. Left lower extremity pain and swelling is much improved now. Patient is being current on heparin drip due to left lower extremity DVT. Denies any hematemesis or melena. Laboratory data showed WBC 8.4 hemoglobin 8.8 and platelets 146 sodium 138 potassium 4.9 chloride 109 bicarb is 23 BUN 16 creatinine 1.85 Interventional radiology consult for biopsy likely tomorrow. 07/30/21 Patient is currently in the select care unit. Sitting in the chair. Awake alert and oriented. Patient does have left-sided facial droop. Continues to have slurred speech/speech difficulty. [facility] hospital due to acute CVA and also left lower extremity DVT. Patient is scheduled for biopsy of the axillary lymph node and suspicious for lung malignancy. Patient failed swallow study and is currently being continued on IV hydration with normal saline. Patient is on heparin drip due to left lower extremity DVT. Hematuria has resolved. Laboratory data showed WBC 8.4 hemoglobin 8.8 and platelets 189 Sodium 139 potassium 4.9 chloride 111 bicarb is 22 BUN 59 and creatinine 1.39. Pulmonary and neurology is on board. 07/31/2021 Patient is currently sitting in the chair. Awake alert and oriented. Feels weak. Patient is currently nothing by mouth and failed swallow study. Patient is supposed to get IR guided axillary lymph node biopsy yesterday but could not be done. Scheduled for biopsy today. Patient is being continued heparin drip. Patient is unable to take oral intake and does not have silent aspiration with thin liquids.. Coumadin is on hold. Laboratory data showed WBC 6.6 hemoglobin 9.2 and platelets 214 Sodium 141 potassium 4.8 chloride 110 bicarb is 26 BUN 39 creatinine 1. 2 2 and calcium 10.1 Pulmonary neurology is on board. 08/01/2021 Patient is currently sitting in the chair. Awake alert and oriented. Continues to have difficulty speech and left facial droop. Patient underwent IR guided biopsy of the axillary lymph node on 07/31/2021. Biopsy report is pending at this time. Otherwise patient is having silent aspiration with swallow study. Discussed with the patient regarding PEG tube placement and he is willing to make decision after the biopsy report and talking to his . In the meantime patient will be started thickened liquids after discussion with the speech pathology service. Patient is being continued on IV hydration with normal saline. Patient has been afebrile. No cough or sputum production. No complaints of chest pain. Patient is also heparin drip which will be transitioned to Coumadin or Eliquis pending PEG tube placement. 08/03/2021 Patient is currently sitting in a chair. Awake alert and oriented. Still having dysarthria and unable to communicate. Otherwise feels very weak. Axillary lymph node biopsy showed positive for poorly differentiated non-small cell lung cancer. Discussed with the patient regarding PEG tube placement and is currently would want to wait until oncology recommendations. Otherwise patient is being current IV hydration with normal saline. Patient Heparin subcu. Will be changed to Eliquis or warfarin once patient is able to tolerate oral diet. Patient was seen by oncology and was ordered. Chest x-ray today showed correlate for congestive heart failure with basilar effusions versus pneumonia/atelectasis. Patient with known Mediastinal and axillary adenopathy. 08/04/2021 Patient is currently in the select care unit. Awake alert and oriented sitting in a chair. Still dysarthric and unable to communicate. Oncology is planning for immunotherapy. Otherwise patient is tolerating thick liquids. IV heparin has been discontinued and patient was started back on warfarin. Patient does state warfarin at home for chronic atrial fibrillation. Patient has not decided regarding PEG tube placement and is awaiting final oncology recommendations. Laboratory showed WBC 4.6 hemoglobin 9.6 and platelets 251 sodium 142 potassium 4.9 chloride 113 BUN 25 and creatinine 1.02 and calcium 10.8 patient is being current on IV hydration. Pulmonary and oncology on board. Current medications reviewed. Objective - Vital Signs Vital signs: Vital Signs Temp 97.6 F 08/05/21 15:14 Pulse 100 08/05/21 20:14 Resp 22 08/05/21 15:14 BP 133/73 08/05/21 15:14 Pulse Ox 96 08/05/21 15:14 Intake & Output 08/05/21 08/05/21 08/06/21 06:59 18:59 06:59 Intake Total 695.893 Output Total 1000 400 Balance -1000 295.893 Intake: Intake, IV Titration 515.893 Amount Heparin Sod,Pork in 0.45% 155.893 NaCl 25,000 unit In 0.45 % NaCl 1 250ml.bag @ 8.7 UNITS/KG/HR 6.482 mls/hr IV .Q24H [facility] Rx#: [id number] Sodium Chloride 0.9% 1, 360 000 ml @ 75 mls/hr IV . [id number] [facility] Rx#:[id number] Oral 180 Output: Urine 1000 400 Uretheral (Livingston) 400 Other: Voiding Method Indwelling Catheter Indwelling Catheter - Exam PHYSICAL EXAMINATION: Patient is lying in the bed comfortably, no acute distress, awake alert and oriented. HEENT: Normocephalic. Neck is supple. Pupils reactive. Nostrils clear. Oral cavity is moist. Neck reveals no JVD, carotid bruits, or thyromegaly. CHEST EXAMINATION: Trachea is central. Symmetrical expansion. Right lower lobe diminished sounds. No wheezing or rhonchi. CARDIAC: Normal S1, S2 with no gallops. No murmurs ABDOMEN: Soft. Bowel sounds normal. No organomegaly. No abdominal bruits. Extremities: reveal no edema. Left lower extremity swelling with calf tenderness. No clubbing or cyanosis Neurologically awake, alert, oriented x3. Patient does have left facial droop and drooling. Dysarthria. Muscle strength 5 out of 5 in all 4 extremities. Skin: No rash or skin lesions. Psychiatric: Cooperative. Nonsuicidal Musculoskeletal: No joint swelling or deformity. Normal range of motion. - Labs CBC & Chem 7: 08/04/21 07:52 08/04/21 07:52 Labs: Abnormal Lab Results - Last 24 Hours (Table) 08/05/21 08/05/21 Range/Units 05:35 11:38 PT 13.3 H (9.0-12.0) sec INR 1.3 H (<1.2) APTT 48.4 H (22.0-30.0) sec POC Glucose (mg/dL) 110 H (75-99) mg/dL Assessment and Plan Assessment: Acute ischemic stroke with multifocal area involvement. Left facial droop and dysarthria secondary to above Left lower extremity extensive acute DVT throughout anterior nasal vessels from the groin to the upper calf. Newly diagnosed poorly differentiated non-small cell lung cancer. Biopsy report on 08/03/2021. Right hilar mass and adenopathy suspicious for malignancy. s/p LN biopsy on 07/31/21 Large right axillary mass or abdominal adenopathy. Hypovolemic hyponatremia Hyperkalemia with potassium 6.2 Chronic kidney disease stage III with creatinine level 2.26 Mild elevated troponin level History of coronary disease with occluded LAD. Medical management was recommended. Ongoing nicotine addiction Hypertension Hyperlipidemia Chronic CHF ejection fraction not known. Paroxysmal atrial fibrillation on anticoagulation with Coumadin INR 1.9 on admission. DVT prophylaxis patient is on heparin drip Plan: Patient was admitted to the hospital acute ischemic infarct as per MRI of the brain. Started on aspirin and lipid profile was ordered. TSH B12 and folate levels WNL. Patient is ss/p axillary lymph node biopsy on 07/31/21. Newly diagnosed poorly dif ferentiated non-small cell lung cancer. Biopsy report on 08/03/2021.. Patient will be continued on heparin drip and monitor hemoglobin closely. Patient failed swallow study and is having silent aspiration with thin liquids. . Continue with IV hydration. Patient was seen by oncology and bone scan was ordered. Prognosis guarded with multiple medical problems and comorbid conditions. Discussed with the patient and his at bedside in detail. Time with Patient: Greater than 30
--- NOTE | 2021-08-05 23:59 | P.PN ---
Subjective Progress Note Date: 08/05/21 Patient is a 76-year-old male with a known history of atrial fibrillation on anticoagulation with Coumadin, chronic CHF, hypertension, hyperlipidemia, history of [place] status post cardiac catheterization occlusion of the LAD, opted for medical therapy and currently everyday smoker presents to ER due to compl aints of left facial droop. According to his patient woke up around 6 AM this morning and was drinking coffee around 7 AM when she noticed he was having drooling from his left side of the mouth. EMS was called and patient was brought to ER. Patient did have dysarthria but denied any difficulty finding words. No blurry vision. Patient has been having difficulty swallowing recently. Denies any weakness in the legs or hands. No numbness or tingling sensation. Apparently patient fell about 2 days ago however denied that he hit his head. No complaints of fever or chills. No nausea vomiting abdominal pain or diarrhea. No chest pain or shortness of breath. Patient was also having increasing left lower extremity swelling and pain for the past 2 days. Patient was recently admitted to the hospital due to shortness of breath, elevated troponin level and acute CHF and was discharged on 07/19/2021. CT head showed tiny 5 mm cortical hypodensity superior left precentral gyrus. A tiny cortical contusion/bleed is difficult to exclude especially the patient is experienced a fall on Coumadin. Otherwise there is moderate patchy burden of chronic small vessel ischemic disease. No other acute intracranial abnormality seen at this time. Due to small area of bleeding patient was not a candidate for TPA and MRI was ordered which showed multifocal ischemic infarcts. Patient was given a dose of aspirin CT angiogram of the head and neck showed patent bilateral carotid and vertebral arteries of the neck. 4.5 mm saccular aneurysm projecting superiorly and medially from the proximal s upraclinoid segment. Stat MRI of the brain showed multifocal areas of acute ischemia predominantly l ikely punctate in appearance. Dominant area measures 1.3 x 0.8 cm right coronal radiata deep frontal white matter adjacent to the ventricular system. Level data showed WBC 9.4 hemoglobin 10.6 MCV 100.1 and platelets 102 INR 1.9 Sodium 131 potassium 6.2 chloride 104 bicarb is 20 BUN 72 and creatinine 2.26 Troponin 0 0.110 and TSH 1.670 Urinalysis is negative for infection EKG showed normal sinus rhythm with no acute ST elevations or depressions. CT chest on 07/19/2021 showed neoplasm strongly suspected. There is marked abnormal thoracic adenopathy throughout the mediastinum. There is abnormal right axillary mass or adenopathy. PET scan was recommended. Mild to moderate size right pleural effusion. Demineralization multiple compression type fractures deformities. 07/28/2021 Patient is currently sitting in the chair. Awake alert and oriented x3. Left facial drooping without any change. No numbness or tingling. No complaints of chest pain or shortness of breath. Patient is able to tolerate nectar thick liquids. Does have hematuria after starting heparin drip which is clearing up now. Patient was seen by pulmonary is recommending IR consult. Laboratory showed WBC 10.6 hemoglobin 9.6 and platelets 128 Sodium 136 potassium 5.9 chloride 107 bicarb is 20 BUN 72 and creatinine 2.13 07/29/2021 Patient is currently sitting in the recliner chair. Left facial droop is still present. Awake alert and oriented x3. Currently requiring oxygen at 4 L via nasal cannula. Hematuria has resolved and urine is clear at this time. Livingston catheter in place. Patient is tolerating thick liquids. Denies any complaints of chest pain or shortness of breath. Left lower extremity pain and swelling is much improved now. Patient is being current on heparin drip due to left lower extremity DVT. Denies any hematemesis or melena. Laboratory data showed WBC 8.4 hemoglobin 8.8 and platelets 146 sodium 138 potassium 4.9 chloride 109 bicarb is 23 BUN 16 creatinine 1.85 Interventional radiology consult for biopsy likely tomorrow. 07/30/21 Patient is currently in the select care unit. Sitting in the chair. Awake alert and oriented. Patient does have left-sided facial droop. Continues to have slurred speech/speech difficulty. [facility] hospital due to acute CVA and also left lower extremity DVT. Patient is scheduled for biopsy of the axillary lymph node and suspicious for lung malignancy. Patient failed swallow study and is currently being continued on IV hydration with normal saline. Patient is on heparin drip due to left lower extremity DVT. Hematuria has resolved. Laboratory data showed WBC 8.4 hemoglobin 8.8 and platelets 189 Sodium 139 potassium 4.9 chloride 111 bicarb is 22 BUN 59 and creatinine 1.39. Pulmonary and neurology is on board. 07/31/2021 Patient is currently sitting in the chair. Awake alert and oriented. Feels weak. Patient is currently nothing by mouth and failed swallow study. Patient is supposed to get IR guided axillary lymph node biopsy yesterday but could not be done. Scheduled for biopsy today. Patient is being continued heparin drip. Patient is unable to take oral intake and does not have silent aspiration with thin liquids.. Coumadin is on hold. Laboratory data showed WBC 6.6 hemoglobin 9.2 and platelets 214 Sodium 141 potassium 4.8 chloride 110 bicarb is 26 BUN 39 creatinine 1. 2 2 and calcium 10.1 Pulmonary neurology is on board. 08/01/2021 Patient is currently sitting in the chair. Awake alert and oriented. Continues to have difficulty speech and left facial droop. Patient underwent IR guided biopsy of the axillary lymph node on 07/31/2021. Biopsy report is pending at this time. Otherwise patient is having silent aspiration with swallow study. Discussed with the patient regarding PEG tube placement and he is willing to make decision after the biopsy report and talking to his . In the meantime patient will be started thickened liquids after discussion with the speech pathology service. Patient is being continued on IV hydration with normal saline. Patient has been afebrile. No cough or sputum production. No complaints of chest pain. Patient is also heparin drip which will be transitioned to Coumadin or Eliquis pending PEG tube placement. 08/03/2021 Patient is currently sitting in a chair. Awake alert and oriented. Still having dysarthria and unable to communicate. Otherwise feels very weak. Axillary lymph node biopsy showed positive for poorly differentiated non-small cell lung cancer. Discussed with the patient regarding PEG tube placement and is currently would want to wait until oncology recommendations. Otherwise patient is being current IV hydration with normal saline. Patient Heparin subcu. Will be changed to Eliquis or warfarin once patient is able to tolerate oral diet. Patient was seen by oncology and was ordered. Chest x-ray today showed correlate for congestive heart failure with basilar effusions versus pneumonia/atelectasis. Patient with known Mediastinal and axillary adenopathy. 08/04/2021 Patient is currently in the select care unit. Awake alert and oriented sitting in a chair. Still dysarthric and unable to communicate. Oncology is planning for immunotherapy. Otherwise patient is tolerating thick liquids. IV heparin has been discontinued and patient was started back on warfarin. Patient does state warfarin at home for chronic atrial fibrillation. Patient has not decided regarding PEG tube placement and is awaiting final oncology recommendations. Laboratory showed WBC 4.6 hemoglobin 9.6 and platelets 251 sodium 142 potassium 4.9 chloride 113 BUN 25 and creatinine 1.02 and calcium 10.8 patient is being current on IV hydration. Pulmonary and oncology on board. 08/05/2021 Patient was admitted to the hospital due to acute CVA with left-sided facial dr oop and also left lower extremity DVT and also found to have lung mass status post biopsy showing non-small cell lung cancer. Patient is currently sitting in a chair. Seems to be more awake and oriented. Requiring 6 L high flow oxygen. Patient's is at bedside. Was able to communicate with him today. Otherwise patient still having difficulty swallowing and having silent aspiration. Patient would like to decide on the PEG tube placement pending final oncology recommendations. Otherwise patient will start back on long-term anticoagulation with Coumadin. Patient has been afebrile. Continued on IV hydration.Bone scan to be done tomorrow. Current medications reviewed. Objective - Vital Signs Vital signs: Vital Signs Temp 97.6 F 08/05/21 15:14 Pulse 100 08/05/21 20:14 Resp 22 08/05/21 15:14 BP 133/73 08/05/21 15:14 Pulse Ox 96 08/05/21 15:14 Intake & Output 08/05/21 08/05/21 08/06/21 06:59 18:59 06:59 Intake Total 695.893 Output Total 1000 400 Balance -1000 295.893 Intake: Intake, IV Titration 515.893 Amount Heparin Sod,Pork in 0.45% 155.893 NaCl 25,000 unit In 0.45 % NaCl 1 250ml.bag @ 8.7 UNITS/KG/HR 6.482 mls/hr IV .Q24H [facility] Rx#: [id number] Sodium Chloride 0.9% 1, 360 000 ml @ 75 mls/hr IV . [id number] [facility] Rx#:[id number] Oral 180 Output: Urine 1000 400 Uretheral (Livingston) 400 Other: Voiding Method Indwelling Catheter Indwelling Catheter - Exam PHYSICAL EXAMINATION: Patient is lying in the bed comfortably, no acute distress, awake alert and oriented. HEENT: Normocephalic. Neck is supple. Pupils reactive. Nostrils clear. Oral cavity is moist. Neck reveals no JVD, carotid bruits, or thyromegaly. CHEST EXAMINATION: Trachea is central. Symmetrical expansion. Right lower lobe diminished sounds. No wheezing or rhonchi. CARDIAC: Normal S1, S2 with no gallops. No murmurs ABDOMEN: Soft. Bowel sounds normal. No organomegaly. No abdominal bruits. Extremities: reveal no edema. Left lower extremity swelling with calf tenderness. No clubbing or cyanosis Neurologically awake, alert, oriented x3. Patient does have left facial droop and drooling. Dysarthria. Muscle strength 5 out of 5 in all 4 extremities. Skin: No rash or skin lesions. Psychiatric: Cooperative. Nonsuicidal Musculoskeletal: No joint swelling or deformity. Normal range of motion. - Labs CBC & Chem 7: 08/04/21 07:52 08/04/21 07:52 Labs: Abnormal Lab Results - Last 24 Hours (Table) 08/05/21 08/05/21 Range/Units 05:35 11:38 PT 13.3 H (9.0-12.0) sec INR 1.3 H (<1.2) APTT 48.4 H (22.0-30.0) sec POC Glucose (mg/dL) 110 H (75-99) mg/dL Assessment and Plan Assessment: Acute ischemic stroke with multifocal area involvement. Left facial droop and dysarthria secondary to above Left lower extremity extensive acute DVT throughout anterior nasal vessels from the groin to the upper calf. Newly diagnosed poorly differentiated non-small cell lung cancer. Biopsy report on 08/03/2021. Right hilar mass and adenopathy suspicious for malignancy. s/p LN biopsy on Large right axillary mass or abdominal adenopathy. Hypovolemic hyponatremia Hyperkalemia with potassium 6.2 Chronic kidney disease stage III with creatinine level 2.26 Mild elevated troponin level History of coronary disease with occluded LAD. Medical management was recommended. Ongoing nicotine addiction Hypertension Hyperlipidemia Chronic CHF ejection fraction not known. Paroxysmal atrial fibrillation on anticoagulation with Coumadin INR 1.9 on admission. DVT prophylaxis patient is on heparin drip Plan: Patient was admitted to the hospital acute ischemic infarct as per MRI of the brain. Started on aspirin and lipid profile was ordered. TSH B12 and folate levels WNL. Patient is ss/p axillary lymph node biopsy on 07/31/21. Newly diagnosed poorly differentiated non-small cell lung cancer. Biopsy report on 08/03/2021.. Patient will be continued on heparin drip and monitor hemoglobin closely. Patient failed swallow study and is having silent aspiration with thin liquids. . Continue with IV hydration. Patient was seen by oncology and bone scan was ordered. Prognosis guarded with multiple medical problems and comorbid conditions. Discussed with the patient and his at bedside in detail. Time with Patient: Greater than 30
[2021-08-06 06:37] LABS: Basophils % (A) 0 %; Eosinophils % (A) 1 %; HCT 30.4 % (39.0-53.0); HGB 9.1 gm/dL (13.0-17.5); Hypochromasia Marked; Lymphocytes # (A) 0.5 k/uL (1.0-4.8); Lymphocytes % (A) 6 %; MCH 32.2 pg (25.0-35.0); MCHC 29.9 g/dL (31.0-37.0); MCV 107.6 fL (80.0-100.0); Macrocytosis Marked; Mean Platelet Volume 9.4; Monocytes # (A) 0.4 k/uL (0-1.0); Monocytes % (A) 5 %; Neutrophils % (A) 86 %; Platelet Count 228 k/uL (150-450); RBC 2.82 m/uL (4.30-5.90); RDW 15.7 % (11.5-15.5); WBC 8.1 k/uL (3.8-10.6)
[2021-08-06 06:41] LABS: INR 1.7 (<1.2); Prothrombin Time 17.3 sec (9.0-12.0)
[2021-08-06 06:45] LABS: Calcium 10.8 mg/dL (8.4-10.2); Potassium 4.4 mmol/L (3.5-5.1)
[2021-08-06] MEDS: BUDESONIDE 1 MG/2 ML NEBU INHALATION SCH ×2 (08:41→20:22)
[2021-08-06] MEDS: IPRATROPIUM-ALBUTEROL 3 ML NEB INHALATION SCH ×5 (08:41→20:22)
[2021-08-06] MEDS: HYDROmorphone 1 MG/ML 1 ML SYRINGE IVP PRN (10:46)
--- NOTE | 2021-08-06 11:01 | P.PN ---
Subjective Progress Note Date: 08/06/21 Principal diagnosis: New Diagnosis non-small cell lung cancer In follow-up today patient's is at the bedside, patient is on Ventimask, his voice is weak, he feels weak. Objective - Vital Signs Vital signs: Vital Signs Temp 97.0 F L 08/06/21 08:45 Pulse 111 H 08/06/21 08:45 Resp 28 H 08/06/21 08:45 BP 138/80 08/06/21 08:45 Pulse Ox 96 08/06/21 08:45 Intake & Output 08/05/21 08/06/21 08/06/21 18:59 06:59 18:59 Intake Total 695.893 360 140 Output Total 400 500 Balance 295.893 -140 140 Intake: Intake, IV Titration 515.893 240 Amount Heparin Sod,Pork in 0.45% 155.893 NaCl 25,000 unit In 0.45 % NaCl 1 250ml.bag @ 8.7 UNITS/KG/HR 6.482 mls/hr IV .Q24H [facility] Rx#: [id number] Sodium Chloride 0.9% 1, 360 240 000 ml @ 75 mls/hr IV . [id number] [facility] Rx#:[id number] Oral 180 120 140 Output: Urine 400 500 Uretheral (Living[place]) 400 200 Other: Voiding Method Indwelling Catheter Indwelling Catheter Indwelling Catheter - Constitutional General appearance: Present: average body habitus, cooperative, mild distress - EENT Eyes: Present: anicteric sclerae, EOMI ENT: Present: hearing grossly normal - Musculoskeletal Musculoskeletal: Present: generalized weakness - Psychiatric Psychiatric: Present: A&O x's 3, appropriate affect, intact judgment & insight - Labs CBC & Chem 7: 08/06/21 05:22 08/06/21 05:22 Labs: Abnormal Lab Results - Last 24 Hours (Table) 08/05/21 08/06/21 08/06/21 Range/Units 11:38 05:22 05:22 RBC 2.82 L (4.30-5.90) m/uL Hgb 9.1 L (13.0-17.5) gm/dL Hct 30.4 L (39.0-53.0) % MCV 107.6 H (80.0-100.0) fL MCHC 29.9 L (31.0-37.0) g/dL RDW 15.7 H (11.5-15.5) % Lymphocytes # 0.5 L (1.0-4.8) k/uL Macrocytosis Marked A PT 17.3 H (9.0-12.0) sec INR 1.7 H (<1.2) Chloride (98-107) mmol/L BUN (9-20) mg/dL POC Glucose (mg/dL) 110 H (75-99) mg/dL Calcium (8.4-10.2) mg/dL 08/06/21 Range/Units 05:22 RBC (4.30-5.90) m/uL Hgb (13.0-17.5) gm/dL Hct (39.0-53.0) % MCV (80.0-100.0) fL MCHC (31.0-37.0) g/dL RDW (11.5-15.5) % Lymphocytes # (1.0-4.8) k/uL Macrocytosis PT (9.0-12.0) sec INR (<1.2) Chloride 111 H (98-107) mmol/L BUN 22 H (9-20) mg/dL POC Glucose (mg/dL) (75-99) mg/dL Calcium 10.8 H (8.4-10.2) mg/dL Assessment and Plan (1) Non-small cell cancer of right lung Narrative/Plan: New diagnosis. Suspect squamous cell subtype. MRI of the brain negative for metastasis, this was discussed with the patient and his . Currently patient is pending nuclear medicine bone scan. Plans for PET scan and next generation sequencing which will need to be done outpatient. Patient has a performance status of 2/3 right now. In his current condition he would not be a good candidate for active treatment. When I asked the patient about participating in rehabilitation, which is absolutely reasonable, he said it depended on how the rest of his workup turned out. I believe that is reasonable for the patient and to complete the workup and make decisions based on that. Current Visit: Yes Status: Acute Priority: High Code(s): C34.91 - MALIGN ANT NEOPLASM OF UNSP PART OF RIGHT BRONCHUS OR LUNG SNOMED Code(s): 824856935 (2) Hypercalcemia Narrative/Plan: Discussed case with Pharm.D. Patient did not receive a dose of pamidronate. 30 mg of Aredia ordered for hypercalcemia of malignancy. Calcium consistently 10.8. Check calcium in the a.m. after dosing. Current Visit: Yes Status: Acute Priority: High Code(s): E83.52 - HYPERCALCEMIA SNOMED Code(s): 45272253 Plan: Pending completion of workup. Dr. Singh did not feel that the patient has a heavy burden of disease and that participating in rehabilitation is very reasonable. It will be beneficial for patient's performance status to improve if he does decide to pursue any active treatment.
[2021-08-06] MEDS ORDERED: SODIUM CHLORIDE 0.9% 250 ML with PAMIDRONATE 30 MG IV ONE ×2 (12:00)
--- NOTE | 2021-08-06 12:46 | NM ---
EXAMINATION TYPE: NM bone scan whole body DATE OF EXAM: 08/06/2021 COMPARISON: NONE HISTORY: Hypercalcemia Delayed whole-body scanning was performed following the injection of 23 mCi Tc 99m MDP. Images acqui red 3.5 hours post injection. FINDINGS: Intense abnormal uptake T12. Faint abnormal uptake involving the shoulders likely arthritic. Photopen ic defect involving the right knee could be related to prior surgery. Faint abnormal uptake involving the proximal left humerus. IMPRESSION: 1. Abnormal uptake T12 for which x-ray correlation is suggested. Metastases in the differential diagn osis. 2. Faint abnormal uptake proximal left humerus x-ray correlation is recommended to assess for metasta ses.
--- NOTE | 2021-08-06 12:47 | XR ---
EXAMINATION TYPE: XR chest 1V DATE OF EXAM: 08/06/2021 COMPARISON: 08/03/2021 HISTORY: Respiratory distress TECHNIQUE: Single frontal view of the chest is obtained. FINDINGS: Bilateral lower lobe infiltrate and pleural effusion with diffuse interstitial pattern. He art size enlarged. No pneumothorax. Hypertrophic and degenerative changes of the spine. IMPRESSION: Bilateral infiltrate and pleural effusion stable.
[2021-08-06] MEDS: methylPREDNISolone SOD SUCCI 125 MG/2 ML VIAL IV SCH ×2 (13:41→20:20)
--- NOTE | 2021-08-06 17:16 | P.PN ---
Subjective Progress Note Date: 08/06/21 Principal diagnosis: shortness of breath This is a pleasant 76-year-old gentleman with a known history of atrial fibrillation, anticoagulated with warfarin, coronary artery disease, hyperlipidemia, hypertension, chronic obstructive pulmonary disease with chronic and ongoing tobacco dependence. He was recently discharged from here 1 week ago for an episode of congestive heart failure. In the hospitalization a CT of the chest was done which showed neoplasm strongly suspected with markedly abnormal thoracic adenopathy throughout the mediastinum along with abnormal right ax illary mass and adenopathy. The patient at that time had been quite adamant about going home and requested to be discharged which she was on 07/19/2021. He was scheduled to see Dr. Manuel on 08/02/2021 as a new patient. He came into the emergency room yesterday after waking up at 6:00 in the morning with a notable left-sided facial droop. A code stroke was called and he was evaluated by neurology. CT of the neck revealed patent bilateral carotid and vertebral arteries. Known abnormal mediastinal lymphadenopathy which warrant further investigation from a CAT scan of 07/19/2021. Continued moderate layering right pleural effusion. COPD. Patchy groundglass right greater than left visualized the upper lungs. The head revealed no large vessel intracranial arterial occlusion or significant stenosis. There is a 4.5 mm saccular aneurysm projecting superiorly and medially from the proximal supraclinoid segment left ICA. A tiny 2 mm aneurysm projecting anteriorly from the left MCA bifurcation. MRI of the brain revealed multifocal areas of acute ischemia predominantly lacunar and punctate in appearance. Dominant area measures 1.3 x 0.8 cm in the right coronal radiata deep frontal white matter adjacent to the ventricular system. Background mild to moderate diffuse cerebral atrophy and moderate to advanced chronic small vessel ischemic changes. Dopplers of the lower extremity revealed an extensive DVT throughout the entire imaged vessels from groin to upper calf and the left leg. Noted left inguinal mass likely a pathologic lymph node measuring up to 5.9 x 5.4 x 2.8 cm. The patient is seen today in consultation on the selective care unit. He is currently sitting up in the bedside. Noted left-sided facial droop. Difficulty in speaking. White count 10.5. Hemoglobin 10.3. Platelets 148. Sodium 136. Potassium 6.2. Bicarb 21. BUN 71. Creatinine 2.22. INR 1.9. He's been initiated on a heparin drip. The patient is seen today 07/29/2021 in follow-up on the selective care unit. He is currently sitting up at the bedside. Awake and alert in no acute distre ss. His maintaining O2 saturation in the low to mid 90s on 4 L/m per nasal cannula. She's been afebrile. Hemodynamically stable. White count 8.5. Hemoglobin 8.8. MCV 103.2. Platelets 146. Sodium 138. Potassium 4.9. Creatinine 1.85. BUN 63. Glucose 119. He remains on a heparin drip Weight- based protocol. No worsening shortness of breath, cough or congestion. No hemoptysis. On today's evaluation 07/30/2021, the patient is hard to communicate with special that he has had previous history of stroke. We'll consult on this patient because of abnormal lymphadenopathy involving the patient's thorax. At the same time, the patient was found to have a very large right axillary lymphad enopathy/mass and the plan is to proceed with a biopsy of the lymph nodes/mastoiditis to establish diagnosis. There is a high lactate for malignancy at this point in time. Noted the patient has multiple medical problems and comorbidities. The patient has COPD, mediastinal lymphadenopathy which is quite extensive, previous history of CVA, difficulty with mobility and gait secondary to CVA, and the patient continues to have issues with left-sided facial droop and difficulties with speech. At the same time, the patient was found to have a DVT of the lower extremity based on Doppler was done on 07/27/2021 where the patient was found to have positive DVT involving the left leg and this was a quite extensive extended from the groin to the upper calf vessels. He is currently nothing by mouth awaiting the biopsy. White echo today point I would hemoglobin 8.8. No significant lymphocytosis and a platelet count is at 189. PTT is at 71.6 from today. Creatinine is at 1.3 and the patient is recovering from acute kidney injury with a BUN of 50 to and the rest of the electrodes are all within normal limits. On 07/31/2021, the patient is being seen for a follow-up. The procedure was not performed yesterday and the patient is scheduled to undergo the procedure today at around 10 AM. The patient was taken off aspirin. The patient was also taken off IV heparin. The procedure would include a axillary lymph nodes fine-needle aspirate. The patient meanwhile underwent a swallow evaluation that showed trace silent aspiration with thin liquids. There was also presentation with other consistencies and trace silent aspiration of residuals. There was a delayed swallow. No respiratory distress. White cell count of 6.6 with a hemoglobin of 9.2. Sodium is at 141. BUN is at 39 with a creatinine of 1.22. Calcium level is at 10.1. He seems to quite debilitated. He is known to have multiple comorbidities including chronic atrial fibrillation and the patient is currently off warfarin. Most recent INR is down to 1.1. The patient is also known to have COPD, hyperlipidemia, hypertension and COPD. Is a chronic smoker. 08/01/2021, the patient is postop fine-needle aspiration. The patient remains nothing by mouth. The patient is being considered for PEG tube insertion. The patient is sitting up on a chair. The patient's, comfortable. He remains on IV heparin. Denies having any rest of distress. The patient remains on IV fluids with normal saline at the rate of 75 mL an hour. The patient is also on 3 L of oxygen by nasal cannula with pulse ox of 94%. No cough. No sputum production. No chest tightness. No wheezing. He is known to have COPD and is a chronic smoker. He also has history of chronic atrial fibrillation, hyperlipidemia and extensive mediastinal lymphadenopathy as discussed above. 08/02/2021, the patient is still awaiting the final results of the fine-needle aspirate of the lymph node. High suspicion for malignancy. It final decision the PEG tube insertion has not been done yet. Meanwhile, the patient is stable. No respiratory distress. He remains on oxygen 3 L. Receiving IV fluids with normal saline today to 75 mL an hour and the patient is receiving pleasure feeds. The patient has a white cell count of 9 with a hemoglobin above 9 and a platelet count of 216. The patient is back on IV heparin with a therapeutic PTT. Creatinine is at 29 with a creatinine of 1.02 and the sodium level is at 142. Calcium level is at 10.2. 08/03/2021 patient is being seen for a follow-up. Patient is essentially the same condition. Quite debilitated. Unable to swallow properly. He seems to have decided against undergoing a PEG tube insertion. Meanwhile, the biopsy of the lymph node came back positive for poorly differentiated non-small cell lung cancer. As such, the presentation is typical of a metastatic non-small cell lung cancer. The patient also has a small right-sided pleural effusion. He remains oxygen dependent. He remains on IV heparin. He is weak. He is receiving IV fluids at the rate of 75 mL's an hour. Livingston catheter in place. Based on performance and functional status is poor. He is known to have COPD and addition to coronary artery disease and hyperlipidemia and chronic atrial fibrillation the patient was taken anticoagulation with a Coumadin on outpatient basis. Note that the patient has also developed a DVT and there is involving the left lower extremity. The patient also has left inguinal masses pathologic measuring his largest 5.9 cm in size consistent with metastatic cancer. The patient has no altered mentation. 08/04/2021, the patient is stable. No changes condition. Still considering hospice care versus treatment. Had a conversation with oncology and he was offered next generation genetic sequencing regarding any possible immunotherapy targeted therapy regarding his metastatic non-small cell lung cancer. No new complaints. He remains on IV heparin. I think he should be gradually transition to oral warfarin as the patient has been taken anticoagulation on outpatient basis. Performance status remains poor. Livingston catheter is in place. He is known to have COPD, CAD, hyperlipidemia and chronic atrial fibrillation. The patient also had DVT of the left lower extremity. White cell count today is at 4.6 with a hemoglobin 0.6 and platelet up to 51. Normal BUN and creatinine. PTT is therapeutic at 61. 08/05/2021, patient's condition is unchanged. Continues to have difficulties in swallowing and based on the nursing report, the patient is having probably some silent aspiration. No final decision on PEG tube feeding. Family wanted to meet with oncology for further advice. Remains on IV heparin. Warfarin was started for long-term and to coagulation. Patient to be given 5 mg Coumadin today. The patient is on 7 L of oxygen by nasal cannula. Note that his oxygenation got worse overnight and the patient was placed on 15 L of oxygen by nasal cannula and his the process of weaning down to 7 L On 08/06/2021 patient seen in follow-up on selective care unit, he is currently on 100% nonrebreather mask, he is awake and alert, he sitting up in the recl iner, he remains on heparin infusion because of possibility of PEG tube placement. There has been no further decision on the PEG tube placement, last week patient medically her that he wanted no PEG tube placement and he wanted to go home and be made comfortable. However over the weekend this decision has been reversed, and they're currently considering possible targeted immunotherapy, medical oncology is following. In the meantime patient still wants no part of a PEG tube placement, he continues on oral feedings and patient was found to be silent aspirator and remains a high risk for aspiration related pulmonary complications. His chest x-ray today showed bilateral lower lobe infiltrates and pleural effusion with diffuse interstitial pattern no pneumothorax. Patient currently remains on IV Solu-Medrol 80 mg every 8 hours, he is been receiving Pamidronate for elevated calcium level of 10.3, ionized calcium was 6.1. His nuclear bone scan showed abnormal uptake at T12 and metastasis was in the differential diagnosis, there was also faint abnormal uptake in the proximal left humerus. Patient's is not at the bedside. Patient appears to be very dyspneic especially due to the fact that he has been removing his oxygen frequently. He is able to make his needs known, he still does not want a PEG tube. Objective - Vital Signs Vital signs: Vital Signs Temp 98.1 F 08/06/21 16:06 Pulse 113 H 08/06/21 16:06 Resp 28 H 08/06/21 16:06 BP 124/72 08/06/21 16:06 Pulse Ox 90 L 08/06/21 16:06 Intake & Output 08/05/21 08/06/21 08/06/21 18:59 06:59 18:59 Intake Total 695.893 360 240 Output Total 400 500 Balance 295.893 -140 240 Intake: Intake, IV Titration 515.893 240 Amount Heparin Sod,Pork in 0.45% 155.893 NaCl 25,000 unit In 0.45 % NaCl 1 250ml.bag @ 8.7 UNITS/KG/HR 6.482 mls/hr IV .Q24H [facility] Rx#: [id number] Sodium Chloride 0.9% 1, 360 240 000 ml @ 75 mls/hr IV . [id number] [facility] Rx#:[id number] Oral 180 120 240 Output: Urine 400 500 Uretheral (Livingston) 400 200 Other: Voiding Method Indwelling Catheter Indwelling Catheter Indwelling Catheter - Exam GENERAL EXAM: Alert, dyspneic, 76-year-old white male, with left-sided facial d monica, and a speech impairment due to recent history of a stroke, currently has his nonrebreather mask off, patient appears to be quite dyspneic, nonrebreather mask was reapplied comfortable in no apparent distress. HEAD: Normocephalic/atraumatic. EYES: Normal reaction of pupils, equal size. Conjunctiva pink, sclera white. NOSE: Clear with pink turbinates. THROAT: No erythema or exudates. NECK: No masses, no JVD, no thyroid enlargement, no adenopathy. CHEST: No chest wall deformity. Symmetrical expansion. LUNGS: Equal air entry with dim breath sounds to the bases CVS: Regular rate and rhythm, normal S1 and S2, no gallops, no murmurs, no rubs ABDOMEN: Soft, nontender. No hepatosplenomegaly, normal bowel sounds, no guarding or rigidity. EXTREMITIES: No clubbing, no edema, no cyanosis, 2+ pulses and upper and lower extremities. MUSCULOSKELETAL: Muscle strength and tone normal. SPINE: No scoliosis or deformity SKIN: No rashes CENTRAL NERVOUS SYSTEM: Alert and oriented -3. Left-sided facial weakness PSYCHIATRIC: Alert and oriented -3. Appropriate affect. Intact judgment and insight. - Labs CBC & Chem 7: 08/06/21 05:22 08/06/21 05:22 Labs: Abnormal Lab Results - Last 24 Hours (Table) 08/06/21 08/06/21 08/06/21 Range/Units 05:22 05:22 05:22 RBC 2.82 L (4.30-5.90) m/uL Hgb 9.1 L (13.0-17.5) gm/dL Hct 30.4 L (39.0-53.0) % MCV 107.6 H (80.0-100.0) fL MCHC 29.9 L (31.0-37.0) g/dL RDW 15.7 H (11.5-15.5) % Lymphocytes # 0.5 L (1.0-4.8) k/uL Macrocytosis Marked A PT 17.3 H (9.0-12.0) sec INR 1.7 H (<1.2) Chloride 111 H (98-107) mmol/L BUN 22 H (9-20) mg/dL Calcium 10.8 H (8.4-10.2) mg/dL Assessment and Plan Plan: Assessment: #1. Acute ischemic stroke, with secondary left facial droop, multifocal involvement and bilateral hemispheric regions most likely embolic in nature. Clinically unchanged. No altered mentation. Patient continues to have difficulty with swallowing. Declined to undergo PEG tube insertion. Neuro workup is completed. Computed tomography scan of the brain revealed no large vessel intracranial arterial occlusion or significant stenosis. There is a 4.5 mm saccular aneurysm projecting superiorly and medially from the proximal supr aclinoid segment left ICA. A tiny 2 mm aneurysm projecting anteriorly from the left MCA bifurcation. MRI of the brain revealed multifocal areas of acute ischemia predominantly lacunar and punctate in appearance. Dominant area measures 1.3 x 0.8 cm in the right coronal radiata deep frontal white matter adjacent to the ventricular system. Background mild to moderate diffuse cerebral atrophy and moderate to advanced chronic small vessel ischemic changes. Currently on a heparin drip. No new onset focal neurological deficits. Left facial droop is still present. No interval progression or changes in his neurologic functions. The patient continues to have difficulties with dysphagia. #2. metastatic poorly differentiated non-small cell lung cancer. The patient has extensive thoracic lymphadenopathy in addition to right axillary lymphadenopathy high suspicion for malignancy and a fine-needle aspirate was done and the final pathology is pending. The patient also has a component of m ild hypercalcemia #3. DVT of the left lower extremity. The opplers of the lower extremity revealed an extensive DVT throughout the entire imaged vessels from groin to upper calf and the left leg. Noted left inguinal mass likely a pathologic lymph node measuring up to 5.9 x 5.4 x 2.8 cm. the patient is currently on IV heparin #4. Chronic and ongoing tobacco dependence of greater than 50 years #5. History of atrial fibrillation, anticoagulated with warfarin, currently on IV heparin. #6. History of coronary disease #7. Hypertension #8. Hyperlipidemia #9. Chronic obstructive pulmonary disease #10. dysphagia, currently nothing by mouth. Plan: There has been no further decision made about the PEG tube placement and the patient again made it clear that he does not want PEG tube placed He is high risk for aspiration Today's chest x-ray has been reviewed showing bibasilar pleural effusions Patient is currently requiring percent nonrebreather mask The patient's is considering pursuing treatment with targeted immunotherapy Overall patient's clinical condition is at high risk for further deterioration Continue current medical treatment Pulmonary service strongly recommends hospice, as the patient was originally considering In case of worsening dyspnea, and worsening pleural effusions, may have to have IR do thoracentesis At this time pulmonary service will sign off I performed a history & physical examination of the patient and discussed their management with my nurse practitioner, Becky White. I reviewed the nurse practitioner's note and agree with the documented findings and plan of care. Lung sounds are positive for dim breath sounds throughout the lung watkins. The findings and the impression was discussed with the patient. I attest to the documentation by the nurse practitioner. Time with Patient: Less than 30
[2021-08-06] MEDS: HEPARIN SOD,PORK IN 0.45% NACL 25,000 UNIT in 0.45% NACL 1 250ML.BAG IV SCH (17:43)
[2021-08-06] MEDS: WARFARIN 5 MG TAB PO ONE (17:48)
[2021-08-06] MEDS ORDERED: WARFARIN 5 MG TAB PO ONE ×2 (18:00)
--- NOTE | 2021-08-06 19:59 | P.PN ---
Subjective Patient is a 76-year-old male with a known history of atrial fibrillation on anticoagulation with Coumadin, chronic CHF, hypertension, hyperlipidemia, history of CO status post cardiac catheterization occlusion of the LAD, opted for medical therapy and currently everyday smoker presents to ER due to complaints of left facial droop. According to his patient woke up around 6 AM this morning and was drinking coffee around 7 AM when she noticed he was having drooling from his left side of the mouth. EMS was called and patient was brought to ER. Patient did have dysarthria but denied any difficulty finding words. No blurry vision. Patient has been having difficulty swallowing recently. Denies any weakness in the legs or hands. No numbness or tingling sensation. Apparently patient fell about 2 days ago however denied that he hit his head. No complaints of fever or chills. No nausea vomiting abdominal pain or diarrhea. No chest pain or shortness of breath. Patient was also having increasing left lower extremity swelling and pain for the past 2 days. Patient was recently admitted to the hospital due to shortness of breath, elevated troponin level and acute CHF and was discharged on 07/19/2021. CT head showed tiny 5 mm cortical hypodensity superior left precentral gyrus. A tiny cortical contusion/bleed is difficult to exclude especially the patient is experienced a fall on Coumadin. Otherwise there is moderate patchy burden of chronic small vessel ischemic disease. No other acute intracranial abnormality seen at this time. Due to small area of bleeding patient was not a candidate for TPA and MRI was ordered which showed multifocal ischemic infarcts. Patient was given a dose of aspirin CT angiogram of the head and neck showed patent bilateral carotid and vertebral arteries of the neck. 4.5 mm saccular aneurysm projecting superiorly and medially from the proximal supraclinoid segment. Stat MRI of the brain showed multifocal areas of acute ischemia predominantly likely punctate in appearance. Dominant area measures 1.3 x 0.8 cm right coronal radiata deep frontal white matter adjacent to the ventricular system. Level data showed WBC 9.4 hemoglobin 10.6 MCV 100.1 and platelets 102 INR 1.9 Sodium 131 potassium 6.2 chloride 104 bicarb is 20 BUN 72 and creatinine 2.26 Troponin 0 0.110 and TSH 1.670 Urinalysis is negative for infection EKG showed normal sinus rhythm with no acute ST elevations or depressions. CT chest on 07/19/2021 showed neoplasm strongly suspected. There is marked abnormal thoracic adenopathy throughout the mediastinum. There is abnormal right axillary mass or adenopathy. PET scan was recommended. Mild to moderate size right pleural effusion. Demineralization multiple compression type fractures deformities. 07/28/2021 Patient is currently sitting in the chair. Awake alert and oriented x3. Left facial drooping without any change. No numbness or tingling. No complaints of chest pain or shortness of breath. Patient is able to tolerate nectar thick liquids. Does have hematuria after starting heparin drip which is clearing up now. Patient was seen by pulmonary is recommending IR consult. Laboratory showed WBC 10.6 hemoglobin 9.6 and platelets 128 Sodium 136 potassium 5.9 chloride 107 bicarb is 20 BUN 72 and creatinine 2.13 08/01/2021 Patient is currently sitting in the chair. Awake alert and oriented. Continues to have difficulty speech and left facial droop. Patient underwent IR guided biopsy of the axillary lymph node on 07/31/2021. Biopsy report is pending at this time. Otherwise patient is having silent aspiration with swallow study. Discussed with the patient regarding PEG tube placement and he is willing to make decision after the biopsy report and talking to his . In the meantime patient will be started thickened liquids after discussion with the speech pathology service. Patient is being continued on IV hydration with normal saline. Patient has been afebrile. No cough or sputum production. No complaints of chest pain. Patient is also heparin drip which will be transitioned to Coumadin or Eliquis pending PEG tube placement. 08/03/2021 Patient is currently sitting in a chair. Awake alert and oriented. Still having dysarthria and unable to communicate. Otherwise feels very weak. Axillary lymph node biopsy showed positive for poorly differentiated non-small cell lung cancer. Discussed with the patient regarding PEG tube placement and is currently would want to wait until oncology recommendations. Otherwise patient is being current IV hydration with normal saline. Patient Heparin subcu. Will be changed to Eliquis or warfarin once patient is able to tolerate oral diet. Patient was seen by oncology and was ordered. Chest x-ray today showed correlate for congestive heart failure with basilar effusions versus pneumonia/atelectasis. Patient with known Mediastinal and axillary adenopathy. 08/04/2021 Patient is currently in the select care unit. Awake alert and oriented sitting in a chair. Still dysarthric and unable to communicate. Oncology is planning for immunotherapy. Otherwise patient is tolerating thick liquids. IV heparin has been discontinued and patient was started back on warfarin. Patient does state warfarin at home for chronic atrial fibrillation. Patient has not decided regarding PEG tube placement and is awaiting final oncology recommendations. Laboratory showed WBC 4.[address] atelets 251 sodium 142 potassium 4.9 chloride 113 BUN 25 and creatinine 1.02 and calcium 10.8 patient is being current on IV hydration. Pulmonary and oncology on board. 08/05/2021 Patient was admitted to the hospital due to acute CVA with left-sided facial droop and also left lower extremity DVT and also found to have lung mass status post biopsy showing non-small cell lung cancer. Patient is currently sitting in a chair. Seems to be more awake and oriented. Requiring 6 L high flow oxygen. Patient's is at bedside. Was able to communicate with him today. Otherwise patient still having difficulty swallowing and having silent aspiration. Patient would like to decide on the PEG tube placement pending final oncology recommendations. Otherwise patient will start back on long-term anticoagulation with Coumadin. Patient has been afebrile. Continued on IV hydration.Bone scan to be done tomorrow. 08/06/2021 Patient remains very dyspneic and short of breath today, his very weak secondary to his respiratory compromise which is most likely related to his metastatic non-small lung cancer with mediastinal and axillary lymphadenopathy, his cancer is a stage IV and oncology team recommended PET scan which is pending. Hospice as recommended by pulmonary team however family and patient wants to pursue therapy for now. He has increased oxygen requirements today up to 15 L/m, he remains on heparin drip with INR subtherapeutic at 1.7 for his A. fib. Certainly Medrol 40 mg every 8 hours was added. Also is on gentle hydration. IV fluids were stopped today. Ultrasound of the neck showing left leg DVT, also he has left groin mass of 5.9 x 2.8 x 5.4 cm secondary to lymphadenopathy. Prognosis is very poor Objective - Vital Signs Vital signs: Vital Signs Temp 97.1 F L 08/06/21 12:12 Pulse 100 08/06/21 12:44 Resp 24 08/06/21 12:12 BP 151/74 08/06/21 12:12 Pulse Ox 100 08/06/21 12:12 Intake & Output 08/05/21 08/06/21 08/06/21 18:59 06:59 18:59 Intake Total 695.893 360 240 Output Total 400 500 Balance 295.893 -140 240 Intake: Intake, IV Titration 515.893 240 Amount Heparin Sod,Pork in 0.45% 155.893 NaCl 25,000 unit In 0.45 % NaCl 1 250ml.bag @ 8.7 UNITS/KG/HR 6.482 mls/hr IV .Q24H [facility] Rx#: [id number] Sodium Chloride 0.9% 1, 360 240 000 ml @ 75 mls/hr IV . [id number] [facility] Rx#:[id number] Oral 180 120 240 Output: Urine 400 500 Uretheral ([place]) 400 200 Other: Voiding Method Indwelling Catheter Indwelling Catheter Indwelling Catheter - Exam -GENERAL: The patient is alert and oriented x3, not in any acute distress. Obese. Generally weak HEENT: Pupils are round and equally reacting to light. EOMI. No scleral icterus. No conjunctival pallor. Normocephalic, atraumatic. No pharyngeal erythema. No thyromegaly. CARDIOVASCULAR: S1 and S2 present. No murmurs, rubs, or gallops. -PULMONARY: Chest is clear to auscultation, decreased air entry on both sides of the lungs. With scattered wheezing. Patient is tachypneic has difficulty talking secondary to his SOB ABDOMEN: Soft, nontender, nondistended, normoactive bowel sounds. No palpable organomegaly. MUSCULOSKELETAL: No joint swelling or deformity. EXTREMITIES: No cyanosis, clubbing, or pedal edema. NEUROLOGICAL: Gross neurological examination did not reveal any focal deficits. SKIN: No rashes. no petechiae. - Labs CBC & Chem 7: 08/06/21 05:22 08/06/21 05:22 Labs: Abnormal Lab Results - Last 24 Hours (Table) 08/06/21 08/06/21 08/06/21 Range/Units 05: 05: 05:22 RBC 2.82 L (4.30-5.90) m/uL Hgb 9.1 L (13.0-17.5) gm/dL Hct 30.4 L (39.0-53.0) % MCV 107.6 H (80.0-100.0) fL MCHC 29.9 L (31.0-37.0) g/dL RDW 15.7 H (11.5-15.5) % Lymphocytes # 0.5 L (1.0-4.8) k/uL Macrocytosis Marked A PT 17.3 H (9.0-12.0) sec INR 1.7 H (<1.2) Chloride 111 H (98-107) mmol/L BUN 22 H (9-20) mg/dL Calcium 10.8 H (8.4-10.2) mg/dL Assessment and Plan Assessment: Acute hypoxic respiratory failure secondary to his lung cancer, acute COPD exacerbation Acute ischemic stroke with multifocal area involvement. Left facial droop and dysarthria secondary to above Acute COPD exacerbation Left lower extremity extensive acute DVT throughout anterior nasal vessels from the groin to the upper calf. Newly diagnosed poorly differentiated non-small cell lung cancer. Biopsy report on 08/03/2021. Right hilar mass and adenopathy suspicious for malignancy. s/p LN biopsy on 07/31/21 Large right axillary mass or abdominal adenopathy. Hypovolemic hyponatremia Hyperkalemia with potassium 6.2 Chronic kidney disease stage III with creatinine level 2.26 Mild elevated troponin level History of coronary disease with occluded LAD. Medical management was r ecommended. Ongoing nicotine addiction Hypertension Hyperlipidemia Chronic CHF ejection fraction not known. Paroxysmal atrial fibrillation on anticoagulation with Coumadin INR 1.9 on admission. DVT prophylaxis patient is on heparin drip Plan: Patient was admitted to the hospital acute ischemic infarct as per MRI of the brain. Also has DVT and respiratory failure secondary to lung cancer and COPD Continue salmeterol. Stop IV fluids. Continue with heparin drip and warfarin until therapeutic INR. Oncology team on the case and the recommend PET scan which is pending Pulmonary team signed off the case. Labs and medication were reviewed.. Continue same treatment. Continue with symptomatic treatment. Resume home medication. Monitor lytes and vitals. DVT and GI prophylaxis. Further recommendationsas per clinical course of the patient DVT prophylaxis: heparin GI Prophylaxis: Pepcid Prognosis is guarded
[2021-08-06] MEDS: FAMOTIDINE 20 MG/2 ML VIAL IV SCH (20:20)
[2021-08-06] MEDS: ATORVASTATIN 40 MG TAB PO SCH (20:21)
[2021-08-07] MEDS: methylPREDNISolone SOD SUCCI 125 MG/2 ML VIAL IV SCH ×2 (05:23→14:01)
[2021-08-07 07:41] LABS: Albumin 3.7 g/dL (3.5-5.0); Calcium 11.2 mg/dL (8.4-10.2); Potassium 5.2 mmol/L (3.5-5.1); Total Protein 7.7 g/dL (6.3-8.2)
[2021-08-07] MEDS: IPRATROPIUM-ALBUTEROL 3 ML NEB INHALATION SCH ×4 (07:53→19:42)
[2021-08-07] MEDS: BUDESONIDE 1 MG/2 ML NEBU INHALATION SCH ×2 (07:53→19:42)
[2021-08-07 08:07] LABS: INR 2.3 (<1.2); Prothrombin Time 23.3 sec (9.0-12.0)
[2021-08-07] MEDS ORDERED: SODIUM CHLORIDE 0.9% 250 ML with PAMIDRONATE 30 MG IV ONE ×2 (10:00)
[2021-08-07] MEDS: FAMOTIDINE 20 MG/2 ML VIAL IV SCH (12:44)
[2021-08-07] MEDS ORDERED: HEPARIN SOD,PORK IN 0.45% NACL 25,000 UNIT in 0.45% NACL 1 250ML.BAG IV SCH (13:00)
--- NOTE | 2021-08-07 14:38 | P.GSCN ---
History of Present Illness Consult date: 08/07/21 History of present illness: CHIEF COMPLAINT: Stroke symptoms Reason for consult PEG tube placement HISTORY OF PRESENT ILLNESS: This is a 76-year-old male who presented to the ER on 07/27/2021 with left facial droop. He was found have evidence of an ischemic stroke. Also newly diagnosed with non-small cell lung cancer with metastatic disease. Also a new left lower extremity DVT. Patient is currently on IV heparin and Coumadin as well as has a history of atrial fibrillation. Patient followed by pulmonary service and oncology service. Patient was found to be at risk for aspiration as noted by his MBS. He has been having difficulty with his swallowing. Surgical service was consulted for PEG tube placement. Patient is currently on 15 L nonrebreather satting at 90%. Patient and like to proceed with PEG tube placement. PAST MEDICAL HISTORY: Atrial Fibrillation, Coronary Artery Disease (CAD), Heart Failure, COPD, Hyperlipidemia, Hypertension, Myocardial Infarction ([place]) PAST SURGICAL HISTORY: Hernia repair, orthopedic surgery MEDICATIONS: See list. ALLERGIES: See list. SOCIAL HISTORY: No illicit drug use. Positive smoker REVIEW OF SYSTEMS: CONSTITUTIONAL: Denies fever or chills. HEENT: Denies blurred vision, vision changes, or eye pain. Denies hemoptysis CARDIOVASCULAR: Denies chest pain or pressure. RESPIRATORY: No shortness of breath. GASTROINTESTINAL: See HPI for pertinent findings HEMATOLOGIC: Denies bleeding disorders. GENITOURINARY: Denies any blood in urine or increased urinary frequency. SKIN: Denies pruitis. Denies rash. PHYSICAL EXAM: VITAL SIGNS: Reviewed GENERAL: Well-developed in no acute distress. HEENT: No sclera icterus. Extraocular movements grossly intact. Moist buccal mucosa. Head is atraumatic, normocephalic. No nasal drainage. ABDOMEN: Soft. Nondistended. Nontender. Umbilical hernia NEUROLOGIC: Alert and oriented. Cranial nerves II through XII grossly intact. LABORATORY DATA: WBC 8.1 hemoglobin 9.1 platelets 228 INR 2.3 Sodium 141 potassium 5.2 creatinine 1.8 Albumin 3.1 IMAGING: ASSESSMENT: 1. Moderate protein calorie malnutrition 2. Dysphagia 3. Acute ischemic stroke with left facial droop 4. Metastatic poorly differentiated non-small cell lung cancer 5. New DVT of left lower extremity 6. History of atrial fibrillation 7. Nicotine dependence PLAN: -Patient scheduled for EGD with PEG tube placement on , 02/06/[address] Vega -Discontinue Coumadin -Hold IV heparin starting morning Thank you for this consultation [employer]ician [employer] Manager note has been reviewed by physician. Signing provider agrees with the documented findings, assessment, and plan of care. Past Medical History Past Medical History: Atrial Fibrillation, Coronary Artery Disease (CAD), Heart Failure, COPD, Hyperlipidemia, Hypertension, Myocardial Infarction ([place]) Additional Past Medical History / Comment(s): Pt recently admitted to [facility] on 07/17/21 with exacerbation CHF, laryngitis/bronchitis also found abnormal chest xray/cat scan and back compression fractures. Other hx: Paroxysmal Afib, occ asional bilateral leg cramping but much worse past couple days, increased L lower leg edema past couple days, sinus problems. Last Myocardial Infarction Date:: 2017 History of Any Multi-Drug Resistant Organisms: None Reported Past Surgical History: Heart Catheterization, Hernia Repair, Joint Replacement, Orthopedic Surgery Additional Past Surgical History / Comment(s): Rt knee torn meniscus repair, rt knee replacement, L inguinal hernia repair, Past Anesthesia/Blood Transfusion Reactions: Motion Sickness Past Psychological History: No Psychological Hx Reported Additional Psychological History / Comment(s): Pt resides with his spouse. He uses a walker or cane. Smoking Status: Current every day smoker Past Alcohol Use History: None Reported Additional Past Alcohol Use History / Comment(s): smoker since age 11 12ppd Past Drug Use History: None Reported - Past Family History Father Family Medical History: Unable to Obtain Mother Family Medical History: Dementia, Vascular Disorder Additional Family Medical History / Comment(s): from aneurysm Medications and Allergies Home Medications Medication Instructions Recorded Confirmed Type Aspirin [Adult Low Dose Aspirin EC] 81 mg PO DAILY 04/19/20 07/27/21 History Atorvastatin [Lipitor] 40 mg PO HS 04/19/20 07/27/21 History Cetirizine HCl [Zyrtec] 10 mg PO DAILY 04/19/20 07/27/21 History Furosemide [Lasix] 20 mg PO DAILY 04/19/20 07/27/21 History Metoprolol Tartrate [Lopressor] 75 mg PO BID 04/19/20 07/27/21 History Acetaminophen Tab [Tylenol] 650 mg PO Q6HR PRN tab 01/20/22 01/28/22 Rx lisinopriL [Zestril] 5 mg PO DAILY 30 Days #30 tab 07/19/21 07/27/21 Rx Warfarin [Coumadin] 4 mg PO HS 07/27/21 07/27/21 History Allergies Allergy/AdvReac Type Severity Reaction Status Date / Time chocolate flavor Allergy Unknown Unknown Verified 08/03/21 12:12 codeine Allergy Unknown Verified 07/27/21 09:38 Penicillins Allergy Rash/Hives Verified 07/27/21 09:38 Surgical - Exam Vital Signs Pulse Resp BP 90 18 127/70 07/27/21 08:29 07/27/21 08:29 07/27/21 08:29 Results - Labs 08/06/21 05:22 08/07/21 06:23 Abnormal Lab Results - Last 24 Hours (Table) 08/07/21 08/07/21 Range/Units 06:23 06:23 PT 23.3 H (9.0-12.0) sec INR 2.3 H (<1.2) Potassium 5.2 H (3.5-5.1) mmol/L Chloride 112 H (98-107) mmol/L Carbon Dioxide 20 L (22-30) mmol/L BUN 28 H (9-20) mg/dL Glucose 107 H (74-99) mg/dL Calcium 11.2 H (8.4-10.2) mg/dL Diabetes panel 08/07/21 Range/Units 06:23 Sodium 141 (137-145) mmol/L Potassium 5.2 H (3.5-5.1) mmol/L Chloride 112 H (98-107) mmol/L Carbon Dioxide 20 L (22-30) mmol/L BUN 28 H (9-20) mg/dL Creatinine 1.18 (0.66-1.25) mg/dL Glucose 107 H (74-99) mg/dL Calcium 11.2 H (8.4-10.2) mg/dL AST 42 (17-59) U/L ALT 24 (4-49) U/L Alkaline Phosphatase 83 (38-126) U/L Total Protein 7.7 (6.3-8.2) g/dL Albumin 3.7 (3.5-5.0) g/dL Calcium panel 08/07/21 Range/Units 06:23 Calcium 11.2 H (8.4-10.2) mg/dL Albumin 3.7 (3.5-5.0) g/dL Pituitary panel 08/07/21 Range/Units 06:23 Sodium 141 (137-145) mmol/L Potassium 5.2 H (3.5-5.1) mmol/L Chloride 112 H (98-107) mmol/L Carbon Dioxide 20 L (22-30) mmol/L BUN 28 H (9-20) mg/dL Creatinine 1.18 (0.66-1.25) mg/dL Glucose 107 H (74-99) mg/dL Calcium 11.2 H (8.4-10.2) mg/dL Adrenal panel 08/07/21 Range/Units 06:23 Sodium 141 (137-145) mmol/L Potassium 5.2 H (3.5-5.1) mmol/L Chloride 112 H (98-107) mmol/L Carbon Dioxide 20 L (22-30) mmol/L BUN 28 H (9-20) mg/dL Creatinine 1.18 (0.66-1.25) mg/dL Glucose 107 H (74-99) mg/dL Calcium 11.2 H (8.4-10.2) mg/dL Total Bilirubin 1.0 (0.2-1.3) mg/dL AST 42 (17-59) U/L ALT 24 (4-49) U/L Alkaline Phosphatase 83 (38-126) U/L Total Protein 7.7 (6.3-8.2) g/dL Albumin 3.7 (3.5-5.0) g/dL
--- NOTE | 2021-08-07 14:52 | P.PN ---
Subjective Progress Note Date: 08/07/21 Principal diagnosis: New Diagnosis non-small cell lung cancer In follow-up today patient is up in chair, low O2 sats. His is with him. Pt communicates by writing on paper. He has no c/o, he is asking what can be done. He has been aspirating so, PEG has been recommended for nutritional support. Pt agreed to the same. Objective - Vital Signs Vital signs: Vital Signs Temp 97.6 F 08/07/21 04:00 Pulse 97 08/07/21 11:56 Resp 28 H 08/07/21 14:16 BP 132/81 08/07/21 11:33 Pulse Ox 90 L 08/07/21 11:33 Intake & Output 08/06/21 08/07/21 08/07/21 18:59 06:59 18:59 Intake Total 498.485 60 450 Output Total 350 425 Balance 148.485 -365 450 Weight 74.5 kg Intake: Intake, IV Titration 158.485 250 Amount Heparin Sod,Pork in 0.45% 158.485 NaCl 25,000 unit In 0.45 % NaCl 1 250ml.bag @ 8.7 UNITS/KG/HR 6.482 mls/hr IV .Q24H [facility] Rx#: [id number] Sodium Chloride 0.9% 250 250 ml @ 83 mls/hr IV .Q3H1M ONE with Pamidronate 30 mg Rx#:[id number] Oral 340 60 200 Output: Urine 350 425 Uretheral ([place]) 425 Other: Voiding Method Indwelling Catheter Indwelling Catheter Indwelling Catheter - Constitutional General appearance: Present: average body habitus, cooperative, no acute distress - EENT Eyes: Present: anicteric sclerae ENT: Present: hearing grossly normal - Respiratory Details: congested cough - Cardiovascular Details: tachy Heart sounds: normal: S1, S2 - Gastrointestinal General gastrointestinal: Present: normal bowel sounds, soft - Neurologic Neurologic: Present: focal deficits (pt leans to the left) - Psychiatric Psychiatric: Present: A&O x's 3, appropriate affect, intact judgment & insight - Labs CBC & Chem 7: 08/06/21 05:22 08/07/21 06:23 Labs: Abnormal Lab Results - Last 24 Hours (Table) 08/07/21 08/07/21 Range/Units 06:23 06:23 PT 23.3 H (9.0-12.0) sec INR 2.3 H (<1.2) Potassium 5.2 H (3.5-5.1) mmol/L Chloride 112 H (98-107) mmol/L Carbon Dioxide 20 L (22-30) mmol/L BUN 28 H (9-20) mg/dL Glucose 107 H (74-99) mg/dL Calcium 11.2 H (8.4-10.2) mg/dL - Imaging and Cardiology NM bone scan report reviewed Assessment and Plan (1) Non-small cell cancer of right lung Narrative/Plan: New diagnosis. Suspect squamous cell subtype. MRI of the brain negative for metastasis, previously discussed with the patient and his . Nuclear medicine bone scan shows lesion at T12 and in left humerous. Plans for PET scan and next generation sequencing will be ordered to be done outpatient. Discussed with pt and that pt has spread lung cancer so unfortunately he is not curable bit, he is treatable. As above requested somatic testing to see if targeted agents are able to be used. We discussed pt poor performance status-3/5 right now. From an Oncology standpoint he is not currently a good candidate for active treatment. Rehabilitation is necessary. He will not likely qualify for inpt rehab, Case Mgmt consulted. If he is able to improve his performance status then he could be reevaluated to see if he is a candidate for cancer treatment. Will plan for f/u with Dr. Younger in 3-4 weeks, after PET. There is the further complication, pt is aspirating so, he now needs alternate route for nutrition. This was previously discussed with pt and he has agreed to PEG placement. Current Visit: Yes Status: Acute Priority: High Code(s): C34.91 - MALIGNANT NEOPLASM OF UNSP PART OF RIGHT BRONCHUS OR LUNG SNOMED Code(s): 046175812 (2) Hypercalcemia Narrative/Plan: 30 mg of Aredia given for hypercalcemia of malignancy yesterday. 1 more dose today. Check Ca++ in AM. Current Visit: Yes Status: Acute Priority: High Code(s): E83.52 - HYPERCALCEMIA SNOMED Code(s): 65347529 Plan: Did encourage pt and to get opinion of all Specialists following. Discussed case with Attending SOFT TILE SETTER.
[2021-08-07 16:45] VITALS: TEMP 97
[2021-08-07] MEDS ORDERED: WARFARIN 2 MG TAB PO ONE (18:00)
[2021-08-07] MEDS ORDERED: MORPHINE SULFATE 2 MG/ML SYRINGE IV PRN (20:41)
[2021-08-07] MEDS ORDERED: MORPHINE SULFATE (100 MG/2 ML) 100 MG in SODIUM CHLORIDE 0.9% 100 ML IV SCH (20:45)
[2021-08-07 21:12] VITALS: BP 99/65; PULSE 121; RESP 35
--- NOTE | 2021-08-07 22:55 | P.PN ---
Subjective Progress Note Date: 08/07/21 08/07/2021 Patient evaluated today sitting up in a chair with at the bedside. Patient continues on 100% NRB for comfort. Otherwise oxygenation is 90-92% between 6-10 L high flow cannula. Patient and family aware of the current recommendations for hospice based on patient's overall prognosis and multiple morbidities. Despite recommendations for targeted immunotherapy, patients oxygenation is poor. Continues on a dysphagia 2 with honey thick liquids however most likely continuing to aspirate. Patient and would like to pursue PEG tube and general surgery has been consult in for evaluation. Repeat chest x-ray yesterday shows bilateral infiltrate and pleural effusion stable. Bone scan wil ws abnormal uptake T12 for which x-ray correlation is suggested, metastasis in the differential diagnosis. faint abnormal uptake proximal left humerus x-ray correlation is recommended to assess for metastasis. Oncology is following the patient. He denies pain today, short of breath at rest, unable to tolerate much physical activity beyond transferring from chair to bed and standing for a brief moment at bedside. Patient dyspneic with conversation, he is able to communicate with a note pad. For now he does want PEG tube. Discussed case with oncology team. Labs today show INR 2.3, sodium 141, potassium 5.2, chloride 112, CO2 20, BUN 20, creatinine 1.18, calcium 11.2, total protein 7.7. Oxygenation is 90% on a 100% FiO2 nonrebreather, afebrile, heart rate 97, Tachycardic at Times, Respirations 26, Blood Pressure 132/81. He Continues on Updrafts, [place], Xanax As Needed for Anxiety, Pulmicort, IV Solumdedrol 80 Mg Every 8 Hours, Being treated for Hypercalcemia. Coumadin, heparin gtt discontinued. ROS Constitutional: Reports fatigue, denies fever Cardio vascular: denied any chest pain, palpitations Gastrointestinal denied any nausea vomiting, passing gas, no BM Pulmonary: Reports shortness of breath Neurologic denied any new focal deficits All inpatient medications were reviewed and appropriate changes in these medications as dictated in the interval history and assessment and plan. PHYSICAL EXAMINATION: GENERAL: The patient is alert and oriented x3, Respiratory distress. Well developed, well nourished. HEENT: Pupils are round and equally reacting to light. EOMI. No scleral icterus. No conjunctival pallor. Normocephalic, atraumatic. No pharyngeal erythema. No thyromegaly. CARDIOVASCULAR: S1 and S2 present. No murmurs, rubs, or gallops. PULMONARY: Coarse rhonchi throughout, basilar crackles ABDOMEN: Soft, nontender, nondistended, normoactive bowel sounds. No palpable organomegaly. MUSCULOSKELETAL: No joint swelling or deformity. EXTREMITIES: No cyanosis, clubbing, or pedal edema. NEUROLOGICAL: Gross neurological examination did not reveal any focal deficits. SKIN: No rashes. Assessment and plan Assessment: Acute hypoxic respiratory failure secondary to his lung cancer, acute COPD exacerbation, on 100 NRB with marginal saturations 90% Acute ischemic stroke with multifocal area involvement. Left facial droop and dysarthria secondary to above Aspiration, on ground dysphagia 2 diet with honey thick liquids, continuing to aspirate, now agreeing to PEG tube Acute COPD exacerbation Left lower extremity extensive acute DVT throughout anterior nasal vessels from the groin to the upper calf. Newly diagnosed poorly differentiated non-small cell lung cancer. Biopsy report on 08/03/2021. Right hilar mass and adenopathy suspicious for malignancy. s/p LN biopsy on 07/31/21 Bone scan suspicious for metastasis T12 and proximal left humerus Large right axillary mass or abdominal adenopathy. Hypovolemic hyponatremia Hyperkalemia with potassium 6.2, now 5.2 Chronic kidney disease stage III with creatinine level 2.26, now 1.18 Mild elevated troponin level History of coronary disease with occluded LAD. Medical management was recommended. Ongoing nicotine addiction Hypertension Hyperlipidemia Chronic CHF ejection fraction not known. Paroxysmal atrial fibrillation on anticoagulation with Coumadin INR 1.9 on admission. DVT prophylaxis: Coumadin, INR 2.3 Plan: Patient was admitted to the hospital acute ischemic infarct as per MRI of the brain. Also has DVT and respiratory failure secondary to lung cancer and COPD Continue Solumedrol Heparin gtt discontinued, INR now 2.3, continues on coumadin Oncology team on the case and the recommend PET scan outpatient Pulmonary team signed off the case. Family and Patient wish to purse PEG tube DVT prophylaxis: Coumadin GI Prophylaxis: Pepcid Overall prognosis is poor, current recommendations for Hospice. For now family and patient wish to continue current treatments. Dicussed in extent with and current oxygenation status, and overall tolerance to activity and PT/OT rehab potention is poor at this time that patient would benefit from hospice consult. Objective - Vital Signs Vital signs: Vital Signs Temp 97.6 F 08/07/21 04:00 Pulse 97 08/07/21 11:56 Resp 28 H 08/07/21 11:33 BP 132/81 08/07/21 11:33 Pulse Ox 90 L 08/07/21 11:33 Intake & Output 08/06/21 08/07/21 08/07/21 18:59 06:59 18:59 Intake Total 498.485 60 450 Output Total 350 425 Balance 148.485 -365 450 Weight 74.5 kg Intake: Intake, IV Titration 158.485 250 Amount Heparin Sod,Pork in 0.45% 158.485 NaCl 25,000 unit In 0.45 % NaCl 1 250ml.bag @ 8.7 UNITS/KG/HR 6.482 mls/hr IV .Q[facility]H [facility] Rx#: [id number] Sodium Chloride 0.9% 250 250 ml @ 83 mls/hr IV .Q3H1M ONE with Pamidronate 30 mg Rx#:[id number] Oral 340 60 200 Output: Urine 350 425 Uretheral ([place]) 425 Other: Voiding Method Indwelling Catheter Indwelling Catheter Indwelling Catheter - Labs CBC & Chem 7: 08/06/21 05:22 08/07/21 06:23 Labs: Abnormal Lab Results - Last 24 Hours (Table) 08/07/21 08/07/21 Range/Units 06:23 06:23 PT 23.3 H (9.0-12.0) sec INR 2.3 H (<1.2) Potassium 5.2 H (3.5-5.1) mmol/L Chloride 112 H (98-107) mmol/L Carbon Dioxide 20 L (22-30) mmol/L BUN 28 H (9-20) mg/dL Glucose 107 H (74-99) mg/dL Calcium 11.2 H (8.4-10.2) mg/dL Assessment and Plan Time with Patient: Greater than 30
[2021-08-08] MEDS ORDERED: FAMOTIDINE 20 MG TAB PO SCH (09:00)
--- NOTE | 2021-08-08 16:48 | P.DS ---
Providers Date of admission: 07/27/21 11:52 Attending physician: Ollie Quintero Consults: 07/27/21 11:51 Consult Physician Urgent Consulting Provider: Nabeel Marie Consult Reason/Comments: acute cva Do you want consulting provider notified?: Yes 07/27/21 21:45 Consult Physician Routine Consulting Provider: Devin Caruso Consult Reason/Comments: hilar mass and effusion Do you want consulting provider notified?: Yes, Notify in am 07/28/21 11:52 Consult Physician Routine Consulting Provider: Garcia Awad Consult Reason/Comments: Eval for IPR r/t CVA Do you want consulting provider notified?: Yes 08/02/21 15:23 Consult Physician Urgent Consulting Provider: Prince Singh Consult Reason/Comments: lymph node pathology results Do you want consulting provider notified?: Yes 08/06/21 18:24 Consult Physician Routine Consulting Provider: Hilton Vega Consult Reason/Comments: PEG placement Do you want consulting provider notified?: Yes [facility] Course: Final Diagnosis Acute hypoxic respiratory failure secondary to his lung cancer, acute COPD exacerbation, on 100 NRB with marginal saturations 90% Acute ischemic stroke with multifocal area involvement. Left facial droop and dysarthria secondary to above Aspiration, on ground dysphagia 2 diet with honey thick liquids, continuing to aspirate, now agreeing to PEG tube Acute COPD exacerbation Left lower extremity extensive acute DVT throughout anterior nasal vessels from the groin to the upper calf. Newly diagnosed poorly differentiated non-small cell lung cancer. Biopsy report on 08/03/2021. Right hilar mass and adenopathy suspicious for malignancy. s/p LN biopsy on 07/31/21 Bone scan suspicious for metastasis T12 and proximal left humerus Large right axillary mass or abdominal adenopathy. Hypovolemic hyponatremia Hyperkalemia with potassium 6.2, now 5.2 Chronic kidney disease stage III with creatinine level 2.26, now 1.18 Mild elevated troponin level History of coronary disease with occluded LAD. Medical management was recommended. Ongoing nicotine addiction Hypertension Hyperlipidemia Chronic CHF ejection fraction not known. Paroxysmal atrial fibrillation on anticoagulation with Coumadin INR 1.9 on admission. DVT prophylaxis: Coumadin, INR 2.3 Preliminary Cause of : Stage 4 non-small cell lung cancer new diagnosis. Discharge Disposition Last documented vitals on this patient at 1945 on 08/07/2021 show blood pressure of 99/65, heart rate 121, respirations 35, 80% oxygen saturation on a 100% non rebreather. Around 1999 on the evening of 08/07/2021, RN had spoken with patients who had agreed to comfort care orders at that time and patient was started on a morphine drip for comfort. With Tanya presents bedside, as per expiration record patient on 08/07/2021 at 2043. History taken from medical record. Hospital Course This is 76-year-old male who presented to the hospital with complaints of drooling out of the left side of his mouth at 7 AM that morning of July 27, 2021 while attempting to drink his coffee. Past medical history significant for atrial fibrillation on Coumadin, COPD, hypertension, chronic kidney disease stage III, coronary artery disease with occluded LAD, hyperlipidemia, chronic congestive heart failure. Patient also reports a fall 2 days ago however he denies hitting his head. EMS on scene noted that patient did have some dysarthria and left-sided facial droop. The facial droop was not witness prior by his . Pt has been to 51 years, no children. Additional past medical history includes patient lost his voice moments of laryngitis, smoked half a pack of cigarette per day for 50 years. Patient was walking normally until about 1 week ago due to back problems he has started using a walker. Labs on admission showed white count 9.5, hemoglobin 10.6, platelet count 102, PT 19.7, INR 1.9, sodium 131, potassium 6.2, chloride 104, CO2 20, BUN 72, creatinine 2.26, troponin 0.110, albumin 3.3. B12 1009, RBC folate 1057, TSH 1.670. Calcium then elevated to 10.6. Potassium remained critical, 6.9, 6.0, 6.2 and 5.9 and then resume to normal at 4.[address] in the EC shows tiny 5 mm cortical hyperdensity superior left precentral gyrus. A tiny cortical contusion/bleed is difficult to exclude especially if the patient experienced a fall on Coumadin. Otherwise there is moderate patchy burden of chronic small vessel ischemic disease and mild generalized atrophy. No other acute intracranial abnormality seen at this time. Iron studies also completed. Follow-up CT angiography shows patent bilateral carotid and vertebral arteries of the neck. A known abnormal mediastinal lymphadenopathy which warrants further oncologic evaluation. Further described on the patient's chest CT on 07/19/2021. There is a continued moderate layering right pleural effusion background COPD with patchy groundglass right greater than left visualized upper lungs could represent pneumonitis or patchy pulmonary edema. HEAD: There is no large vessel intracranial arterial occlusion or significant stenosis. A 4.5 mm saccular aneurysm projecting superiorly and medially from the proximal supraclinoid segment left ICA. Additional tiny 2 mm aneurysm projecting anteriorly from the left MCA bifurcation. Brain MRI: A focal areas of acute ischemia predominantly liquid puncture in appearance. Dominant area measures 1.3 x 0.8 cm right coronal radiata deep frontal white matter adjacent to the ventricular system. Back on mild to moderate diffuse report atrophy and moderate to advanced chronic small vessel ischemic change. Increase fluids in the right mastoid air cells, reflect product of mastoiditis. Correlate clinically. Venous Doppler: Positive for DVT. Extensive DVT throughout entire image vessels from going to the upper calf vessels in the left leg. Patient admitted to the hospital consults placed to neurology, pulmonary services. Neurology evaluation suspects acute ischemic stroke with multifocal involvement most likely embolic in nature, subtherapeutic INR 1.9 on arrival, also cerebral aneurysm. Right hilar mass and adenopathy suspicious for malignancy. Neurology had cleared patient to start on heparin as the benefits of heparinization for acute DVT outweighs the small risk of hemorrhagic conversion of CVA. Also to continue on Coumadin for INR between 2 and 3. Patient underwent modified barium swallow on Jul 30 which showed trace silent aspiration with thin liquids and penetration with other consistencies and subsequent tracing on aspiration residuals. Speech therapy consultation place as well. He was placed on a dysphagia level II ground diet with aspiration precautions and high thick liquids. It was felt that he was continuing to aspirate on this diet. Patient and family at that time refusing PEG tube. Patient continuing to decline in respiratory status, admitted on 2 to 3 L nasal cannula, progressed to require 15L HF cannula, or 100% NRB mask for comfort. Patient unable to tolerate physical activity beyond transitioning from the bed to the chair and standing to void. Pulmonary consultation discusses CT of the chest previous admission which showed neoplasm strongly suspected with markedly abnormal thoracic adenopathy throughout the mediastinum along with abnormal right axillary mass and adenopathy. This was to be followed in the outpatient setting however patient will be recommended for interventional radiology consult for biopsy of the right axillary lymph node for diagnosis and staging. There is also left inguinal mass likely a pathologic lymph node measuring up to 5.9 x 5.4 x 2.8 cm. Patient underwent biopsy of right axillary lymph node in 07/31/2021 which was positive for poorly differentiated metastatic non-small cell carcinoma with focal background lymphoid tissue present. Follow-up venous Doppler on August 01 shows no evidence of DVT right arm, there is superficial vein thrombosis in the cephalic and basalic veins there is patency of the jugular and subclavian artery and brachial veins. He was seen in consultation by oncology with plans for a PET and NGS as outpatient who does state that non-small cell cancer right lung is clinical stage IV overall intent is palliative not curable and family patient aware. He underwent bone scan which was abnormal uptake T12 for which xray correlation is suggested. Metastasis in the differential diagnosis. Faint abnormal uptake proximal left humerus x-ray correlation is recommended to assess for metastasis. Hospice was recommended and discussed with patient and by multiple consultations. Patient requiring 100% nonrebreather with oxygen saturations 80- 90% and rehab potential poor due to respiratory status. He was able to stand for 20 seconds before needing to sit back to chair and unable to attempt amputation he appeared fatigue with decreased strength and decreased endurance with PT on August 07. 2 days prior patient was able to ambulate with a rolling walker 10 feet. Patient is at high risk for aspiration. Patient and requested a surgical consultation for possible PEG tube placement at this time, plan is initially for EGD with PEG tube placement on , August 09. Patient's was considering pursuing treatment with targeted immunotherapy. If patients condition continued to worse it was recommended by pulmonary to consult IR for thoracentesis. Pulmonary signed off the case on 08/06/2021. Respiratory status continued to decline despite medical therapies as well as chyna hauser's functionality. Patient on 08/07/2021 at 2042, code status at that time was a do not resuscitate. Please see progress notes from 08/07/2021 for additional information. Thank you for allowing us to participate in the care of this patient. Patient Condition at Discharge: Serious Plan - Discharge Summary Discharge Rx Participant: No New Discharge Prescriptions: No Action Cetirizine HCl [Zyrtec] 10 mg PO DAILY Metoprolol Tartrate [Lopressor] 75 mg PO BID Furosemide [Lasix] 20 mg PO DAILY Atorvastatin [Lipitor] 40 mg PO HS Aspirin [Adult Low Dose Aspirin EC] 81 mg PO DAILY Acetaminophen Tab [Tylenol] 650 mg PO Q6HR PRN tab PRN Reason: Fever And/ Or Pain Warfarin [Coumadin] 4 mg PO HS lisinopriL [Zestril] 5 mg PO DAILY 30 Days #30 tab Discharge Medication List Aspirin [Adult Low Dose Aspirin EC] 81 mg PO DAILY 04/19/20 [History] Atorvastatin [Lipitor] 40 mg PO HS 04/19/20 [History] Cetirizine HCl [Zyrtec] 10 mg PO DAILY 04/19/20 [History] Furosemide [Lasix] 20 mg PO DAILY 04/19/20 [History] Metoprolol Tartrate [Lopressor] 75 mg PO BID 04/19/20 [History] Acetaminophen Tab [Tylenol] 650 mg PO Q6HR PRN tab 07/19/21 [Rx] lisinopriL [Zestril] 5 mg PO DAILY 30 Days #30 tab 07/19/21 [Rx] Warfarin [Coumadin] 4 mg PO HS 07/27/21 [History] Follow up Appointment(s)/Referral(s): Nicky Manuel MD [STAFF PHYSICIAN] - 1 Week Wai Younger MD [STAFF PHYSICIAN] - 4 Weeks (F/U after PET scan. Ofc will contact pt with apptointments ) Miko Reyes DO [Primary Care Provider] - 1-2 days Discharge Disposition: - Preliminary Cause of Preliminary Cause of : Stage 4 non-small cell lung cancer new diagnosis
== END 2021-08-07 22:30 | disposition expired | DRG 40 ==
LOC: EC 08:21 → 3SCARD 11:52
PROVIDERS: ADMIT Internal Medicine; ATTEND Internal Medicine
PROC: 07B53ZX Excision of Right Axillary Lymphatic, Percutaneous Approach, Diagnostic (ICD-10-PCS; principal; 2021-07-31)
PROC: 5A0945A Assistance with Respiratory Ventilation, 24-96 Consecutive Hours, High Flow/Velocity Cannula (ICD-10-PCS; 2021-08-04)
DX: I63.40 Cerebral infarction due to embolism of unspecified cerebral artery (principal); J96.01 Acute respiratory failure with hypoxia; C34.01 Malignant neoplasm of right main bronchus; C77.3 Secondary and unspecified malignant neoplasm of axilla and upper limb lymph nodes; C77.1 Secondary and unspecified malignant neoplasm of intrathoracic lymph nodes; C79.89 Secondary malignant neoplasm of other specified sites; E44.0 Moderate protein-calorie malnutrition; E87.1 Hypo-osmolality and hyponatremia; I13.0 Hypertensive heart and chronic kidney disease with heart failure and stage 1 through stage 4 chronic kidney disease, or unspecified chronic kidney disease; I82.402 Acute embolism and thrombosis of unspecified deep veins of left lower extremity; J44.1 Chronic obstructive pulmonary disease with (acute) exacerbation; N17.9 Acute kidney failure, unspecified; M48.50XA Collapsed vertebra, not elsewhere classified, site unspecified, initial encounter for fracture; C79.51 Secondary malignant neoplasm of bone; F17.210 Nicotine dependence, cigarettes, uncomplicated; N18.30 Chronic kidney disease, stage 3 unspecified; D63.1 Anemia in chronic kidney disease; Z68.28 Body mass index [BMI] 28.0-28.9, adult; Z66 Do not resuscitate; Z99.81 Dependence on supplemental oxygen; I50.9 Heart failure, unspecified; H70.90 Unspecified mastoiditis, unspecified ear; I67.1 Cerebral aneurysm, nonruptured; T17.990A Other foreign object in respiratory tract, part unspecified in causing asphyxiation, initial encounter; Z51.5 Encounter for palliative care; I25.10 Atherosclerotic heart disease of native coronary artery without angina pectoris; I25.2 Old myocardial infarction; I48.0 Paroxysmal atrial fibrillation; E78.5 Hyperlipidemia, unspecified; E86.1 Hypovolemia; E87.5 Hyperkalemia; R13.10 Dysphagia, unspecified; R25.2 Cramp and spasm; E83.52 Hypercalcemia; R29.810 Facial weakness; R77.8 Other specified abnormalities of plasma proteins; R26.9 Unspecified abnormalities of gait and mobility; R53.81 Other malaise; R29.703 NIHSS score 3; R47.9 Unspecified speech disturbances; Z79.01 Long term (current) use of anticoagulants; Z91.81 History of falling; Z86.73 Personal history of transient ischemic attack (TIA), and cerebral infarction without residual deficits; Z79.82 Long term (current) use of aspirin; Z79.899 Other long term (current) drug therapy; Z98.890 Other specified postprocedural states; Z96.651 Presence of right artificial knee joint; Z91.018 Allergy to other foods; Z82.49 Family history of ischemic heart disease and other diseases of the circulatory system; Z88.5 Allergy status to narcotic agent; Z88.0 Allergy status to penicillin
CPT/HCPCS: 36415; 38505; 70450; 70496; 70498; 70553; 71045; 71046; 74230; 76942; 78306; 80048; 80053; 80061; 81001; 82306; 82330; 82607; 82728; 82746; 82747; 83036; 83540; 83550; 83615; 83735; 83921; 84132; 84443; 84484; 85025; 85027; 85610; 85730; 88305; 88341; 88342; 93005; 94640; 96374; 96375; 99285